=== PATIENT | female | born 1940 | race Caucasian/White ===

== ENCOUNTER 2016-10-09 05:57 | Inpatient (IN) | payer OTHER, MEDICAID ==
[~2016-10-09] VITALS: Ht 147.3 cm; Wt 57.6 kg
[2016-10-09] VITALS (28 sets, daily range): BP systolic 83–113; BP diastolic 48–85; PULSE 70–80; RESP 13–20; TEMP 97.8; Ht 147.3 cm; Wt 57.6 kg
--- NOTE | 2016-10-09 06:26 | RADRPT ---
PROCEDURE: CT brain without contrast. CLINICAL INDICATION: Altered mental status. TECHNIQUE: CT scan of the brain was performed on a multi-detector high-resolution CT scanner. Co ntiguous axial images were obtained from the skull base to the vertex without intravenous contrast. Coronal and sagittal reformatted images were also obtained. Images were reviewed on the PACS works tation. One or more of the following dose reduction techniques were used: - Automated exposure control. - Adjustment of the mA and/or kV according to patient size. - Use of iterative reconstruction technique. Exam CTD/vol = 43.16 mGy. Total exam DLP = 720.23 mGy-cm. COMPARISON: None. FINDINGS: There is an area of parenchymal hemorrhage within the right posterior frontal lobe measuring approxi mately 2.5 x 4.3 cm with surrounding edema. There is moderate intraventricular hemorrhage within bi lateral lateral ventricles. The ventricles and cortical sulci are prominent consistent with mild ag e related volume loss. There is no midline shift. The calvarium is intact. There is no evidence of fracture. Visualized paranasal sinuses and mastoi d air cells are clear. IMPRESSION: Right posterior frontal lobe parenchymal hematoma with mild adjacent edema. There is no midline ag ft. Moderate intraventricular hemorrhage. Mild age related volume loss. A call report was made to Dr. Summers at 06:22 a.m. .Bert Gonsales MD, MD Date Time Electronically viewed and signed by .Bert Gonsales MD, MD on 10/09/2016 06:25 .T/
--- NOTE | 2016-10-09 06:29 | ERA ---
ER Documentation Chief Complaint Date/Time DATE: 10/09/16 TIME: 06:29 Chief Complaint BIBA RA89 from home ALOC,s/p fall HPI History is limited due to the patient's clinical condition, supplemented by EMS and family. 76-year-old female history of diabetes mellitus type 2, hypertension, hyperlipidemia, SLE, liver cirrhosis and thyroid disease brought to the ED via rescue ambulance for evaluation of left-sided weakness. Patient was last seen normal last night and this morning at 4 AM called her friend to say she was not feeling well. At 530 her friend arrived at her house and found her on the ground not moving her left side and call 911. Slurred speech. Patient complaining of mild to moderate, crampy, generalized abdominal pain but denies nausea, vomiting, diarrhea or constipation. Mild, generalized headache but denies neck or back pain. No visual changes but numbness and weakness to the left upper and left lower extremity. Denies chest pain, palpitations, shortness of breath or cough. No recent URI symptoms. No fevers or chills ROS All systems reviewed and are negative except as per history of present illness. Medications Home Meds Reported Medications Hydroxychloroquine Sulfate* (Hydroxychloroquine Sulfate*) 200 Mg Tablet, 200 MG PO BID, TAB 10/09/16 Pantoprazole* (Protonix*) 40 Mg Tablet.dr, 40 MG PO DAILY, TAB 10/09/16 Losartan Potassium* (Losartan Potassium*) 100 Mg Tablet, 100 MG PO DAILY, TAB 10/09/16 Levothyroxine Sodium* (Levoxyl*) 125 Mcg Tablet, 125 MCG PO BEFORE BREAKFAST, # 30 TAB 10/09/16 Allergies Allergies: Coded Allergies: Penicillins (Verified Allergy, Unknown, 10/09/16) PMhx/Soc Reviewed in chart. As per HPI. Anesthesia Reaction: Yes Hx Neurological Disorder: No Hx Respiratory Disorders: No Hx Cardiac Disorders: Yes (Hypertension) Hx Psychiatric Problems: No Hx Miscellaneous Medical Probl: Yes (Lupus, hyperlipidemia, thyroid disease) Hx Alcohol Use: No Hx Substance Use: No Hx Tobacco Use: No FmHx No stroke or cancer. Physical Exam Vitals Vital Signs Date Time Temp Pulse Resp B/P Pulse Ox O2 Delivery O2 Flow Rate FiO2 10/09/16 12:26 97.8 90 18 94/64 100 Nasal Cannula 2.0 10/09/16 10:00 96 18 107/60 99 Nasal Cannula 3.0 10/09/16 07:48 98.4 10/09/16 06:59 98.4 94 18 100/71 99 Nasal Cannula 10/09/16 06:54 97 18 113/57 99 Nasal Cannula 10/09/16 06:33 Nasal Cannula 10/09/16 06:05 98.2 107 18 128/72 100 Physical Exam Const: Alert, severe distress. Head: Atraumatic Eyes: Normal Conjunctiva. Pupils equal reactive to light. Left-sided neglect. ENT: Dried blood around the mouth. Lower incisor is missing. Neck: Full range of motion. Mild, diffuse lower cervical tenderness but no paraspinal muscle spasm. Carotids are 2+ bilaterally without bruits. Resp: Breath sounds are equal and clear to auscultation bilaterally Cardio: Regular rate and rhythm, no murmurs Abd: Soft, mild, diffuse lower abdominal tenderness. No rebound or guarding. non distended. Normal bowel sounds Skin: No petechiae or rashes Back: No midline or flank tenderness Ext: No cyanosis, or edema Neur: Awake and alert. Left-sided facial droop. Dysarthric. Motor strength left upper extremity 2/5, left lower extremity 3/5. Right upper extremity/right lower extremity 5/5. Psych: Normal Mood and Affect Result Diagram: 10/09/16 0600 10/09/16 0600 Results 24 hrs Laboratory Tests Test 10/09/16 06:00 10/09/16 06:05 10/09/16 06:10 10/09/16 07:20 White Blood Count 26.210^3/ul Red Blood Count 3.0210^6/ul Hemoglobin 9.9g/dl Hematocrit 29.5% Mean Corpuscular Volume 97.7fl Mean Corpuscular Hemoglobin 32.8pg Mean Corpuscular Hemoglobin Concent 33.6g/dl Red Cell Distribution Width 15.5% Platelet Count 7610^3/UL Mean Platelet Volume 10.5fl Neutrophils % 82.0% Band Neutrophils % 16.0% Lymphocytes % 2.0% Eosinophils % % Neutrophils # 21.510^3/ul Lymphocytes # 0.510^3/ul Eosinophils # 10^3/ul Platelet Estimate PLT APPEAR DECREASED Prothrombin Time 18.8Sec Prothrombin Time Ratio 1.5 INR International Normalized Ratio 1.56 Activated Partial Thromboplast Time 37.2Sec Sodium Level 145mmol/L Potassium Level 4.1mmol/L Chloride Level 109mmol/L Carbon Dioxide Level 14mmol/L Anion Gap 26 Blood Urea Nitrogen 20mg/dl Creatinine 1.15mg/dl Glucose Level 84mg/dl Hemoglobin A1c 4.3% Calcium Level 8.5mg/dl Total Bilirubin 1.4mg/dl Direct Bilirubin 0.00mg/dl Indirect Bilirubin 1.4mg/dl Aspartate Amino Transf (AST/SGOT) 66IU/L Alanine Aminotransferase (ALT/SGPT) 37IU/L Alkaline Phosphatase 180IU/L Troponin I 0.122ng/ml Total Protein 8.3g/dl Albumin 3.5g/dl Globulin 4.80g/dl Albumin/Globulin Ratio 0.72 Lipase 40U/L Bedside Glucose 84mg/dL Lactic Acid Level 7.7mmol/L Platelet Func Collagen/Epinephrine > 300Secs. Platelet Function Collagen/ADP > 300Secs. Thyroid Stimulating Hormone (TSH) 2.440MIU/L Free Thyroxine 1.97ng/dl Test 10/09/16 07:44 10/09/16 09:00 10/09/16 09:10 10/09/16 11:12 Ethyl Alcohol Level < 10.0mg/dl Stool Occult Blood NEGATIVE Lactic Acid Level 4.3mmol/L 2.9mmol/L Iron Level 19ug/dl Total Iron Binding Capacity 263ug/dl Percent Iron Saturation 7% SAT B-Type Natriuretic Peptide 3380PG/ML Triglycerides Level 89mg/dl Cholesterol Level 109mg/dl LDL Cholesterol, Calculated 49mg/dl HDL Cholesterol 42mg/dl Cholesterol/HDL Ratio 2.5RATIO Vitamin D 1,25-Dihydroxy 52.3ng/ml Test 10/09/16 11:27 10/09/16 12:15 Urine Color WARREN Urine Clarity CLOUDY Urine pH 5.0 Urine Specific Broadbent 1.016 Urine Ketones NEGATIVEmg/dL Urine Nitrite NEGATIVEmg/dL Urine Bilirubin NEGATIVEmg/dL Urine Urobilinogen 1+mg/dL Urine Leukocyte Esterase 2+Cleopatra/ul Urine Microscopic RBC 17/HPF Urine Microscopic WBC 169/HPF Urine Squamous Epithelial Cells FEW/HPF Urine Amorphous Crystals FEW/HPF Urine Bacteria MANY/HPF Urine Hyaline Casts FEW/HPF Urine Mucus FEW/HPF Urine Hemoglobin 3+mg/dL Urine Glucose NEGATIVEmg/dL Urine Total Protein 2+mg/dl Urine Opiates Screen Negative Urine Barbiturates Negative Urine Amphetamines Screen Negative Urine Benzodiazepines Screen Negative Urine Cocaine Screen Negative Urine Cannabinoids Negative Lactic Acid Level 2.8mmol/L Ammonia 44umol/l Creatine Kinase 219IU/L Creatine Kinase Index Pending Creatinine Kinase MB (Mass) Pending Troponin I Pending Current Medications Medications (Trade) Dose Ordered Sig/Ramses Route PRN Reason Start Time Stop Time Status Last Admin Dose Admin Levetiracetam 100 ml @ 400 mls/hr ONCE ONCE IVPB 10/09/16 07:00 10/09/16 07:14 DC 10/09/16 07:08 Vancomycin HCl 250 ml @ 125 mls/hr ONCE ONCE IVPB 10/09/16 08:30 10/09/16 10:29 DC 10/09/16 08:30 Levofloxacin/ Dextrose (Levaquin 750 Mg/ D5W 150 ml (Pmx)) 150 ml @ 100 mls/hr ONCE ONCE IVPB 10/09/16 08:30 10/09/16 09:59 DC 10/09/16 08:10 Pantoprazole (Protonix Iv) 40 mg ONCE ONCE IV 10/09/16 08:30 10/09/16 08:31 DC 10/09/16 08:46 Lidocaine 5 ml 5 ml ONCE ONCE SC 10/09/16 08:30 10/09/16 08:31 DC Phytonadione/ Dextrose (Vitamin K/D5W) 51 ml @ 102 mls/hr ONCE ONCE IVPB 10/09/16 08:30 10/09/16 08:59 DC 10/09/16 09:19 Labetalol HCl (Labetalol) 10 mg Q10M PRN IV ELEVATED BLOOD PRESSURE 10/09/16 09:00 Lorazepam (Ativan) 0.5 mg Q2H PRN IV SEIZURES 10/09/16 09:00 Acetaminophen (Tylenol Tab) 650 mg Q4H PRN PO TEMP GREATER THAN 99.6F 10/09/16 09:00 Docusate Sodium 100 mg 100 mg BID PO 10/09/16 09:00 Sodium Chloride 1,000 ml @ 100 mls/hr Q10H IV 10/09/16 10:00 Metronidazole 100 ml @ 100 mls/hr Q8 IVPB 10/09/16 14:00 Cefepime HCl (Maxipime 1gm/50 ml (Pmx)) 50 ml @ 100 mls/hr Q12 IVPB 10/09/16 10:30 10/09/16 11:05 IV Flush (NS 3 ml) 3 ml PER PROTOCOL IV 10/09/16 10:30 Ondansetron HCl (Zofran Inj) 4 mg Q6H PRN IV NAUSEA AND/OR VOMITING 10/09/16 10:30 Morphine Sulfate (morphine) 2 mg Q4H PRN IV PAIN LEVEL 7-10 10/09/16 10:30 10/09/16 11:33 Pantoprazole 40 mg 40 mg DAILY@06 IV 10/10/16 06:00 Levetiracetam (Keppra 500 Mg/ 100ml (Pmx)) 100 ml @ 400 mls/hr Q12 IVPB 10/09/16 21:00 EKG: TIME: 100. Sinus rhythm. Ventricular rate 100. Normal ND and QRS. Septal Q waves in leads V1 through V3. Prolonged corrected QT interval of [address] segment elevation or depression. No ectopy. EP Interpretation : Abnormal EKG. IMAGING: PROCEDURE: CT brain without contrast. CLINICAL INDICATION: Altered mental status. TECHNIQUE: CT scan of the brain was performed on a multi-detector high- resolution CT scanner. Contiguous axial images were obtained from the skull base to the vertex without intravenous contrast. Coronal and sagittal reformatted images were also obtained. Images were reviewed on the PACS workstation. One or more of the following dose reduction techniques were used: - Automated exposure control. - Adjustment of the mA and/or kV according to patient size. - Use of iterative reconstruction technique. Exam CTD/vol = 43.16 mGy. Total exam DLP = 720.23 mGy-cm. COMPARISON: None. FINDINGS: There is an area of parenchymal hemorrhage within the right posterior frontal lobe measuring approximately 2.5 x 4.3 cm with surrounding edema. There is moderate intraventricular hemorrhage within bilateral lateral ventricles. The ventricles and cortical sulci are prominent consistent with mild age related volume loss. There is no midline shift. The calvarium is intact. There is no evidence of fracture. Visualized paranasal sinuses and mastoid air cells are clear. IMPRESSION: Right posterior frontal lobe parenchymal hematoma with mild adjacent edema. There is no midline shift. Moderate intraventricular hemorrhage. Mild age related volume loss. A call report was made to Dr. Nolan at 06:22 a.m. .Bert Gonsales MD, MD Date Time Electronically viewed and signed by .Bert Gonsales MD, MD on 10/09/2016 06:25 .T/ PROCEDURE: CT Abdomen and pelvis without contrast. CLINICAL INDICATION: Abdominal pain. TECHNIQUE: CT scan of the abdomen and pelvis was performed on a multi- detector high-resolution CT scanner. Contiguous axial images were obtained from the lung bases to the ischial tuberosities without intravenous contrast. Coronal and sagittal reformatted images were also obtained. Images were reviewed on the PACS workstation. One or more of the following dose reduction techniques were used: - Automated exposure control. - Adjustment of the mA and/or kV according to patient size. - Use of iterative reconstruction technique. Exam CTD/vol = 12.24 mGy. Total exam DLP = 690.58 mGy-cm. COMPARISON: None. FINDINGS: Evaluation of the lung bases demonstrates mild bibasilar atelectasis. Abdomen: The liver is normal in size with a diffuse nodular contour consistent with cirrhosis. There is no focal mass or dilatation of the biliary tree. The patient status post cholecystectomy. The spleen, pancreas and bilateral adrenal glands are within normal limits. Bilateral kidneys are normal in size with no contour deforming mass identified. There is no radiopaque renal or ureteral calculus identified. There is no hydronephrosis or hydroureter. There is no retroperitoneal adenopathy. The abdominal aorta is of normal caliber with scattered atherosclerotic calcifications. There is a small right periumbilical hernia containing fat. There is mild thickening of the colon. There is no bowel obstruction or free air. A normal appendix is identified. There is sigmoid diverticulosis without evidence of diverticulitis. There is no ascites. Pelvis: The bladder is unremarkable. The uterus is absent. The prostate and seminal vesicles are within normal limits. There is no significant pelvic adenopathy or free fluid. Evaluation of the osseous structures demonstrates no suspicious lytic or blastic lesion. There is a mild compression deformity of the L2 vertebral body with up to 25% loss in vertebral body height. IMPRESSION: Mild thickening of the colon represents nonspecific infectious/inflammatory colitis. Sigmoid diverticulosis without evidence of diverticulitis. Cirrhotic liver. Status post cholecystectomy. Small right umbilical hernia containing fat. Vascular calcifications reflective of atherosclerosis. Mild bibasilar atelectasis. Mild compression deformity of L2, age indeterminate. .Bert Gonsales MD, Date Time Electronically viewed and signed by .Bert Gonsales MD, MD on 10/09/2016 06:28 .T/ PROCEDURE: CT Cervical Spine without contrast. CLINICAL INDICATION: Trauma, neck pain. TECHNIQUE: A CT of the cervical spine was performed on a multidetector CT scanner utilizing high-resolution axial imaging from the skull base through the cervical thoracic junction. Sagittal and coronal reconstructions were performed. CTDI: 22 mGy. DLP: 473 mGycm. One or more of the following dose reduction techniques were used: Automated exposure control, Adjustment of the mA and/or kV according to patient size, and/or use of iterative reconstruction technique. COMPARISON: None available. FINDINGS: There is straightening of the normal lordosis of the cervical spine. Degenerative changes of the spine with moderate disk space narrowings C4-5 through C6-7. No acute cervical vertebral fracture or subluxation. The prevertebral soft tissues are unremarkable. Aortic and carotid vascular calcifications are seen. IMPRESSION: Straightening of the cervical lordosis. No acute cervical vertebral fracture or subluxation. Degenerative changes of the spine. RPTAT: AA .Saad Solitario MD, MD Date Time Electronically viewed and signed by .Saad Solitario MD, on 10/09/2016 08:57 .T/ Procedures/MDM DOCUMENTS REVIEWED: ED nurse, EMS, no prior records ED COURSE: Keppra 1 g IV piggyback. 1 platelet pheresis pack and fresh frozen plasma ordered. Vitamin K 10 mg IV given. Maintain blood pressure less than 160 mm systolic. Time: 10:00 Volume Re-assessment for Septic Shock: Temp 97.8, BP 107/60, HR 96, RR 18, Pox 99 Heart Regular rate & rhythm Lungs No crackles Skin Warm & dry Cap Refill Less than 2 seconds Peripheral pulses Radially present MEDICAL DECISION MAKIN-year-old female history of diabetes mellitus type 2 , hypertension, hyperlipidemia, SLE, liver cirrhosis and thyroid disease brought to the ED via rescue ambulance for evaluation of left-sided weakness. CT reveals a right posterior frontal lobe parenchymal hemorrhage measuring 2.5 x 4.3 cm surrounding edema and moderate intraventricular hemorrhage in the bilateral lateral ventricles. Neurosurgery immediately consulted and recommends blood pressure control with ICU admission. Keppra given. Within 15 minutes of arrival the patient's NIH score was 12. Elevated troponin consistent with NSTEMI but no acute ischemic EKG changes or chest pain. Coagulopathy, anemia and thrombocytopenia. Fresh frozen plasma, platelets and vitamin K given. SIRS criteria include tachycardia and leukocytosis. Initial lactate is 7.7 consistent with septic shock decreased to 4.3. End organ damage indicated by troponin of 0.122. The only infectious etiology identified was a urinary tract infection. Within 3 hours of arrival antibiotics are given after cultures. Fluids were withheld due to the need to maintain blood pressure control and avoid further intracranial bleeding as well as risk of congestive heart failure/volume overload as chest x-ray already reveals pulmonary vascular congestion and cardiomegaly. No hypotension. PICC line ordered for additional access although no vasopressors are indicated at this time. Admit to the ICU for further evaluation and management. CRITICAL CARE TIME: Due to the high probability of sudden clinically significant respiratory, hemodynamic and cardiovascular deterioration, this patient with intraparenchymal brain hemorrhage close monitoring and treatment of unstable vital signs, cardiorespiratory, and neurologic status, while maintaining tight balance of fluid, respiratory, and cardiac interventions. This includes the administration of emergency fluid management while maintaining close respiratory support as well as the provision of immediate and broad-spectrum antibiotic therapy, while performing a simultaneous assessment for possible sources in order to direct targeted therapy. This time includes discussing the case with the patient and the patient's family. This time also includes the consideration for invasive and chemical support to prevent cardiopulmonary collapse. This time does not include all procedures stated elsewhere in this record. This time also includes reviewing old records, labs and radiological studies. This time includes examining and re-examining the patient. Additional critical care time was spent in obtaining supplemental history from EMS and family, interpretation of relevant clinical data including labs, chest x-ray and CT scan of the brain as well as consultation with the neurosurgeon Dr. Leong and the admitting physician. Family history as documented. TOTAL CRITICAL CARE TIME: 45 minutes not including other separately reportable procedures. Counseled patient and family regarding diagnosis, diagnostic results and plan for admission. CALLS/CONSULTS: Time 06:26, Dr. Leong, Recommends maintaining systolic blood pressure less than 160 mmHg and admission to ICU admit. CALLS/CONSULTS: Time 06:45, , Recommends ICU admit. PATIENT CARE TRANSITIONED: Time: 06:50, Dr. Prater. Departure Diagnosis: Primary Impression: Intraparenchymal hemorrhage of brain Additional Impressions: Acute left-sided weakness Intraventricular hemorrhage Diabetes mellitus type 2 in obese SLE (systemic lupus erythematosus) Qualified Code: M32.9 - Systemic lupus erythematosus, unspecified SLE type, unspecified organ involvement status Hypertension Qualified Code: I10 - Essential hypertension NSTEMI (non-ST elevated myocardial infarction) Thrombocytopenia Condition: Critical LIBIA NOLAN MD Oct 09, 2016 06:29
[2016-10-09 06:36] LABS: ABNORMAL IP MESSAGE 1; HEMATOCRIT 29.5 % (37.0-47.0); HEMOGLOBIN 9.9 g/dl (12.0-16.0); MEAN CORPUSCULAR HEMOGLOBIN 32.8 pg (29.0-33.0); MEAN CORPUSCULAR HGB CONC 33.6 g/dl (32.0-37.0); MEAN CORPUSCULAR VOLUME 97.7 fl (82.0-101.0); MEAN PLATELET VOLUME 10.5 fl (7.4-10.4); PLATELET COUNT 76 10^3/UL (140-415); RED BLOOD COUNT 3.02 10^6/ul (4.20-5.40); RED CELL DISTRIBUTION WIDTH 15.5 % (11.5-14.5); WHITE BLOOD COUNT 26.2 10^3/ul (4.8-10.8)
[2016-10-09 06:55] LABS: INR 1.56; PROTIME 18.8 Sec (12.2-14.2); PT RATIO 1.5
[2016-10-09 06:56] LABS: PARTIAL THROMBOPLASTIN TIME 37.2 Sec (25.0-35.0)
[2016-10-09 06:57] LABS: ALBUMIN 3.5 g/dl (3.3-4.9); ALBUMIN/GLOBULIN RATIO 0.72; BILIRUBIN,INDIRECT 1.4 mg/dl (0-1.1); BILIRUBIN,TOTAL 1.4 mg/dl (0.2-1.3); CALCIUM 8.5 mg/dl (8.4-10.2); CREATININE 1.15 mg/dl (0.44-1.00); POTASSIUM 4.1 mmol/L (3.5-5.1); TOTAL PROTEIN 8.3 g/dl (6.1-8.1)
[2016-10-09] MEDS ORDERED: LEVETIRACETAM 1000 MG (PMX) 100 ML IVPB ONE (07:00)
[2016-10-09 07:12] LABS: TROPONIN-I 0.122 ng/ml (0.00-0.12)
--- NOTE | 2016-10-09 07:26 | RADRPT ---
PROCEDURE: Chest. CLINICAL INDICATION: Chest pain. TECHNIQUE: Single frontal view of the chest was obtained. COMPARISON: None. FINDINGS: The cardiac silhouette is enlarged. The aortic arch is calcified. There is mild pulmonary venous c ongestion. There is no focal consolidation or pleural effusion. There is no pneumothorax. IMPRESSION: Mild cardiomegaly and pulmonary venous congestion. Aortic atherosclerosis. .Bert Gonsales MD, MD Date Time Electronically viewed and signed by .Bert Gonsales MD, on 10/09/2016 07:25 .T/
[2016-10-09] MEDS ORDERED: PHYTONADIONE 10 MG in DEXTROSE 5% 50 ML IVPB ONE (08:30)
[2016-10-09] MEDS ORDERED: PANTOPRAZOLE 40 MG INJ IV ONE (08:30)
[2016-10-09] MEDS ORDERED: LEVOFLOXACIN 750MG/D5W (PMX) 150 ML IVPB ONE (08:30)
[2016-10-09] MEDS ORDERED: VANCOMYCIN 1 GM (PMX) 250 ML IVPB ONE (08:30)
[2016-10-09] MEDS ORDERED: LIDOCAINE 1% (MPF) 5 ML VIAL SC ONE (08:30)
--- NOTE | 2016-10-09 08:41 | RADRPT ---
PROCEDURE: XR Pelvis. CLINICAL INDICATION: Fall with pain. TECHNIQUE: Single AP view of the pelvis. COMPARISON: None available. FINDINGS: There is no acute fracture, dislocation, or other osteoarticular abnormality. The alignment is paula l. The soft tissues are unremarkable. There is no radiopaque foreign body. There is degenerative s pondylosis within the visualized lumbosacral spine. IMPRESSION: 1. Negative for acute fracture or dislocation. RPTAT: EE .Toby Bautista MD, Date Time Electronically viewed and signed by .Toby Bautista MD, on 10/09/2016 08:41 .P/
--- NOTE | 2016-10-09 08:58 | RADRPT ---
PROCEDURE: CT Cervical Spine without contrast. CLINICAL INDICATION: Trauma, neck pain. TECHNIQUE: A CT of the cervical spine was performed on a multidetector CT scanner utilizing high-r esolution axial imaging from the skull base through the cervical thoracic junction. Sagittal and co jackie reconstructions were performed. CTDI: 22 mGy. DLP: 473 mGycm. One or more of the following dose reduction techniques were used: Automated exposure control, Adjustment of the mA and/or kV acc ording to patient size, and/or use of iterative reconstruction technique. COMPARISON: None available. FINDINGS: There is straightening of the normal lordosis of the cervical spine. Degenerative changes of the spi ne with moderate disk space narrowings C4-5 through C6-7. No acute cervical vertebral fracture or lares bluxation. The prevertebral soft tissues are unremarkable. Aortic and carotid vascular calcification s are seen. IMPRESSION: Straightening of the cervical lordosis. No acute cervical vertebral fracture or subluxation. Degenerative changes of the spine. RPTAT: AA .Saad Solitario MD, MD Date Time Electronically viewed and signed by .Saad Solitario MD, MD on 10/09/2016 08:57 .T/
[2016-10-09] MEDS ORDERED: LORAZEPAM 2 MG INJ IV PRN (09:00)
[2016-10-09] MEDS: DOCUSATE SODIUM 100 MG CAP PO SCH ×2 (09:00→20:30)
--- NOTE | 2016-10-09 10:28 | HP ---
Date/Time of Note Date/Time of Note DATE: 10/09/16 TIME: 10:18 Assessment/Plan VTE Prophylaxis VTE Prophylaxis Intervention: SCD's Assessment/Plan Chief Complaint/Hosp Course 1. Right posterior frontal lobe parenchymal hematoma and moderate intraventricular hemorrhage. Etiology could be secondary to underlying fall with predisposing thrombocytopenia secondary to underlying liver cirrhosis. There is no evidence of any midline shift. The patient was started on seizure prophylaxis. Neurosurgery consult has been obtained. The patient will be kept n.p.o. Patient will be monitored in intensive care unit. Blood pressure will be controlled to prevent further expansion of the intracranial bleed. Patient already received some platelet transfusion in the emergency room. Platelet function assay will be obtained. 2. Non-ST elevation myocardial infarction. Most probably a type II event from underlying demand ischemia versus from underlying sepsis and worsening renal function. Serial troponins will be obtained. Cardiology consult will be obtained. Unable to anticoagulate the patient because of underlying intracranial hemorrhage. 3. Sepsis. The source of infection could be most probably from underlying urinary tract infection. No evidence of septic shock. Patient will be pancultured. She will be maintained on empiric antibiotics including coverage for anaerobes. The patient will be adequately hydrated using IV fluids. 4. Essential hypertension. The patient's blood pressure will be tightly controlled. 5. Normocytic, normochromic anemia. Most probably anemia of chronic disease and also from underlying liver cirrhosis. Will monitor the H&H closely. Will transfuse blood products as needed. 6. Thrombocytopenia. Most probably secondary to underlying liver cirrhosis. Monitor for any further bleeding. Transfuse platelets as necessary. 7. Transaminitis with hyperbilirubinemia. Most probably secondary to underlying liver cirrhosis. Monitor. Trend LFTs. Avoid hepatotoxic medications. 8. Systemic lupus erythematosus. Will monitor. 9. Hypothyroidism. Will resume Synthroid once the patient is able take oral intake. 10. Coagulopathy. Most probably secondary to underlying liver cirrhosis. Patient already received 1 unit of platelets today. Monitor coagulation panel closely. Monitor closely for advancement of intracranial bleeding or any other sources of bleeding. Plan: The patient will be admitted to inpatient intensive care unit. The patient will be kept n.p.o. The patient will be started on DVT prophylaxis and gastrointestinal prophylaxis. The patient will remain a full code. Activities will be bedrest. The rest of the patient's management will be based on the clinical course, inputs from consultants, and the results of diagnostic studies. Based on the patient's clinical presentation, she most probably requires more than 2 midnights' stay for further management and evaluation of her clinical presentation. The case and management of this patient was fully discussed with . Problems: HPI/ROS Admit Date/Time Admit Date/Time Hx of Present Illness Reason for admission: Brought in by paramedics because the patient was found on the floor at home. Consultants 1. Bryon Leong MD, Neurosurgery 2. Kleber Cleveland MD, Cardiology. This is a 75-year-old female with past medical history of essential hypertension, systemic lupus erythematosus, hypothyroidism, and liver cirrhosis not because of alcohol abuse who was brought to the emergency room by paramedics after the patient was found on the floor at home. As per the patient 's daughter who was at the bedside, the patient has been feeling sick with diarrhea for the past 1 week. The patient also started having abdominal pain since last night. The patient's family was unable to reach the patient since the patient was sick. The patient managed to call one of her religion friends at 4 AM in the morning. The patient's friend arrived at the patient's house at 5: 30 AM and she could not have the patient open the door. Hence the patient's friend called the paramedics. Paramedics broke into the patient's house and the patient was found on the ground with left-sided weakness. The patient also had slurred speech. The patient was complaining of moderate crampy generalized abdominal pain. The patient reported one episode of nonbilious nonbloody vomiting. The patient verbalized that she has been having watery diarrhea for the past 1 week. The patient denied any chest pain, palpitations, or dyspnea. In the emergency room, the patient was noticed to have significant leukocytosis with a WBC of 26.2. Patient had a platelet count of 76. Patient was also noticed to have anemia with a hemoglobin and hematocrit of 9.9 and 29.5 respectively. The patient had underlying lactic acidosis with a lactic acid level of 7.7. The patient also had some underlying acute kidney injury with a BUN of 20 and creatinine of 1.15. The patient had an initial troponin of 0.122. The patient had minimal hyperbilirubinemia with some transaminitis. The patient underwent a brain CT scan that showed right posterior frontal lobe parenchymal hematoma with mild adjacent edema with no midline shift. The CT also revealed moderate intra-ventricular hemorrhage. The patient underwent a CT scan of the abdomen and pelvis that showed mild thickening of the colon which may represent nonspecific infectious/inflammatory colitis with sigmoid diverticulosis without evidence of diverticulitis along with a cirrhotic liver. The patient was treated with a single dose of IV vancomycin and levofloxacin along with single dose of IV Keppra. The patient is allergic to penicillin. Neurosurgery consult was called by the ER physician. ROS Constitutional: chills Eyes: no complaints ENT: no complaints Respiratory: no complaints Cardiovascular: no complaints Gastrointestinal: diarrhea, nausea, pain, vomiting Genitourinary: no complaints Musculoskeletal: no complaints Skin: no complaints Neurologic: focal-weakness Endocrine: no complaints Lymphatic: no complaints Psychological: no complaints Immunologic: no complaints PMH/Family/Social Past Medical History Medical History: hypertension, hypothyroid, other (Cirrhosis, SLE) Past Surgical History Past Surgical Hx: cholecystectomy Social History Alcohol Use: none Smoking Status: Former smoker Drug Use: none Exam/Review of Systems Vital Signs Vitals Vital Signs Date Time Temp Pulse Resp B/P Pulse Ox O2 Delivery O2 Flow Rate FiO2 10/09/16 07:48 98.4 10/09/16 06:59 94 18 100/71 99 Nasal Cannula Exam Exam General: Adequately build 76 year-old female lying in bed in no apparent distress. HEENT: Normocephalic, atraumatic. Eyes: Anicteric sclerae, conjunctivae clear. ENT: Nasal septum midline, oral mucosa moist. Neck supple, no JVD noticed. Respiratory: Bilaterally clear breath sounds. No use of accessory muscles of respiration. No adventitious breath sounds. Cardiovascular: S1, S2 heard. No murmurs or gallops. Abdomen: Soft and nondistended. Bowel sounds positive in all 4 quadrants. Diffuse tenderness in the abdomen Genitourinary: Deferred. Extremities: No cyanosis, no clubbing, no edema. Peripheral pulses palpable. Neurologic: The patient is awake, alert, and oriented. Slurred speech. Left- sided facial droop. Left upper extremity no movement against gravity. No sensation of the left upper extremity. Right lower extremity no movement against gravity. Skin: Normal skin turgor. No skin rashes. Labs Result Diagram: 10/09/16 0600 10/09/16 0600 Medications Medications Current Medications Vancomycin HCl (Vancocin) 250 ml @ 125 mls/hr ONCE ONCE IVPB ; Start 10/09/16 at 08:30; Stop 10/09/16 at 10:29 Labetalol HCl (Labetalol) 10 mg Q10M PRN IV ELEVATED BLOOD PRESSURE; Start 10/09 at 09:00 Lorazepam (Ativan) 0.5 mg Q2H PRN IV SEIZURES; Start 10/09/16 at 09:00 Acetaminophen (Tylenol Tab) 650 mg Q4H PRN PO TEMP GREATER THAN 99.6F; Start at 09:00 Docusate Sodium 100 mg 100 mg BID PO ; Start 10/09/16 at 09:00 Sodium Chloride 1,000 ml @ 100 mls/hr Q10H IV ; Start 10/09/16 at 10:00 Metronidazole 100 ml @ 100 mls/hr Q8 IVPB ; Start 10/09/16 at 14:00 Cefepime HCl (Maxipime 1gm/50 ml (Pmx)) 50 ml @ 100 mls/hr Q12 IVPB ; Start 10/09/16 at 10:30 Ondansetron HCl (Zofran Inj) 4 mg Q6H PRN IV NAUSEA AND/OR VOMITING; Start 10/09 at 10:30 Morphine Sulfate (morphine) 2 mg Q4H PRN IV PAIN LEVEL 7-10; Start 10/09/16 at 10:30 Pantoprazole 40 mg 40 mg DAILY@06 IV ; Start 10/10/16 at 06:00 Levetiracetam (Keppra 500 Mg/ 100ml (Pmx)) 100 ml @ 400 mls/hr Q12 IVPB ; Start 10/09/16 at 21:00; Status UNV Procedures Procedures Brain CT Scan IMPRESSION: Right posterior frontal lobe parenchymal hematoma with mild adjacent edema. There is no midline shift. Moderate intraventricular hemorrhage. Mild age related volume loss. CXR IMPRESSION: Mild cardiomegaly and pulmonary venous congestion. Aortic atherosclerosis. Pelvic X-Ray IMPRESSION: 1. Negative for acute fracture or dislocation. Cervical Spine CT IMPRESSION: Straightening of the cervical lordosis. No acute cervical vertebral fracture or subluxation. Degenerative changes of the spine. CT Abdomen and Pelvis IMPRESSION: Mild thickening of the colon represents nonspecific infectious/inflammatory colitis. Sigmoid diverticulosis without evidence of diverticulitis. Cirrhotic liver. Status post cholecystectomy. Small right umbilical hernia containing fat. Vascular calcifications reflective of atherosclerosis. Mild bibasilar atelectasis. JUANPABLO APARICIO NP Oct 09, 2016 10:28 JUANPABLO APARICIO NP Oct 09, 2016 10:28
[2016-10-09] MEDS ORDERED: NACL 0.9% 3 ML SYG IV SCH (10:30)
[2016-10-09 10:50] LABS: LYMPHOCYTES # 0.5 10^3/ul (0.8-2.9); NEUTROPHIL # 21.5 10^3/ul (1.6-7.5)
[2016-10-09 10:52] LABS: PLATELET ESTIMATE PLT APPEAR DECREASED
[2016-10-09 11:03] LABS: IRON 19 ug/dl (35-150)
--- NOTE | 2016-10-09 11:03 | RADRPT ---
PROCEDURE: MR Brain without and with contrast. CLINICAL INDICATION: Hemorrhage, stroke TECHNIQUE: A high resolution MRI of the brain was performed utilizing the following sequences: Sag ittal and axial T1 weighted, axial T2 weighted, axial FLAIR, coronal GRE, and axial diffusion weight ed with ADC mapping. Images were reviewed high-resolution PACS workstation. Additional axial and co jackie post contrast images were obtained. 10 cc of Magnevist was administered intravenously without reported complication. COMPARISON: Head CT earlier today FINDINGS: Right parietal parenchymal hemorrhage with intraventricular hemorrhage again visualized. No definit e new bleeding when correlated to the CT earlier today. A hematocrit level is seen at the parenchym al hematoma. There is surrounding vasogenic edema without midline shift. No underlying enhancing par enchymal mass identified. There is a narrowed appearance of the bilateral supraclinoid ICA. Curvili near GRE susceptibility is seen at the right posterior frontal - parietal cortex extending towards t he superior sagittal sinus where there is a focal filling defect within the superior sagittal sinus (series 1001 - 117; series 8 image 12-13). The ventricles are stable size. Mild paranasal sinus muco ravin thickening. IMPRESSION: Right parietal parenchymal hemorrhage with intraventricular hemorrhage again visualized. No definit e new bleeding when correlated to the CT earlier today. A hematocrit level is seen at the parenchym al hematoma suggesting underlying coagulopathy. No evidence of midline shift or basal cistern narrow ing. Curvilinear GRE susceptibility is seen at the right posterior frontal - parietal cortex extending to wards the superior sagittal sinus. There is an associated focal filling defect within the superior s agittal sinus. The findings are suspicious for a right frontal-parietal cortical vein thrombus exte nding into the superior sagittal sinus. Recommend CT/MR angiogram head and neck and CT/MR venogram f or further evaluation. Mild chronic microvascular disease and mild volume loss. No enhancing brain parenchymal mass. Narrowed appearance of the bilateral supraclinoid internal carotid arteries. This can also be reeva luated on subsequent angiography exams. RPTAT: AA .Saad Solitario MD, Date Time Electronically viewed and signed by .Saad Solitario MD, on 10/09/2016 11:02 .T/
[2016-10-09 11:05] LABS: CHOL/HDL RATIO 2.5 RATIO
[2016-10-09] MEDS: CEFEPIME 1GM/50 ML (PMX) 50 ML IVPB SCH ×2 (11:05→20:30)
[2016-10-09 11:13] LABS: TOTAL IRON BINDING CAPACITY 263 ug/dl (241-421)
[2016-10-09] MEDS ORDERED: LEVO125T71 PO (11:18)
[2016-10-09] MEDS ORDERED: PANT40TA3 PO (11:18)
[2016-10-09] MEDS ORDERED: LOSA100T7 PO (11:18)
[2016-10-09] MEDS ORDERED: HYDR200T39 PO (11:19)
[2016-10-09] MEDS: morphine 2 MG INJ IV PRN ×2 (11:33→17:26)
[2016-10-09 12:02] LABS: COLLAGEN/ADP > 300 Secs. (40-147)
[2016-10-09 12:25] LABS: ADD UMIC YES; UR ASCORBIC ACID NEGATIVE (NEGATIVE); UR BACTERIA MANY /HPF (NONE SEEN); UR BILIRUBIN (Dip) NEGATIVE (NEGATIVE); UR BLOOD (Dip) 3+ mg/dL (NEGATIVE); UR CLARITY CLOUDY (CLEAR); UR COLOR AMBER (YELLOW); UR GLUCOSE (Dip) NEGATIVE (NEGATIVE); UR KETONES (Dip) NEGATIVE (NEGATIVE); UR LEUKOCYTE ESTERASE (Dip) 2+ Leu/ul (NEGATIVE); UR MUCUS FEW /HPF (NONE SEEN); UR NITRITE (Dip) NEGATIVE (NEGATIVE); UR RBC 17 /HPF (0-5); UR SPECIFIC GRAVITY (Dip) 1.016 (1.003-1.030); UR SQUAMOUS EPITHELIAL CELL FEW /HPF (FEW); UR TOTAL PROTEIN (Dip) 2+ mg/dl (NEGATIVE); UR UROBILINOGEN (Dip) 1+ mg/dL (NEGATIVE); UR WBC CLUMPS FEW /HPF (NONE SEEN)
[2016-10-09 12:34] LABS: UR AMORPHOUS CRYSTAL FEW /HPF (NONE SEEN)
[2016-10-09 12:40] LABS: BARBITURATES Negative (NEGATIVE); BENZODIAZEPINES Negative (NEGATIVE); CANNABINOIDS Negative (NEGATIVE); COCAINE Negative (NEGATIVE); OPIATES Negative (NEGATIVE)
[2016-10-09 13:23] LABS: CK-MB 2.24 ng/ml (0.0-2.4); TROPONIN-I 0.104 ng/ml (0.00-0.12)
--- NOTE | 2016-10-09 14:49 | RADRPT ---
PROCEDURE: XR Chest. CLINICAL INDICATION: PICC line placement TECHNIQUE: An AP view of the chest was obtained. COMPARISON: Chest x-ray dated 10/09/2016 at 06:56 a.m. FINDINGS: There has been interval placement of a left upper extremity PICC line. The tip is within the upper right atrium. The guide wire is still in place. There is prominence of the interstitial and central pulmonary vascular markings with small bilatera l pleural effusions. No focal airspace opacification or pneumothorax is seen. The cardiomediastin al silhouette is mildly enlarged . The osseous structures demonstrate senescent changes. IMPRESSION: 1. Interval insertion of left upper extremity PICC line. The tip is within the upper right atrium. Retraction by 2-3 cm is recommended. The guide wire is still in place. 2. Findings suggestive of pulmonary vascular congestion. No significant interval change. 2. Mild cardiomegaly. RPTAT: HH .Silva Lewis MD, MD Date Time Electronically viewed and signed by .Silva Lewis MD, on 10/09/2016 14:49 .G/
--- NOTE | 2016-10-09 14:54 | RADRPT ---
PROCEDURE: US guidance for PICC line CLINICAL INDICATION: PICC line placement TECHNIQUE: Multiple real-time images were acquired of the patient's arm utilizing a high resolutio n transducer. This was performed by the PICC line nurse for venous access. COMPARISON: None FINDINGS: Ultrasound guidance for PICC line placement. There is a patent and compressible left upper extremity vein. IMPRESSION: Ultrasound guidance for PICC line placement. Patent and compressible left upper extremity vein. RPTAT: AA Physician Chele Date Time Electronically viewed and signed by Gabriel Lyle Physician on 10/09/2016 14:54 /
--- NOTE | 2016-10-09 15:06 | RADRPT ---
PROCEDURE: XR Chest. CLINICAL INDICATION: Respiratory distress. PICC line readjustment. TECHNIQUE: AP view of the chest was performed. COMPARISON: October 09, 2016 FINDINGS: A left PICC line with the tip at the RA/SVC junction. This line is in good positioning and ready fo r use. There is stable mild cardiomegaly and vascular congestion. IMPRESSION: Left PICC line in good positioning and ready for use. Stable mild cardiomegaly and vascular congest ion. RPTAT: QQ. .Ana Chapman MD, MD Date Time Electronically viewed and signed by .Ana Chapman MD, MD on 10/09/2016 15:06 .F/
[2016-10-09] MEDS: metroNIDAZOLE 500 MG/NS (PMX) 100 ML IVPB SCH ×2 (16:07→22:07)
[2016-10-09] MEDS: SOD CHLORIDE 0.9% 1,000 ML IV SCH ×2 (16:07→20:00)
[2016-10-09 19:11] LABS: CK-MB 2.52 ng/ml (0.0-2.4); TROPONIN-I 0.114 ng/ml (0.00-0.12)
[2016-10-09] MEDS: LEVETIRACETAM 500 MG (PMX) 100 ML IVPB SCH (21:29)
[2016-10-09] MEDS ORDERED: IODIXANOL LOCM 100 ML BTL ONE (23:17)
[2016-10-09] MEDS ORDERED: SOD CHLORIDE 0.9% 100 ML ONE (23:17)
[2016-10-10] VITALS (86 sets, daily range): BP systolic 83–153; BP diastolic 52–97; PULSE 65–92; RESP 10–31
--- NOTE | 2016-10-10 | RADRPT ---
PROCEDURE: CTA head. CLINICAL INDICATION: Right frontal parietal cortical venous thrombosis suspected on prior MRI. TECHNIQUE: Direct spiral 0.63 mm axial sections were obtained through the intracranial vasculature with the use of 100 cc of Visipaque 320 nonionic intravenous contrast material. Axial MIP, coronal , and sagittal as well as 3-D maximal intensity projection reformations were obtained. The images we re reviewed on a PACS workstation. CTDIvol: 100.46, 29.90 mGy. DLP: 611.02 mGy-cm. One or more of the following dose reduction techniques were used: - Automated exposure control. - Adjustment of the mA and/or kV according to patient size. - Use of iterative reconstruction technique. COMPARISON: Brain MRI and CT dated 10/09/2016. FINDINGS: A right frontoparietal parenchymal hemorrhage is not significantly changed. No abnormal enhancement is identified in the region of the hemorrhage per There is no cortical or dural venous thrombosis. Multiple arachnoid granulations are noted within the superior sagittal and bilateral transverse sinu ses. The bilateral ICAs, ACAs, MCAs, and terminal computer operator are widely patent. The vertebrobasilar system is patent. The visualized cerebellar arteries are unremarkable. No intracranial aneurysm or vascular malformat ion is seen. IMPRESSION: 1. No significant change in a right frontoparietal parenchymal hemorrhage. 2. No cortical or dural venous thrombosis. 3. No stenosis or occlusion along the major intracranial arteries. 4. No aneurysm or vascular malformation. RPTAT: HTAR .Fortino Rodriguez MD, MD Date Time Electronically viewed and signed by .Fortino Rodriguez MD, on 10/10/2016 00:00 .R/
[2016-10-10] MEDS: D5-NS + KCL 20 MEQ 1,000 ML IV SCH ×3 (02:26→13:06)
[2016-10-10] MEDS: ONDANSETRON 4 MG INJ IV PRN (04:31)
[2016-10-10 04:41] LABS: ABNORMAL IP MESSAGE 1; BASOPHILS % 0.1 % (0.0-2.0); EOSINOPHILS % 0.1 % (0.0-7.0); HEMATOCRIT 22.4 % (37.0-47.0); HEMOGLOBIN 7.5 g/dl (12.0-16.0); LYMPHOCYTES # 0.9 10^3/ul (0.8-2.9); LYMPHOCYTES % 8.2 % (15.0-51.0); MEAN CORPUSCULAR HEMOGLOBIN 33.5 pg (29.0-33.0); MEAN CORPUSCULAR HGB CONC 33.5 g/dl (32.0-37.0); MEAN PLATELET VOLUME 10.1 fl (7.4-10.4); MONOCYTE # 0.5 10^3/ul (0.3-0.9); NEUTROPHIL # 9.1 10^3/ul (1.6-7.5); PLATELET COUNT 50 10^3/UL (140-415); RED BLOOD COUNT 2.24 10^6/ul (4.20-5.40); RED CELL DISTRIBUTION WIDTH 15.6 % (11.5-14.5); WHITE BLOOD COUNT 10.6 10^3/ul (4.8-10.8)
[2016-10-10 04:47] LABS: ADD SCAN DIFF NO
[2016-10-10 05:02] LABS: INR 2.05; PROTIME 23.3 Sec (12.2-14.2); PT RATIO 1.8
[2016-10-10 05:03] LABS: PARTIAL THROMBOPLASTIN TIME 41.7 Sec (25.0-35.0)
[2016-10-10 05:12] LABS: ALBUMIN 2.6 g/dl (3.3-4.9); ALBUMIN/GLOBULIN RATIO 0.68; BILIRUBIN,INDIRECT 0.6 mg/dl (0-1.1); BILIRUBIN,TOTAL 0.6 mg/dl (0.2-1.3); CALCIUM 7.3 mg/dl (8.4-10.2); CREATININE 1.12 mg/dl (0.44-1.00); TOTAL PROTEIN 6.4 g/dl (6.1-8.1)
[2016-10-10 05:13] LABS: MAGNESIUM 1.8 mg/dl (1.7-2.5)
[2016-10-10] MEDS: metroNIDAZOLE 500 MG/NS (PMX) 100 ML IVPB SCH ×3 (05:46→22:06)
[2016-10-10] MEDS ORDERED: PANTOPRAZOLE 40 MG INJ IV SCH (06:00)
--- NOTE | 2016-10-10 08:48 | RADRPT ---
PROCEDURE: CT Brain without. CLINICAL INDICATION: Intracranial hemorrhage. TECHNIQUE: A CT of the brain was performed on multidetector high-resolution CT scanner utilizing a xial sections from the skull base through the vertex without contrast. The scan was reviewed in sof t tissue brain and high frequency resolution bone algorithm windows. Images were reviewed on a high -resolution PACS workstation. One or more the following does reduction techniques were utilized: Aut omated exposure control, adjustment of the mA/ or kV according to patient's size, or use of iterativ e reconstruction technique. The exam CTDI = 43.38 mGy and the DLP = 720.23 mGy-cm. COMPARISON: Brain CT and MRI 10/09/2016. FINDINGS: A parenchymal hemorrhage within the right posterior frontal lobe measuring up to 4.3 cm in diameter with associated fluid-fluid level and layering blood products with surrounding edema. There is a sli ght interval decrease in intraventricular hemorrhage. Interval appearance of right axial hemorrhage mainly overlying right frontal lobe measuring up to 7 mm likely represent subdural hematoma. Scatter ed bilateral foci of subarachnoid hemorrhages are noted with interval increase. There is 2 mm [address] midline shift. The ventricles and sulci are mildly prominent consistent with volume loss. There are mild scattered foci of hypoattenuation in the white matter, which are nonspecific in etiol ogy but likely reflect chronic small vessel ischemic changes. There are mild intracranial vascular calcifications consistent with atherosclerosis. The visualized paranasal sinuses are essentially delbert ar. IMPRESSION: 1. Interval appearance of right subdural hemorrhage mainly overlying right frontal lobe measuring u p to 7 mm. Scattered bilateral foci of subarachnoid hemorrhages with interval increase. There is 2 m m leftward midline shift. 2. Persistent similar parenchymal hemorrhage within the right posterior frontal lobe with associate d fluid-fluid level and layering blood products with surrounding edema. 3. Slight interval decrease in intraventricular hemorrhage. A call report was made and above findings were discussed and acknowledged by the patient's nurse SIRISHA Josue on 10/10/2016 8:[address] GARZA. RPTAT: PP .Evelio Pozo MD, MD Date Time Electronically viewed and signed by .Evelio Pozo MD, on 10/10/2016 08:48 .N/
[2016-10-10] MEDS ORDERED: SOD CHLORIDE 0.9% 250 ML IV* ONE (08:53)
[2016-10-10] MEDS ORDERED: VANCOMYCIN IV PER PHARMACY XX SCH (09:00)
[2016-10-10] MEDS: DOCUSATE SODIUM 100 MG CAP PO SCH ×2 (09:00→21:00)
--- NOTE | 2016-10-10 09:11 | PN ---
Date/Time of Note Date/Time of Note DATE: 10/10/16 TIME: 09:02 Assessment/Plan VTE Prophylaxis VTE Prophylaxis Intervention: SCD's Lines/Catheters IV Catheter Type (from Nrs): PICC Line Central line still needed: Yes Urinary Cath still in place: Yes Reason Cath still needed: other (indicate) Assessment/Plan Chief Complaint/Hosp Course 1. Right posterior frontal lobe parenchymal hematoma and moderate intraventricular hemorrhage. Repeat brain CT scan on 10-10-2016 showed interval appearance of right subdural hemorrhage mainly overlying right frontal lobe measuring up to 7 mm along with scattered bilateral foci of subarachnoid hemorrhages with interval increase and a 2 mm leftward midline shift. Avoid activities that increase intracranial pressure. Neurosurgery on the case. Continue tight blood pressure control. 2. Non-ST elevation myocardial infarction. Most probably a type II event from underlying ischemia versus from underlying sepsis and worsening renal function. Troponins normalized. Cardiology following. 3. Sepsis secondary to underlying urinary tract infection. Continue antibiotics. Infectious diseases to evaluate the patient. The patient will be adequately hydrated using IV fluids. 4. Essential hypertension. The patient's blood pressure will be tightly controlled. 5. Normocytic, normochromic anemia. Most probably anemia of chronic disease and also from underlying liver cirrhosis. Will monitor the H&H closely. Will transfuse blood products as needed. 6. Thrombocytopenia. Most probably secondary to underlying liver cirrhosis. Monitor for any further bleeding. Transfuse platelets as necessary. 7. Transaminitis with hyperbilirubinemia. Resolved. Most probably secondary to underlying liver cirrhosis. Monitor. Trend LFTs. Avoid hepatotoxic medications. 8. Systemic lupus erythematosus. Will monitor. 9. Hypothyroidism. Will resume Synthroid once the patient is able take oral intake. 10. Acute kidney injury. Etiology could be secondary to hemodynamics versus contrast induced. Obtain nephrology consult. 11. Coagulopathy. Transfuse FFPs. Obtain hematology consult. 12. Fluids, electrolytes, and nutrition. N.p.o. until swallow evaluation. Continue IV fluids. 13. DVT prophylaxis. Bilateral sequential compression devices. 14. Gastrointestinal prophylaxis. Proton pump inhibitors. 15. Plan. Continue intensive care monitoring. Transfuse1 unit of platelet. FFP transfusion as per neurosurgery. Continue anticonvulsants. Start vancomycin because of positive blood cultures. Inform neurosurgery regarding new areas of intracranial hemorrhage. Poor prognosis. Case discussed with Dr. Lara. Case discussed with neurosurgery. Neurosurgery is suggesting that the increase in brain bleed is not causing the drop in H&H. Hence hematology and gastroenterology will be consulted. Critical care time: 45 minutes. Problems: Subjective 24 Hr Interval Summary Free Text/Dictation The patient denies any headache. Denies any abdominal pain. Exam/Review of Systems Vital Signs Vitals Vital Signs Date Time Temp Pulse Resp B/P Pulse Ox O2 Delivery O2 Flow Rate FiO2 10/10/16 06:15 67 14 99/60 100 10/10/16 06:00 Room Air 10/10/16 02:45 98.9 10/10/16 01:52 21 10/09/16 22:00 2.0 Intake and Output 10/09/16 10/09/16 10/10/16 15:00 23:00 07:00 Intake Total 800 ml 750 ml Output Total 330 ml 270 ml Balance 470 ml 480 ml Exam General: Adequately build 76 year-old female lying in bed in no apparent distress. HEENT: Normocephalic, atraumatic. Eyes: Anicteric sclerae, conjunctivae clear. ENT: Nasal septum midline, oral mucosa moist. Neck supple, no JVD noticed. Respiratory: Bilaterally clear breath sounds. No use of accessory muscles of respiration. No adventitious breath sounds. Cardiovascular: S1, S2 heard. No murmurs or gallops. Abdomen: Soft and nondistended. Bowel sounds positive in all 4 quadrants. Diffuse tenderness in the abdomen Genitourinary: Deferred. Extremities: No cyanosis, no clubbing, no edema. Peripheral pulses palpable. Neurologic: The patient is awake, alert, and oriented. Slurred speech. Left- sided facial droop. Left upper extremity no movement against gravity. Right lower extremity no movement against gravity. No sensation in the left lower extremity. Skin: Normal skin turgor. No skin rashes. Results Result Diagram: 10/10/16 0430 10/10/16 0430 Results 24 hrs Laboratory Tests Test 10/09/16 09:10 10/09/16 11:12 10/09/16 11:27 10/09/16 12:15 Lactic Acid Level 4.3 *H 2.9 H 2.8 H Iron Level 19 L Total Iron Binding Capacity 263 Percent Iron Saturation 7 L B-Type Natriuretic Peptide 3380 H Triglycerides Level 89 Cholesterol Level 109 LDL Cholesterol, Calculated 49 HDL Cholesterol 42 Cholesterol/HDL Ratio 2.5 Vitamin D 1,25-Dihydroxy 52.3 Urine Color WARREN Urine Clarity CLOUDY A Urine pH 5.0 Urine Specific [place] 1.016 Urine Ketones NEGATIVE Urine Nitrite NEGATIVE Urine Bilirubin NEGATIVE Urine Urobilinogen 1+ H Urine Leukocyte Esterase 2+ H Urine Microscopic RBC 17 H Urine Microscopic WBC 169 H Urine Squamous Epithelial Cells FEW Urine Amorphous Crystals FEW A Urine Bacteria MANY A Urine Hyaline Casts FEW A Urine Mucus FEW A Urine Hemoglobin 3+ H Urine Glucose NEGATIVE Urine Total Protein 2+ H Urine Opiates Screen Negative Urine Barbiturates Negative Urine Amphetamines Screen Negative Urine Benzodiazepines Screen Negative Urine Cocaine Screen Negative Urine Cannabinoids Negative Ferritin 108.0 Ammonia 44 H Creatine Kinase 219 H Creatine Kinase Index 1.0 Creatinine Kinase MB (Mass) 2.24 Troponin I 0.104 Test 10/09/16 18:34 10/10/16 04:30 Creatine Kinase 213 H Creatine Kinase Index 1.2 Creatinine Kinase MB (Mass) 2.52 H Troponin I 0.114 0.119 White Blood Count 10.6 # Red Blood Count 2.24 #L Hemoglobin 7.5 #L Hematocrit 22.4 #L Mean Corpuscular Volume 100.0 Mean Corpuscular Hemoglobin 33.5 H Mean Corpuscular Hemoglobin Concent 33.5 Red Cell Distribution Width 15.6 H Platelet Count 50 #L Mean Platelet Volume 10.1 Neutrophils % 86.0 H Lymphocytes % 8.2 L Monocytes % 5.0 Eosinophils % 0.1 Basophils % 0.1 Nucleated Red Blood Cells % 0.0 Neutrophils # 9.1 H Lymphocytes # 0.9 Monocytes # 0.5 Eosinophils # 0.0 Basophils # 0.0 Nucleated Red Blood Cells # 0.0 Prothrombin Time 23.3 #H Prothrombin Time Ratio 1.8 INR International Normalized Ratio 2.05 Activated Partial Thromboplast Time 41.7 H Sodium Level 141 Potassium Level 4.0 Chloride Level 115 H Carbon Dioxide Level 19 L Anion Gap 11 # Blood Urea Nitrogen 37 #H Creatinine 1.12 H Glucose Level 83 Lactic Acid Level 1.1 Calcium Level 7.3 L Phosphorus Level 4.0 Magnesium Level 1.8 Total Bilirubin 0.6 Direct Bilirubin 0.00 Indirect Bilirubin 0.6 Aspartate Amino Transf (AST/SGOT) 40 Alanine Aminotransferase (ALT/SGPT) 44 Alkaline Phosphatase 97 Total Protein 6.4 # Albumin 2.6 L Globulin 3.80 H Albumin/Globulin Ratio 0.68 Medications Medications Current Medications Labetalol HCl (Labetalol) 10 mg Q10M PRN IV ELEVATED BLOOD PRESSURE; Start 10/09 at 09:00 Lorazepam (Ativan) 0.5 mg Q2H PRN IV SEIZURES; Start 10/09/16 at 09:00 Acetaminophen (Tylenol Tab) 650 mg Q4H PRN PO TEMP GREATER THAN 99.6F; Start at 09:00 Docusate Sodium 100 mg 100 mg BID PO ; Start 10/09/16 at 09:00 Sodium Chloride 1,000 ml @ 100 mls/hr Q10H IV Last administered on 10/09/16 16 :07; Admin Dose 100 MLS/HR; Start 10/09/16 at 10:00; Status Future Hold Metronidazole 100 ml @ 100 mls/hr Q8 IVPB Last administered on 10/10/16 05:46 ; Admin Dose 100 MLS/HR; Start 10/09/16 at 14:00 Cefepime HCl (Maxipime 1gm/50 ml (Pmx)) 50 ml @ 100 mls/hr Q12 IVPB Last administered on 10/09/16 20:30; Admin Dose 100 MLS/HR; Start 10/09/16 at 10:30 Ondansetron HCl (Zofran Inj) 4 mg Q6H PRN IV NAUSEA AND/OR VOMITING Last administered on 10/10/16 04:31; Admin Dose 4 MG; Start 10/09/16 at 10:30 Morphine Sulfate 2 mg 2 mg Q4H PRN IV PAIN LEVEL 7-10 Last administered on 17:26; Admin Dose 2 MG; Start 10/09/16 at 10:30 Levetiracetam (Keppra 500 Mg/ 100ml (Pmx)) 100 ml @ 400 mls/hr Q12 IVPB Last administered on 10/09/16 21:29; Admin Dose 400 MLS/HR; Start 10/09/16 at 21:00 IV Flush 10 ml 10 ml PRN PRN IV FLUSH LINE; Start 10/09/16 at 15:30 Potassium Chloride/Dextrose/ Sod Cl (D5-NS + KCl 20 Meq) 1,000 ml @ 150 mls/hr Q6H40M IV Last administered on 10/10/16 02:26; Admin Dose 150 MLS/HR; Start 10/10/16 at 00:30 Furosemide (Lasix) 10 mg ONCE IV ; Start 10/10/16 at 09:00; Stop 10/11/16 at 08:59 Pantoprazole (Protonix Iv) 40 mg BID@06,18 IV ; Start 10/10/16 at 18:00 JUANPABLO APARICIO NP Oct 10, 2016 09:11
[2016-10-10] MEDS: LEVETIRACETAM 500 MG (PMX) 100 ML IVPB SCH ×2 (09:53→20:52)
--- NOTE | 2016-10-10 11:14 | CONS ---
Date/Time of Note Date/Time of Note DATE: 10/10/16 TIME: 11:04 Assessment/Plan Assessment/Plan Chief Complaint/Hosp Course NEUROLOGIC EXAMINATION: She is awake, alert, and oriented x 2 with fluent slightly slurred speech. Cranial nerve examination shows intact left hemianopia to threat. Pupils round, reactive to light sluggishly from 3 to 2 mm bilaterally. Extraocular movements intact without nystagmus. Symmetrical face. Preserved facial strength, corneals and gag OK. Tongue is in midline. Palate elevates symmetrically. Motor strength examination trace of movements in 0-1/5 on the left, decreased tone, normal bulk. Sensory examination shows normal perception of touch. Deep tendon reflexes 2+ UE, knees, no ankle jerks , equivocal rsponse to plantar stimultion on the right, upgoing on the left. Coordination preserved on the right [id number] testing. No dysmetria or tremor. Gait was not assessed. IMPRESSION: Acute intracerebral, subdural and intraventricular hemorrhage. Serial CT for evaluation of stability, per NS. Continue keppra. Keep normotensive. Hem/onc on case. Problems: Consultation Date/Type/Reason Admit Date/Time Hx of Present Illness Per H&P, "This is a 75-year-old female with past medical history of essential hypertension, systemic lupus erythematosus, and a liver cirrhosis not because of alcohol abuse was brought to the emergency room by paramedics after the patient was found on the floor at home. As per the patient's daughter who was at the bedside, the patient has been feeling sick with diarrhea for the past 1 week. The patient also started having abdominal pain since last night. The patient's family was unable to raise patient since the patient was sick. The patient managed to call 1 of her choice of friends at 4 AM in the morning. The patient's friend arrived at the patient's house at 5:30 AM and she could not have the patient opened the door. Hence the patient's friend called the paramedics. Paramedics broken to the patient's house and the patient was found on the ground with the left-sided weakness. The patient also had slurred speech. The patient was complaining of moderate crampy generalized abdominal pain. The patient will place one episode of nonbilious nonbloody vomiting. The patient verbalized that she has been having watery diarrhea for the past 1 week. The patient denied any chest pain, palpitations, or dyspnea. In the emergency room, the patient was noticed to have significant leukocytosis with WBC of 526.2. Patient had a platelet count of 76. Patient was also noticed to have anemia with a hemoglobin and hematocrit of 9.9 and 29.5 respectively. The patient and her underlying lactic acidosis with a lactic acid level of 7.7. The patient also had some underlying acute kidney injury with a BUN of 20 and creatinine of 1.15. The patient had a initial troponin of 0.122. The patient had minimal hyperbilirubinemia was with some a transaminitis. The patient underwent a brain CT scan that showed right posterior frontal lobe parenchymal hematoma with mild adjacent edema with no midline shift. The CT also revealed moderate intra-ventricular hemorrhage. The patient underwent a CT scan of the abdomen and pelvis that showed mild thickening of the colon which represents nonspecific infectious/inflammatory colitis with sigmoid diverticulosis without evidence of diverticulitis along with a cirrhotic liver. The patient was treated with a single dose of IV vancomycin and levofloxacin along with single dose of IV Keppra. The patient is allergic to penicillin. Neurosurgery consult was called by the ER physician. " Pt denies head trauma. Started on keppra. No seizures. CTA no underlying lesions , no venous abnormality. CT today new right SDH, less IVH, stable ICH. Eyes: no complaints ENT: no complaints Respiratory: no complaints Cardiovascular: no complaints Gastrointestinal: diarrhea, nausea, pain, vomiting Genitourinary: no complaints Musculoskeletal: no complaints Skin: no complaints Neurologic: focal-weakness Lymphatic: no complaints Psychological: no complaints Immunologic: no complaints Past Medical History Medical History: hypertension, hypothyroid, other (Cirrhosis, SLE) Past Surgical History Past Surgical Hx: cholecystectomy Family History Significant Family History: no pertinent family hx Social History Alcohol Use: none Smoking Status: Never smoker Drug Use: none Exam/Review of Systems Vital Signs Vitals Vital Signs Date Time Temp Pulse Resp B/P Pulse Ox O2 Delivery O2 Flow Rate FiO2 10/10/16 10:30 68 15 119/77 100 Nasal Cannula 2.0 10/10/16 08:00 98.0 10/10/16 01:52 21 Intake and Output 10/09/16 10/09/16 10/10/16 15:00 23:00 07:00 Intake Total 800 ml 750 ml Output Total 330 ml 270 ml Balance 470 ml 480 ml Exam Constitutional: alert, well developed Head: atraumatic, normocephalic Neck: non-tender, supple Respiratory: clear to auscultation Cardiovascular: regular rate and rhythm Gastrointestinal: soft Results Result Diagram: 10/10/16 0430 10/10/16 0430 Results 24 hrs Laboratory Tests Test 10/09/16 11:12 10/09/16 11:27 10/09/16 12:15 10/09/16 18:34 Lactic Acid Level 2.9 H 2.8 H Urine Color WARREN Urine Clarity CLOUDY A Urine pH 5.0 Urine Specific [place] 1.016 Urine Ketones NEGATIVE Urine Nitrite NEGATIVE Urine Bilirubin NEGATIVE Urine Urobilinogen 1+ H Urine Leukocyte Esterase 2+ H Urine Microscopic RBC 17 H Urine Microscopic WBC 169 H Urine Squamous Epithelial Cells FEW Urine Amorphous Crystals FEW A Urine Bacteria MANY A Urine Hyaline Casts FEW A Urine Mucus FEW A Urine Hemoglobin 3+ H Urine Glucose NEGATIVE Urine Total Protein 2+ H Urine Opiates Screen Negative Urine Barbiturates Negative Urine Amphetamines Screen Negative Urine Benzodiazepines Screen Negative Urine Cocaine Screen Negative Urine Cannabinoids Negative Ferritin 108.0 Ammonia 44 H Creatine Kinase 219 H 213 H Creatine Kinase Index 1.0 1.2 Creatinine Kinase MB (Mass) 2.24 2.52 H Troponin I 0.104 0.114 Test 10/10/16 04:30 White Blood Count 10.6 # Red Blood Count 2.24 #L Hemoglobin 7.5 #L Hematocrit 22.4 #L Mean Corpuscular Volume 100.0 Mean Corpuscular Hemoglobin 33.5 H Mean Corpuscular Hemoglobin Concent 33.5 Red Cell Distribution Width 15.6 H Platelet Count 50 #L Mean Platelet Volume 10.1 Neutrophils % 86.0 H Lymphocytes % 8.2 L Monocytes % 5.0 Eosinophils % 0.1 Basophils % 0.1 Nucleated Red Blood Cells % 0.0 Neutrophils # 9.1 H Lymphocytes # 0.9 Monocytes # 0.5 Eosinophils # 0.0 Basophils # 0.0 Nucleated Red Blood Cells # 0.0 Prothrombin Time 23.3 #H Prothrombin Time Ratio 1.8 INR International Normalized Ratio 2.05 Activated Partial Thromboplast Time 41.7 H Sodium Level 141 Potassium Level 4.0 Chloride Level 115 H Carbon Dioxide Level 19 L Anion Gap 11 # Blood Urea Nitrogen 37 #H Creatinine 1.12 H Glucose Level 83 Lactic Acid Level 1.1 Calcium Level 7.3 L Phosphorus Level 4.0 Magnesium Level 1.8 Total Bilirubin 0.6 Direct Bilirubin 0.00 Indirect Bilirubin 0.6 Aspartate Amino Transf (AST/SGOT) 40 Alanine Aminotransferase (ALT/SGPT) 44 Alkaline Phosphatase 97 Troponin I 0.119 Total Protein 6.4 # Albumin 2.6 L Globulin 3.80 H Albumin/Globulin Ratio 0.68 Medications Medications Current Medications Labetalol HCl (Labetalol) 10 mg Q10M PRN IV ELEVATED BLOOD PRESSURE; Start 10/09 at 09:00 Lorazepam (Ativan) 0.5 mg Q2H PRN IV SEIZURES; Start 10/09/16 at 09:00 Acetaminophen (Tylenol Tab) 650 mg Q4H PRN PO TEMP GREATER THAN 99.6F; Start at 09:00 Docusate Sodium 100 mg 100 mg BID PO ; Start 10/09/16 at 09:00 Sodium Chloride 1,000 ml @ 100 mls/hr Q10H IV Last administered on 10/09/16 16 :07; Admin Dose 100 MLS/HR; Start 10/09/16 at 10:00; Status Future Hold Metronidazole 100 ml @ 100 mls/hr Q8 IVPB Last administered on 10/10/16 05:46 ; Admin Dose 100 MLS/HR; Start 10/09/16 at 14:00 Cefepime HCl (Maxipime 1gm/50 ml (Pmx)) 50 ml @ 100 mls/hr Q12 IVPB Last administered on 10/09/16 20:30; Admin Dose 100 MLS/HR; Start 10/09/16 at 10:30 Ondansetron HCl (Zofran Inj) 4 mg Q6H PRN IV NAUSEA AND/OR VOMITING Last administered on 10/10/16 04:31; Admin Dose 4 MG; Start 10/09/16 at 10:30 Morphine Sulfate 2 mg 2 mg Q4H PRN IV PAIN LEVEL 7-10 Last administered on 17:26; Admin Dose 2 MG; Start 10/09/16 at 10:30 Levetiracetam (Keppra 500 Mg/ 100ml (Pmx)) 100 ml @ 400 mls/hr Q12 IVPB Last administered on 10/10/16 09:53; Admin Dose 400 MLS/HR; Start 10/09/16 at 21:00 IV Flush 10 ml 10 ml PRN PRN IV FLUSH LINE; Start 10/09/16 at 15:30 Potassium Chloride/Dextrose/ Sod Cl (D5-NS + KCl 20 Meq) 1,000 ml @ 100 mls/hr Q10H IV Last administered on 10/10/16t 02:26; Admin Dose 150 MLS/HR; Start at 00:30 Furosemide (Lasix) 10 mg ONCE IV ; Start 10/10/16 at 09:00; Stop 10/11/16 at 08:59 Pantoprazole (Protonix Iv) 40 mg BID@06,18 IV ; Start 10/10/16 at 18:00 FIGUEROA MENDEZ MD Oct 10, 2016 11:14
--- NOTE | 2016-10-10 11:18 | CONS ---
Date/Time of Note Date/Time of Note DATE: 10/10/16 TIME: 11:17 Assessment/Plan Assessment/Plan Chief Complaint/Hosp Course Impression: 1. Right posterior frontal lobe parenchymal hematoma and moderate intraventricular hemorrhage. Repeat brain CT scan on 10-10-2016 showed interval appearance of right subdural hemorrhage mainly overlying right frontal lobe measuring up to 7 mm along with scattered bilateral foci of subarachnoid hemorrhages with interval increase and a 2 mm leftward midline shift. 2. Non-ST elevation myocardial infarction. 3. Sepsis secondary to underlying urinary tract infection. 5. Normocytic, normochromic anemia. Most probably anemia of chronic disease and also from underlying liver cirrhosis. Contributed by intraventricular hemorrhage 6. Thrombocytopenia. Most probably secondary to underlying liver cirrhosis. 7. Transaminitis with hyperbilirubinemia. Resolved. Most probably secondary to underlying liver cirrhosis. 8. Systemic lupus erythematosus. 9. Acute kidney injury. Etiology could be secondary to hemodynamics Versus contrast induced. Obtain nephrology consult. 10. Coagulopathy. Transfuse FFPs. Obtain hematology consult. Recommendations: 1. check stool for occult blood 2. protonix 40 mg iv bid, change to 8 mg/hr gtt if occult blood positive. 3. for any endoscopic procedures, will need neurosurgery clearance as the procedures can increase intra-cranial pressure 4. for any endoscopic procedures, will need cardiac clearance as pt has NSTEMI and endoscopic procedures places additional stress on the heart. Problems: Consultation Date/Type/Reason Admit Date/Time Date of Consultation: Oct 10, 2016 Type of Consultation: GI Reason for Consultation r/o GIB in setting of anemia and intra-ventricular hemorrhage Hx of Present Illness 75-year-old female who is admitted for LOC. She has history of essential hypertension, systemic lupus erythematosus, and a cryptogenic liver cirrhosis. She was brought to the emergency room by paramedics after the patient was found on the floor at home. Patient has been feeling sick with diarrhea and abdominal pain for the past 1 week. She had slurred speech. The patient was complaining of moderate crampy generalized abdominal pain. + nausea and one episode of nonbilious nonbloody vomiting. No chest pain, palpitations, or dyspnea. Work up with a brain CT scan that showed right posterior frontal lobe parenchymal hematoma with mild adjacent edema with no midline shift. The CT also revealed moderate intra-ventricular hemorrhage. The patient underwent a CT scan of the abdomen and pelvis that showed mild thickening of the colon which represents nonspecific infectious/inflammatory colitis with sigmoid diverticulosis without evidence of diverticulitis along with a cirrhotic liver. GI is called to see if there are other sources of patient's anemia and to w/u patient's colitis and diarrhea. Subjective hx not possible: pt non-verbal Eyes: no complaints ENT: no complaints Respiratory: no complaints Cardiovascular: no complaints Gastrointestinal: diarrhea, nausea, pain, vomiting Genitourinary: no complaints Musculoskeletal: no complaints Skin: no complaints Neurologic: focal-weakness Lymphatic: no complaints Psychological: no complaints Immunologic: no complaints Past Medical History Medical History: hypertension, hypothyroid, other (Cirrhosis, SLE) Past Surgical History Past Surgical Hx: cholecystectomy Family History Significant Family History: no pertinent family hx Social History Alcohol Use: none Smoking Status: Never smoker Drug Use: none Exam/Review of Systems Vital Signs Vitals Vital Signs Date Time Temp Pulse Resp B/P Pulse Ox O2 Delivery O2 Flow Rate FiO2 10/10/16 10:30 68 15 119/77 100 Nasal Cannula 2.0 10/10/16 08:00 98.0 10/10/16 01:52 21 Intake and Output 10/09/16 10/09/16 10/10/16 15:00 23:00 07:00 Intake Total 800 ml 750 ml Output Total 330 ml 270 ml Balance 470 ml 480 ml Exam Constitutional: non-verbal Head: atraumatic, normocephalic Eyes: nl lids ENMT: mucosa pink and moist, nl external ears & nose, nl lips & teeth, nl nasal mucosa & septum Neck: non-tender, supple Respiratory: clear to auscultation, normal air movement Cardiovascular: nl pulses, regular rate and rhythm Gastrointestinal: bowel sounds, non-tender, soft Musculoskeletal: nl extremities to inspection Neurological: lethargic, unresponsive Results Result Diagram: 10/10/16 0430 10/10/16 0430 Results 24 hrs Laboratory Tests Test 10/09/16 11:27 10/09/16 12:15 10/09/16 18:34 10/10/16 04:30 Urine Color WARREN Urine Clarity CLOUDY A Urine pH 5.0 Urine Specific [place] 1.016 Urine Ketones NEGATIVE Urine Nitrite NEGATIVE Urine Bilirubin NEGATIVE Urine Urobilinogen 1+ H Urine Leukocyte Esterase 2+ H Urine Microscopic RBC 17 H Urine Microscopic WBC 169 H Urine Squamous Epithelial Cells FEW Urine Amorphous Crystals FEW A Urine Bacteria MANY A Urine Hyaline Casts FEW A Urine Mucus FEW A Urine Hemoglobin 3+ H Urine Glucose NEGATIVE Urine Total Protein 2+ H Urine Opiates Screen Negative Urine Barbiturates Negative Urine Amphetamines Screen Negative Urine Benzodiazepines Screen Negative Urine Cocaine Screen Negative Urine Cannabinoids Negative Lactic Acid Level 2.8 H 1.1 Ferritin 108.0 Ammonia 44 H Creatine Kinase 219 H 213 H Creatine Kinase Index 1.0 1.2 Creatinine Kinase MB (Mass) 2.24 2.52 H Troponin I 0.104 0.114 0.119 White Blood Count 10.6 # Red Blood Count 2.24 #L Hemoglobin 7.5 #L Hematocrit 22.4 #L Mean Corpuscular Volume 100.0 Mean Corpuscular Hemoglobin 33.5 H Mean Corpuscular Hemoglobin Concent 33.5 Red Cell Distribution Width 15.6 H Platelet Count 50 #L Mean Platelet Volume 10.1 Neutrophils % 86.0 H Lymphocytes % 8.2 L Monocytes % 5.0 Eosinophils % 0.1 Basophils % 0.1 Nucleated Red Blood Cells % 0.0 Neutrophils # 9.1 H Lymphocytes # 0.9 Monocytes # 0.5 Eosinophils # 0.0 Basophils # 0.0 Nucleated Red Blood Cells # 0.0 Prothrombin Time 23.3 #H Prothrombin Time Ratio 1.8 INR International Normalized Ratio 2.05 Activated Partial Thromboplast Time 41.7 H Sodium Level 141 Potassium Level 4.0 Chloride Level 115 H Carbon Dioxide Level 19 L Anion Gap 11 # Blood Urea Nitrogen 37 #H Creatinine 1.12 H Glucose Level 83 Calcium Level 7.3 L Phosphorus Level 4.0 Magnesium Level 1.8 Total Bilirubin 0.6 Direct Bilirubin 0.00 Indirect Bilirubin 0.6 Aspartate Amino Transf (AST/SGOT) 40 Alanine Aminotransferase (ALT/SGPT) 44 Alkaline Phosphatase 97 Total Protein 6.4 # Albumin 2.6 L Globulin 3.80 H Albumin/Globulin Ratio 0.68 Medications Medications Current Medications Labetalol HCl (Labetalol) 10 mg Q10M PRN IV ELEVATED BLOOD PRESSURE; Start 10/09 at 09:00 Lorazepam (Ativan) 0.5 mg Q2H PRN IV SEIZURES; Start 10/09/16 at 09:00 Acetaminophen (Tylenol Tab) 650 mg Q4H PRN PO TEMP GREATER THAN 99.6F; Start at 09:00 Docusate Sodium 100 mg 100 mg BID PO ; Start 10/09/16 at 09:00 Sodium Chloride 1,000 ml @ 100 mls/hr Q10H IV Last administered on 10/09/16 16 :07; Admin Dose 100 MLS/HR; Start 10/09/16 at 10:00; Status Future Hold Metronidazole 100 ml @ 100 mls/hr Q8 IVPB Last administered on 10/10/16 05:46 ; Admin Dose 100 MLS/HR; Start 10/09/16 at 14:00 Cefepime HCl (Maxipime 1gm/50 ml (Pmx)) 50 ml @ 100 mls/hr Q12 IVPB Last administered on 10/09/16 20:30; Admin Dose 100 MLS/HR; Start 10/09/16 at 10:30 Ondansetron HCl (Zofran Inj) 4 mg Q6H PRN IV NAUSEA AND/OR VOMITING Last administered on 10/10/16 04:31; Admin Dose 4 MG; Start 10/09/16 at 10:30 Morphine Sulfate 2 mg 2 mg Q4H PRN IV PAIN LEVEL 7-10 Last administered on 17:26; Admin Dose 2 MG; Start 10/09/16 at 10:30 Levetiracetam (Keppra 500 Mg/ 100ml (Pmx)) 100 ml @ 400 mls/hr Q12 IVPB Last administered on 10/10/16 09:53; Admin Dose 400 MLS/HR; Start 10/09/16 at 21:00 IV Flush 10 ml 10 ml PRN PRN IV FLUSH LINE; Start 10/09/16 at 15:30 Potassium Chloride/Dextrose/ Sod Cl (D5-NS + KCl 20 Meq) 1,000 ml @ 100 mls/hr Q10H IV Last administered on 10/10/16 02:26; Admin Dose 150 MLS/HR; Start at 00:30 Furosemide (Lasix) 10 mg ONCE IV ; Start 10/10/16 at 09:00; Stop 10/11/16 at 08:59 Pantoprazole (Protonix Iv) 40 mg BID@06,18 IV ; Start 10/10/16 at 18:00 BIGG LEDESMA MD Oct 10, 2016 11:18
[2016-10-10] MEDS: CEFEPIME 1GM/50 ML (PMX) 50 ML IVPB SCH ×2 (11:21→20:52)
[2016-10-10] MEDS: FUROSEMIDE 40 MG INJ IV SCH (11:24)
--- NOTE | 2016-10-10 11:29 | CONS ---
Date/Time of Note Date/Time of Note DATE: 10/10/16 TIME: 11:19 Assessment/Plan Assessment/Plan Chief Complaint/Hosp Course ID PROGRESS NOTE CURRENT ABX: Vanco IV + Cefepime + Flagyl HOSPITAL COURSE / HPI Patient BIB EMS 10/09/16 with Stroke protocol due to acute ALOC, left sided hemiplegia, ground level fall at home, in setting of acute abdominal crampy pain. She was noted to have mild tachycardia @ 107 BPM, hypotension 83/54, symptomatic anemia due to probable GI bleeding. Radiology imaging revealed acute intracerebral, subdural and intraventricular hemorrhage. * PRELIMINARY MICRO: Urine culture (+)GNR; Blood Cx (+)GPC, clusters in 1/2 bottles drawn in the ED. * SIGNIFICANT LABS: lactic acid level of 7.7, S.Cr 1.15, WBC 26.2, HGB 7.5 early am, Trop 0.122 10/09/16; BNP 3390, Ammonia level 44. * 10/09/16 CXR: Mild cardiomegaly and pulmonary venous congestion. Aortic atherosclerosis. BRIEF PAST MEDICAL HISTORY: 76-year-old female history of diabetes mellitus type 2, hypertension, hyperlipidemia, hypothyroid, SLE, liver cirrhosis due to chronic ETOH abuse. ROS No F/C/N/V/Chest pain/palpitations/SOB/wheeze/diarrhea/constipation/dysuria/ hematuria All pertinent ROS finding per HPI Medications Home Meds Reported Medications Hydroxychloroquine Sulfate* (Hydroxychloroquine Sulfate*) 200 Mg Tablet, 200 MG PO BID, TAB 10/09/16 Pantoprazole* (Protonix*) 40 Mg Tablet.dr, 40 MG PO DAILY, TAB 10/09/16 Losartan Potassium* (Losartan Potassium*) 100 Mg Tablet, 100 MG PO DAILY, TAB 10/09/16 Levothyroxine Sodium* (Levoxyl*) 125 Mcg Tablet, 125 MCG PO BEFORE BREAKFAST, # 30 TAB 10/09/16 ID ASSESSMENT 76 yo F w/PMHx of Systemic lupus erythematosus (SLE), and chronic ETOH abuse w/ liver cirrhosis, HTN admit with: 1. Acute right posterior frontal lobe parenchymal hematoma and moderate intraventricular hemorrhage. * Etiology could be secondary to underlying fall with predisposing thrombocytopenia secondary to underlying liver cirrhosis. * Started on a seizure prophylaxis. * Neurosurgery consult has been obtained. 2. Non-ST elevation myocardial infarction.=> type II event from a underlying ischemia versus from underlying sepsis and worsening renal function. * Not anticoagulation due to acute intracranial hemorrhage. * Elevated BNP in setting demand ischemia 3. GNR Sepsis due to acute GNR UTI w/significant pyuria 4. GPC Bacteremia 1/2 bottles drawn in ED == Possibly reflecting a single skin contaminated sample 5. Essential hypertension. The patient's blood pressure will be tightly controlled. 6. ETOH Liver Cirrhosis associated w/thrombocytopenia, transaminitis, hyperbilirubinemia 7. Normocytic, normochromic anemia-> probably anemia of chronic disease and also from underlying liver cirrhosis. 8. Hypothyroidism=> on Synthroid home medication MRSA Nares Screen => PENDING ABX ALLERGIES: PCN CURRENT ABX: Vanco IV + Cefepime + Flagyl ID RECOMMENDATIONS Problems: Consultation Date/Type/Reason Admit Date/Time Oct 09, 2016 at 08:26 Initial Consult Date 10/10/16 Type of Consultation: ID Exam/Review of Systems Vital Signs Vitals Vital Signs Date Time Temp Pulse Resp B/P Pulse Ox O2 Delivery O2 Flow Rate FiO2 10/10/16 10:30 68 15 119/77 100 Nasal Cannula 2.0 10/10/16 08:00 98.0 10/10/16 01:52 21 Intake and Output 10/09/16 10/09/16 10/10/16 15:00 23:00 07:00 Intake Total 800 ml 750 ml Output Total 330 ml 270 ml Balance 470 ml 480 ml Results Result Diagram: 10/10/16 0430 10/10/16 0430 Results 24 hrs Laboratory Tests Test 10/09/16 11:27 10/09/16 12:15 10/09/16 18:34 10/10/16 04:30 Urine Color WARREN Urine Clarity CLOUDY A Urine pH 5.0 Urine Specific [place] 1.016 Urine Ketones NEGATIVE Urine Nitrite NEGATIVE Urine Bilirubin NEGATIVE Urine Urobilinogen 1+ H Urine Leukocyte Esterase 2+ H Urine Microscopic RBC 17 H Urine Microscopic WBC 169 H Urine Squamous Epithelial Cells FEW Urine Amorphous Crystals FEW A Urine Bacteria MANY A Urine Hyaline Casts FEW A Urine Mucus FEW A Urine Hemoglobin 3+ H Urine Glucose NEGATIVE Urine Total Protein 2+ H Urine Opiates Screen Negative Urine Barbiturates Negative Urine Amphetamines Screen Negative Urine Benzodiazepines Screen Negative Urine Cocaine Screen Negative Urine Cannabinoids Negative Lactic Acid Level 2.8 H 1.1 Ferritin 108.0 Ammonia 44 H Creatine Kinase 219 H 213 H Creatine Kinase Index 1.0 1.2 Creatinine Kinase MB (Mass) 2.24 2.52 H Troponin I 0.104 0.114 0.119 White Blood Count 10.6 # Red Blood Count 2.24 #L Hemoglobin 7.5 #L Hematocrit 22.4 #L Mean Corpuscular Volume 100.0 Mean Corpuscular Hemoglobin 33.5 H Mean Corpuscular Hemoglobin Concent 33.5 Red Cell Distribution Width 15.6 H Platelet Count 50 #L Mean Platelet Volume 10.1 Neutrophils % 86.0 H Lymphocytes % 8.2 L Monocytes % 5.0 Eosinophils % 0.1 Basophils % 0.1 Nucleated Red Blood Cells % 0.0 Neutrophils # 9.1 H Lymphocytes # 0.9 Monocytes # 0.5 Eosinophils # 0.0 Basophils # 0.0 Nucleated Red Blood Cells # 0.0 Prothrombin Time 23.3 #H Prothrombin Time Ratio 1.8 INR International Normalized Ratio 2.05 Activated Partial Thromboplast Time 41.7 H Sodium Level 141 Potassium Level 4.0 Chloride Level 115 H Carbon Dioxide Level 19 L Anion Gap 11 # Blood Urea Nitrogen 37 #H Creatinine 1.12 H Glucose Level 83 Calcium Level 7.3 L Phosphorus Level 4.0 Magnesium Level 1.8 Total Bilirubin 0.6 Direct Bilirubin 0.00 Indirect Bilirubin 0.6 Aspartate Amino Transf (AST/SGOT) 40 Alanine Aminotransferase (ALT/SGPT) 44 Alkaline Phosphatase 97 Total Protein 6.4 # Albumin 2.6 L Globulin 3.80 H Albumin/Globulin Ratio 0.68 Medications Medications Current Medications Labetalol HCl (Labetalol) 10 mg Q10M PRN IV ELEVATED BLOOD PRESSURE; Start 10/09 at 09:00 Lorazepam (Ativan) 0.5 mg Q2H PRN IV SEIZURES; Start 10/09/16 at 09:00 Acetaminophen (Tylenol Tab) 650 mg Q4H PRN PO TEMP GREATER THAN 99.6F; Start at 09:00 Docusate Sodium 100 mg 100 mg BID PO ; Start 10/09/16 at 09:00 Sodium Chloride 1,000 ml @ 100 mls/hr Q10H IV Last administered on 10/09/16t 16 :07; Admin Dose 100 MLS/HR; Start 10/09/16 at 10:00; Status Future Hold Metronidazole 100 ml @ 100 mls/hr Q8 IVPB Last administered on 10/10/16 05:46 ; Admin Dose 100 MLS/HR; Start 10/09/16 at 14:00 Cefepime HCl (Maxipime 1gm/50 ml (Pmx)) 50 ml @ 100 mls/hr Q12 IVPB Last administered on 10/09/16 20:30; Admin Dose 100 MLS/HR; Start 10/09/16 at 10:30 Ondansetron HCl (Zofran Inj) 4 mg Q6H PRN IV NAUSEA AND/OR VOMITING Last administered on 10/10/16 04:31; Admin Dose 4 MG; Start 10/09/16 at 10:30 Morphine Sulfate 2 mg 2 mg Q4H PRN IV PAIN LEVEL 7-10 Last administered on 17:26; Admin Dose 2 MG; Start 10/09/16 at 10:30 Levetiracetam (Keppra 500 Mg/ 100ml (Pmx)) 100 ml @ 400 mls/hr Q12 IVPB Last administered on 10/10/16 09:53; Admin Dose 400 MLS/HR; Start 10/09/16 at 21:00 IV Flush 10 ml 10 ml PRN PRN IV FLUSH LINE; Start 10/09/16 at 15:30 Potassium Chloride/Dextrose/ Sod Cl (D5-NS + KCl 20 Meq) 1,000 ml @ 100 mls/hr Q10H IV Last administered on 10/10/16 02:26; Admin Dose 150 MLS/HR; Start at 00:30 Furosemide (Lasix) 10 mg ONCE IV ; Start 10/10/16 at 09:00; Stop 10/11/16 at 08:59 Pantoprazole (Protonix Iv) 40 mg BID@06,18 IV ; Start 10/10/16 at 18:00 MEGA MUELLER NP Oct 10, 2016 11:29
[2016-10-10] MEDS: morphine 2 MG INJ IV PRN ×3 (11:32→20:52)
--- NOTE | 2016-10-10 11:57 | CONS ---
Date/Time of Note Date/Time of Note DATE: 10/10/16 TIME: 11:13 Assessment/Plan Assessment/Plan Chief Complaint/Hosp Course [employer] bleed. 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 Problems: (1) Cirrhosis of liver Status: Chronic Qualifiers: (2) Thrombocytopenia Status: Acute Comment: [place] related to cirrhosis. (3) Intraparenchymal hemorrhage of brain Status: Acute (4) Acute left-sided weakness Status: Acute (5) Diabetes mellitus type 2 in obese Status: Acute (6) Hypertension Status: Acute Qualifiers: Qualified Code: I10 - Essential hypertension (7) SLE (systemic lupus erythematosus) Status: Acute Qualifiers: Qualified Code: M32.9 - Systemic lupus erythematosus, unspecified SLE type, unspecified organ involvement status (8) Gram-positive bacteremia (9) UTI (urinary tract infection) Additional Assessment/Plan Pt has had acute intraparenchymal bleed. Has hx of non alcoholic cirrhosis. Thrombocytopenia may be due to splenic sequestration but CT scan does not demonstrate splenomegaly of evidence of portal hypertension. Will request abd ultrasound in order to more accurately measure spleen size. Urine C&S growing >100,000 col of GNR and blood culture is pos for GPC in chains and pairs. Doubt DIC but sepsis may be adding to thrombocytopenia. Prolongation of PT/PTT and decrease in WBC, Hgb and platelet count may be artifactual. This AM's blood draw was obtained via the PICC line and may be diluted. Will repeat these via a peripheral blood draw. Will also request a 50/50 PT and 50/50 PTT to determine if prolongation is due to factor deficiency due to liver disease or an inhibitor such as the "lupus anticoagulant" Will also check fibrinogen and D-dimer to r/o DIC. Platelet function abnormalities suggest the possibility of an "acquired" von Willebrand's disease but this test is not dependable in the presence of thrombocytopenia. Will request a Factor VIII assay and vW Factor levels to further evaluate this. Pt will be transfused with the appropriate blood products needed to correct any coagulation defects which are demonstrated. Consultation Date/Type/Reason Admit Date/Time Date of Consultation: Oct 10, 2016 Type of Consultation: Hematology Reason for Consultation [employer] bleed. Thrombocytopenia and possible coagulopathy Referring Provider: MILTON FARIAS Hx of Present Illness 76 y/o female admitted after being "found down" by a friend. Pt states that she had the sudden onset of headache and Rt hip pain. Pt since has had exspressive aphasia and Lt sided weakness. Evaluation has demonstrated an Rt sided parenchymal cerebral hematoma. Cranial CT angio did not demonstrate any vascular abn. Pt has no prior hx of CVA or any prior hx of abnormal bleeding. Does have dx of hepatic cirrhosis. Dx made ~ 5 years ago when pt underwent a cholecystectomy. Ptg has no hx of ETOH use and no prior hx of hepatitis, etc. Does have hx of SLE On admit WBC 26,000, Hgb 9.9, Hct 29.5, Plt 76,000. This AM WBC 10,600, Hgb 7.5 , Hct 22.4, Plt 50,000. On admit PT 18.8 sec/INR 1.56, PTT 37.2 sec. This AM PT 23.3 sec/INR 2.05, Ptt 41.7 sec. Platelet Function--Jalen/EPI: >300, Jalen/ADP:>300. CT of Abd/Pelvis consistent with cirrhosis but does not mention evidence of portal hypertension or splenomegaly. Urine C&S is growing GNR, >100,000 colonies. Blood culture is positive for GPC in chains and pairs. Pt not able to give information regarding ROS. Eyes: no complaints ENT: no complaints Respiratory: no complaints Cardiovascular: no complaints Gastrointestinal: diarrhea, nausea, pain, vomiting Genitourinary: no complaints Musculoskeletal: no complaints Skin: no complaints Neurologic: focal-weakness Lymphatic: no complaints Psychological: no complaints Immunologic: no complaints Past Medical History Medical History: hypertension, hypothyroid, other (Cirrhosis, SLE) Past Surgical History Past Surgical Hx: cholecystectomy Social History Alcohol Use: none Smoking Status: Never smoker Drug Use: none Exam/Review of Systems Vital Signs Vitals Vital Signs Date Time Temp Pulse Resp B/P Pulse Ox O2 Delivery O2 Flow Rate FiO2 10/10/16 10:30 68 15 119/77 100 Nasal Cannula 2.0 10/10/16 08:00 98.0 10/10/16 01:52 21 Intake and Output 10/09/16 10/09/16 10/10/16 15:00 23:00 07:00 Intake Total 800 ml 750 ml Output Total 330 ml 270 ml Balance 470 ml 480 ml Exam Constitutional: non-verbal, obese Head: atraumatic, normocephalic Eyes: EOMI, PERRL, nl conjunctiva, nl sclera ENMT: mucosa pink and moist, nl external ears & nose, nl lips & teeth Neck: non-tender, supple Respiratory: clear to auscultation, normal air movement Cardiovascular: nl pulses, regular rate and rhythm Gastrointestinal: nl liver, spleen, non-tender, soft Musculoskeletal: nl extremities to inspection Extremities: normal pulses Neurological: other (Lt sided facial droop, Lt hemiparesis) Results Result Diagram: 10/10/16 0430 10/10/16 0430 Results 24 hrs Laboratory Tests Test 10/09/16 11:27 10/09/16 12:15 10/09/16 18:34 10/10/16 04:30 Urine Color WARREN Urine Clarity CLOUDY A Urine pH 5.0 Urine Specific [place] 1.016 Urine Ketones NEGATIVE Urine Nitrite NEGATIVE Urine Bilirubin NEGATIVE Urine Urobilinogen 1+ H Urine Leukocyte Esterase 2+ H Urine Microscopic RBC 17 H Urine Microscopic WBC 169 H Urine Squamous Epithelial Cells FEW Urine Amorphous Crystals FEW A Urine Bacteria MANY A Urine Hyaline Casts FEW A Urine Mucus FEW A Urine Hemoglobin 3+ H Urine Glucose NEGATIVE Urine Total Protein 2+ H Urine Opiates Screen Negative Urine Barbiturates Negative Urine Amphetamines Screen Negative Urine Benzodiazepines Screen Negative Urine Cocaine Screen Negative Urine Cannabinoids Negative Lactic Acid Level 2.8 H 1.1 Ferritin 108.0 Ammonia 44 H Creatine Kinase 219 H 213 H Creatine Kinase Index 1.0 1.2 Creatinine Kinase MB (Mass) 2.24 2.52 H Troponin I 0.104 0.114 0.119 White Blood Count 10.6 # Red Blood Count 2.24 #L Hemoglobin 7.5 #L Hematocrit 22.4 #L Mean Corpuscular Volume 100.0 Mean Corpuscular Hemoglobin 33.5 H Mean Corpuscular Hemoglobin Concent 33.5 Red Cell Distribution Width 15.6 H Platelet Count 50 #L Mean Platelet Volume 10.1 Neutrophils % 86.0 H Lymphocytes % 8.2 L Monocytes % 5.0 Eosinophils % 0.1 Basophils % 0.1 Nucleated Red Blood Cells % 0.0 Neutrophils # 9.1 H Lymphocytes # 0.9 Monocytes # 0.5 Eosinophils # 0.0 Basophils # 0.0 Nucleated Red Blood Cells # 0.0 Prothrombin Time 23.3 #H Prothrombin Time Ratio 1.8 INR International Normalized Ratio 2.05 Activated Partial Thromboplast Time 41.7 H Sodium Level 141 Potassium Level 4.0 Chloride Level 115 H Carbon Dioxide Level 19 L Anion Gap 11 # Blood Urea Nitrogen 37 #H Creatinine 1.12 H Glucose Level 83 Calcium Level 7.3 L Phosphorus Level 4.0 Magnesium Level 1.8 Total Bilirubin 0.6 Direct Bilirubin 0.00 Indirect Bilirubin 0.6 Aspartate Amino Transf (AST/SGOT) 40 Alanine Aminotransferase (ALT/SGPT) 44 Alkaline Phosphatase 97 Total Protein 6.4 # Albumin 2.6 L Globulin 3.80 H Albumin/Globulin Ratio 0.68 Medications Medications Current Medications Labetalol HCl (Labetalol) 10 mg Q10M PRN IV ELEVATED BLOOD PRESSURE; Start 10/09 at 09:00 Lorazepam (Ativan) 0.5 mg Q2H PRN IV SEIZURES; Start 10/09/16 at 09:00 Acetaminophen (Tylenol Tab) 650 mg Q4H PRN PO TEMP GREATER THAN 99.6F; Start at 09:00 Docusate Sodium 100 mg 100 mg BID PO ; Start 10/09/16 at 09:00 Sodium Chloride 1,000 ml @ 100 mls/hr Q10H IV Last administered on 10/09/16 16 :07; Admin Dose 100 MLS/HR; Start 10/09/16 at 10:00; Status Future Hold Metronidazole 100 ml @ 100 mls/hr Q8 IVPB Last administered on 10/10/16 05:46 ; Admin Dose 100 MLS/HR; Start 10/09/16 at 14:00 Cefepime HCl (Maxipime 1gm/50 ml (Pmx)) 50 ml @ 100 mls/hr Q12 IVPB Last administered on 10/09/16 20:30; Admin Dose 100 MLS/HR; Start 10/09/16 at 10:30 Ondansetron HCl (Zofran Inj) 4 mg Q6H PRN IV NAUSEA AND/OR VOMITING Last administered on 10/10/16 04:31; Admin Dose 4 MG; Start 10/09/16 at 10:30 Morphine Sulfate 2 mg 2 mg Q4H PRN IV PAIN LEVEL 7-10 Last administered on 17:26; Admin Dose 2 MG; Start 10/09/16 at 10:30 Levetiracetam (Keppra 500 Mg/ 100ml (Pmx)) 100 ml @ 400 mls/hr Q12 IVPB Last administered on 10/10/16 09:53; Admin Dose 400 MLS/HR; Start 10/09/16 at 21:00 IV Flush 10 ml 10 ml PRN PRN IV FLUSH LINE; Start 10/09/16 at 15:30 Potassium Chloride/Dextrose/ Sod Cl (D5-NS + KCl 20 Meq) 1,000 ml @ 100 mls/hr Q10H IV Last administered on 10/10/16 02:26; Admin Dose 150 MLS/HR; Start at 00:30 Furosemide (Lasix) 10 mg ONCE IV ; Start 10/10/16 at 09:00; Stop 10/11/16 at 08:59 Pantoprazole (Protonix Iv) 40 mg BID@06,18 IV ; Start 10/10/16 at 18:00 Procedures Procedures Peripheral slide reviewed. RBC morphology is nl. No fragmentation of spherocytes seen. WBC's are increased with Lt shift. There is toxic granulation and cytoplasmic vacuoles seen. No immature granulocytes , hypersegmented polys or nucleated RBC's present. Platelets are mildly decreased but normal morphology. OVIDIO RODRIGUEZ MD Oct 10, 2016 11:27
[2016-10-10 12:37] LABS: ABNORMAL IP MESSAGE 1; EOSINOPHILS % 0.2 % (0.0-7.0); HEMATOCRIT 21.4 % (37.0-47.0); LYMPHOCYTES # 0.8 10^3/ul (0.8-2.9); MEAN CORPUSCULAR HEMOGLOBIN 32.6 pg (29.0-33.0); MEAN CORPUSCULAR HGB CONC 32.7 g/dl (32.0-37.0); MEAN CORPUSCULAR VOLUME 99.5 fl (82.0-101.0); MEAN PLATELET VOLUME 9.9 fl (7.4-10.4); MONOCYTE # 0.5 10^3/ul (0.3-0.9); MONOCYTES % 5.7 % (0.0-11.0); NEUTROPHIL # 7.3 10^3/ul (1.6-7.5); NEUTROPHILS % 84.6 % (39.0-77.0); PLATELET COUNT 55 10^3/UL (140-415); RED BLOOD COUNT 2.15 10^6/ul (4.20-5.40); RED CELL DISTRIBUTION WIDTH 15.7 % (11.5-14.5); WHITE BLOOD COUNT 8.6 10^3/ul (4.8-10.8)
[2016-10-10 12:38] LABS: ADD SCAN DIFF NO
--- NOTE | 2016-10-10 12:40 | RADRPT ---
PROCEDURE: US Abdomen limited, left upper quadrant. CLINICAL INDICATION: Thrombocytopenia. TECHNIQUE: Multiple real-time longitudinal and transverse images of the left upper quadrant of the abdomen were acquired utilizing a curved array transducer. Images were reviewed on a [employer] PACS workstation. COMPARISON: Correlation with CT from 10/09/2016. FINDINGS: The spleen measures 12.1 x 8.0 x 7.4 cm and appears homogeneous. There is no evidence of focal sple patrizia lesion or perisplenic fluid collection. Normal vascularity is seen within the spleen. No splen ic calcifications are identified. IMPRESSION: Borderline prominent splenic size measuring up to 12.1 cm. Otherwise, unremarkable exam. RPTAT: QQ .Fernando Rand MD, MD Date Time Electronically viewed and signed by .Fernando Rand MD, on 10/10/2016 12:40 .A/
--- NOTE | 2016-10-10 12:43 | CONS ---
Date/Time of Note Date/Time of Note DATE: 10/10/16 TIME: 12:40 Assessment/Plan Assessment/Plan Additional Assessment/Plan 1. Acute right posterior frontal lobe parenchymal hematoma and moderate intraventricular hemorrhage. 2. acute kidney injury due to ATN From sepsis with metabolic acidosis 2. Non-ST elevation myocardial infarction 4. Sepsis due to Acute GNR UTI and bacteremia, 5. Bacteremia with Blood cx growing GNR 6. Essential hypertension 6. ETOH Liver Cirrhosis associated w/thrombocytopenia, transaminitis, hyperbilirubinemia 7. Normocytic, normochromic anemia 8. Hypothyroidism Plan: continue current care , Cr stable, with IVF hydration pt has Hyperchoremic metabolic acidosis- d/c D5Ns, start D5W with 10mEQ KCL at 75 cc/hr Continue IV abx As per PMD and ID service awaiting Neurosurgery evaluation will follow up Consultation Date/Type/Reason Admit Date/Time 10/09/2016 Date of Consultation: Oct 10, 2016 Type of Consultation: NEPHROLOGY Reason for Consultation acute renal failure Referring Provider: MILTON FARIAS of Present Illness 75-year-old female with past medical history of essential hypertension , systemic lupus erythematosus, and a liver cirrhosis not because of alcohol abuse was brought to the emergency room by paramedics after the patient was found on the floor at home. As per the patient's daughter who was at the bedside, the patient has been feeling sick with diarrhea for the past 1 week. The patient also started having abdominal pain since last night. In the emergency room, the patient was noticed to have significant leukocytosis with WBC of 526.2. Patient had a platelet count of 76. Patient was also noticed to have anemia with a hemoglobin and hematocrit of 9.9 and 29.5 respectively. The patient and her underlying lactic acidosis with a lactic acid level of 7.7. The patient also had some underlying acute kidney injury with a BUN of 20 and creatinine of 1.15. The patient had a initial troponin of 0.122. The patient had minimal hyperbilirubinemia was with some a transaminitis. The patient underwent a brain CT scan that showed right posterior frontal lobe parenchymal hematoma with mild adjacent edema with no midline shift. The CT also revealed moderate intra-ventricular hemorrhage. The patient underwent a CT scan of the abdomen and pelvis that showed mild thickening of the colon which represents nonspecific infectious/inflammatory colitis with sigmoid diverticulosis without evidence of diverticulitis along with a cirrhotic liver. He received IV abx in ED, Neurosurgery consulted on the case Subjective hx not possible: pt non-verbal, other (intubated, sedated on Ventilator ) Eyes: no complaints ENT: no complaints Respiratory: no complaints Cardiovascular: no complaints Gastrointestinal: diarrhea, nausea, pain, vomiting Genitourinary: no complaints Musculoskeletal: no complaints Skin: no complaints Neurologic: focal-weakness Lymphatic: no complaints Psychological: no complaints Immunologic: no complaints Past Medical History Medical History: hypertension, hypothyroid, other (Cirrhosis, SLE) Past Surgical History Past Surgical Hx: cholecystectomy Social History Alcohol Use: none Smoking Status: Never smoker Drug Use: none Exam/Review of Systems Vital Signs Vitals Vital Signs Date Time Temp Pulse Resp B/P Pulse Ox O2 Delivery O2 Flow Rate FiO2 10/10/16 12:00 98.0 71 16 112/68 100 Nasal Cannula 2.0 10/10/16 01:52 21 Intake and Output 10/09/16 10/09/16 10/10/16 15:00 23:00 07:00 Intake Total 800 ml 900 ml Output Total 330 ml 290 ml Balance 470 ml 610 ml Exam Constitutional: non-verbal, obese Head: atraumatic, normocephalic Respiratory: clear to auscultation, normal air movement Cardiovascular: nl pulses, regular rate and rhythm Gastrointestinal: nl liver, spleen, non-tender, soft Musculoskeletal: nl extremities to inspection Extremities: normal pulses Neurological: other (Lt sided facial droop, Lt hemiparesis) Results Result Diagram: 10/10/16 1220 10/10/16 0430 Results 24 hrs Laboratory Tests Test 10/09/16 18:34 10/10/16 04:30 10/10/16 12:20 Creatine Kinase 213 H Creatine Kinase Index 1.2 Creatinine Kinase MB (Mass) 2.52 H Troponin I 0.114 0.119 White Blood Count 10.6 # 8.6 Red Blood Count 2.24 #L 2.15 L Hemoglobin 7.5 #L 7.0 L Hematocrit 22.4 #L 21.4 L Mean Corpuscular Volume 100.0 99.5 Mean Corpuscular Hemoglobin 33.5 H 32.6 Mean Corpuscular Hemoglobin Concent 33.5 32.7 Red Cell Distribution Width 15.6 H 15.7 H Platelet Count 50 #L 55 L Mean Platelet Volume 10.1 9.9 Neutrophils % 86.0 H 84.6 H Lymphocytes % 8.2 L 9.0 L Monocytes % 5.0 5.7 Eosinophils % 0.1 0.2 Basophils % 0.1 0.0 Nucleated Red Blood Cells % 0.0 0.0 Neutrophils # 9.1 H 7.3 Lymphocytes # 0.9 0.8 Monocytes # 0.5 0.5 Eosinophils # 0.0 0.0 Basophils # 0.0 0.0 Nucleated Red Blood Cells # 0.0 0.0 Prothrombin Time 23.3 #H Prothrombin Time Ratio 1.8 INR International Normalized Ratio 2.05 Activated Partial Thromboplast Time 41.7 H Sodium Level 141 Potassium Level 4.0 Chloride Level 115 H Carbon Dioxide Level 19 L Anion Gap 11 # Blood Urea Nitrogen 37 #H Creatinine 1.12 H Glucose Level 83 Lactic Acid Level 1.1 Calcium Level 7.3 L Phosphorus Level 4.0 Magnesium Level 1.8 Total Bilirubin 0.6 Direct Bilirubin 0.00 Indirect Bilirubin 0.6 Aspartate Amino Transf (AST/SGOT) 40 Alanine Aminotransferase (ALT/SGPT) 44 Alkaline Phosphatase 97 Total Protein 6.4 # Albumin 2.6 L Globulin 3.80 H Albumin/Globulin Ratio 0.68 Medications Medications Current Medications Labetalol HCl (Labetalol) 10 mg Q10M PRN IV ELEVATED BLOOD PRESSURE; Start 10/09 at 09:00 Lorazepam (Ativan) 0.5 mg Q2H PRN IV SEIZURES; Start 10/09/16 at 09:00 Acetaminophen (Tylenol Tab) 650 mg Q4H PRN PO TEMP GREATER THAN 99.6F; Start at 09:00 Docusate Sodium 100 mg 100 mg BID PO ; Start 10/09/16 at 09:00 Sodium Chloride 1,000 ml @ 100 mls/hr Q10H IV Last administered on 10/09/16 16 :07; Admin Dose 100 MLS/HR; Start 10/09/16 at 10:00; Status Future Hold Metronidazole 100 ml @ 100 mls/hr Q8 IVPB Last administered on 10/10/16 05:46 ; Admin Dose 100 MLS/HR; Start 10/09/16 at 14:00 Cefepime HCl (Maxipime 1gm/50 ml (Pmx)) 50 ml @ 100 mls/hr Q12 IVPB Last administered on 10/10/16 11:21; Admin Dose 100 MLS/HR; Start 10/09/16 at 10:30 Ondansetron HCl (Zofran Inj) 4 mg Q6H PRN IV NAUSEA AND/OR VOMITING Last administered on 10/10/16 04:31; Admin Dose 4 MG; Start 10/09/16 at 10:30 Morphine Sulfate 2 mg 2 mg Q4H PRN IV PAIN LEVEL 7-10 Last administered on 11:32; Admin Dose 2 MG; Start 10/09/16 at 10:30 Levetiracetam (Keppra 500 Mg/ 100ml (Pmx)) 100 ml @ 400 mls/hr Q12 IVPB Last administered on 10/10/16 09:53; Admin Dose 400 MLS/HR; Start 10/09/16 at 21:00 IV Flush 10 ml 10 ml PRN PRN IV FLUSH LINE; Start 10/09/16 at 15:30 Potassium Chloride/Dextrose/ Sod Cl (D5-NS + KCl 20 Meq) 1,000 ml @ 100 mls/hr Q10H IV Last administered on 10/10/16 02:26; Admin Dose 150 MLS/HR; Start at 00:30 Furosemide (Lasix) 10 mg ONCE IV Last administered on 10/10/16 11:24; Admin Dose 10 MG; Start 10/10/16 at 09:00; Stop 10/11/16 at 08:59 Pantoprazole 40 mg 40 mg BID@06,18 IV ; Start 10/10/16 at 18:00 Vancomycin HCl/ Sodium Chloride (Vancocin/NS) 150 ml @ 75 mls/hr Q24H IVPB ; Start 10/10/16 at 14:00 TRUDY SEQUEIRA MD Oct 10, 2016 12:43
[2016-10-10 13:07] LABS: PARTIAL THROMBOPLASTIN TIME 38.2 Sec (25.0-35.0)
[2016-10-10 13:20] LABS: PROTIME 18.5 Sec (12.2-14.2)
--- NOTE | 2016-10-10 13:28 | CONS ---
Date/Time of Note Date/Time of Note DATE: 10/10/16 TIME: 13:24 Assessment/Plan Assessment/Plan Additional Assessment/Plan 1. NSTEMI - not a candidate for intervention or anti-coagulation, conservative care now 2. Acute right posterior frontal lobe parenchymal hematoma and moderate intraventricular hemorrhage - now expanding, FFP Rx 3. acute kidney injury due to ATN From sepsis with metabolic acidosis - avoid nephrotoxic meds 4. Sepsis due to Acute GNR UTI and bacteremia - on anti-Bx 5. Bacteremia with Blood cx growing GNR 6. Essential hypertension 6. ETOH Liver Cirrhosis associated w/thrombocytopenia, transaminitis, hyperbilirubinemia 7. Normocytic, normochromic anemia 8. Hypothyroidism Consultation Date/Type/Reason Admit Date/Time Oct 09, 2016 at 08:26 Initial Consult Date 10/10/16 Type of Consultation: NEPHROLOGY Referring Provider: MILTON FARIAS 24 HR Interval Summary Free Text/Dictation Cardiology Consult CC: NSTEMI 76 yo wih HTN,CAD - now with ICH and NSTEMI - ECG does not show any acute sT-t changes - low voltage. Pt not a candidate for any invasive therapy or anti- coagulation now - will follow expectantly, keep euvolemic. PMH: HTN,CAD, RF All: Penicilin Soc: no tobacco FH: HTN, DM ROS: No fever, no chills, no nausea, no vomiting, no diarrhea/constipation No recent weight changes No chest pain, no PND, no orthopnea No dizziness, blurred vision No thirst, no heat or cold intolerance Exam/Review of Systems Vital Signs Vitals Vital Signs Date Time Temp Pulse Resp B/P Pulse Ox O2 Delivery O2 Flow Rate FiO2 10/10/16 12:00 73 10/10/16 12:00 98.0 16 112/68 100 Nasal Cannula 2.0 10/10/16 01:52 21 Intake and Output 10/09/16 10/09/16 10/10/16 15:00 23:00 07:00 Intake Total 800 ml 900 ml Output Total 330 ml 290 ml Balance 470 ml 610 ml Exam General: WN/WD/NAD, AOx 0 HEENT: Unicetric/atraumatic/EOMI (does not follow commands) NECK: JVD elevated, no thyromegaly Lymph: no lymphadenopathy HEART: regular with no S3, II/ systolic murmur at apex LUNGS: Coarse sounds ABD: soft, NT, ND, +BS : Intact Neuro: non focal SKIN: chronic changes EXT: trace edema Results Result Diagram: 10/10/16 1220 10/10/16 0430 Results 24 hrs Laboratory Tests Test 10/09/16 18:34 10/10/16 04:30 10/10/16 12:20 Creatine Kinase 213 H Creatine Kinase Index 1.2 Creatinine Kinase MB (Mass) 2.52 H Troponin I 0.114 0.119 White Blood Count 10.6 # 8.6 Red Blood Count 2.24 #L 2.15 L Hemoglobin 7.5 #L 7.0 L Hematocrit 22.4 #L 21.4 L Mean Corpuscular Volume 100.0 99.5 Mean Corpuscular Hemoglobin 33.5 H 32.6 Mean Corpuscular Hemoglobin Concent 33.5 32.7 Red Cell Distribution Width 15.6 H 15.7 H Platelet Count 50 #L 55 L Mean Platelet Volume 10.1 9.9 Neutrophils % 86.0 H 84.6 H Lymphocytes % 8.2 L 9.0 L Monocytes % 5.0 5.7 Eosinophils % 0.1 0.2 Basophils % 0.1 0.0 Nucleated Red Blood Cells % 0.0 0.0 Neutrophils # 9.1 H 7.3 Lymphocytes # 0.9 0.8 Monocytes # 0.5 0.5 Eosinophils # 0.0 0.0 Basophils # 0.0 0.0 Nucleated Red Blood Cells # 0.0 0.0 Prothrombin Time 23.3 #H 18.5 #H Prothrombin Time Ratio 1.8 INR International Normalized Ratio 2.05 Activated Partial Thromboplast Time 41.7 H 38.2 H Sodium Level 141 Potassium Level 4.0 Chloride Level 115 H Carbon Dioxide Level 19 L Anion Gap 11 # Blood Urea Nitrogen 37 #H Creatinine 1.12 H Glucose Level 83 Lactic Acid Level 1.1 Calcium Level 7.3 L Phosphorus Level 4.0 Magnesium Level 1.8 Total Bilirubin 0.6 Direct Bilirubin 0.00 Indirect Bilirubin 0.6 Aspartate Amino Transf (AST/SGOT) 40 Alanine Aminotransferase (ALT/SGPT) 44 Alkaline Phosphatase 97 Total Protein 6.4 # Albumin 2.6 L Globulin 3.80 H Albumin/Globulin Ratio 0.68 Mix PT Patient Plasma Immediate PT Mixing Studies Interpretation Mix PTT Normal Plasma Immediate Pending Fibrinogen 301.0 D-Dimer Pending Medications Medications Current Medications Labetalol HCl (Labetalol) 10 mg Q10M PRN IV ELEVATED BLOOD PRESSURE; Start 10/09 at 09:00 Lorazepam (Ativan) 0.5 mg Q2H PRN IV SEIZURES; Start 10/09/16 at 09:00 Acetaminophen (Tylenol Tab) 650 mg Q4H PRN PO TEMP GREATER THAN 99.6F; Start at 09:00 Docusate Sodium 100 mg 100 mg BID PO ; Start 10/09/16 at 09:00 Sodium Chloride 1,000 ml @ 100 mls/hr Q10H IV Last administered on 10/09/16 16 :07; Admin Dose 100 MLS/HR; Start 10/09/16 at 10:00; Status Future Hold Metronidazole 100 ml @ 100 mls/hr Q8 IVPB Last administered on 10/10/16 05:46 ; Admin Dose 100 MLS/HR; Start 10/09/16 at 14:00 Cefepime HCl (Maxipime 1gm/50 ml (Pmx)) 50 ml @ 100 mls/hr Q12 IVPB Last administered on 10/10/16 11:21; Admin Dose 100 MLS/HR; Start 10/09/16 at 10:30 Ondansetron HCl (Zofran Inj) 4 mg Q6H PRN IV NAUSEA AND/OR VOMITING Last administered on 10/10/16 04:31; Admin Dose 4 MG; Start 10/09/16 at 10:30 Morphine Sulfate 2 mg 2 mg Q4H PRN IV PAIN LEVEL 7-10 Last administered on 11:32; Admin Dose 2 MG; Start 10/09/16 at 10:30 Levetiracetam (Keppra 500 Mg/ 100ml (Pmx)) 100 ml @ 400 mls/hr Q12 IVPB Last administered on 10/10/16 09:53; Admin Dose 400 MLS/HR; Start 10/09/16 at 21:00 IV Flush 10 ml 10 ml PRN PRN IV FLUSH LINE; Start 10/09/16 at 15:30 Potassium Chloride/Dextrose/ Sod Cl (D5-NS + KCl 20 Meq) 1,000 ml @ 100 mls/hr Q10H IV Last administered on 10/10/16 13:06; Admin Dose 100 MLS/HR; Start at 00:30 Furosemide (Lasix) 10 mg ONCE IV Last administered on 10/10/16 11:24; Admin Dose 10 MG; Start 10/10/16 at 09:00; Stop 10/11/16 at 08:59 Pantoprazole 40 mg 40 mg BID@06,18 IV ; Start 10/10/16 at 18:00 Vancomycin HCl/ Sodium Chloride (Vancocin/NS) 150 ml @ 75 mls/hr Q24H IVPB ; Start 10/10/16 at 14:00 GEOFFREY MENDOZA MD Oct 10, 2016 13:27
[2016-10-10 13:41] LABS: D-DIMER > 10000.00 ng/ml (<460)
[2016-10-10] MEDS ORDERED: CITRIC ACID/SODIUM CITRATE 15 ML CUP PO ONE (15:00)
[2016-10-10] MEDS ORDERED: FUROSEMIDE 20 MG INJ IV ONE (15:30)
[2016-10-10] MEDS: VANCOMYCIN 750 MG in SOD CHLORIDE 0.9% 150 ML IVPB SCH (16:09)
--- NOTE | 2016-10-10 16:12 | RADRPT ---
Echocardiogram Report Patient Name: GEORGES CAVAZOS Gender: Female Date: 1940 Study Date: 10-Oct-2016 Roadmaster: Lilian [facility] Location: [facility] Ref. Physician: GEOFFREY MENDOZA Quality: Adequate Procedures: Transthoracic echocardiogram with complete 2D, M-Mode, and doppler examination. Indications: NSTEMI. 2D/M Mode Doppler Measurement Value Normal Ranges Measurement Value Normal Ranges LVIDd 2D 4.5 3.5 - 5.6 cm AV Peak Yandel 1.5 m/sec LVIDs 2D 3.1 2.1 - 4.1 cm AV Peak PG 9.0 mmHg FS 2D 31.6 % LVOT Peak Yandel 1.0 m/sec LVPWd 2D 1.1 0.6 - 1.1 cm LVOT Peak PG 4.0 mmHg IVSd 2D 1.0 0.6 - 1.1 cm MV E Peak Yandel 1.1 m/sec IVS/LVPW 2D 0.9 MV A Peak Yandel 0.8 m/sec AoR Diam 2D 2.9 2.0 - 3.7 cm MV E/A 1.3 LA/Ao 2D 1 0 - 1 MV Decel Time 190 msec EDV 2D 90.5 cm3 MV E/A 1.3 ESV 2D 28.9 cm3 MR Peak PG 73.0 mmHg LA Dimen 2D 3.6 2.3 - 4.0 cm MR Peak Yandel 4.3 m/sec TR Peak Yandel 2.4 m/sec TR Peak PG 23.0 mmHg RVSP 31.0 mmHg Findings Left Ventricle: Normal left ventricular systolic function. Normal left ventricular cavity size. Normal left ventricular wall thickness. Ejection fraction is visually estimated at 50 %. Abnormal Diastolic Function. Right Ventricle: Normal right ventricular size. Normal right ventricular systolic function. Left Atrium: The left atrium is normal in size. Right Atrium: The right atrium is normal in size. Mitral Valve: Mitral valve leaflets appear mildly thickened. Mild mitral annular calcification. Mild mitral valve regurgitation. Aortic Valve: Normal appearance of the aortic valve. Aortic valve opens normally. Trace aortic valve regurgitation. Tricuspid Valve: Normal appearance of the tricuspid valve. Estimated peak PA systolic pressure 31 mmHg. There is mild tricuspid regurgitation. Pulmonic Valve: Pulmonic valve not well visualized. There is mild pulmonic regurgitation. Pericardium: Normal pericardium with no significant pericardial effusion. Aorta: Normal aortic root. IVC: Dilated inferior vena cava with poor inspiratory collapse consistent with elevated right atrial pressures. Conclusions 1.Normal left ventricular systolic function. Normal left ventricular cavity size. Normal left ventricular wall thickness. Ejection fraction is visually estimated at 50 %. Abnormal Diastolic Function. 2.Mitral valve leaflets appear mildly thickened. Mild mitral annular calcification. Mild mitral valve regurgitation. 3.Normal appearance of the aortic valve. Aortic valve opens normally. Trace aortic valve regurgitation. 4.Normal appearance of the tricuspid valve. Estimated peak PA systolic pressure 31 mmHg. There is mild tricuspid regurgitation. Electronically Signed By: Geoffrey Mendoza 10-Oct-2016 16:11:14 -0700 Patient Name: GEORGES CAVAZOS Study Date: 10-Oct-2016 [id number]
[2016-10-10] MEDS: POTASSIUM CHLORIDE 10 MEQ in DEXTROSE 5% 1,000 ML IV SCH (16:31)
[2016-10-10] MEDS: PANTOPRAZOLE 40 MG INJ IV SCH (18:34)
[2016-10-10] MEDS: CITRIC ACID/SODIUM CITRATE 15 ML CUP PO SCH (21:00)
--- NOTE | 2016-10-10 23:20 | CONS ---
Date/Time of Note Date/Time of Note DATE: 10/10/16 TIME: 22:59 Consultation Date/Type/Reason Admit Date/Time Oct 09, 2016 at 08:26 Date of Consultation: Oct 10, 2016 Type of Consultation: Infectious disease Reason for Consultation Urinary tract infection and possible Clostridium difficile. Hx of Present Illness The patient is a 76-year-old female who was admitted to the emergency room on October 09, 2016 with a chief complaint of left-sided weakness. Also at the time of admission she had been complaining of diarrhea. Patient has a history of systemic lupus erythematosus complicated with diabetes mellitus and cirrhosis on the basis of alcoholism. Upon arrival she was noted to have a a left hemiparesis and on imaging studies was found to have a right frontoparietal cortical thrombosis and parenchymal hemorrhage. Her white count was 26,200 she was afebrile blood pressure was 140/70 pulse 100. Chest x-ray had a mild cardiomegaly and pulmonary vascular congestion. Urinalysis: Specific gravity 1.016, satinder cloudy, +2 protein, +2 leukocyte esterase, many bacteria, 17 RBCs, 169 WBCs, and a few hyaline casts. Cultures grew 10 to the fifth gram-negative rods. One blood culture of 2 drawn grew gram-positive cocci in chains and clusters. She was begun treatment with cefepime Flagyl and vancomycin. A CT scan of the abdomen revealed thickening of the colon. No diverticulosis but no diverticulitis. Patient was transferred to the intensive care unit since admission her white count has fallen from 26,200 to 8600. Since admission to the ICU the patient has not had any loose bowel movements but has had pain on the right side of her head which is required morphine sulfate for relief several doses. This accounts for no further loose bowel movements or the ability to collect a Clostridium difficile sample. Past medical history: Diabetes mellitus scratch that systemic lupus erythematosus Diabetes mellitus Hypertension Alcoholic cirrhosis Hyperlipidemia Hypothyroidism Allergy penicillin. Medications include hydroxychloroquine, Keppra, labetalol. Physical examination: No obese, drowsy, female lying in bed. The head of the bed is elevated 30. She is difficult to arouse but is arousable and her vital signs are stable. Pupils constricted and not reactive. Mucous membranes of the mouth have thickened secretions. There is no jugular venous distention. There is no rales or rhonchi or wheezes. Chest and is basically clear the heart is regular without gallop murmur or rub. Abdomen: Obese soft no palpable organs or masses. Examination extremities reveal no edema cyanosis or clubbing. There is no palmar erythema. The patient has weakness in her left side according to her daughter who is at the bedside. Neurologic: Sedated but arousable. Unable to cooperate. Left-sided weakness. Unable to determine cranial nerves motor sensory or cerebellar or gait. Diagnoses: Right frontoparietal hemorrhagic cerebrovascular accident Sepsis Urinary tract infection Probable Clostridium difficile Lactic acidosis Systemic lupus erythematosus Cirrhosis due to alcohol Diabetes mellitus Hypertension Hyperlipidemia Hypothyroidism Recommendations: Substitute ceftriaxone for cefepime as this spectrum is over broad and may aggravate underlying Clostridium difficile. Continue vancomycin although the blood cultures are possible to have been a contaminant because of seriousness of the situation would wait until the organism is identified. Continue Flagyl because there is probability of Clostridium difficile with the diarrhea and the colonic thickening. Obtain MRSA screen, Clostridium difficile, ESR, A1c hemoglobin. I am seeing this patient for Dr.Jerrold Luis Burns MD Eyes: no complaints ENT: no complaints Respiratory: no complaints Cardiovascular: no complaints Gastrointestinal: diarrhea, nausea, pain, vomiting Genitourinary: no complaints Musculoskeletal: no complaints Skin: no complaints Neurologic: focal-weakness Lymphatic: no complaints Psychological: no complaints Immunologic: no complaints Past Medical History Medical History: hypertension, hypothyroid, other (Cirrhosis, SLE) Past Surgical History Past Surgical Hx: cholecystectomy Social History Alcohol Use: none Smoking Status: Never smoker Drug Use: none Exam/Review of Systems Vital Signs Vitals Vital Signs Date Time Temp Pulse Resp B/P Pulse Ox O2 Delivery O2 Flow Rate FiO2 10/10/16 22:15 78 17 138/75 99 Nasal Cannula 2.0 10/10/16 19:30 97.4 10/10/16 01:52 21 Intake and Output 10/09/16 10/09/16 10/10/16 15:00 23:00 07:00 Intake Total 800 ml 900 ml Output Total 330 ml 290 ml Balance 470 ml 610 ml Results Result Diagram: 10/10/16 1220 10/10/16 0430 Results 24 hrs Laboratory Tests Test 10/10/16 04:30 10/10/16 12:20 White Blood Count 10.6 # 8.6 Red Blood Count 2.24 #L 2.15 L Hemoglobin 7.5 #L 7.0 L Hematocrit 22.4 #L 21.4 L Mean Corpuscular Volume 100.0 99.5 Mean Corpuscular Hemoglobin 33.5 H 32.6 Mean Corpuscular Hemoglobin Concent 33.5 32.7 Red Cell Distribution Width 15.6 H 15.7 H Platelet Count 50 #L 55 L Mean Platelet Volume 10.1 9.9 Neutrophils % 86.0 H 84.6 H Lymphocytes % 8.2 L 9.0 L Monocytes % 5.0 5.7 Eosinophils % 0.1 0.2 Basophils % 0.1 0.0 Nucleated Red Blood Cells % 0.0 0.0 Neutrophils # 9.1 H 7.3 Lymphocytes # 0.9 0.8 Monocytes # 0.5 0.5 Eosinophils # 0.0 0.0 Basophils # 0.0 0.0 Nucleated Red Blood Cells # 0.0 0.0 Prothrombin Time 23.3 #H 18.5 #H Prothrombin Time Ratio 1.8 INR International Normalized Ratio 2.05 Activated Partial Thromboplast Time 41.7 H 38.2 H Sodium Level 141 Potassium Level 4.0 Chloride Level 115 H Carbon Dioxide Level 19 L Anion Gap 11 # Blood Urea Nitrogen 37 #H Creatinine 1.12 H Glucose Level 83 Lactic Acid Level 1.1 Calcium Level 7.3 L Phosphorus Level 4.0 Magnesium Level 1.8 Total Bilirubin 0.6 Direct Bilirubin 0.00 Indirect Bilirubin 0.6 Aspartate Amino Transf (AST/SGOT) 40 Alanine Aminotransferase (ALT/SGPT) 44 Alkaline Phosphatase 97 Troponin I 0.119 Total Protein 6.4 # Albumin 2.6 L Globulin 3.80 H Albumin/Globulin Ratio 0.68 Mix PT Patient Plasma Immediate PT Mixing Studies Interpretation Mix PTT Normal Plasma Immediate Fibrinogen 301.0 D-Dimer > 82468.00 H Medications Medications Current Medications Labetalol HCl (Labetalol) 10 mg Q10M PRN IV ELEVATED BLOOD PRESSURE; Start 10/09 at 09:00 Lorazepam (Ativan) 0.5 mg Q2H PRN IV SEIZURES; Start 10/09/16 at 09:00 Acetaminophen (Tylenol Tab) 650 mg Q4H PRN PO TEMP GREATER THAN 99.6F; Start at 09:00 Docusate Sodium 100 mg 100 mg BID PO ; Start 10/09/16 at 09:00 Sodium Chloride 1,000 ml @ 100 mls/hr Q10H IV Last administered on 10/09/16 16 :07; Admin Dose 100 MLS/HR; Start 10/09/16 at 10:00; Status Future Hold Metronidazole 100 ml @ 100 mls/hr Q8 IVPB Last administered on 10/10/16 22:06 ; Admin Dose 100 MLS/HR; Start 10/09/16 at 14:00 Cefepime HCl (Maxipime 1gm/50 ml (Pmx)) 50 ml @ 100 mls/hr Q12 IVPB Last administered on 10/10/16 20:52; Admin Dose 100 MLS/HR; Start 10/09/16 at 10:30 Ondansetron HCl (Zofran Inj) 4 mg Q6H PRN IV NAUSEA AND/OR VOMITING Last administered on 10/10/16 04:31; Admin Dose 4 MG; Start 10/09/16 at 10:30 Morphine Sulfate 2 mg 2 mg Q4H PRN IV PAIN LEVEL 7-10 Last administered on 20:52; Admin Dose 2 MG; Start 10/09/16 at 10:30 Levetiracetam (Keppra 500 Mg/ 100ml (Pmx)) 100 ml @ 400 mls/hr Q12 IVPB Last administered on 10/10/16 20:52; Admin Dose 400 MLS/HR; Start 10/09/16 at 21:00 IV Flush (NS 10 ml) 10 ml PRN PRN IV FLUSH LINE; Start 10/09/16 at 15:30 Furosemide (Lasix) 10 mg ONCE IV Last administered on 10/10/16 11:24; Admin Dose 10 MG; Start 10/10/16 at 09:00; Stop 10/11/16 at 08:59 Pantoprazole 40 mg 40 mg BID@06,18 IV Last administered on 10/10/16 18:34; Admin Dose 40 MG; Start 10/10/16 at 18:00 Vancomycin HCl 750 mg/Sodium Chloride 150 ml @ 75 mls/hr Q24H IVPB Last administered on 10/10/16 16:09; Admin Dose 75 MLS/HR; Start 10/10/16 at 14:00 Potassium Chloride/Dextrose (KCl/D5W) 1,005 ml @ 75 mls/hr [id number] IV Last administered on 10/10/16t 16:31; Admin Dose 75 MLS/HR; Start 10/10/16 at 15:00 Citric Acid/ Sodium Citrate (Bicitra) 30 ml BID PO ; Start 10/10/16 at 21:00 Mariah BURNS MD Oct 10, 2016 23:19
[2016-10-11] VITALS (81 sets, daily range): BP systolic 115–166; BP diastolic 62–109; PULSE 71–93; RESP 12–29
[2016-10-11] MEDS: morphine 2 MG INJ IV PRN ×4 (03:16→19:35)
[2016-10-11] MEDS: POTASSIUM CHLORIDE 10 MEQ in DEXTROSE 5% 1,000 ML IV SCH ×2 (04:24→17:00)
[2016-10-11 05:17] LABS: INR 1.32; PROTIME 16.5 Sec (12.2-14.2); PT RATIO 1.3
[2016-10-11 05:18] LABS: MAGNESIUM 1.8 mg/dl (1.7-2.5); PARTIAL THROMBOPLASTIN TIME 34.3 Sec (25.0-35.0); PHOSPHORUS 3.1 mg/dl (2.5-4.9)
[2016-10-11 05:19] LABS: ABNORMAL IP MESSAGE 1; EOSINOPHILS % 0.5 % (0.0-7.0); HEMATOCRIT 20.2 % (37.0-47.0); LYMPHOCYTES # 0.4 10^3/ul (0.8-2.9); LYMPHOCYTES % 10.3 % (15.0-51.0); MEAN CORPUSCULAR HGB CONC 32.7 g/dl (32.0-37.0); MEAN PLATELET VOLUME 9.5 fl (7.4-10.4); MONOCYTE # 0.3 10^3/ul (0.3-0.9); MONOCYTES % 6.5 % (0.0-11.0); NEUTROPHIL # 3.4 10^3/ul (1.6-7.5); PLATELET COUNT 71 10^3/UL (140-415); RED CELL DISTRIBUTION WIDTH 15.6 % (11.5-14.5); WHITE BLOOD COUNT 4.2 10^3/ul (4.8-10.8)
[2016-10-11 05:21] LABS: HEMOGLOBIN 6.6 g/dl (12.0-16.0)
[2016-10-11 05:22] LABS: ADD SCAN DIFF NO; ALBUMIN 3.5 g/dl (3.3-4.9); BILIRUBIN,INDIRECT 0.8 mg/dl (0-1.1); BILIRUBIN,TOTAL 0.8 mg/dl (0.2-1.3); CALCIUM 7.9 mg/dl (8.4-10.2); CREATININE 0.94 mg/dl (0.44-1.00); POTASSIUM 3.5 mmol/L (3.5-5.1)
[2016-10-11] MEDS: PANTOPRAZOLE 40 MG INJ IV SCH ×2 (05:46→17:00)
[2016-10-11] MEDS: metroNIDAZOLE 500 MG/NS (PMX) 100 ML IVPB SCH ×2 (05:47→21:26)
[2016-10-11] MEDS: CEFEPIME 1GM/50 ML (PMX) 50 ML IVPB SCH ×2 (08:28→20:38)
[2016-10-11] MEDS: LEVETIRACETAM 500 MG (PMX) 100 ML IVPB SCH ×2 (08:28→20:15)
[2016-10-11] MEDS: FUROSEMIDE 40 MG INJ IV SCH (08:55)
[2016-10-11] MEDS: CITRIC ACID/SODIUM CITRATE 15 ML CUP PO SCH (09:00)
[2016-10-11] MEDS: DOCUSATE SODIUM 100 MG CAP PO SCH ×2 (09:00→21:00)
[2016-10-11] MEDS: LACTULOSE 30ML CUP PO SCH ×3 (10:00→21:27)
--- NOTE | 2016-10-11 10:07 | PN ---
Date/Time of Note Date/Time of Note DATE: 10/11/16 TIME: 09:58 Assessment/Plan VTE Prophylaxis VTE Prophylaxis Intervention: SCD's Lines/Catheters IV Catheter Type (from Nrs): PICC Line Central line still needed: Yes Urinary Cath still in place: Yes Reason Cath still needed: urinary retention Assessment/Plan Chief Complaint/Hosp Course A/P: 75-year-old female with past medical history of essential hypertension, systemic lupus erythematosus, hypothyroidism, and liver cirrhosis not because of alcohol abuse who was brought to the emergency room after the patient was found on the floor at home - found with Right posterior frontal lobe parenchymal hematoma and moderate intraventricular hemorrhage. 1. Right posterior frontal lobe parenchymal hematoma and moderate intraventricular hemorrhage. Repeat brain CT scan on 10-10-2016 showed interval appearance of right subdural hemorrhage mainly overlying right frontal lobe measuring up to 7 mm along with scattered bilateral foci of subarachnoid hemorrhages with interval increase and a 2 mm leftward midline shift. S/P multiple plt and FFP transfusions - Avoid activities that increase intracranial pressure. - f/u Neurosurgery rec's. - Continue tight blood pressure control. - continue Keppra 2. Non-ST elevation myocardial infarction. Most probably a type II event from underlying ischemia versus from underlying sepsis and worsening renal function. Troponins normalized. - - f/u Cardiology rec's 3. Sepsis - secondary to underlying urinary tract infection. Ucx = + E coli. Blood cx 1/2 bottles also + gram + cocci. - Continue antibiotics, f/u final cx results - f/u Infectious diseases rec's, continue IV fluids. 4. Essential hypertension. The patient's blood pressure will be tightly controlled. - monitor 5. Normocytic, normochromic anemia. Most probably anemia of chronic disease and also from underlying liver cirrhosis. S/p pRBC. Low H/H this AM. - Will monitor the H&H closely. Will transfuse blood products as needed. 6. Thrombocytopenia - likely sec to cirrhosis. S/p plt transfusion - Monitor for any further bleeding. - Transfuse platelets as necessary. 7. Transaminitis with hyperbilirubinemia. Resolved. Most probably secondary to underlying liver cirrhosis. - Monitor. Trend LFTs. Avoid hepatotoxic medications. 8. Systemic lupus erythematosus. Will monitor. 9. Hypothyroidism. Will resume Synthroid once the patient is able take oral intake. 10. Acute kidney injury. Etiology could be secondary to hemodynamics versus contrast induced. Obtain nephrology consult. 11. Coagulopathy. S/p FFPs. - monitor INR, f/u hematology rec's 12. Fluids, electrolytes, and nutrition. N.p.o. until swallow evaluation. Continue IV fluids. 13. DVT prophylaxis. Bilateral sequential compression devices. 14. Gastrointestinal prophylaxis. Proton pump inhibitors. Case discussed with neurosurgery earlier. Neurosurgery is suggesting that the increase in brain bleed is not causing the drop in H&H. Critical care time: 45 minutes. Problems: Subjective 24 Hr Interval Summary Free Text/Dictation Pt had 6 FFP and one unit plt given yesterday, and one unit pRBC last night as well. Exam/Review of Systems Vital Signs Vitals Vital Signs Date Time Temp Pulse Resp B/P Pulse Ox O2 Delivery O2 Flow Rate FiO2 10/11/16 09:45 78 14 140/84 97 Nasal Cannula 10/11/16 09:15 2.0 10/11/16 08:00 98.8 10/10/16 01:52 21 Intake and Output 10/10/16 10/10/16 10/11/16 15:00 23:00 07:00 Intake Total 1846 ml 1806 ml 931 ml Output Total 525 ml 760 ml 450 ml Balance 1321 ml 1046 ml 481 ml Exam General: lying in bed in no apparent distress. HEENT: Normocephalic, atraumatic. Eyes: Anicteric sclerae, conjunctivae clear. ENT: Nasal septum midline, oral mucosa moist. Neck supple, no JVD noticed. Respiratory: Bilaterally clear breath sounds. No use of accessory muscles of respiration. No adventitious breath sounds. Cardiovascular: S1, S2 heard. No murmurs or gallops. Abdomen: Soft and nondistended. Bowel sounds positive in all 4 quadrants. Diffuse tenderness in the abdomen Extremities: No cyanosis, no clubbing, no edema. Peripheral pulses palpable. Neurologic: The patient is awake, alert, and oriented. Slurred speech. Left- sided facial droop. Left upper extremity no movement against gravity. Right lower extremity no movement against gravity. No sensation in the left lower extremity. Skin: Normal skin turgor. No skin rashes. Results Result Diagram: 10/11/16 0400 10/11/16 0400 Results 24 hrs Laboratory Tests Test 10/10/16 12:20 10/11/16 00:38 10/11/16 04:00 10/11/16 05:09 White Blood Count 8.6 4.2 #L Red Blood Count 2.15 L 2.00 L Hemoglobin 7.0 L 6.6 *L Hematocrit 21.4 L 20.2 L Mean Corpuscular Volume 99.5 101.0 Mean Corpuscular Hemoglobin 32.6 33.0 Mean Corpuscular Hemoglobin Concent 32.7 32.7 Red Cell Distribution Width 15.7 H 15.6 H Platelet Count 55 L 71 #L Mean Platelet Volume 9.9 9.5 Neutrophils % 84.6 H 82.0 H Lymphocytes % 9.0 L 10.3 L Monocytes % 5.7 6.5 Eosinophils % 0.2 0.5 Basophils % 0.0 0.0 Nucleated Red Blood Cells % 0.0 0.0 Neutrophils # 7.3 3.4 Lymphocytes # 0.8 0.4 L Monocytes # 0.5 0.3 Eosinophils # 0.0 0.0 Basophils # 0.0 0.0 Nucleated Red Blood Cells # 0.0 0.0 Prothrombin Time 18.5 #H 16.5 H Activated Partial Thromboplast Time 38.2 H 34.3 Mix PT Patient Plasma Immediate PT Mixing Studies Interpretation Mix PTT Normal Plasma Immediate Fibrinogen 301.0 D-Dimer > 52618.00 H Erythrocyte Sedimentation Rate 95 H Prothrombin Time Ratio 1.3 INR International Normalized Ratio 1.32 Sodium Level 145 H Potassium Level 3.5 Chloride Level 114 H Carbon Dioxide Level 23 Anion Gap 12 Blood Urea Nitrogen 30 H Creatinine 0.94 Glucose Level 100 Calcium Level 7.9 L Phosphorus Level 3.1 Magnesium Level 1.8 Total Bilirubin 0.8 Direct Bilirubin 0.00 Indirect Bilirubin 0.8 Aspartate Amino Transf (AST/SGOT) 38 Alanine Aminotransferase (ALT/SGPT) 47 Alkaline Phosphatase 107 Ammonia 46 H Total Protein 7.0 Albumin 3.5 Globulin 3.50 H Albumin/Globulin Ratio 1.00 Lab Scanned Report BLOOD TRANSFUSION Medications Medications Current Medications Labetalol HCl (Labetalol) 10 mg Q10M PRN IV ELEVATED BLOOD PRESSURE; Start 10/09 at 09:00 Lorazepam (Ativan) 0.5 mg Q2H PRN IV SEIZURES; Start 10/09/16 at 09:00 Acetaminophen (Tylenol Tab) 650 mg Q4H PRN PO TEMP GREATER THAN 99.6F; Start at 09:00 Docusate Sodium 100 mg 100 mg BID PO ; Start 10/09/16 at 09:00 Sodium Chloride 1,000 ml @ 100 mls/hr Q10H IV Last administered on 10/09/16 16 :07; Admin Dose 100 MLS/HR; Start 10/09/16 at 10:00; Status Future Hold Metronidazole 100 ml @ 100 mls/hr Q8 IVPB Last administered on 10/11/16 05:47 ; Admin Dose 100 MLS/HR; Start 10/09/16 at 14:00 Cefepime HCl (Maxipime 1gm/50 ml (Pmx)) 50 ml @ 100 mls/hr Q12 IVPB Last administered on 10/11/16 08:28; Admin Dose 100 MLS/HR; Start 10/09/16 at 10:30 Ondansetron HCl (Zofran Inj) 4 mg Q6H PRN IV NAUSEA AND/OR VOMITING Last administered on 10/10/16 04:31; Admin Dose 4 MG; Start 10/09/16 at 10:30 Morphine Sulfate 2 mg 2 mg Q4H PRN IV PAIN LEVEL 7-10 Last administered on 08:40; Admin Dose 2 MG; Start 10/09/16 at 10:30 Levetiracetam (Keppra 500 Mg/ 100ml (Pmx)) 100 ml @ 400 mls/hr Q12 IVPB Last administered on 10/11/16 08:28; Admin Dose 400 MLS/HR; Start 10/09/16 at 21:00 IV Flush (NS 10 ml) 10 ml PRN PRN IV FLUSH LINE; Start 10/09/16 at 15:30 Pantoprazole 40 mg 40 mg BID@06,18 IV Last administered on 10/11/16 05:46; Admin Dose 40 MG; Start 10/10/16 at 18:00 Vancomycin HCl 750 mg/Sodium Chloride 150 ml @ 75 mls/hr Q24H IVPB Last administered on 10/10/16 16:09; Admin Dose 75 MLS/HR; Start 10/10/16 at 14:00 Potassium Chloride/Dextrose (KCl/D5W) 1,005 ml @ 75 mls/hr [id number] IV Last administered on 7/2/17at 16:31; Admin Dose 75 MLS/HR; Start 10/10/16 at 15:00 Citric Acid/ Sodium Citrate (Bicitra) 30 ml BID PO ; Start 10/10/16 at 21:00 Lactulose (Enulose) 10 gm Q8 PO ; Start 10/11/16 at 10:00 YANELI CHAVEZ Oct 11, 2016 10:07
[2016-10-11] MEDS ORDERED: FUROSEMIDE 20 MG INJ IV ONE (10:30)
[2016-10-11] MEDS ORDERED: FUROSEMIDE 20 MG INJ IV SCH (10:30)
--- NOTE | 2016-10-11 10:51 | CONS ---
Date/Time of Note Date/Time of Note DATE: 10/11/16 TIME: 10:49 Assessment/Plan Assessment/Plan Additional Assessment/Plan 1. NSTEMI - not a candidate for intervention or anti-coagulation, conservative care now - NO INTERVENTION PLANNED. 2. Acute right posterior frontal lobe parenchymal hematoma and moderate intraventricular hemorrhage - now expanding, FFP Rx 3. Acute kidney injury due to ATN From sepsis with metabolic acidosis - avoid nephrotoxic meds - BETTER now 4. Sepsis due to Acute GNR UTI and bacteremia - on anti-Bx 5. Bacteremia with Blood cx growing GNR 6. Essential hypertension 6. ETOH Liver Cirrhosis associated w/thrombocytopenia, transaminitis, hyperbilirubinemia 7. Normocytic, normochromic anemia 8. Hypothyroidism Consultation Date/Type/Reason Admit Date/Time Oct 09, 2016 at 08:26 Initial Consult Date 10/10/16 Type of Consultation: Infectious disease Referring Provider: MILTON FARIAS 24 HR Interval Summary Free Text/Dictation NO acute change - stable overall - will adjust Rx per neuro rects ROS: No fever, no chills, no nausea, no vomiting, no diarrhea/constipation No recent weight changes No chest pain, no PND, no orthopnea No dizziness, blurred vision No thirst, no heat or cold intolerance Exam/Review of Systems Vital Signs Vitals Vital Signs Date Time Temp Pulse Resp B/P Pulse Ox O2 Delivery O2 Flow Rate FiO2 10/11/16 09:45 78 14 140/84 97 Nasal Cannula 10/11/16 09:15 2.0 10/11/16 08:00 98.8 10/10/16 01:52 21 Intake and Output 10/10/16 10/10/16 10/11/16 15:00 23:00 07:00 Intake Total 1846 ml 1806 ml 931 ml Output Total 525 ml 760 ml 450 ml Balance 1321 ml 1046 ml 481 ml Exam General: WN/WD/NAD, AOx confused HEENT: Unicetric/atraumatic/EOMI (follow commands) NECK: JVD elevated, no thyromegaly Lymph: no lymphadenopathy HEART: regular with no S3, II/ systolic murmur at apex LUNGS: Coarse sounds ABD: soft, NT, ND, +BS : Intact Neuro: post CVA SKIN: chronic changes EXT: trace edema Results Result Diagram: 10/11/16 0400 10/11/16 0400 Results 24 hrs Laboratory Tests Test 10/10/16 12:20 10/11/16 00:38 10/11/16 04:00 10/11/16 05:09 White Blood Count 8.6 4.2 #L Red Blood Count 2.15 L 2.00 L Hemoglobin 7.0 L 6.6 *L Hematocrit 21.4 L 20.2 L Mean Corpuscular Volume 99.5 101.0 Mean Corpuscular Hemoglobin 32.6 33.0 Mean Corpuscular Hemoglobin Concent 32.7 32.7 Red Cell Distribution Width 15.7 H 15.6 H Platelet Count 55 L 71 #L Mean Platelet Volume 9.9 9.5 Neutrophils % 84.6 H 82.0 H Lymphocytes % 9.0 L 10.3 L Monocytes % 5.7 6.5 Eosinophils % 0.2 0.5 Basophils % 0.0 0.0 Nucleated Red Blood Cells % 0.0 0.0 Neutrophils # 7.3 3.4 Lymphocytes # 0.8 0.4 L Monocytes # 0.5 0.3 Eosinophils # 0.0 0.0 Basophils # 0.0 0.0 Nucleated Red Blood Cells # 0.0 0.0 Prothrombin Time 18.5 #H 16.5 H Activated Partial Thromboplast Time 38.2 H 34.3 Mix PT Patient Plasma Immediate PT Mixing Studies Interpretation Mix PTT Normal Plasma Immediate Fibrinogen 301.0 D-Dimer > 44810.00 H Erythrocyte Sedimentation Rate 95 H Prothrombin Time Ratio 1.3 INR International Normalized Ratio 1.32 Sodium Level 145 H Potassium Level 3.5 Chloride Level 114 H Carbon Dioxide Level 23 Anion Gap 12 Blood Urea Nitrogen 30 H Creatinine 0.94 Glucose Level 100 Calcium Level 7.9 L Phosphorus Level 3.1 Magnesium Level 1.8 Total Bilirubin 0.8 Direct Bilirubin 0.00 Indirect Bilirubin 0.8 Aspartate Amino Transf (AST/SGOT) 38 Alanine Aminotransferase (ALT/SGPT) 47 Alkaline Phosphatase 107 Ammonia 46 H Total Protein 7.0 Albumin 3.5 Globulin 3.50 H Albumin/Globulin Ratio 1.00 Lab Scanned Report BLOOD TRANSFUSION Medications Medications Current Medications Labetalol HCl (Labetalol) 10 mg Q10M PRN IV ELEVATED BLOOD PRESSURE; Start 10/09 at 09:00 Lorazepam (Ativan) 0.5 mg Q2H PRN IV SEIZURES; Start 10/09/16 at 09:00 Acetaminophen (Tylenol Tab) 650 mg Q4H PRN PO TEMP GREATER THAN 99.6F; Start at 09:00 Docusate Sodium 100 mg 100 mg BID PO ; Start 10/09/16 at 09:00 Sodium Chloride 1,000 ml @ 100 mls/hr Q10H IV Last administered on 10/09/16 16 :07; Admin Dose 100 MLS/HR; Start 10/09/16 at 10:00; Status Future Hold Cefepime HCl (Maxipime 1gm/50 ml (Pmx)) 50 ml @ 100 mls/hr Q12 IVPB Last administered on 10/11/16 08:28; Admin Dose 100 MLS/HR; Start 10/09/16 at 10:30 Ondansetron HCl (Zofran Inj) 4 mg Q6H PRN IV NAUSEA AND/OR VOMITING Last administered on 10/10/16 04:31; Admin Dose 4 MG; Start 10/09/16 at 10:30 Morphine Sulfate 2 mg 2 mg Q4H PRN IV PAIN LEVEL 7-10 Last administered on 08:40; Admin Dose 2 MG; Start 10/09/16 at 10:30 Levetiracetam (Keppra 500 Mg/ 100ml (Pmx)) 100 ml @ 400 mls/hr Q12 IVPB Last administered on 10/11/16 08:28; Admin Dose 400 MLS/HR; Start 10/09/16 at 21:00 IV Flush (NS 10 ml) 10 ml PRN PRN IV FLUSH LINE; Start 10/09/16 at 15:30 Pantoprazole 40 mg 40 mg BID@06,18 IV Last administered on 10/11/16 05:46; Admin Dose 40 MG; Start 10/10/16 at 18:00 Vancomycin HCl 750 mg/Sodium Chloride 150 ml @ 75 mls/hr Q24H IVPB Last administered on 10/10/16 16:09; Admin Dose 75 MLS/HR; Start 10/10/16 at 14:00 Potassium Chloride/Dextrose (KCl/D5W) 1,005 ml @ 75 mls/hr [id number] IV Last administered on 10/10/16 16:31; Admin Dose 75 MLS/HR; Start 10/10/16 at 15:00 Citric Acid/ Sodium Citrate (Bicitra) 30 ml BID PO ; Start 10/10/16 at 21:00 Lactulose (Enulose) 10 gm Q8 PO ; Start 10/11/16 at 10:00 Furosemide (Lasix) 20 mg ONCE IV ; Start 10/11/16 at 10:30; Stop 10/11/16 at 19:00 GEOFFREY MENDOZA MD Oct 11, 2016 10:51
[2016-10-11] MEDS: DIPHENHYDRAMINE 50 MG INJ IV PRN ×2 (13:15→20:15)
[2016-10-11] MEDS: VANCOMYCIN 750 MG in SOD CHLORIDE 0.9% 150 ML IVPB SCH (14:14)
--- NOTE | 2016-10-11 15:56 | CONS ---
Date/Time of Note Date/Time of Note DATE: 10/11/16 TIME: 15:54 Consult Date/Type/Reason Admit Date/Time Oct 09, 2016 at 08:26 Initial Consult Date 10/10/16 Type of Consultation: neuro Ordering Provider: MILTON FARIAS Subjective No acute events. HARE and body pain, on Morphine, was c/o itching, received Benadryl as well. Sleepy now Objective Vital Signs Date Time Temp Pulse Resp B/P Pulse Ox O2 Delivery O2 Flow Rate FiO2 10/11/16 14:15 74 18 152/69 100 Nasal Cannula 10/11/16 12:00 97.5 10/11/16 12:00 2.0 10/10/16 01:52 21 Intake and Output 10/10/16 10/10/16 10/11/16 15:00 23:00 07:00 Intake Total 1846 ml 1806 ml 931 ml Output Total 525 ml 760 ml 450 ml Balance 1321 ml 1046 ml 481 ml Results/Medications Result Diagram: 10/11/16 0400 10/11/16 0400 Results 24 hrs Laboratory Tests Test 10/11/16 00:38 10/11/16 04:00 10/11/16 05:09 Erythrocyte Sedimentation Rate 95 H White Blood Count 4.2 #L Red Blood Count 2.00 L Hemoglobin 6.6 *L Hematocrit 20.2 L Mean Corpuscular Volume 101.0 Mean Corpuscular Hemoglobin 33.0 Mean Corpuscular Hemoglobin Concent 32.7 Red Cell Distribution Width 15.6 H Platelet Count 71 #L Mean Platelet Volume 9.5 Neutrophils % 82.0 H Lymphocytes % 10.3 L Monocytes % 6.5 Eosinophils % 0.5 Basophils % 0.0 Nucleated Red Blood Cells % 0.0 Neutrophils # 3.4 Lymphocytes # 0.4 L Monocytes # 0.3 Eosinophils # 0.0 Basophils # 0.0 Nucleated Red Blood Cells # 0.0 Prothrombin Time 16.5 H Prothrombin Time Ratio 1.3 INR International Normalized Ratio 1.32 Activated Partial Thromboplast Time 34.3 Sodium Level 145 H Potassium Level 3.5 Chloride Level 114 H Carbon Dioxide Level 23 Anion Gap 12 Blood Urea Nitrogen 30 H Creatinine 0.94 Glucose Level 100 Calcium Level 7.9 L Phosphorus Level 3.1 Magnesium Level 1.8 Total Bilirubin 0.8 Direct Bilirubin 0.00 Indirect Bilirubin 0.8 Aspartate Amino Transf (AST/SGOT) 38 Alanine Aminotransferase (ALT/SGPT) 47 Alkaline Phosphatase 107 Ammonia 46 H Total Protein 7.0 Albumin 3.5 Globulin 3.50 H Albumin/Globulin Ratio 1.00 Lab Scanned Report BLOOD TRANSFUSION Medications Current Medications Labetalol HCl (Labetalol) 10 mg Q10M PRN IV ELEVATED BLOOD PRESSURE; Start 10/09 at 09:00 Lorazepam (Ativan) 0.5 mg Q2H PRN IV SEIZURES; Start 10/09/16 at 09:00 Acetaminophen (Tylenol Tab) 650 mg Q4H PRN PO TEMP GREATER THAN 99.6F; Start at 09:00 Docusate Sodium 100 mg 100 mg BID PO ; Start 10/09/16 at 09:00 Sodium Chloride 1,000 ml @ 100 mls/hr Q10H IV Last administered on 10/09/16 16 :07; Admin Dose 100 MLS/HR; Start 10/09/16 at 10:00; Status Future Hold Cefepime HCl (Maxipime 1gm/50 ml (Pmx)) 50 ml @ 100 mls/hr Q12 IVPB Last administered on 10/11/16 08:28; Admin Dose 100 MLS/HR; Start 10/09/16 at 10:30 Ondansetron HCl (Zofran Inj) 4 mg Q6H PRN IV NAUSEA AND/OR VOMITING Last administered on 10/10/16 04:31; Admin Dose 4 MG; Start 10/09/16 at 10:30 Morphine Sulfate 2 mg 2 mg Q4H PRN IV PAIN LEVEL 7-10 Last administered on 12:48; Admin Dose 2 MG; Start 10/09/16 at 10:30 Levetiracetam (Keppra 500 Mg/ 100ml (Pmx)) 100 ml @ 400 mls/hr Q12 IVPB Last administered on 10/11/16 08:28; Admin Dose 400 MLS/HR; Start 10/09/16 at 21:00 IV Flush (NS 10 ml) 10 ml PRN PRN IV FLUSH LINE; Start 10/09/16 at 15:30 Pantoprazole 40 mg 40 mg BID@06,18 IV Last administered on 10/11/16 05:46; Admin Dose 40 MG; Start 10/10/16 at 18:00 Vancomycin HCl 750 mg/Sodium Chloride 150 ml @ 75 mls/hr Q24H IVPB Last administered on 10/11/16 14:14; Admin Dose 75 MLS/HR; Start 10/10/16 at 14:00 Potassium Chloride/Dextrose (KCl/D5W) 1,005 ml @ 75 mls/hr [id number] IV Last administered on 10/10/16 16:31; Admin Dose 75 MLS/HR; Start 10/10/16 at 15:00 Citric Acid/ Sodium Citrate (Bicitra) 30 ml BID PO ; Start 10/10/16 at 21:00 Lactulose (Enulose) 10 gm Q8 PO ; Start 10/11/16 at 10:00 Furosemide (Lasix) 20 mg ONCE IV Last administered on 10/11/16 12:31; Admin Dose 20 MG; Start 10/11/16 at 10:30; Stop 10/11/16 at 19:00 Diphenhydramine HCl (Benadryl) 25 mg Q6H PRN IV ITCHING Last administered on 13:15; Admin Dose 25 MG; Start 10/11/16 at 13:00 Assessment/Plan Chief Complaint/Hosp Course NEUROLOGIC EXAMINATION: She is lethargic, arousable, follows commands, fluent slightly slurred speech, ox2. Cranial nerve examination shows intact left hemianopia to threat. Pupils round, reactive to light sluggishly from 3 to 2 mm bilaterally. Extraocular movements intact without nystagmus. Symmetrical face. Preserved facial strength, corneals and gag OK. Tongue is in midline. Palate elevates symmetrically. Motor strength examination trace of movements in 0-1/5 on the left, decreased tone, normal bulk. Sensory examination shows normal perception of touch. Deep tendon reflexes 2+ UE, knees, no ankle jerks , equivocal rsponse to plantar stimultion on the right, upgoing on the left. Coordination preserved on the right [id number] testing. No dysmetria or tremor. Gait was not assessed. IMPRESSION: Acute intracerebral, subdural and intraventricular hemorrhage. Serial CT for evaluation of stability, will repeat tomorrow. Continue keppra. Keep normotensive. Hem/onc on case. Problems: FIGEUROA MENDEZ MD Oct 11, 2016 15:56
[2016-10-11 16:36] LABS: ADD SCAN DIFF NO
[2016-10-11 16:37] LABS: ABNORMAL IP MESSAGE 1; EOSINOPHILS % 0.8 % (0.0-7.0); HEMATOCRIT 24.1 % (37.0-47.0); HEMOGLOBIN 7.7 g/dl (12.0-16.0); LYMPHOCYTES # 0.4 10^3/ul (0.8-2.9); LYMPHOCYTES % 11.2 % (15.0-51.0); MEAN CORPUSCULAR HEMOGLOBIN 31.4 pg (29.0-33.0); MEAN CORPUSCULAR VOLUME 98.4 fl (82.0-101.0); MEAN PLATELET VOLUME 9.3 fl (7.4-10.4); MONOCYTE # 0.4 10^3/ul (0.3-0.9); MONOCYTES % 8.9 % (0.0-11.0); NEUTROPHIL # 3.1 10^3/ul (1.6-7.5); NEUTROPHILS % 78.6 % (39.0-77.0); PLATELET COUNT 73 10^3/UL (140-415); RED BLOOD COUNT 2.45 10^6/ul (4.20-5.40); WHITE BLOOD COUNT 3.9 10^3/ul (4.8-10.8)
[2016-10-11 16:54] LABS: INR 1.23; PROTIME 15.6 Sec (12.2-14.2); PT RATIO 1.2
[2016-10-11 16:55] LABS: PARTIAL THROMBOPLASTIN TIME 32.8 Sec (25.0-35.0)
--- NOTE | 2016-10-11 17:12 | CONS ---
Date/Time of Note Date/Time of Note DATE: 10/11/16 TIME: 16:59 Assessment/Plan Assessment/Plan Chief Complaint/Hosp Course Subjective: No acute changes overnight, patient is laying comfortably in bed, withdraws to pain, does not follow commands, no fevers Indwelling: Lucio catheter, NG tube, PICC line Antimicrobials: Vancomycin, cefepime, Flagyl Physical examination: Obese, drowsy, female lying in bed. Head atraumatic normocephalic, sclera nonicteric. Neck is supple, trachea midline. Chest rise symmetrical, breath sounds clear, diminished to bases. Abdomen obese, soft, bowel tones present. Extremities without cyanosis, peripheral pulses palpable. Skin without rashes, no lesions Assessment: 1. Acute CVA 2. Staph bacteremia, possibly contaminant 3. Colitis per CT of the abdomen and pelvis rule out C. difficile 4. NSTEMI 5. Alcoholic liver cirrhosis 6. Allergy to penicillin 7. Anemia, thrombocytopenia. Plan: Hemodynamically stable, continue antibiotics, follow recommendations of consultants, blood products as needed, aspiration precautions Discussed with staff Problems: Consultation Date/Type/Reason Admit Date/Time Oct 09, 2016 at 08:26 Initial Consult Date 10/10/16 Type of Consultation: Infectious disease Referring Provider: MILTON FARIAS Exam/Review of Systems Vital Signs Vitals Vital Signs Date Time Temp Pulse Resp B/P Pulse Ox O2 Delivery O2 Flow Rate FiO2 10/11/16 16:15 90 18 158/73 100 Nasal Cannula 10/11/16 16:00 98.0 10/11/16 12:00 2.0 10/10/16 01:52 21 Intake and Output 10/10/16 10/10/16 10/11/16 15:00 23:00 07:00 Intake Total 1846 ml 1806 ml 931 ml Output Total 525 ml 760 ml 450 ml Balance 1321 ml 1046 ml 481 ml Results Result Diagram: 10/11/16 1628 10/11/16 0400 Results 24 hrs Laboratory Tests Test 10/11/16 00:38 10/11/16 04:00 10/11/16 05:09 10/11/16 16:28 Erythrocyte Sedimentation Rate 95 H White Blood Count 4.2 #L 3.9 L Red Blood Count 2.00 L 2.45 #L Hemoglobin 6.6 *L 7.7 L Hematocrit 20.2 L 24.1 L Mean Corpuscular Volume 101.0 98.4 Mean Corpuscular Hemoglobin 33.0 31.4 Mean Corpuscular Hemoglobin Concent 32.7 32.0 Red Cell Distribution Width 15.6 H 17.0 H Platelet Count 71 #L 73 L Mean Platelet Volume 9.5 9.3 Neutrophils % 82.0 H 78.6 H Lymphocytes % 10.3 L 11.2 L Monocytes % 6.5 8.9 Eosinophils % 0.5 0.8 Basophils % 0.0 0.0 Nucleated Red Blood Cells % 0.0 0.0 Neutrophils # 3.4 3.1 Lymphocytes # 0.4 L 0.4 L Monocytes # 0.3 0.4 Eosinophils # 0.0 0.0 Basophils # 0.0 0.0 Nucleated Red Blood Cells # 0.0 0.0 Prothrombin Time 16.5 H 15.6 H Prothrombin Time Ratio 1.3 1.2 INR International Normalized Ratio 1.32 1.23 Activated Partial Thromboplast Time 34.3 32.8 Sodium Level 145 H Potassium Level 3.5 Chloride Level 114 H Carbon Dioxide Level 23 Anion Gap 12 Blood Urea Nitrogen 30 H Creatinine 0.94 Glucose Level 100 Calcium Level 7.9 L Phosphorus Level 3.1 Magnesium Level 1.8 Total Bilirubin 0.8 Direct Bilirubin 0.00 Indirect Bilirubin 0.8 Aspartate Amino Transf (AST/SGOT) 38 Alanine Aminotransferase (ALT/SGPT) 47 Alkaline Phosphatase 107 Ammonia 46 H Total Protein 7.0 Albumin 3.5 Globulin 3.50 H Albumin/Globulin Ratio 1.00 Lab Scanned Report BLOOD TRANSFUSION Medications Medications Current Medications Labetalol HCl (Labetalol) 10 mg Q10M PRN IV ELEVATED BLOOD PRESSURE; Start 10/09 at 09:00 Lorazepam (Ativan) 0.5 mg Q2H PRN IV SEIZURES; Start 10/09/16 at 09:00 Acetaminophen (Tylenol Tab) 650 mg Q4H PRN PO TEMP GREATER THAN 99.6F; Start at 09:00 Docusate Sodium 100 mg 100 mg BID PO ; Start 10/09/16 at 09:00 Sodium Chloride 1,000 ml @ 100 mls/hr Q10H IV Last administered on 10/09/16t 16 :07; Admin Dose 100 MLS/HR; Start 10/09/16 at 10:00; Status Future Hold Cefepime HCl (Maxipime 1gm/50 ml (Pmx)) 50 ml @ 100 mls/hr Q12 IVPB Last administered on 10/11/16 08:28; Admin Dose 100 MLS/HR; Start 10/09/16 at 10:30 Ondansetron HCl (Zofran Inj) 4 mg Q6H PRN IV NAUSEA AND/OR VOMITING Last administered on 10/10/16 04:31; Admin Dose 4 MG; Start 10/09/16 at 10:30 Morphine Sulfate 2 mg 2 mg Q4H PRN IV PAIN LEVEL 7-10 Last administered on 12:48; Admin Dose 2 MG; Start 10/09/16 at 10:30 Levetiracetam (Keppra 500 Mg/ 100ml (Pmx)) 100 ml @ 400 mls/hr Q12 IVPB Last administered on 10/11/16 08:28; Admin Dose 400 MLS/HR; Start 10/09/16 at 21:00 IV Flush (NS 10 ml) 10 ml PRN PRN IV FLUSH LINE; Start 10/09/16 at 15:30 Pantoprazole 40 mg 40 mg BID@06,18 IV Last administered on 10/11/16 05:46; Admin Dose 40 MG; Start 10/10/16 at 18:00 Vancomycin HCl 750 mg/Sodium Chloride 150 ml @ 75 mls/hr Q24H IVPB Last administered on 10/11/16 14:14; Admin Dose 75 MLS/HR; Start 10/10/16 at 14:00 Potassium Chloride/Dextrose (KCl/D5W) 1,005 ml @ 75 mls/hr [id number] IV Last administered on 10/10/16 16:31; Admin Dose 75 MLS/HR; Start 10/10/16 at 15:00 Citric Acid/ Sodium Citrate (Bicitra) 30 ml BID PO ; Start 10/10/16 at 21:00 Lactulose (Enulose) 10 gm Q8 PO ; Start 10/11/16 at 10:00 Furosemide (Lasix) 20 mg ONCE IV Last administered on 10/11/16 12:31; Admin Dose 20 MG; Start 10/11/16 at 10:30; Stop 10/11/16 at 19:00 Diphenhydramine HCl (Benadryl) 25 mg Q6H PRN IV ITCHING Last administered on t 13:15; Admin Dose 25 MG; Start 10/11/16 at 13:00 MORRIS BRALDEY NP Oct 11, 2016 17:09
[2016-10-11] MEDS: LABETALOL HCL 20MG INJ IV PRN (17:29)
--- NOTE | 2016-10-11 18:34 | CONS ---
Date/Time of Note Date/Time of Note DATE: 10/11/16 TIME: 18:31 Assessment/Plan Assessment/Plan Additional Assessment/Plan 1. Acute right posterior frontal lobe parenchymal hematoma and moderate intraventricular hemorrhage. 2. acute kidney injury due to ATN From sepsis with metabolic acidosis 2. Non-ST elevation myocardial infarction 4. Sepsis due to Acute GNR UTI and bacteremia, 5. Bacteremia with Blood cx growing GNR 6. Essential hypertension 6. ETOH Liver Cirrhosis associated w/thrombocytopenia, transaminitis, hyperbilirubinemia 7. Normocytic, normochromic anemia 8. Hypothyroidism Plan: continue current care , Plan for FFP, PRBC and Platelets tranfusion , lasix has been ordered in between pt has Hyperchoremic metabolic acidosis- continue D5W with 10mEQ KCL at 75 cc/ hr Continue IV abx As per PMD and ID service will follow up Consultation Date/Type/Reason Admit Date/Time Oct 09, 2016 at 08:26 Initial Consult Date 10/10/16 Type of Consultation: NEPHROLOGY Referring Provider: MILTON FARIAS 24 HR Interval Summary Free Text/Dictation remains stable, Na still high, pt did not do well with swallow study, Hb 7.7 Exam/Review of Systems Vital Signs Vitals Vital Signs Date Time Temp Pulse Resp B/P Pulse Ox O2 Delivery O2 Flow Rate FiO2 10/11/16 18:00 78 18 129/73 97 Nasal Cannula 10/11/16 16:00 98.0 10/11/16 12:00 2.0 10/10/16 01:52 21 Intake and Output 10/10/16 10/10/16 10/11/16 15:00 23:00 07:00 Intake Total 1846 ml 1806 ml 931 ml Output Total 525 ml 760 ml 450 ml Balance 1321 ml 1046 ml 481 ml Exam Constitutional: non-verbal, obese Head: atraumatic, normocephalic Respiratory: clear to auscultation, normal air movement Cardiovascular: nl pulses, regular rate and rhythm Gastrointestinal: nl liver, spleen, non-tender, soft Musculoskeletal: nl extremities to inspection Extremities: normal pulses Neurological: other (Lt sided facial droop, Lt hemiparesis) Results Result Diagram: 10/11/16 1628 10/11/16 0400 Results 24 hrs Laboratory Tests Test 10/11/16 00:38 10/11/16 04:00 10/11/16 05:09 10/11/16 16:28 Erythrocyte Sedimentation Rate 95 H White Blood Count 4.2 #L 3.9 L Red Blood Count 2.00 L 2.45 #L Hemoglobin 6.6 *L 7.7 L Hematocrit 20.2 L 24.1 L Mean Corpuscular Volume 101.0 98.4 Mean Corpuscular Hemoglobin 33.0 31.4 Mean Corpuscular Hemoglobin Concent 32.7 32.0 Red Cell Distribution Width 15.6 H 17.0 H Platelet Count 71 #L 73 L Mean Platelet Volume 9.5 9.3 Neutrophils % 82.0 H 78.6 H Lymphocytes % 10.3 L 11.2 L Monocytes % 6.5 8.9 Eosinophils % 0.5 0.8 Basophils % 0.0 0.0 Nucleated Red Blood Cells % 0.0 0.0 Neutrophils # 3.4 3.1 Lymphocytes # 0.4 L 0.4 L Monocytes # 0.3 0.4 Eosinophils # 0.0 0.0 Basophils # 0.0 0.0 Nucleated Red Blood Cells # 0.0 0.0 Prothrombin Time 16.5 H 15.6 H Prothrombin Time Ratio 1.3 1.2 INR International Normalized Ratio 1.32 1.23 Activated Partial Thromboplast Time 34.3 32.8 Sodium Level 145 H Potassium Level 3.5 Chloride Level 114 H Carbon Dioxide Level 23 Anion Gap 12 Blood Urea Nitrogen 30 H Creatinine 0.94 Glucose Level 100 Calcium Level 7.9 L Phosphorus Level 3.1 Magnesium Level 1.8 Total Bilirubin 0.8 Direct Bilirubin 0.00 Indirect Bilirubin 0.8 Aspartate Amino Transf (AST/SGOT) 38 Alanine Aminotransferase (ALT/SGPT) 47 Alkaline Phosphatase 107 Ammonia 46 H Total Protein 7.0 Albumin 3.5 Globulin 3.50 H Albumin/Globulin Ratio 1.00 Lab Scanned Report BLOOD TRANSFUSION Medications Medications Current Medications Labetalol HCl (Labetalol) 10 mg Q10M PRN IV ELEVATED BLOOD PRESSURE Last administered on 10/11/16 17:29; Admin Dose 10 MG; Start 10/09/16 at 09:00 Lorazepam (Ativan) 0.5 mg Q2H PRN IV SEIZURES; Start 10/09/16 at 09:00 Acetaminophen (Tylenol Tab) 650 mg Q4H PRN PO TEMP GREATER THAN 99.6F; Start at 09:00 Docusate Sodium 100 mg 100 mg BID PO ; Start 10/09/16 at 09:00 Sodium Chloride 1,000 ml @ 100 mls/hr Q10H IV Last administered on 10/09/16 16 :07; Admin Dose 100 MLS/HR; Start 10/09/16 at 10:00; Status Future Hold Cefepime HCl (Maxipime 1gm/50 ml (Pmx)) 50 ml @ 100 mls/hr Q12 IVPB Last administered on 10/11/16 08:28; Admin Dose 100 MLS/HR; Start 10/09/16 at 10:30 Ondansetron HCl (Zofran Inj) 4 mg Q6H PRN IV NAUSEA AND/OR VOMITING Last administered on 10/10/16 04:31; Admin Dose 4 MG; Start 10/09/16 at 10:30 Morphine Sulfate 2 mg 2 mg Q4H PRN IV PAIN LEVEL 7-10 Last administered on 12:48; Admin Dose 2 MG; Start 10/09/16 at 10:30 Levetiracetam (Keppra 500 Mg/ 100ml (Pmx)) 100 ml @ 400 mls/hr Q12 IVPB Last administered on 10/11/16 08:28; Admin Dose 400 MLS/HR; Start 10/09/16 at 21:00 IV Flush (NS 10 ml) 10 ml PRN PRN IV FLUSH LINE; Start 10/09/16 at 15:30 Pantoprazole 40 mg 40 mg BID@06,18 IV Last administered on 10/11/16 17:00; Admin Dose 40 MG; Start 10/10/16 at 18:00 Vancomycin HCl 750 mg/Sodium Chloride 150 ml @ 75 mls/hr Q24H IVPB Last administered on 10/11/16 14:14; Admin Dose 75 MLS/HR; Start 10/10/16 at 14:00 Potassium Chloride/Dextrose (KCl/D5W) 1,005 ml @ 75 mls/hr [id number] IV Last administered on 10/11/16 17:00; Admin Dose 75 MLS/HR; Start 10/10/16 at 15:00 Citric Acid/ Sodium Citrate (Bicitra) 30 ml BID PO ; Start 10/10/16 at 21:00 Lactulose (Enulose) 10 gm Q8 PO Last administered on 10/11/16 17:00; Admin Dose 10 GM; Start 10/11/16 at 10:00 Furosemide (Lasix) 20 mg ONCE IV Last administered on 10/11/16 12:31; Admin Dose 20 MG; Start 10/11/16 at 10:30; Stop 10/11/16 at 19:00 Diphenhydramine HCl 25 mg 25 mg Q6H PRN IV ITCHING Last administered on 13:15; Admin Dose 25 MG; Start 10/11/16 at 13:00 Metronidazole (Flagyl 500 Mg (Pmx)) 100 ml @ 100 mls/hr Q8 IVPB ; Start at 22:00 TRUDY SEQUEIRA MD Oct 11, 2016 18:33
--- NOTE | 2016-10-11 20:53 | PN ---
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 Problems: (1) Thrombocytopenia Status: Acute (2) Gram-positive bacteremia Status: Acute (3) UTI (urinary tract infection) Status: Acute (4) Cirrhosis of liver Status: Chronic Qualifiers: Hepatic cirrhosis type: unspecified hepatic cirrhosis (5) Intraventricular hemorrhage Status: Acute (6) SLE (systemic lupus erythematosus) Status: Acute Qualifiers: Systemic lupus erythematosus type: unspecified Systemic lupus erythematosus organ involvement: unspecified Qualified Code: M32.9 - Systemic lupus erythematosus, unspecified SLE type, unspecified organ involvement status (7) Intraparenchymal hemorrhage of brain Status: Acute Assessment/Plan Pt has received 2 units of plt pheresis and also RBC's today. CT does demonstrate new subdural and sub arachnoid hemorrhages.. Pt and PTT are now nl. Therefore the 50/50 studies were not needed. D-Dimer is elevated as expected with hematoma. Cerebral injury may release tissue thromboplastin and result in onset of DIC. Will continue to monitor PT/ PTT and fibrinogen. Will transfuse with platelets and FFP/cryo as needed. Subjective 24 Hr Interval Summary Free Text/Dictation No new complaints or symptoms. Pt still c/o headache, Lt side weakness, etc. Exam/Review of Systems Vital Signs Vitals Vital Signs Date Time Temp Pulse Resp B/P Pulse Ox O2 Delivery O2 Flow Rate FiO2 10/11/16 20:00 82 10/11/16 19:00 18 149/78 Nasal Cannula Venturi Mask 10/11/16 18:30 96 10/11/16 16:00 98.0 10/11/16 12:00 2.0 10/10/16 01:52 21 Intake and Output 10/10/16 10/10/16 10/11/16 15:00 23:00 07:00 Intake Total 1846 ml 1806 ml 931 ml Output Total 525 ml 760 ml 450 ml Balance 1321 ml 1046 ml 481 ml Exam Constitutional: non-verbal Head: atraumatic, normocephalic Eyes: PERRL, nl conjunctiva, nl sclera ENMT: mucosa pink and moist, other (nasal oxygen in place.) Neck: non-tender, supple Respiratory: clear to auscultation, normal air movement Cardiovascular: nl pulses, regular rate and rhythm Gastrointestinal: nl liver, spleen, non-tender, soft Musculoskeletal: nl extremities to inspection, nl gait and stance Extremities: other (Lt PICC line) Neurological: other (Expressive aphasia, Lt facial "droop", Lt hemiparesis.) Skin: nl turgor, rash or lesions Lymph: nl lymph nodes Results Result Diagram: 10/11/16 1628 10/11/16 0400 Results 24 hrs Laboratory Tests Test 10/11/16 00:38 10/11/16 04:00 10/11/16 05:09 10/11/16 16:28 Erythrocyte Sedimentation Rate 95 H White Blood Count 4.2 #L 3.9 L Red Blood Count 2.00 L 2.45 #L Hemoglobin 6.6 *L 7.7 L Hematocrit 20.2 L 24.1 L Mean Corpuscular Volume 101.0 98.4 Mean Corpuscular Hemoglobin 33.0 31.4 Mean Corpuscular Hemoglobin Concent 32.7 32.0 Red Cell Distribution Width 15.6 H 17.0 H Platelet Count 71 #L 73 L Mean Platelet Volume 9.5 9.3 Neutrophils % 82.0 H 78.6 H Lymphocytes % 10.3 L 11.2 L Monocytes % 6.5 8.9 Eosinophils % 0.5 0.8 Basophils % 0.0 0.0 Nucleated Red Blood Cells % 0.0 0.0 Neutrophils # 3.4 3.1 Lymphocytes # 0.4 L 0.4 L Monocytes # 0.3 0.4 Eosinophils # 0.0 0.0 Basophils # 0.0 0.0 Nucleated Red Blood Cells # 0.0 0.0 Prothrombin Time 16.5 H 15.6 H Prothrombin Time Ratio 1.3 1.2 INR International Normalized Ratio 1.32 1.23 Activated Partial Thromboplast Time 34.3 32.8 Sodium Level 145 H Potassium Level 3.5 Chloride Level 114 H Carbon Dioxide Level 23 Anion Gap 12 Blood Urea Nitrogen 30 H Creatinine 0.94 Glucose Level 100 Calcium Level 7.9 L Phosphorus Level 3.1 Magnesium Level 1.8 Total Bilirubin 0.8 Direct Bilirubin 0.00 Indirect Bilirubin 0.8 Aspartate Amino Transf (AST/SGOT) 38 Alanine Aminotransferase (ALT/SGPT) 47 Alkaline Phosphatase 107 Ammonia 46 H Total Protein 7.0 Albumin 3.5 Globulin 3.50 H Albumin/Globulin Ratio 1.00 Lab Scanned Report BLOOD TRANSFUSION Medications Medications Current Medications Labetalol HCl (Labetalol) 10 mg Q10M PRN IV ELEVATED BLOOD PRESSURE Last administered on 10/11/16 17:29; Admin Dose 10 MG; Start 10/09/16 at 09:00 Lorazepam (Ativan) 0.5 mg Q2H PRN IV SEIZURES; Start 10/09/16 at 09:00 Acetaminophen (Tylenol Tab) 650 mg Q4H PRN PO TEMP GREATER THAN 99.6F; Start at 09:00 Docusate Sodium 100 mg 100 mg BID PO ; Start 10/09/16 at 09:00 Sodium Chloride 1,000 ml @ 100 mls/hr Q10H IV Last administered on 10/09/16 16 :07; Admin Dose 100 MLS/HR; Start 10/09/16 at 10:00; Status Future Hold Cefepime HCl (Maxipime 1gm/50 ml (Pmx)) 50 ml @ 100 mls/hr Q12 IVPB Last administered on 10/11/16 20:38; Admin Dose 100 MLS/HR; Start 10/09/16 at 10:30 Ondansetron HCl (Zofran Inj) 4 mg Q6H PRN IV NAUSEA AND/OR VOMITING Last administered on 10/10/16 04:31; Admin Dose 4 MG; Start 10/09/16 at 10:30 Morphine Sulfate 2 mg 2 mg Q4H PRN IV PAIN LEVEL 7-10 Last administered on 19:35; Admin Dose 2 MG; Start 10/09/16 at 10:30 Levetiracetam (Keppra 500 Mg/ 100ml (Pmx)) 100 ml @ 400 mls/hr Q12 IVPB Last administered on 10/11/16 20:15; Admin Dose 400 MLS/HR; Start 10/09/16 at 21:00 IV Flush (NS 10 ml) 10 ml PRN PRN IV FLUSH LINE; Start 10/09/16 at 15:30 Pantoprazole 40 mg 40 mg BID@06,18 IV Last administered on 10/11/16 17:00; Admin Dose 40 MG; Start 10/10/16 at 18:00 Vancomycin HCl 750 mg/Sodium Chloride 150 ml @ 75 mls/hr Q24H IVPB Last administered on 10/11/16 14:14; Admin Dose 75 MLS/HR; Start 10/10/16 at 14:00 Potassium Chloride/Dextrose (KCl/D5W) 1,005 ml @ 75 mls/hr [id number] IV Last administered on 10/11/16 17:00; Admin Dose 75 MLS/HR; Start 10/10/16 at 15:00 Lactulose (Enulose) 10 gm Q8 PO Last administered on 10/11/16 17:00; Admin Dose 10 GM; Start 10/11/16 at 10:00 Diphenhydramine HCl 25 mg 25 mg Q6H PRN IV ITCHING Last administered on 20:15; Admin Dose 25 MG; Start 10/11/16 at 13:00 Metronidazole (Flagyl 500 Mg (Pmx)) 100 ml @ 100 mls/hr Q8 IVPB ; Start at 22:00 Citric Acid/ Sodium Citrate (Bicitra) 30 ml BID PO ; Start 10/11/16 at 21:00 OVIDIO RODRIGUEZ MD Oct 11, 2016 20:51
--- NOTE | 2016-10-11 20:59 | RADRPT ---
Vent Rate: 79 bpm RR Interval: 0 msec OH Interval: 166 msec QRS Duration: 82 msec QT Interval: 416 msec QTC Interval: 477 msec P-R-T [place]mond: 61 - 77 - 51 degrees Normal sinus rhythm Low voltage QRS Cannot rule out Anterior infarct , age undetermined Abnormal ECG Electronically Signed By: Florentino Arana [id number]
[2016-10-11] MEDS: DOCUSATE SODIUM 10 MG/ML (10ML CUP) NGT SCH (22:20)
[2016-10-11] MEDS: CITRIC ACID/NA CITRATE 30 ML CUP PO SCH (22:21)
--- NOTE | 2016-10-11 23:56 | CONS ---
Date/Time of Note Date/Time of Note DATE: 10/11/16 TIME: 23:55 Assessment/Plan Assessment/Plan Chief Complaint/Hosp Course Impression: 1. Right posterior frontal lobe parenchymal hematoma and moderate intraventricular hemorrhage. Repeat brain CT scan on 10-10-2016 showed interval appearance of right subdural hemorrhage mainly overlying right frontal lobe measuring up to 7 mm along with scattered bilateral foci of subarachnoid hemorrhages with interval increase and a 2 mm leftward midline shift. 2. Non-ST elevation myocardial infarction. 3. Sepsis secondary to underlying urinary tract infection. 5. Normocytic, normochromic anemia. Most probably anemia of chronic disease and also from underlying liver cirrhosis. Contributed by intraventricular hemorrhage 6. Thrombocytopenia. Most probably secondary to underlying liver cirrhosis. 7. Transaminitis with hyperbilirubinemia. Resolved. Most probably secondary to underlying liver cirrhosis. 8. Systemic lupus erythematosus. 9. Acute kidney injury. Etiology could be secondary to hemodynamics Versus contrast induced. Obtain nephrology consult. 10. Coagulopathy. Transfuse FFPs. Obtain hematology consult. Recommendations: 1. check stool for occult blood 2. protonix 40 mg iv bid, change to 8 mg/hr gtt if occult blood positive. 3. for any endoscopic procedures, will need neurosurgery clearance as the procedures can increase intra-cranial pressure 4. for any endoscopic procedures, will need cardiac clearance as pt has NSTEMI and endoscopic procedures places additional stress on the heart. Problems: Consultation Date/Type/Reason Admit Date/Time Oct 09, 2016 at 08:26 Initial Consult Date 10/10/16 Type of Consultation: GI Referring Provider: MILTON FARIAS Exam/Review of Systems Vital Signs Vitals Vital Signs Date Time Temp Pulse Resp B/P Pulse Ox O2 Delivery O2 Flow Rate FiO2 10/11/16 23:00 83 20 138/62 97 Nasal Cannula 3.0 10/11/16 20:00 97.3 10/10/16 01:52 21 Intake and Output 10/10/16 10/10/16 10/11/16 15:00 23:00 07:00 Intake Total 1846 ml 1806 ml 931 ml Output Total 525 ml 760 ml 450 ml Balance 1321 ml 1046 ml 481 ml Results Result Diagram: 10/11/16 1628 10/11/16 0400 Results 24 hrs Laboratory Tests Test 10/11/16 00:38 10/11/16 04:00 10/11/16 05:09 10/11/16 16:28 Erythrocyte Sedimentation Rate 95 H White Blood Count 4.2 #L 3.9 L Red Blood Count 2.00 L 2.45 #L Hemoglobin 6.6 *L 7.7 L Hematocrit 20.2 L 24.1 L Mean Corpuscular Volume 101.0 98.4 Mean Corpuscular Hemoglobin 33.0 31.4 Mean Corpuscular Hemoglobin Concent 32.7 32.0 Red Cell Distribution Width 15.6 H 17.0 H Platelet Count 71 #L 73 L Mean Platelet Volume 9.5 9.3 Neutrophils % 82.0 H 78.6 H Lymphocytes % 10.3 L 11.2 L Monocytes % 6.5 8.9 Eosinophils % 0.5 0.8 Basophils % 0.0 0.0 Nucleated Red Blood Cells % 0.0 0.0 Neutrophils # 3.4 3.1 Lymphocytes # 0.4 L 0.4 L Monocytes # 0.3 0.4 Eosinophils # 0.0 0.0 Basophils # 0.0 0.0 Nucleated Red Blood Cells # 0.0 0.0 Prothrombin Time 16.5 H 15.6 H Prothrombin Time Ratio 1.3 1.2 INR International Normalized Ratio 1.32 1.23 Activated Partial Thromboplast Time 34.3 32.8 Sodium Level 145 H Potassium Level 3.5 Chloride Level 114 H Carbon Dioxide Level 23 Anion Gap 12 Blood Urea Nitrogen 30 H Creatinine 0.94 Glucose Level 100 Calcium Level 7.9 L Phosphorus Level 3.1 Magnesium Level 1.8 Total Bilirubin 0.8 Direct Bilirubin 0.00 Indirect Bilirubin 0.8 Aspartate Amino Transf (AST/SGOT) 38 Alanine Aminotransferase (ALT/SGPT) 47 Alkaline Phosphatase 107 Ammonia 46 H Total Protein 7.0 Albumin 3.5 Globulin 3.50 H Albumin/Globulin Ratio 1.00 Lab Scanned Report BLOOD TRANSFUSION Medications Medications Current Medications Labetalol HCl (Labetalol) 10 mg Q10M PRN IV ELEVATED BLOOD PRESSURE Last administered on 10/11/16t 17:29; Admin Dose 10 MG; Start 10/09/16 at 09:00 Lorazepam (Ativan) 0.5 mg Q2H PRN IV SEIZURES; Start 10/09/16 at 09:00 Acetaminophen 650 mg 650 mg Q4H PRN PO TEMP GREATER THAN 99.6F; Start 10/09/16 at 09:00 Sodium Chloride 1,000 ml @ 100 mls/hr Q10H IV Last administered on 10/09/16 16 :07; Admin Dose 100 MLS/HR; Start 10/09/16 at 10:00; Status Future Hold Cefepime HCl (Maxipime 1gm/50 ml (Pmx)) 50 ml @ 100 mls/hr Q12 IVPB Last administered on 10/11/16 20:38; Admin Dose 100 MLS/HR; Start 10/09/16 at 10:30 Ondansetron HCl (Zofran Inj) 4 mg Q6H PRN IV NAUSEA AND/OR VOMITING Last administered on 10/10/16 04:31; Admin Dose 4 MG; Start 10/09/16 at 10:30 Morphine Sulfate 2 mg 2 mg Q4H PRN IV PAIN LEVEL 7-10 Last administered on 19:35; Admin Dose 2 MG; Start 10/09/16 at 10:30 Levetiracetam (Keppra 500 Mg/ 100ml (Pmx)) 100 ml @ 400 mls/hr Q12 IVPB Last administered on 10/11/16 20:15; Admin Dose 400 MLS/HR; Start 10/09/16 at 21:00 IV Flush (NS 10 ml) 10 ml PRN PRN IV FLUSH LINE; Start 10/09/16 at 15:30 Pantoprazole 40 mg 40 mg BID@06,18 IV Last administered on 10/11/16 17:00; Admin Dose 40 MG; Start 10/10/16 at 18:00 Vancomycin HCl 750 mg/Sodium Chloride 150 ml @ 75 mls/hr Q24H IVPB Last administered on 10/11/16 14:14; Admin Dose 75 MLS/HR; Start 10/10/16 at 14:00 Potassium Chloride/Dextrose (KCl/D5W) 1,005 ml @ 75 mls/hr [id number] IV Last administered on 10/11/16 17:00; Admin Dose 75 MLS/HR; Start 10/10/16 at 15:00 Lactulose (Enulose) 10 gm Q8 PO Last administered on 10/11/16 21:27; Admin Dose 10 GM; Start 10/11/16 at 10:00 Diphenhydramine HCl 25 mg 25 mg Q6H PRN IV ITCHING Last administered on 20:15; Admin Dose 25 MG; Start 10/11/16 at 13:00 Metronidazole (Flagyl 500 Mg (Pmx)) 100 ml @ 100 mls/hr Q8 IVPB Last administered on 10/11/16 21:26; Admin Dose 100 MLS/HR; Start 10/11/16 at 22:00 Citric Acid/ Sodium Citrate (Bicitra) 30 ml BID PO Last administered on 22:21; Admin Dose 30 ML; Start 10/11/16 at 21:00 Docusate Sodium (Colace Liquid Cup) 100 mg BID NGT Last administered on 22:20; Admin Dose 100 MG; Start 10/11/16 at 21:28 BIGG LEDESMA MD Oct 11, 2016 23:56
[2016-10-12] VITALS (41 sets, daily range): BP systolic 115–169; BP diastolic 66–118; PULSE 72–99; RESP 13–29
[2016-10-12] MEDS: morphine 2 MG INJ IV PRN ×2 (00:06→05:33)
[2016-10-12] MEDS: ALBUTEROL/IPRATROPIUM (NEB) 3 ML AMP HHN PRN ×4 (00:14→21:42)
[2016-10-12] MEDS ORDERED: METHYLPREDNISOLONE 40 MG INJ IV ONE (01:00)
[2016-10-12] MEDS: DIPHENHYDRAMINE 50 MG INJ IV PRN (03:12)
[2016-10-12] MEDS ORDERED: SOD CHLORIDE 0.9% 500 ML IV ONE (03:30)
[2016-10-12 05:08] LABS: ADD SCAN DIFF NO
[2016-10-12 05:20] LABS: ABNORMAL IP MESSAGE 1; HEMATOCRIT 23.7 % (37.0-47.0); HEMOGLOBIN 7.9 g/dl (12.0-16.0); LYMPHOCYTES # 0.4 10^3/ul (0.8-2.9); LYMPHOCYTES % 9.4 % (15.0-51.0); MEAN CORPUSCULAR HEMOGLOBIN 32.6 pg (29.0-33.0); MEAN CORPUSCULAR HGB CONC 33.3 g/dl (32.0-37.0); MEAN CORPUSCULAR VOLUME 97.9 fl (82.0-101.0); MEAN PLATELET VOLUME 10.6 fl (7.4-10.4); MONOCYTE # 0.2 10^3/ul (0.3-0.9); MONOCYTES % 5.1 % (0.0-11.0); NEUTROPHIL # 3.3 10^3/ul (1.6-7.5); NEUTROPHILS % 84.2 % (39.0-77.0); PLATELET COUNT 71 10^3/UL (140-415); RED BLOOD COUNT 2.42 10^6/ul (4.20-5.40); RED CELL DISTRIBUTION WIDTH 16.7 % (11.5-14.5); WHITE BLOOD COUNT 3.9 10^3/ul (4.8-10.8)
[2016-10-12 05:36] LABS: INR 1.38; PARTIAL THROMBOPLASTIN TIME 34.3 Sec (25.0-35.0); PT RATIO 1.3
[2016-10-12 06:08] LABS: CALCIUM 8.4 mg/dl (8.4-10.2); CREATININE 1.07 mg/dl (0.44-1.00); POTASSIUM 3.7 mmol/L (3.5-5.1)
[2016-10-12] MEDS: metroNIDAZOLE 500 MG/NS (PMX) 100 ML IVPB SCH ×3 (06:11→21:57)
[2016-10-12] MEDS: LACTULOSE 30ML CUP PO SCH ×3 (06:12→20:57)
[2016-10-12] MEDS: PANTOPRAZOLE 40 MG INJ IV SCH ×2 (06:12→17:35)
[2016-10-12 06:32] LABS: D-DIMER > 10000.00 ng/ml (<460)
[2016-10-12] MEDS: POTASSIUM CHLORIDE 10 MEQ in DEXTROSE 5% 1,000 ML IV SCH ×2 (07:12→20:22)
[2016-10-12] MEDS: CITRIC ACID/NA CITRATE 30 ML CUP PO SCH ×2 (08:42→20:56)
[2016-10-12] MEDS: LEVETIRACETAM 500 MG (PMX) 100 ML IVPB SCH ×2 (08:42→20:26)
[2016-10-12] MEDS: DOCUSATE SODIUM 10 MG/ML (10ML CUP) NGT SCH ×2 (08:42→20:57)
[2016-10-12] MEDS: LABETALOL HCL 20MG INJ IV PRN ×2 (08:46→17:46)
[2016-10-12] MEDS: CEFEPIME 1GM/50 ML (PMX) 50 ML IVPB SCH ×2 (09:10→20:56)
--- NOTE | 2016-10-12 09:18 | PN ---
Date/Time of Note Date/Time of Note DATE: 10/12/16 TIME: 09:14 Assessment/Plan VTE Prophylaxis VTE Prophylaxis Intervention: SCD's Lines/Catheters IV Catheter Type (from [facility]): PICC Line Central line still needed: Yes Urinary Cath still in place: Yes Reason Cath still needed: urinary retention Assessment/Plan Chief Complaint/Hosp Course A/P: 75-year-old female with past medical history of essential hypertension, systemic lupus erythematosus, hypothyroidism, and liver cirrhosis not because of alcohol abuse who was brought to the emergency room after the patient was found on the floor at home - found with Right posterior frontal lobe parenchymal hematoma and moderate intraventricular hemorrhage. 1. Right posterior frontal lobe parenchymal hematoma and moderate intraventricular hemorrhage. Repeat brain CT scan on 10-10-2016 showed interval appearance of right subdural hemorrhage mainly overlying right frontal lobe measuring up to 7 mm along with scattered bilateral foci of subarachnoid hemorrhages with interval increase and a 2 mm leftward midline shift. S/P multiple plt and FFP transfusions in the last 2 days. - Avoid activities that increase intracranial pressure. - f/u Neurosurgery rec's - for another Head CT today - f/u results - Continue tight blood pressure control. - continue Keppra 2. Non-ST elevation myocardial infarction. Most probably a type II event from underlying ischemia versus from underlying sepsis and worsening renal function. Troponins normalized. - f/u Cardiology rec's 3. Sepsis - secondary to underlying urinary tract infection. Ucx = + E coli. Blood cx 1/2 bottles also + coag (-) staph. - Continue antibiotics, f/u final cx results - f/u Infectious diseases rec's, continue IV fluids. 4. Essential hypertension. The patient's blood pressure will be tightly controlled. - monitor 5. Normocytic, normochromic anemia. Most probably anemia of chronic disease and also from underlying liver cirrhosis. S/p pRBC. Low H/H this AM. - Will monitor the H&H closely. Will transfuse blood products as needed. 6. Thrombocytopenia - likely sec to cirrhosis. S/p plt transfusion - Monitor for any further bleeding. - Transfuse platelets as necessary. 7. Transaminitis with hyperbilirubinemia. Resolved. Most probably secondary to underlying liver cirrhosis. - Monitor. Trend LFTs. Avoid hepatotoxic medications. 8. Systemic lupus erythematosus. Will monitor. 9. Hypothyroidism. Will resume Synthroid once the patient is able take oral intake. 10. Acute kidney injury. Etiology could be secondary to hemodynamics versus contrast induced. Obtain nephrology consult. 11. Coagulopathy. S/p FFPs. - monitor INR, f/u hematology rec's 12. Fluids, electrolytes, and nutrition. N.p.o. until swallow evaluation. Continue IV fluids. 13. DVT prophylaxis. Bilateral sequential compression devices. 14. Gastrointestinal prophylaxis. Proton pump inhibitors. Critical care time: 40 minutes. Problems: Subjective 24 Hr Interval Summary Free Text/Dictation Pt still with some AMS. Awaiting repeat head CT. No acute events overnight otherwise. Undergoing ST eval presently. Exam/Review of Systems Vital Signs Vitals Vital Signs Date Time Temp Pulse Resp B/P Pulse Ox O2 Delivery O2 Flow Rate FiO2 10/12/16 08:00 98.2 74 16 151/88 97 Nasal Cannula 2.0 10/10/16 01:52 21 Intake and Output 10/11/16 10/11/16 10/12/16 15:00 23:00 07:00 Intake Total 2051 ml 940 ml 950 ml Output Total 540 ml 245 ml 200 ml Balance 1511 ml 695 ml 750 ml Exam General: lying in bed in no apparent distress, family at bedside HEENT: Normocephalic, atraumatic. Eyes: Anicteric sclerae, conjunctivae clear. ENT: Nasal septum midline, oral mucosa moist. Neck supple, no JVD noticed. Respiratory: Bilaterally clear breath sounds. No use of accessory muscles of respiration. No adventitious breath sounds. Cardiovascular: S1, S2 heard. No murmurs or gallops. Abdomen: Soft and nondistended. Bowel sounds positive in all 4 quadrants. Diffuse tenderness in the abdomen Extremities: No cyanosis, no clubbing, no edema. Peripheral pulses palpable. Neurologic: The patient is awake, alert, and oriented. Slurred speech. Left- sided facial droop. Left upper extremity no movement against gravity. Right lower extremity no movement against gravity. No sensation in the left lower extremity. Skin: Normal skin turgor. No skin rashes. Results Result Diagram: 10/12/16 0430 10/12/16 0430 Results 24 hrs Laboratory Tests Test 10/11/16 16:28 10/12/16 04:30 10/12/16 05:48 White Blood Count 3.9 L 3.9 L Red Blood Count 2.45 #L 2.42 L Hemoglobin 7.7 L 7.9 L Hematocrit 24.1 L 23.7 L Mean Corpuscular Volume 98.4 97.9 Mean Corpuscular Hemoglobin 31.4 32.6 Mean Corpuscular Hemoglobin Concent 32.0 33.3 Red Cell Distribution Width 17.0 H 16.7 H Platelet Count 73 L 71 L Mean Platelet Volume 9.3 10.6 H Neutrophils % 78.6 H 84.2 H Lymphocytes % 11.2 L 9.4 L Monocytes % 8.9 5.1 Eosinophils % 0.8 0.0 Basophils % 0.0 0.0 Nucleated Red Blood Cells % 0.0 0.0 Neutrophils # 3.1 3.3 Lymphocytes # 0.4 L 0.4 L Monocytes # 0.4 0.2 L Eosinophils # 0.0 0.0 Basophils # 0.0 0.0 Nucleated Red Blood Cells # 0.0 0.0 Prothrombin Time 15.6 H 17.0 H Prothrombin Time Ratio 1.2 1.3 INR International Normalized Ratio 1.23 1.38 Activated Partial Thromboplast Time 32.8 34.3 Fibrinogen 303.0 D-Dimer > 36903.00 H Sodium Level 150 H Potassium Level 3.7 Chloride Level 110 Carbon Dioxide Level 23 Anion Gap 21 #H Blood Urea Nitrogen 30 H Creatinine 1.07 H Glucose Level 129 Calcium Level 8.4 Ammonia 56 H Lab Scanned Report BLOOD TRANSFUSION Medications Medications Current Medications Labetalol HCl (Labetalol) 10 mg Q10M PRN IV ELEVATED BLOOD PRESSURE Last administered on 10/12/16 08:46; Admin Dose 10 MG; Start 10/09/16 at 09:00 Lorazepam (Ativan) 0.5 mg Q2H PRN IV SEIZURES; Start 10/09/16 at 09:00 Acetaminophen 650 mg 650 mg Q4H PRN PO TEMP GREATER THAN 99.6F; Start 10/09/16 at 09:00 Sodium Chloride 1,000 ml @ 100 mls/hr Q10H IV Last administered on 10/09/16 16 :07; Admin Dose 100 MLS/HR; Start 10/09/16 at 10:00; Status Future Hold Cefepime HCl (Maxipime 1gm/50 ml (Pmx)) 50 ml @ 100 mls/hr Q12 IVPB Last administered on 10/12/16 09:10; Admin Dose 100 MLS/HR; Start 10/09/16 at 10:30 Ondansetron HCl (Zofran Inj) 4 mg Q6H PRN IV NAUSEA AND/OR VOMITING Last administered on 10/10/16 04:31; Admin Dose 4 MG; Start 10/09/16 at 10:30 Morphine Sulfate 2 mg 2 mg Q4H PRN IV PAIN LEVEL 7-10 Last administered on 05:33; Admin Dose 2 MG; Start 10/09/16 at 10:30 Levetiracetam (Keppra 500 Mg/ 100ml (Pmx)) 100 ml @ 400 mls/hr Q12 IVPB Last administered on 10/12/16 08:42; Admin Dose 400 MLS/HR; Start 10/09/16 at 21:00 IV Flush (NS 10 ml) 10 ml PRN PRN IV FLUSH LINE; Start 10/09/16 at 15:30 Pantoprazole 40 mg 40 mg BID@06,18 IV Last administered on 10/12/16 06:12; Admin Dose 40 MG; Start 10/10/16 at 18:00 Vancomycin HCl 750 mg/Sodium Chloride 150 ml @ 75 mls/hr Q24H IVPB Last administered on 10/11/16 14:14; Admin Dose 75 MLS/HR; Start 10/10/16 at 14:00 Potassium Chloride/Dextrose (KCl/D5W) 1,005 ml @ 75 mls/hr [id number] IV Last administered on 10/11/16 17:00; Admin Dose 75 MLS/HR; Start 10/10/16 at 15:00 Diphenhydramine HCl 25 mg 25 mg Q6H PRN IV ITCHING Last administered on 03:12; Admin Dose 25 MG; Start 10/11/16 at 13:00 Metronidazole (Flagyl 500 Mg (Pmx)) 100 ml @ 100 mls/hr Q8 IVPB Last administered on 10/12/16 06:11; Admin Dose 100 MLS/HR; Start 10/11/16 at 22:00 Citric Acid/ Sodium Citrate (Bicitra) 30 ml BID PO Last administered on 08:42; Admin Dose 30 ML; Start 10/11/16 at 21:00 Docusate Sodium (Colace Liquid Cup) 100 mg BID NGT Last administered on t 08:42; Admin Dose 100 MG; Start 10/11/16 at 21:28 Lactulose (Enulose) 20 gm Q8 PO ; Start 10/12/16 at 14:00 YANELI CHAVEZ Oct 12, 2016 09:17
--- NOTE | 2016-10-12 10:30 | CONS ---
Date/Time of Note Date/Time of Note DATE: 10/12/16 TIME: 10:29 Consult Date/Type/Reason Admit Date/Time Oct 09, 2016 at 08:26 Initial Consult Date 10/10/16 Type of Consultation: neurology Ordering Provider: MILTON FARIAS Subjective no acute neuro events Objective Vital Signs Date Time Temp Pulse Resp B/P Pulse Ox O2 Delivery O2 Flow Rate FiO2 10/12/16 10:05 71 22 99 Nasal Cannula 3.0 10/12/16 08:00 98.2 151/88 10/10/16 01:52 21 Intake and Output 10/11/16 10/11/16 10/12/16 15:00 23:00 07:00 Intake Total 2051 ml 940 ml 950 ml Output Total 540 ml 245 ml 200 ml Balance 1511 ml 695 ml 750 ml Results/Medications Result Diagram: 10/12/16 0430 10/12/16 0430 Results 24 hrs Laboratory Tests Test 10/11/16 16:28 10/12/16 04:30 10/12/16 05:48 White Blood Count 3.9 L 3.9 L Red Blood Count 2.45 #L 2.42 L Hemoglobin 7.7 L 7.9 L Hematocrit 24.1 L 23.7 L Mean Corpuscular Volume 98.4 97.9 Mean Corpuscular Hemoglobin 31.4 32.6 Mean Corpuscular Hemoglobin Concent 32.0 33.3 Red Cell Distribution Width 17.0 H 16.7 H Platelet Count 73 L 71 L Mean Platelet Volume 9.3 10.6 H Neutrophils % 78.6 H 84.2 H Lymphocytes % 11.2 L 9.4 L Monocytes % 8.9 5.1 Eosinophils % 0.8 0.0 Basophils % 0.0 0.0 Nucleated Red Blood Cells % 0.0 0.0 Neutrophils # 3.1 3.3 Lymphocytes # 0.4 L 0.4 L Monocytes # 0.4 0.2 L Eosinophils # 0.0 0.0 Basophils # 0.0 0.0 Nucleated Red Blood Cells # 0.0 0.0 Prothrombin Time 15.6 H 17.0 H Prothrombin Time Ratio 1.2 1.3 INR International Normalized Ratio 1.23 1.38 Activated Partial Thromboplast Time 32.8 34.3 Fibrinogen 303.0 D-Dimer > 58831.00 H Sodium Level 150 H Potassium Level 3.7 Chloride Level 110 Carbon Dioxide Level 23 Anion Gap 21 #H Blood Urea Nitrogen 30 H Creatinine 1.07 H Glucose Level 129 Calcium Level 8.4 Ammonia 56 H Lab Scanned Report BLOOD TRANSFUSION Medications Current Medications Labetalol HCl (Labetalol) 10 mg Q10M PRN IV ELEVATED BLOOD PRESSURE Last administered on 10/12/16 08:46; Admin Dose 10 MG; Start 10/09/16 at 09:00 Lorazepam (Ativan) 0.5 mg Q2H PRN IV SEIZURES; Start 10/09/16 at 09:00 Acetaminophen 650 mg 650 mg Q4H PRN PO TEMP GREATER THAN 99.6F; Start 10/09/16 at 09:00 Sodium Chloride 1,000 ml @ 100 mls/hr Q10H IV Last administered on 10/09/16 16 :07; Admin Dose 100 MLS/HR; Start 10/09/16 at 10:00; Status Future Hold Cefepime HCl (Maxipime 1gm/50 ml (Pmx)) 50 ml @ 100 mls/hr Q12 IVPB Last administered on 10/12/16 09:10; Admin Dose 100 MLS/HR; Start 10/09/16 at 10:30 Ondansetron HCl (Zofran Inj) 4 mg Q6H PRN IV NAUSEA AND/OR VOMITING Last administered on 10/10/16 04:31; Admin Dose 4 MG; Start 10/09/16 at 10:30 Morphine Sulfate 2 mg 2 mg Q4H PRN IV PAIN LEVEL 7-10 Last administered on 05:33; Admin Dose 2 MG; Start 10/09/16 at 10:30 Levetiracetam (Keppra 500 Mg/ 100ml (Pmx)) 100 ml @ 400 mls/hr Q12 IVPB Last administered on 10/12/16 08:42; Admin Dose 400 MLS/HR; Start 10/09/16 at 21:00 IV Flush (NS 10 ml) 10 ml PRN PRN IV FLUSH LINE; Start 10/09/16 at 15:30 Pantoprazole 40 mg 40 mg BID@06,18 IV Last administered on 10/12/16 06:12; Admin Dose 40 MG; Start 10/10/16 at 18:00 Vancomycin HCl 750 mg/Sodium Chloride 150 ml @ 75 mls/hr Q24H IVPB Last administered on 10/11/16 14:14; Admin Dose 75 MLS/HR; Start 10/10/16 at 14:00 Potassium Chloride/Dextrose (KCl/D5W) 1,005 ml @ 75 mls/hr [id number] IV Last administered on 10/11/16 17:00; Admin Dose 75 MLS/HR; Start 10/10/16 at 15:00 Diphenhydramine HCl 25 mg 25 mg Q6H PRN IV ITCHING Last administered on 03:12; Admin Dose 25 MG; Start 10/11/16 at 13:00 Metronidazole (Flagyl 500 Mg (Pmx)) 100 ml @ 100 mls/hr Q8 IVPB Last administered on 10/12/16 06:11; Admin Dose 100 MLS/HR; Start 10/11/16 at 22:00 Citric Acid/ Sodium Citrate (Bicitra) 30 ml BID PO Last administered on 08:42; Admin Dose 30 ML; Start 10/11/16 at 21:00 Docusate Sodium (Colace Liquid Cup) 100 mg BID NGT Last administered on 08:42; Admin Dose 100 MG; Start 10/11/16 at 21:28 Lactulose (Enulose) 20 gm Q8 PO ; Start 10/12/16 at 14:00 Hydralazine HCl (Apresoline) 10 mg Q4H PRN IV ELEVATED BLOOD PRESSURE; Start at 10:00 Assessment/Plan Chief Complaint/Hosp Course NEUROLOGIC EXAMINATION: She is lethargic, arousable, follows commands, fluent slightly slurred speech, ox2. Cranial nerve examination shows intact left hemianopia to threat. Pupils round, reactive to light sluggishly from 3 to 2 mm bilaterally. Extraocular movements intact without nystagmus. Symmetrical face. Preserved facial strength, corneals and gag OK. Tongue is in midline. Palate elevates symmetrically. Motor strength examination trace of movements in 0-1/5 on the left, decreased tone, normal bulk. Sensory examination shows normal perception of touch. Deep tendon reflexes 2+ UE, knees, no ankle jerks , equivocal rsponse to plantar stimultion on the right, upgoing on the left. Coordination preserved on the right [id number] testing. No dysmetria or tremor. Gait was not assessed. IMPRESSION: Acute intracerebral, subdural and intraventricular hemorrhage. Serial CT for evaluation of stability, will repeat today. Continue keppra. Keep normotensive. Hem/onc on case. Problems: FIGUEROA MENDEZ MD Oct 12, 2016 10:30
[2016-10-12] MEDS: hydrALAzine 20 MG INJ IV PRN ×3 (10:34→21:02)
--- NOTE | 2016-10-12 10:57 | CONS ---
Date/Time of Note Date/Time of Note DATE: 10/12/16 TIME: 10:51 Assessment/Plan Assessment/Plan Chief Complaint/Hosp Course No acute changes overnight. Patient is awake, looks comfortable, family at bedside Vital signs: Temperature 98.2 pulse 74 respirations 16 blood pressure 151/88 saturation 97 on 2 L nasal cannula Laboratory data WBC 3.9 H&H 7.9 and 23.7 platelet 71 neutrophils 84.2 BUN 30 creatinine 1.07 Microbiology blood culture on admission grew coag negative staph species urine culture grew E. coli Indwelling's PICC line NG tube Lucio Antimicrobials: Flagyl vancomycin cefepime Physical examination: Obese, well-developed elderly woman who is lethargic, arousable, in no distress. Head atraumatic, normocephalic, sclera nonicteric. Neck is obese. Trachea midline. Chest rise symmetrical, breath sounds clear, diminished bases. Abdomen soft. Bowel tones present. Extremities without cyanosis. Assessment: #1. Acute intracerebral, subdural and intraventricular hemorrhage, neurology follows #2. Urinary tract infection #3. Coag negative staph bacteremia, likely contaminant #4. Encephalopathy #5. Liver cirrhosis #6. Systemic lupus erythematosus #7. Non-ST elevation MA #8. Colitis per CT of the abdomen #9. Allergy to penicillin Plan: Remains hemodynamically stable, continue antibiotics, aspiration precautions, follow repeat blood cultures, follow recommendations of consultants. Discussed with staff Problems: Consultation Date/Type/Reason Admit Date/Time Oct 09, 2016 at 08:26 Initial Consult Date 10/10/16 Type of Consultation: id Referring Provider: MILTON FARIAS Exam/Review of Systems Vital Signs Vitals Vital Signs Date Time Temp Pulse Resp B/P Pulse Ox O2 Delivery O2 Flow Rate FiO2 10/12/16 10:05 71 22 99 Nasal Cannula 3.0 10/12/16 08:00 98.2 151/88 10/10/16 01:52 21 Intake and Output 10/11/16 10/11/16 10/12/16 15:00 23:00 07:00 Intake Total 2051 ml 940 ml 950 ml Output Total 540 ml 245 ml 200 ml Balance 1511 ml 695 ml 750 ml Results Result Diagram: 10/12/16 0430 10/12/16 0430 Results 24 hrs Laboratory Tests Test 10/11/16 16:28 10/12/16 04:30 10/12/16 05:48 White Blood Count 3.9 L 3.9 L Red Blood Count 2.45 #L 2.42 L Hemoglobin 7.7 L 7.9 L Hematocrit 24.1 L 23.7 L Mean Corpuscular Volume 98.4 97.9 Mean Corpuscular Hemoglobin 31.4 32.6 Mean Corpuscular Hemoglobin Concent 32.0 33.3 Red Cell Distribution Width 17.0 H 16.7 H Platelet Count 73 L 71 L Mean Platelet Volume 9.3 10.6 H Neutrophils % 78.6 H 84.2 H Lymphocytes % 11.2 L 9.4 L Monocytes % 8.9 5.1 Eosinophils % 0.8 0.0 Basophils % 0.0 0.0 Nucleated Red Blood Cells % 0.0 0.0 Neutrophils # 3.1 3.3 Lymphocytes # 0.4 L 0.4 L Monocytes # 0.4 0.2 L Eosinophils # 0.0 0.0 Basophils # 0.0 0.0 Nucleated Red Blood Cells # 0.0 0.0 Prothrombin Time 15.6 H 17.0 H Prothrombin Time Ratio 1.2 1.3 INR International Normalized Ratio 1.23 1.38 Activated Partial Thromboplast Time 32.8 34.3 Fibrinogen 303.0 D-Dimer > 34929.00 H Sodium Level 150 H Potassium Level 3.7 Chloride Level 110 Carbon Dioxide Level 23 Anion Gap 21 #H Blood Urea Nitrogen 30 H Creatinine 1.07 H Glucose Level 129 Calcium Level 8.4 Ammonia 56 H Lab Scanned Report BLOOD TRANSFUSION Medications Medications Current Medications Labetalol HCl (Labetalol) 10 mg Q10M PRN IV ELEVATED BLOOD PRESSURE Last administered on 10/12/16 08:46; Admin Dose 10 MG; Start 10/09/16 at 09:00 Lorazepam (Ativan) 0.5 mg Q2H PRN IV SEIZURES; Start 10/09/16 at 09:00 Acetaminophen 650 mg 650 mg Q4H PRN PO TEMP GREATER THAN 99.6F; Start 10/09/16 at 09:00 Sodium Chloride 1,000 ml @ 100 mls/hr Q10H IV Last administered on 10/09/16 16 :07; Admin Dose 100 MLS/HR; Start 10/09/16 at 10:00; Status Future Hold Cefepime HCl (Maxipime 1gm/50 ml (Pmx)) 50 ml @ 100 mls/hr Q12 IVPB Last administered on 10/12/16 09:10; Admin Dose 100 MLS/HR; Start 10/09/16 at 10:30 Ondansetron HCl (Zofran Inj) 4 mg Q6H PRN IV NAUSEA AND/OR VOMITING Last administered on 10/10/16 04:31; Admin Dose 4 MG; Start 10/09/16 at 10:30 Morphine Sulfate 2 mg 2 mg Q4H PRN IV PAIN LEVEL 7-10 Last administered on 05:33; Admin Dose 2 MG; Start 10/09/16 at 10:30 Levetiracetam (Keppra 500 Mg/ 100ml (Pmx)) 100 ml @ 400 mls/hr Q12 IVPB Last administered on 10/12/16 08:42; Admin Dose 400 MLS/HR; Start 10/09/16 at 21:00 IV Flush (NS 10 ml) 10 ml PRN PRN IV FLUSH LINE; Start 10/09/16 at 15:30 Pantoprazole 40 mg 40 mg BID@06,18 IV Last administered on 10/12/16 06:12; Admin Dose 40 MG; Start 10/10/16 at 18:00 Vancomycin HCl 750 mg/Sodium Chloride 150 ml @ 75 mls/hr Q24H IVPB Last administered on 10/11/16 14:14; Admin Dose 75 MLS/HR; Start 10/10/16 at 14:00 Potassium Chloride/Dextrose (KCl/D5W) 1,005 ml @ 75 mls/hr [id number] IV Last administered on 10/11/16 17:00; Admin Dose 75 MLS/HR; Start 10/10/16 at 15:00 Diphenhydramine HCl 25 mg 25 mg Q6H PRN IV ITCHING Last administered on 03:12; Admin Dose 25 MG; Start 10/11/16 at 13:00 Metronidazole (Flagyl 500 Mg (Pmx)) 100 ml @ 100 mls/hr Q8 IVPB Last administered on 10/12/16 06:11; Admin Dose 100 MLS/HR; Start 10/11/16 at 22:00 Citric Acid/ Sodium Citrate (Bicitra) 30 ml BID PO Last administered on 08:42; Admin Dose 30 ML; Start 10/11/16 at 21:00 Docusate Sodium (Colace Liquid Cup) 100 mg BID NGT Last administered on 08:42; Admin Dose 100 MG; Start 10/11/16 at 21:28 Lactulose (Enulose) 20 gm Q8 PO ; Start 10/12/16 at 14:00 Hydralazine HCl (Apresoline) 10 mg Q4H PRN IV ELEVATED BLOOD PRESSURE Last administered on 10/12/16 10:35; Admin Dose 10 MG; Start 10/12/16 at 10:00 MORRIS BRADLEY NP Oct 12, 2016 10:57
--- NOTE | 2016-10-12 11:56 | CONS ---
Date/Time of Note Date/Time of Note DATE: 10/12/16 TIME: 11:52 Assessment/Plan Assessment/Plan Chief Complaint/Hosp Course Impression: 1. Right posterior frontal lobe parenchymal hematoma and moderate intraventricular hemorrhage. Repeat brain CT scan on 10-10-2016 showed interval appearance of right subdural hemorrhage mainly overlying right frontal lobe measuring up to 7 mm along with scattered bilateral foci of subarachnoid hemorrhages with interval increase and a 2 mm leftward midline shift. 2. Non-ST elevation myocardial infarction. 3. Sepsis secondary to underlying urinary tract infection. 5. Normocytic, normochromic anemia. Most probably anemia of chronic disease and also from underlying liver cirrhosis. Contributed by intraventricular hemorrhage 6. Thrombocytopenia. Most probably secondary to underlying liver cirrhosis. 7. Transaminitis with hyperbilirubinemia. Resolved. Most probably secondary to underlying liver cirrhosis. 8. Systemic lupus erythematosus. 9. Acute kidney injury. Etiology could be secondary to hemodynamics Versus contrast induced. Obtain nephrology consult. 10. Coagulopathy. Transfuse FFPs. Obtain hematology consult. Recommendations: 1. as occult blood negative, the anemia is not from GI bleeding. More likely from intra-cranial bleed. 2. continue protonix 40 mg iv bid 3. for any endoscopic procedures, will need neurosurgery clearance as the procedures can increase intra-cranial pressure 4. for any endoscopic procedures, will need cardiac clearance as pt has NSTEMI and endoscopic procedures places additional stress on the heart. 5. can also ask hematology for recommendations on anemia since occult blood negative. 6. will sign off now. call for any gi issues. Problems: Consultation Date/Type/Reason Admit Date/Time Oct 09, 2016 at 08:26 Initial Consult Date 10/10/16 Type of Consultation: GI Referring Provider: MILTON FARIAS 24 HR Interval Summary Subjective hx not possible: pt non-verbal Exam/Review of Systems Vital Signs Vitals Vital Signs Date Time Temp Pulse Resp B/P Pulse Ox O2 Delivery O2 Flow Rate FiO2 10/12/16 10:45 99 16 127/77 97 10/12/16 10:05 Nasal Cannula 3.0 10/12/16 08:00 98.2 10/10/16 01:52 21 Intake and Output 10/11/16 10/11/16 10/12/16 15:00 23:00 07:00 Intake Total 2051 ml 940 ml 1025 ml Output Total 540 ml 245 ml 200 ml Balance 1511 ml 695 ml 825 ml Exam Constitutional: frail Psych: confusion Head: atraumatic, normocephalic ENMT: mucosa pink and moist, nl external ears & nose, nl lips & teeth, nl nasal mucosa & septum Neck: non-tender, supple Respiratory: clear to auscultation, normal air movement Cardiovascular: nl pulses, regular rate and rhythm Gastrointestinal: bowel sounds, non-tender, soft Results Result Diagram: 10/12/16 0430 10/12/16 0430 Results 24 hrs Laboratory Tests Test 10/11/16 16:28 10/12/16 04:30 10/12/16 05:48 White Blood Count 3.9 L 3.9 L Red Blood Count 2.45 #L 2.42 L Hemoglobin 7.7 L 7.9 L Hematocrit 24.1 L 23.7 L Mean Corpuscular Volume 98.4 97.9 Mean Corpuscular Hemoglobin 31.4 32.6 Mean Corpuscular Hemoglobin Concent 32.0 33.3 Red Cell Distribution Width 17.0 H 16.7 H Platelet Count 73 L 71 L Mean Platelet Volume 9.3 10.6 H Neutrophils % 78.6 H 84.2 H Lymphocytes % 11.2 L 9.4 L Monocytes % 8.9 5.1 Eosinophils % 0.8 0.0 Basophils % 0.0 0.0 Nucleated Red Blood Cells % 0.0 0.0 Neutrophils # 3.1 3.3 Lymphocytes # 0.4 L 0.4 L Monocytes # 0.4 0.2 L Eosinophils # 0.0 0.0 Basophils # 0.0 0.0 Nucleated Red Blood Cells # 0.0 0.0 Prothrombin Time 15.6 H 17.0 H Prothrombin Time Ratio 1.2 1.3 INR International Normalized Ratio 1.23 1.38 Activated Partial Thromboplast Time 32.8 34.3 Fibrinogen 303.0 D-Dimer > 38625.00 H Sodium Level 150 H Potassium Level 3.7 Chloride Level 110 Carbon Dioxide Level 23 Anion Gap 21 #H Blood Urea Nitrogen 30 H Creatinine 1.07 H Glucose Level 129 Calcium Level 8.4 Ammonia 56 H Lab Scanned Report BLOOD TRANSFUSION Medications Medications Current Medications Labetalol HCl (Labetalol) 10 mg Q10M PRN IV ELEVATED BLOOD PRESSURE Last administered on 10/12/16t 08:46; Admin Dose 10 MG; Start 10/09/16 at 09:00 Lorazepam (Ativan) 0.5 mg Q2H PRN IV SEIZURES; Start 10/09/16 at 09:00 Acetaminophen 650 mg 650 mg Q4H PRN PO TEMP GREATER THAN 99.6F; Start 10/09/16 at 09:00 Sodium Chloride 1,000 ml @ 100 mls/hr Q10H IV Last administered on 10/09/16 16 :07; Admin Dose 100 MLS/HR; Start 10/09/16 at 10:00; Status Future Hold Cefepime HCl (Maxipime 1gm/50 ml (Pmx)) 50 ml @ 100 mls/hr Q12 IVPB Last administered on 10/12/16 09:10; Admin Dose 100 MLS/HR; Start 10/09/16 at 10:30 Ondansetron HCl (Zofran Inj) 4 mg Q6H PRN IV NAUSEA AND/OR VOMITING Last administered on 10/10/16 04:31; Admin Dose 4 MG; Start 10/09/16 at 10:30 Morphine Sulfate 2 mg 2 mg Q4H PRN IV PAIN LEVEL 7-10 Last administered on 05:33; Admin Dose 2 MG; Start 10/09/16 at 10:30 Levetiracetam (Keppra 500 Mg/ 100ml (Pmx)) 100 ml @ 400 mls/hr Q12 IVPB Last administered on 10/12/16 08:42; Admin Dose 400 MLS/HR; Start 10/09/16 at 21:00 IV Flush (NS 10 ml) 10 ml PRN PRN IV FLUSH LINE; Start 10/09/16 at 15:30 Pantoprazole 40 mg 40 mg BID@06,18 IV Last administered on 10/12/16 06:12; Admin Dose 40 MG; Start 10/10/16 at 18:00 Vancomycin HCl 750 mg/Sodium Chloride 150 ml @ 75 mls/hr Q24H IVPB Last administered on 10/11/16 14:14; Admin Dose 75 MLS/HR; Start 10/10/16 at 14:00 Potassium Chloride/Dextrose (KCl/D5W) 1,005 ml @ 75 mls/hr [id number] IV Last administered on 10/11/16 17:00; Admin Dose 75 MLS/HR; Start 10/10/16 at 15:00 Diphenhydramine HCl 25 mg 25 mg Q6H PRN IV ITCHING Last administered on 03:12; Admin Dose 25 MG; Start 10/11/16 at 13:00 Metronidazole (Flagyl 500 Mg (Pmx)) 100 ml @ 100 mls/hr Q8 IVPB Last administered on 10/12/16 06:11; Admin Dose 100 MLS/HR; Start 10/11/16 at 22:00 Citric Acid/ Sodium Citrate (Bicitra) 30 ml BID PO Last administered on 08:42; Admin Dose 30 ML; Start 10/11/16 at 21:00 Docusate Sodium (Colace Liquid Cup) 100 mg BID NGT Last administered on 08:42; Admin Dose 100 MG; Start 10/11/16 at 21:28 Lactulose (Enulose) 20 gm Q8 PO ; Start 10/12/16 at 14:00 Hydralazine HCl 10 mg 10 mg Q4H PRN IV ELEVATED BLOOD PRESSURE Last administered on 10/12/16 10:35; Admin Dose 10 MG; Start 10/12/16 at 10:00 Albumin Human (Albumin Human 25%) 100 ml @ 100 mls/hr ONCE ONCE IV ; Start 10/12/16 at 12:00; Stop 10/12/16 at 12:59 Dextrose (D5W) 500 ml ONCE ONCE IV ; Start 10/12/16 at 12:00; Stop 10/12/16 at 12 :01 Furosemide (Lasix) 20 mg ONCE ONCE IV ; Start 10/12/16 at 12:00; Stop 10/12/16 at 12:01 BIGG LEDESMA MD Oct 12, 2016 11:56
[2016-10-12] MEDS ORDERED: DEXTROSE 5% WATER 500 ML BAG IV ONE (12:00)
[2016-10-12] MEDS ORDERED: FUROSEMIDE 20 MG INJ IV ONE (12:00)
[2016-10-12] MEDS ORDERED: ALBUMIN HUMAN 25% 100 ML IV ONE (12:00)
--- NOTE | 2016-10-12 12:42 | CONS ---
Date/Time of Note Date/Time of Note DATE: 10/12/16 TIME: 12:38 Assessment/Plan Assessment/Plan Additional Assessment/Plan 1. NSTEMI - not a candidate for intervention or anti-coagulation, conservative care now - NO INTERVENTION PLANNED. VS stable. 2. Acute right posterior frontal lobe parenchymal hematoma and moderate intraventricular hemorrhage - now expanding, FFP Rx 3. Acute kidney injury due to ATN From sepsis with metabolic acidosis - avoid nephrotoxic meds - BETTER now 4. Sepsis due to Acute GNR UTI and bacteremia - on anti-Bx 5. Bacteremia with Blood cx growing GNR - on anti-bx 6. Essential hypertension 6. ETOH Liver Cirrhosis associated w/thrombocytopenia, transaminitis, hyperbilirubinemia 7. Normocytic, normochromic anemia 8. Hypothyroidism Consultation Date/Type/Reason Admit Date/Time Oct 09, 2016 at 08:26 Initial Consult Date 10/10/16 Type of Consultation: GI Referring Provider: MILTON FARIAS 24 HR Interval Summary Free Text/Dictation No acute change - BP in good range - neuro team follows ROS: No fever, no chills, no nausea, no vomiting, no diarrhea/constipation No recent weight changes No chest pain, no PND, no orthopnea No dizziness, blurred vision No thirst, no heat or cold intolerance (stable post CVA) Exam/Review of Systems Vital Signs Vitals Vital Signs Date Time Temp Pulse Resp B/P Pulse Ox O2 Delivery O2 Flow Rate FiO2 10/12/16 10:45 99 16 127/77 97 10/12/16 10:05 Nasal Cannula 3.0 10/12/16 08:00 98.2 10/10/16 01:52 21 Intake and Output 10/11/16 10/11/16 10/12/16 15:00 23:00 07:00 Intake Total 2051 ml 940 ml 1025 ml Output Total 540 ml 245 ml 200 ml Balance 1511 ml 695 ml 825 ml Exam General: WN/WD/NAD, AOx 1-2 HEENT: Unicetric/atraumatic/EOMI (follow commands) NECK: JVD elevated, no thyromegaly Lymph: no lymphadenopathy HEART: regular with no S3, II/ systolic murmur at apex LUNGS: Coarse sounds ABD: soft, NT, ND, +BS : Intact Neuro: post CVA SKIN: chronic changes EXT: trace edema Results Result Diagram: 10/12/16 0430 10/12/16 0430 Results 24 hrs Laboratory Tests Test 10/11/16 16:28 10/12/16 04:30 10/12/16 05:48 White Blood Count 3.9 L 3.9 L Red Blood Count 2.45 #L 2.42 L Hemoglobin 7.7 L 7.9 L Hematocrit 24.1 L 23.7 L Mean Corpuscular Volume 98.4 97.9 Mean Corpuscular Hemoglobin 31.4 32.6 Mean Corpuscular Hemoglobin Concent 32.0 33.3 Red Cell Distribution Width 17.0 H 16.7 H Platelet Count 73 L 71 L Mean Platelet Volume 9.3 10.6 H Neutrophils % 78.6 H 84.2 H Lymphocytes % 11.2 L 9.4 L Monocytes % 8.9 5.1 Eosinophils % 0.8 0.0 Basophils % 0.0 0.0 Nucleated Red Blood Cells % 0.0 0.0 Neutrophils # 3.1 3.3 Lymphocytes # 0.4 L 0.4 L Monocytes # 0.4 0.2 L Eosinophils # 0.0 0.0 Basophils # 0.0 0.0 Nucleated Red Blood Cells # 0.0 0.0 Prothrombin Time 15.6 H 17.0 H Prothrombin Time Ratio 1.2 1.3 INR International Normalized Ratio 1.23 1.38 Activated Partial Thromboplast Time 32.8 34.3 Fibrinogen 303.0 D-Dimer > 69944.00 H Sodium Level 150 H Potassium Level 3.7 Chloride Level 110 Carbon Dioxide Level 23 Anion Gap 21 #H Blood Urea Nitrogen 30 H Creatinine 1.07 H Glucose Level 129 Calcium Level 8.4 Ammonia 56 H Lab Scanned Report BLOOD TRANSFUSION Medications Medications Current Medications Labetalol HCl (Labetalol) 10 mg Q10M PRN IV ELEVATED BLOOD PRESSURE Last administered on 10/12/16 08:46; Admin Dose 10 MG; Start 10/09/16 at 09:00 Lorazepam (Ativan) 0.5 mg Q2H PRN IV SEIZURES; Start 10/09/16 at 09:00 Acetaminophen 650 mg 650 mg Q4H PRN PO TEMP GREATER THAN 99.6F; Start 10/09/16 at 09:00 Sodium Chloride 1,000 ml @ 100 mls/hr Q10H IV Last administered on 10/09/16 16 :07; Admin Dose 100 MLS/HR; Start 10/09/16 at 10:00; Status Future Hold Cefepime HCl (Maxipime 1gm/50 ml (Pmx)) 50 ml @ 100 mls/hr Q12 IVPB Last administered on 10/12/16 09:10; Admin Dose 100 MLS/HR; Start 10/09/16 at 10:30 Ondansetron HCl (Zofran Inj) 4 mg Q6H PRN IV NAUSEA AND/OR VOMITING Last administered on 10/10/16 04:31; Admin Dose 4 MG; Start 10/09/16 at 10:30 Morphine Sulfate 2 mg 2 mg Q4H PRN IV PAIN LEVEL 7-10 Last administered on 05:33; Admin Dose 2 MG; Start 10/09/16 at 10:30 Levetiracetam (Keppra 500 Mg/ 100ml (Pmx)) 100 ml @ 400 mls/hr Q12 IVPB Last administered on 10/12/16 08:42; Admin Dose 400 MLS/HR; Start 10/09/16 at 21:00 IV Flush (NS 10 ml) 10 ml PRN PRN IV FLUSH LINE; Start 10/09/16 at 15:30 Pantoprazole 40 mg 40 mg BID@06,18 IV Last administered on 10/12/16 06:12; Admin Dose 40 MG; Start 10/10/16 at 18:00 Vancomycin HCl 750 mg/Sodium Chloride 150 ml @ 75 mls/hr Q24H IVPB Last administered on 10/11/16 14:14; Admin Dose 75 MLS/HR; Start 10/10/16 at 14:00 Potassium Chloride/Dextrose (KCl/D5W) 1,005 ml @ 75 mls/hr [id number] IV Last administered on 10/11/16 17:00; Admin Dose 75 MLS/HR; Start 10/10/16 at 15:00 Diphenhydramine HCl 25 mg 25 mg Q6H PRN IV ITCHING Last administered on 03:12; Admin Dose 25 MG; Start 10/11/16 at 13:00 Metronidazole (Flagyl 500 Mg (Pmx)) 100 ml @ 100 mls/hr Q8 IVPB Last administered on 10/12/16 06:11; Admin Dose 100 MLS/HR; Start 10/11/16 at 22:00 Citric Acid/ Sodium Citrate (Bicitra) 30 ml BID PO Last administered on 08:42; Admin Dose 30 ML; Start 10/11/16 at 21:00 Docusate Sodium (Colace Liquid Cup) 100 mg BID NGT Last administered on 08:42; Admin Dose 100 MG; Start 10/11/16 at 21:28 Lactulose (Enulose) 20 gm Q8 PO ; Start 10/12/16 at 14:00 Hydralazine HCl 10 mg 10 mg Q4H PRN IV ELEVATED BLOOD PRESSURE Last administered on 10/12/16 10:35; Admin Dose 10 MG; Start 10/12/16 at 10:00 Albumin Human (Albumin Human 25%) 100 ml @ 100 mls/hr ONCE ONCE IV Last administered on 10/12/16 12:29; Admin Dose 100 MLS/HR; Start 10/12/16 at 12:00; Stop 10/12/16 at 12:59 GEOFFREY MENDOZA MD Oct 12, 2016 12:42
--- NOTE | 2016-10-12 13:31 | RADRPT ---
PROCEDURE: Noncontrast CT Head. CLINICAL INDICATION: Intracranial hemorrhage. Follow-up examination. TECHNIQUE: Noncontrast CT of the head was obtained. The administered radiation dose was CTDI vol = 41.59 mGy, DLP = 630.2 mGy-cm. One or more of the following dose reduction techniques were used: Aut omated exposure control, Adjustment of the mA and/or kV according to patient size, or Use of iterati ve reconstruction technique. COMPARISON: Noncontrast CT of the head from October 10, 2016 and MRI of the brain with and without contr ast from October 09, 2016. FINDINGS: There is minimal generalized cerebral volume loss. There is mild periventricular hypoattenuation sug gesting chronic microvascular ischemic changes. There are mild vascular calcifications within the intracranial carotid arteries. There is a decreased right frontal subdural hemorrhage measuring up to 4 mm previously measuring 7 m m without definite acute component. There is an acute intraparenchymal hemorrhage within the right parietal centrum semiovale/rowe rad iata. There is mild to moderate surrounding vasogenic edema. There is stable 2 mm of leftward midli ne shift. There is also adjacent encephalomalacia within the right parietal lobe. There are stable mild areas of acute subarachnoid hemorrhage as well as intraparenchymal hemorrhage within the right greater than left parietal lobes. There is a stable minimal posterior falcine acute subdural hemorrhage. T There is no loss of pagan-white differentiation to suggest acute territorial infarction. The orbits are within normal limits. The paranasal sinuses are well aerated. No destructive osseous lesion is identified. IMPRESSION: 1. Decrease 4 mm right frontal subdural hemorrhage without definite hemorrhagic component. 2. Stable right parietal intraparenchymal hemorrhage with mild to moderate surrounding vasogenic estela ma with 2 mm of leftward midline shift. 3. Stable right greater than left parietal subarachnoid/intraparenchymal hemorrhages. 4. Stable acute minimal posterior falcine subdural hemorrhage. 5. Minimal generalized cerebral volume loss. 6. Mild chronic microvascular ischemic changes. 7. 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 Further findings as detailed above. RPTAT: HVF .Alexi Smith MD, MD Date Time Electronically viewed and signed by .Alexi Smith MD, on 10/12/2016 13:30 .F/
[2016-10-12] MEDS: ACETAMINOPHEN 325 MG TAB PO PRN (14:03)
--- NOTE | 2016-10-12 14:23 | CONS ---
Date/Time of Note Date/Time of Note DATE: 10/12/16 TIME: 14:21 Assessment/Plan Assessment/Plan Additional Assessment/Plan 1. Acute right posterior frontal lobe parenchymal hematoma and moderate intraventricular hemorrhage. 2. Non Oliguric acute kidney injury due to ATN From sepsis with metabolic acidosis 2. Non-ST elevation myocardial infarction 4. Sepsis due to Acute GNR UTI and bacteremia, 5. Bacteremia with Blood cx growing GNR 6. Essential hypertension 6. ETOH Liver Cirrhosis associated w/thrombocytopenia, transaminitis, hyperbilirubinemia 7. Normocytic, normochromic anemia 8. Hypothyroidism 9. Hypernatremia Plan: continue current care , continue D5W with 10mEQ KCL at 75 cc/hr pt urine output has been dropping down, will give IV albumin x 1 dose followed by D5W bolus then 20mg IV x 1 dose Continue IV abx As per PMD and ID service will follow up Consultation Date/Type/Reason Admit Date/Time Oct 09, 2016 at 08:26 Initial Consult Date 10/10/16 Type of Consultation: NEPHROLOGY Reason for Consultation hypernatremia, JABIER, Oliguria Referring Provider: MILTON FARIAS 24 HR Interval Summary Free Text/Dictation Na went upto 150, urine output dropping down Exam/Review of Systems Vital Signs Vitals Vital Signs Date Time Temp Pulse Resp B/P Pulse Ox O2 Delivery O2 Flow Rate FiO2 10/12/16 13:15 88 29 126/78 96 10/12/16 13:00 Nasal Cannula 10/12/16 12:00 98.0 10/12/16 10:05 3.0 10/10/16 01:52 21 Intake and Output 10/11/16 10/11/16 10/12/16 15:00 23:00 07:00 Intake Total 2051 ml 940 ml 1025 ml Output Total 540 ml 245 ml 200 ml Balance 1511 ml 695 ml 825 ml Exam Constitutional: non-verbal, obese Head: atraumatic, normocephalic Respiratory: clear to auscultation, normal air movement Cardiovascular: nl pulses, regular rate and rhythm Gastrointestinal: nl liver, spleen, non-tender, soft Musculoskeletal: nl extremities to inspection Extremities: normal pulses Neurological: other (Lt sided facial droop, Lt hemiparesis) Results Result Diagram: 10/12/1642910/12/16 043 Results 24 hrs Laboratory Tests Test 10/11/16 16:28 10/12/16 04:30 10/12/16 05:48 White Blood Count 3.9 L 3.9 L Red Blood Count 2.45 #L 2.42 L Hemoglobin 7.7 L 7.9 L Hematocrit 24.1 L 23.7 L Mean Corpuscular Volume 98.4 97.9 Mean Corpuscular Hemoglobin 31.4 32.6 Mean Corpuscular Hemoglobin Concent 32.0 33.3 Red Cell Distribution Width 17.0 H 16.7 H Platelet Count 73 L 71 L Mean Platelet Volume 9.3 10.6 H Neutrophils % 78.6 H 84.2 H Lymphocytes % 11.2 L 9.4 L Monocytes % 8.9 5.1 Eosinophils % 0.8 0.0 Basophils % 0.0 0.0 Nucleated Red Blood Cells % 0.0 0.0 Neutrophils # 3.1 3.3 Lymphocytes # 0.4 L 0.4 L Monocytes # 0.4 0.2 L Eosinophils # 0.0 0.0 Basophils # 0.0 0.0 Nucleated Red Blood Cells # 0.0 0.0 Prothrombin Time 15.6 H 17.0 H Prothrombin Time Ratio 1.2 1.3 INR International Normalized Ratio 1.23 1.38 Activated Partial Thromboplast Time 32.8 34.3 Fibrinogen 303.0 D-Dimer > 75716.00 H Sodium Level 150 H Potassium Level 3.7 Chloride Level 110 Carbon Dioxide Level 23 Anion Gap 21 #H Blood Urea Nitrogen 30 H Creatinine 1.07 H Glucose Level 129 Calcium Level 8.4 Ammonia 56 H Lab Scanned Report BLOOD TRANSFUSION Medications Medications Current Medications Labetalol HCl (Labetalol) 10 mg Q10M PRN IV ELEVATED BLOOD PRESSURE Last administered on 10/12/16 08:46; Admin Dose 10 MG; Start 10/09/16 at 09:00 Lorazepam (Ativan) 0.5 mg Q2H PRN IV SEIZURES; Start 10/09/16 at 09:00 Acetaminophen 650 mg 650 mg Q4H PRN PO TEMP GREATER THAN 99.6F Last administered on 10/12/16 14:03; Admin Dose 650 MG; Start 10/09/16 at 09:00 Sodium Chloride 1,000 ml @ 100 mls/hr Q10H IV Last administered on 10/09/16 16 :07; Admin Dose 100 MLS/HR; Start 10/09/16 at 10:00; Status Future Hold Cefepime HCl (Maxipime 1gm/50 ml (Pmx)) 50 ml @ 100 mls/hr Q12 IVPB Last administered on 10/12/16 09:10; Admin Dose 100 MLS/HR; Start 10/09/16 at 10:30 Ondansetron HCl (Zofran Inj) 4 mg Q6H PRN IV NAUSEA AND/OR VOMITING Last administered on 10/10/16 04:31; Admin Dose 4 MG; Start 10/09/16 at 10:30 Morphine Sulfate 2 mg 2 mg Q4H PRN IV PAIN LEVEL 7-10 Last administered on 05:33; Admin Dose 2 MG; Start 10/09/16 at 10:30 Levetiracetam (Keppra 500 Mg/ 100ml (Pmx)) 100 ml @ 400 mls/hr Q12 IVPB Last administered on 10/12/16 08:42; Admin Dose 400 MLS/HR; Start 10/09/16 at 21:00 IV Flush (NS 10 ml) 10 ml PRN PRN IV FLUSH LINE; Start 10/09/16 at 15:30 Pantoprazole 40 mg 40 mg BID@06,18 IV Last administered on 10/12/16 06:12; Admin Dose 40 MG; Start 10/10/16 at 18:00 Vancomycin HCl 750 mg/Sodium Chloride 150 ml @ 75 mls/hr Q24H IVPB Last administered on 10/11/16 14:14; Admin Dose 75 MLS/HR; Start 10/10/16 at 14:00 Potassium Chloride/Dextrose (KCl/D5W) 1,005 ml @ 75 mls/hr [id number] IV Last administered on 10/11/16 17:00; Admin Dose 75 MLS/HR; Start 10/10/16 at 15:00 Diphenhydramine HCl 25 mg 25 mg Q6H PRN IV ITCHING Last administered on 03:12; Admin Dose 25 MG; Start 10/11/16 at 13:00 Metronidazole (Flagyl 500 Mg (Pmx)) 100 ml @ 100 mls/hr Q8 IVPB Last administered on 10/12/16 13:53; Admin Dose 100 MLS/HR; Start 10/11/16 at 22:00 Citric Acid/ Sodium Citrate (Bicitra) 30 ml BID PO Last administered on 08:42; Admin Dose 30 ML; Start 10/11/16 at 21:00 Docusate Sodium (Colace Liquid Cup) 100 mg BID NGT Last administered on 08:42; Admin Dose 100 MG; Start 10/11/16 at 21:28 Lactulose (Enulose) 20 gm Q8 PO Last administered on 10/12/16 13:53; Admin Dose 20 GM; Start 10/12/16 at 14:00 Hydralazine HCl (Apresoline) 10 mg Q4H PRN IV ELEVATED BLOOD PRESSURE Last administered on 10/12/16 10:35; Admin Dose 10 MG; Start 10/12/16 at 10:00 Miscellaneous Information (*Rx Drug Level Order Reminder*) 1 ONCE ONCE XX ; Start 10/13/16 at 13:00; Stop 10/13/16 at 13:01 TRUDY SEQUEIRA MD Oct 12, 2016 14:23
[2016-10-12] MEDS: VANCOMYCIN 750 MG in SOD CHLORIDE 0.9% 150 ML IVPB SCH (14:54)
[2016-10-12] MEDS ORDERED: FUROSEMIDE 40 MG INJ IV ONE (16:00)
--- NOTE | 2016-10-12 17:13 | RADRPT ---
PROCEDURE: XR Chest. CLINICAL INDICATION: Chest pain. Fluid overload TECHNIQUE: Portable AP semi erect view of the chest was obtained. COMPARISON: 10/09/2016 FINDINGS: The cardiomediastinal silhouette is mildly enlarged. Diffuse pulmonary vascular congestion with petros eolar opacities of the right greater than left lung are similar to the prior exam. Small bilateral pleural effusions are difficult to exclude. Left-sided PICC is again noted the tip partially obscur ed by overlying monitoring wires but projecting in the region of the right atrium. A nasogastric tu be is placed in the interval the distal tip below the diaphragm and inferior margin of the exposure in the region of the stomach. Demineralization is again noted without evidence of acute osseous abn ormality. RPTAT:HJJR IMPRESSION: 1. Congestive heart failure pattern with pulmonary edema is similar to the exam of 10/09/2016 with s uspected small pleural effusions. 2. Successful interval placement of a nasogastric tube the distal tip in the region of the stomach. 3. Left sided approach PICC remains in good radiographic position. Physician Osei Date Time Electronically viewed and signed by Physician Osei on 10/12/2016 17:13 /
[2016-10-12] MEDS ORDERED: oxyCODONE 5 MG TAB PO ONE (18:00)
[2016-10-12] MEDS: ONDANSETRON 4 MG INJ IV PRN (21:50)
[2016-10-12] MEDS: oxyCODONE 5 MG TAB PO PRN (22:31)
[2016-10-13] VITALS (31 sets, daily range): BP systolic 113–166; BP diastolic 63–98; PULSE 80–111; RESP 14–28
[2016-10-13] MEDS: ACETAMINOPHEN 325 MG TAB PO PRN ×4 (01:19→21:45)
[2016-10-13] MEDS: oxyCODONE 5 MG TAB PO PRN ×2 (03:53→09:03)
[2016-10-13 05:05] LABS: ADD SCAN DIFF NO
[2016-10-13 05:11] LABS: ABNORMAL IP MESSAGE 1; BASOPHILS % 0.1 % (0.0-2.0); EOSINOPHILS % 0.4 % (0.0-7.0); HEMATOCRIT 23.9 % (37.0-47.0); HEMOGLOBIN 7.9 g/dl (12.0-16.0); LYMPHOCYTES # 0.9 10^3/ul (0.8-2.9); MEAN CORPUSCULAR HEMOGLOBIN 32.5 pg (29.0-33.0); MEAN CORPUSCULAR HGB CONC 33.1 g/dl (32.0-37.0); MEAN CORPUSCULAR VOLUME 98.4 fl (82.0-101.0); MEAN PLATELET VOLUME 10.1 fl (7.4-10.4); MONOCYTE # 0.5 10^3/ul (0.3-0.9); MONOCYTES % 6.6 % (0.0-11.0); NEUTROPHIL # 5.3 10^3/ul (1.6-7.5); NEUTROPHILS % 78.3 % (39.0-77.0); PLATELET COUNT 68 10^3/UL (140-415); RED BLOOD COUNT 2.43 10^6/ul (4.20-5.40); RED CELL DISTRIBUTION WIDTH 16.2 % (11.5-14.5); WHITE BLOOD COUNT 6.8 10^3/ul (4.8-10.8)
[2016-10-13] MEDS: metroNIDAZOLE 500 MG/NS (PMX) 100 ML IVPB SCH ×3 (06:10→21:51)
[2016-10-13] MEDS: PANTOPRAZOLE 40 MG INJ IV SCH ×2 (06:10→17:07)
[2016-10-13 06:15] LABS: CALCIUM 8.8 mg/dl (8.4-10.2); CREATININE 1.23 mg/dl (0.44-1.00); POTASSIUM 3.1 mmol/L (3.5-5.1)
[2016-10-13] MEDS: LACTULOSE 30ML CUP PO SCH ×3 (06:45→21:15)
[2016-10-13] MEDS ORDERED: DEXTROSE 5% WATER 500 ML BAG IV ONE (09:00)
[2016-10-13] MEDS ORDERED: DEXTROSE 5% 500 ML IV SCH (09:00)
[2016-10-13] MEDS: CEFEPIME 1GM/50 ML (PMX) 50 ML IVPB SCH ×2 (09:03→21:15)
[2016-10-13] MEDS: CITRIC ACID/NA CITRATE 30 ML CUP PO SCH ×3 (09:04→21:15)
[2016-10-13] MEDS: LEVETIRACETAM 500 MG (PMX) 100 ML IVPB SCH ×2 (09:22→20:30)
[2016-10-13] MEDS: DOCUSATE SODIUM 10 MG/ML (10ML CUP) NGT SCH ×2 (09:22→20:34)
[2016-10-13] MEDS: ALBUTEROL/IPRATROPIUM (NEB) 3 ML AMP HHN PRN (09:24)
[2016-10-13] MEDS ORDERED: PANTOPRAZOLE IV 80 MG in SOD CHLORIDE 0.9% 100 ML IV SCH (09:30)
--- NOTE | 2016-10-13 09:53 | PN ---
Date/Time of Note Date/Time of Note DATE: 10/13/16 TIME: 09:40 Assessment/Plan VTE Prophylaxis VTE Prophylaxis Intervention: SCD's Lines/Catheters IV Catheter Type (from Nrsg): PICC Line Central line still needed: Yes Urinary Cath still in place: Yes Reason Cath still needed: urinary retention Assessment/Plan Chief Complaint/Hosp Course A/P: 75-year-old female with past medical history of essential hypertension, systemic lupus erythematosus, hypothyroidism, and liver cirrhosis not because of alcohol abuse who was brought to the emergency room after the patient was found on the floor at home - found with Right posterior frontal lobe parenchymal hematoma and moderate intraventricular hemorrhage. 1. Right posterior frontal lobe parenchymal hematoma and moderate intraventricular hemorrhage. Repeat brain CT scan on 10-10-2016 showed interval appearance of right subdural hemorrhage mainly overlying right frontal lobe measuring up to 7 mm along with scattered bilateral foci of subarachnoid hemorrhages with interval increase and a 2 mm leftward midline shift. 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 S/P multiple plt and FFP transfusions in the last 3 days as well. - Avoid activities that increase intracranial pressure. - f/u Neurosurgery rec's - Continue tight blood pressure control. - continue Keppra - gven respiratory distress/issues, will again order BiPAP, check ABG, and get pulm consult 2. Non-ST elevation myocardial infarction. Most probably a type II event from underlying ischemia versus from underlying sepsis and worsening renal function. Troponins normalized. - f/u Cardiology rec's 3. Sepsis - secondary to underlying urinary tract infection. Ucx = + E coli. Blood cx 1/2 bottles also + coag (-) staph. - Continue antibiotics, f/u final cx results - f/u Infectious diseases rec's, continue IV fluids. 4. Essential hypertension. The patient's blood pressure will be tightly controlled. - monitor 5. Normocytic, normochromic anemia. Most probably anemia of chronic disease and also from underlying liver cirrhosis. S/p pRBC transfusion. - Will monitor the H&H closely. Will transfuse blood products as needed. 6. Thrombocytopenia - likely sec to cirrhosis. S/p plt transfusion - Monitor for any further bleeding. - Transfuse platelets as necessary. 7. Transaminitis with hyperbilirubinemia. Resolved. Most probably secondary to underlying liver cirrhosis. - Monitor. Trend LFTs. Avoid hepatotoxic medications. 8. Systemic lupus erythematosus. Will monitor. 9. Hypothyroidism. Will resume Synthroid once the patient is able take oral intake. 10. Acute kidney injury. Etiology could be secondary to hemodynamics versus contrast induced. Obtain nephrology consult. 11. Coagulopathy. S/p FFPs given eariler this admission. - monitor INR, f/u hematology rec's 12. Fluids, electrolytes, and nutrition. N.p.o. until swallow evaluation. Continue IV fluids. 13. DVT prophylaxis. Bilateral sequential compression devices. 14. Gastrointestinal prophylaxis. Proton pump inhibitors. Critical care time: 45 minutes. Problems: Subjective 24 Hr Interval Summary Free Text/Dictation Had repeat Head CT yesterday. Had more labored breathing yesterday and again today, BiPAP given. Exam/Review of Systems Vital Signs Vitals Vital Signs Date Time Temp Pulse Resp B/P Pulse Ox O2 Delivery O2 Flow Rate FiO2 10/13/16 06:00 26 129/81 99 Nasal Cannula 4.0 10/13/16 05:00 81 10/13/16 04:00 97.5 10/10/16 01:52 21 Intake and Output 10/12/16 10/12/16 10/13/16 15:00 23:00 07:00 Intake Total 850 ml 635 ml 725 ml Output Total 210 ml 325 ml 160 ml Balance 640 ml 310 ml 565 ml Exam General: lying in bed, in mild distress, family at bedside HEENT: Normocephalic, atraumatic. Eyes: Anicteric sclerae, conjunctivae clear. ENT: Nasal septum midline, oral mucosa moist. Neck supple, no JVD noticed. Respiratory: Bilaterally slightly decreased breath sounds. No use of accessory muscles of respiration. No adventitious breath sounds. Cardiovascular: S1, S2 heard. No murmurs or gallops. Abdomen: Soft and nondistended. Bowel sounds positive in all 4 quadrants. Diffuse tenderness in the abdomen Extremities: No cyanosis, no clubbing, no edema. Peripheral pulses palpable. Neurologic: The patient is awake, alert, and oriented. Slurred speech. Left- sided facial droop. Left upper extremity no movement against gravity. Right lower extremity no movement against gravity. No sensation in the left lower extremity. Skin: Normal skin turgor. No skin rashes. Results Result Diagram: 10/13/16 0500 10/13/16 0500 Results 24 hrs Laboratory Tests Test 10/13/16 00:05 10/13/16 05:00 Stool Occult Blood POSITIVE White Blood Count 6.8 # Red Blood Count 2.43 L Hemoglobin 7.9 L Hematocrit 23.9 L Mean Corpuscular Volume 98.4 Mean Corpuscular Hemoglobin 32.5 Mean Corpuscular Hemoglobin Concent 33.1 Red Cell Distribution Width 16.2 H Platelet Count 68 L Mean Platelet Volume 10.1 Neutrophils % 78.3 H Lymphocytes % 13.0 L Monocytes % 6.6 Eosinophils % 0.4 Basophils % 0.1 Nucleated Red Blood Cells % 0.0 Neutrophils # 5.3 Lymphocytes # 0.9 Monocytes # 0.5 Eosinophils # 0.0 Basophils # 0.0 Nucleated Red Blood Cells # 0.0 Sodium Level 146 H Potassium Level 3.1 L Chloride Level 108 Carbon Dioxide Level 21 Anion Gap 20 H Blood Urea Nitrogen 36 H Creatinine 1.23 H Glucose Level 151 Calcium Level 8.8 Ammonia 57 H Medications Medications Current Medications Labetalol HCl (Labetalol) 10 mg Q10M PRN IV ELEVATED BLOOD PRESSURE Last administered on 10/12/16 17:46; Admin Dose 10 MG; Start 10/09/16 at 09:00 Lorazepam (Ativan) 0.5 mg Q2H PRN IV SEIZURES Last administered on 10/12/16 21: 18; Admin Dose 0.5 MG; Start 10/09/16 at 09:00 Acetaminophen 650 mg 650 mg Q4H PRN PO TEMP GREATER THAN 99.6F Last administered on 10/13/16 01:19; Admin Dose 650 MG; Start 10/09/16 at 09:00 Sodium Chloride 1,000 ml @ 100 mls/hr Q10H IV Last administered on 10/09/16 16 :07; Admin Dose 100 MLS/HR; Start 10/09/16 at 10:00; Status Future Hold Cefepime HCl (Maxipime 1gm/50 ml (Pmx)) 50 ml @ 100 mls/hr Q12 IVPB Last administered on 10/13/16 09:03; Admin Dose 100 MLS/HR; Start 10/09/16 at 10:30 Ondansetron HCl (Zofran Inj) 4 mg Q6H PRN IV NAUSEA AND/OR VOMITING Last administered on 10/12/16 21:50; Admin Dose 4 MG; Start 10/09/16 at 10:30 Morphine Sulfate 2 mg 2 mg Q4H PRN IV PAIN LEVEL 7-10 Last administered on 05:33; Admin Dose 2 MG; Start 10/09/16 at 10:30 Levetiracetam (Keppra 500 Mg/ 100ml (Pmx)) 100 ml @ 400 mls/hr Q12 IVPB Last administered on 10/13/16 09:22; Admin Dose 400 MLS/HR; Start 10/09/16 at 21:00 IV Flush 10 ml 10 ml PRN PRN IV FLUSH LINE; Start 10/09/16 at 15:30 Vancomycin HCl 750 mg/Sodium Chloride 150 ml @ 75 mls/hr Q24H IVPB Last administered on 10/12/16 14:54; Admin Dose 75 MLS/HR; Start 10/10/16 at 14:00 Potassium Chloride/Dextrose (KCl/D5W) 1,005 ml @ 75 mls/hr [id number] IV Last administered on 10/12/16 20:22; Admin Dose 75 MLS/HR; Start 10/10/16 at 15:00 Diphenhydramine HCl 25 mg 25 mg Q6H PRN IV ITCHING Last administered on 03:12; Admin Dose 25 MG; Start 10/11/16 at 13:00 Metronidazole (Flagyl 500 Mg (Pmx)) 100 ml @ 100 mls/hr Q8 IVPB Last administered on 10/13/16 06:10; Admin Dose 100 MLS/HR; Start 10/11/16 at 22:00 Citric Acid/ Sodium Citrate (Bicitra) 30 ml BID PO Last administered on 09:22; Admin Dose 30 ML; Start 10/11/16 at 21:00 Docusate Sodium (Colace Liquid Cup) 100 mg BID NGT Last administered on 09:22; Admin Dose 100 MG; Start 10/11/16 at 21:28 Lactulose (Enulose) 20 gm Q8 PO Last administered on 10/13/16 06:45; Admin Dose 20 GM; Start 10/12/16 at 14:00 Hydralazine HCl (Apresoline) 10 mg Q4H PRN IV ELEVATED BLOOD PRESSURE Last administered on 10/12/16 21:02; Admin Dose 10 MG; Start 10/12/16 at 10:00 Miscellaneous Information (*Rx Drug Level Order Reminder*) 1 ONCE ONCE XX ; Start 10/13/16 at 13:00; Stop 10/13/16 at 13:01 Oxycodone HCl 5 mg 5 mg Q4H PRN PO PAIN Last administered on 10/13/16 09:03; Admin Dose 5 MG; Start 10/12/16 at 22:30 Dextrose (D5W) 500 ml @ 100 mls/hr Q5H IV Last administered on 10/13/16 09:21 ; Admin Dose 100 MLS/HR; Start 10/13/16 at 09:00; Stop 10/13/16 at 13:59 Pantoprazole (Protonix Iv) 40 mg BID@06,18 IV ; Start 10/13/16 at 18:00 YANELI CHAVEZ Oct 13, 2016 09:53
[2016-10-13] MEDS: POTASSIUM CHLORIDE 10 MEQ in DEXTROSE 5% 1,000 ML IV SCH ×2 (10:00→20:33)
--- NOTE | 2016-10-13 10:19 | PN ---
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 Problems: (1) SLE (systemic lupus erythematosus) Status: Acute Qualifiers: Systemic lupus erythematosus type: unspecified Systemic lupus erythematosus organ involvement: unspecified Qualified Code: M32.9 - Systemic lupus erythematosus, unspecified SLE type, unspecified organ involvement status (2) Cirrhosis of liver Status: Chronic Qualifiers: Hepatic cirrhosis type: unspecified hepatic cirrhosis (3) Thrombocytopenia Status: Acute (4) Intraparenchymal hemorrhage of brain Status: Acute (5) UTI (urinary tract infection) Status: Acute (6) Gram-positive bacteremia Status: Acute Assessment/Plan Will continue monitoring coagulation . Transfuse prn. Subjective 24 Hr Interval Summary Free Text/Dictation Pt is not responsive. Back on BIPAP. Exam/Review of Systems Vital Signs Vitals Vital Signs Date Time Temp Pulse Resp B/P Pulse Ox O2 Delivery O2 Flow Rate FiO2 10/13/16 06:00 26 129/81 99 Nasal Cannula 4.0 10/13/16 05:00 81 10/13/16 04:00 97.5 10/10/16 01:52 21 Intake and Output 10/12/16 10/12/16 10/13/16 15:00 23:00 07:00 Intake Total 850 ml 635 ml 725 ml Output Total 210 ml 325 ml 160 ml Balance 640 ml 310 ml 565 ml Exam Constitutional: non-verbal Head: atraumatic, normocephalic Eyes: PERRL, nl conjunctiva, nl sclera ENMT: mucosa pink and moist, other (BIPAP mask in place.) Neck: non-tender, supple Respiratory: clear to auscultation Cardiovascular: regular rate and rhythm Gastrointestinal: nl liver, spleen, non-tender, other (obese), soft Musculoskeletal: nl extremities to inspection, nl gait and stance Extremities: normal pulses Neurological: other (unable to test), unresponsive Skin: nl turgor, rash or lesions Lymph: nl lymph nodes Results Result Diagram: 10/13/16 0500 10/13/16 0500 Results 24 hrs Laboratory Tests Test 10/13/16 00:05 10/13/16 05:00 Stool Occult Blood POSITIVE White Blood Count 6.8 # Red Blood Count 2.43 L Hemoglobin 7.9 L Hematocrit 23.9 L Mean Corpuscular Volume 98.4 Mean Corpuscular Hemoglobin 32.5 Mean Corpuscular Hemoglobin Concent 33.1 Red Cell Distribution Width 16.2 H Platelet Count 68 L Mean Platelet Volume 10.1 Neutrophils % 78.3 H Lymphocytes % 13.0 L Monocytes % 6.6 Eosinophils % 0.4 Basophils % 0.1 Nucleated Red Blood Cells % 0.0 Neutrophils # 5.3 Lymphocytes # 0.9 Monocytes # 0.5 Eosinophils # 0.0 Basophils # 0.0 Nucleated Red Blood Cells # 0.0 Sodium Level 146 H Potassium Level 3.1 L Chloride Level 108 Carbon Dioxide Level 21 Anion Gap 20 H Blood Urea Nitrogen 36 H Creatinine 1.23 H Glucose Level 151 Calcium Level 8.8 Ammonia 57 H Medications Medications Current Medications Labetalol HCl (Labetalol) 10 mg Q10M PRN IV ELEVATED BLOOD PRESSURE Last administered on 10/12/16 17:46; Admin Dose 10 MG; Start 10/09/16 at 09:00 Lorazepam (Ativan) 0.5 mg Q2H PRN IV SEIZURES Last administered on 10/12/16 21: 18; Admin Dose 0.5 MG; Start 10/09/16 at 09:00 Acetaminophen 650 mg 650 mg Q4H PRN PO TEMP GREATER THAN 99.6F Last administered on 10/13/16 01:19; Admin Dose 650 MG; Start 10/09/16 at 09:00 Sodium Chloride 1,000 ml @ 100 mls/hr Q10H IV Last administered on 10/09/16 16 :07; Admin Dose 100 MLS/HR; Start 10/09/16 at 10:00; Status Future Hold Cefepime HCl (Maxipime 1gm/50 ml (Pmx)) 50 ml @ 100 mls/hr Q12 IVPB Last administered on 10/13/16 09:03; Admin Dose 100 MLS/HR; Start 10/09/16 at 10:30 Ondansetron HCl (Zofran Inj) 4 mg Q6H PRN IV NAUSEA AND/OR VOMITING Last administered on 10/12/16 21:50; Admin Dose 4 MG; Start 10/09/16 at 10:30 Morphine Sulfate 2 mg 2 mg Q4H PRN IV PAIN LEVEL 7-10 Last administered on 05:33; Admin Dose 2 MG; Start 10/09/16 at 10:30; Status Future Hold Levetiracetam (Keppra 500 Mg/ 100ml (Pmx)) 100 ml @ 400 mls/hr Q12 IVPB Last administered on 10/13/16 09:22; Admin Dose 400 MLS/HR; Start 10/09/16 at 21:00 IV Flush 10 ml 10 ml PRN PRN IV FLUSH LINE; Start 10/09/16 at 15:30 Vancomycin HCl 750 mg/Sodium Chloride 150 ml @ 75 mls/hr Q24H IVPB Last administered on 10/12/16 14:54; Admin Dose 75 MLS/HR; Start 10/10/16 at 14:00 Potassium Chloride/Dextrose (KCl/D5W) 1,005 ml @ 75 mls/hr [id number] IV Last administered on 10/12/16 20:22; Admin Dose 75 MLS/HR; Start 10/10/16 at 15:00 Diphenhydramine HCl 25 mg 25 mg Q6H PRN IV ITCHING Last administered on 03:12; Admin Dose 25 MG; Start 10/11/16 at 13:00 Metronidazole (Flagyl 500 Mg (Pmx)) 100 ml @ 100 mls/hr Q8 IVPB Last administered on 10/13/16 06:10; Admin Dose 100 MLS/HR; Start 10/11/16 at 22:00 Citric Acid/ Sodium Citrate (Bicitra) 30 ml BID PO Last administered on 09:22; Admin Dose 30 ML; Start 10/11/16 at 21:00 Docusate Sodium (Colace Liquid Cup) 100 mg BID NGT Last administered on 09:22; Admin Dose 100 MG; Start 10/11/16 at 21:28 Lactulose (Enulose) 20 gm Q8 PO Last administered on 10/13/16 06:45; Admin Dose 20 GM; Start 10/12/16 at 14:00 Hydralazine HCl (Apresoline) 10 mg Q4H PRN IV ELEVATED BLOOD PRESSURE Last administered on 10/12/16 21:02; Admin Dose 10 MG; Start 10/12/16 at 10:00 Miscellaneous Information 1 ONCE ONCE XX ; Start 10/13/16 at 13:00; Stop at 13:01 Dextrose (D5W) 500 ml @ 100 mls/hr Q5H IV Last administered on 10/13/16 09:21 ; Admin Dose 100 MLS/HR; Start 10/13/16 at 09:00; Stop 10/13/16 at 13:59 Pantoprazole (Protonix Iv) 40 mg BID@06,18 IV ; Start 10/13/16 at 18:00 Oxycodone HCl (Roxicodone) 5 mg Q6H PRN PO PAIN; Start 10/13/16 at 12:00 OVIDIO RODRIGUEZ MD Oct 13, 2016 10:19
[2016-10-13] MEDS ORDERED: oxyCODONE 5 MG TAB PO PRN ×2 (12:00→19:00)
--- NOTE | 2016-10-13 12:17 | CONS ---
Date/Time of Note Date/Time of Note DATE: 10/13/16 TIME: 12:14 Assessment/Plan Assessment/Plan Additional Assessment/Plan 1. Acute right posterior frontal lobe parenchymal hematoma and moderate intraventricular hemorrhage. 2. Non Oliguric acute kidney injury due to ATN From sepsis with metabolic acidosis 2. Non-ST elevation myocardial infarction 4. Sepsis due to Acute GNR UTI and bacteremia, , Urine cx grow E.Coli 5. Bacteremia with Blood cx growing coag neg staph 6. Essential hypertension 6. ETOH Liver Cirrhosis associated w/thrombocytopenia, transaminitis, hyperbilirubinemia 7. Normocytic, normochromic anemia 8. Hypothyroidism 9. Hypernatremia due to large free water deficit Plan: continue current care , increase D5W with 10mEQ KCL at 100 cc/hr pt urine output has been dropping down, s/p IV lasix 60mg yesterday, total urine output 725cc in last 24 hours will give albumin with lasix 40mg IV x 1 today Continue IV abx As per PMD and ID service will follow up Consultation Date/Type/Reason Admit Date/Time Oct 09, 2016 at 08:26 Initial Consult Date 10/10/16 Type of Consultation: NEPHROLOGY Referring Provider: MILTON FARIAS 24 HR Interval Summary Free Text/Dictation s/p lasix 60mg iV x 1 yesterday, Bp stable, afebrile, Urine output after 500 cc D5W bolus is 300 cc Exam/Review of Systems Vital Signs Vitals Vital Signs Date Time Temp Pulse Resp B/P Pulse Ox O2 Delivery O2 Flow Rate FiO2 10/13/16 11:00 89 28 129/79 98 BIPAP 10/13/16 09:30 35 10/13/16 09:00 6.0 10/13/16 08:00 97.6 Intake and Output 10/12/16 10/12/16 10/13/16 15:00 23:00 07:00 Intake Total 850 ml 635 ml 725 ml Output Total 210 ml 325 ml 160 ml Balance 640 ml 310 ml 565 ml Exam Constitutional: anxious, Head: atraumatic, normocephalic Respiratory: clear to auscultation, normal air movement Cardiovascular: nl pulses, regular rate and rhythm Gastrointestinal: nl liver, spleen, non-tender, soft Musculoskeletal: nl extremities to inspection Extremities: normal pulses, no edema Results Result Diagram: 10/13/16 0500 10/13/16 0500 Results 24 hrs Laboratory Tests Test 10/13/16 00:05 10/13/16 05:00 Stool Occult Blood POSITIVE White Blood Count 6.8 # Red Blood Count 2.43 L Hemoglobin 7.9 L Hematocrit 23.9 L Mean Corpuscular Volume 98.4 Mean Corpuscular Hemoglobin 32.5 Mean Corpuscular Hemoglobin Concent 33.1 Red Cell Distribution Width 16.2 H Platelet Count 68 L Mean Platelet Volume 10.1 Neutrophils % 78.3 H Lymphocytes % 13.0 L Monocytes % 6.6 Eosinophils % 0.4 Basophils % 0.1 Nucleated Red Blood Cells % 0.0 Neutrophils # 5.3 Lymphocytes # 0.9 Monocytes # 0.5 Eosinophils # 0.0 Basophils # 0.0 Nucleated Red Blood Cells # 0.0 Sodium Level 146 H Potassium Level 3.1 L Chloride Level 108 Carbon Dioxide Level 21 Anion Gap 20 H Blood Urea Nitrogen 36 H Creatinine 1.23 H Glucose Level 151 Calcium Level 8.8 Ammonia 57 H Medications Medications Current Medications Labetalol HCl (Labetalol) 10 mg Q10M PRN IV ELEVATED BLOOD PRESSURE Last administered on 10/12/16 17:46; Admin Dose 10 MG; Start 10/09/16 at 09:00 Lorazepam (Ativan) 0.5 mg Q2H PRN IV SEIZURES Last administered on 10/12/16 21: 18; Admin Dose 0.5 MG; Start 10/09/16 at 09:00 Acetaminophen 650 mg 650 mg Q4H PRN PO TEMP GREATER THAN 99.6F Last administered on 10/13/16 01:19; Admin Dose 650 MG; Start 10/09/16 at 09:00 Sodium Chloride 1,000 ml @ 100 mls/hr Q10H IV Last administered on 10/09/16 16 :07; Admin Dose 100 MLS/HR; Start 10/09/16 at 10:00; Status Future Hold Cefepime HCl (Maxipime 1gm/50 ml (Pmx)) 50 ml @ 100 mls/hr Q12 IVPB Last administered on 10/13/16 09:03; Admin Dose 100 MLS/HR; Start 10/09/16 at 10:30 Ondansetron HCl (Zofran Inj) 4 mg Q6H PRN IV NAUSEA AND/OR VOMITING Last administered on 10/12/16 21:50; Admin Dose 4 MG; Start 10/09/16 at 10:30 Morphine Sulfate 2 mg 2 mg Q4H PRN IV PAIN LEVEL 7-10 Last administered on 05:33; Admin Dose 2 MG; Start 10/09/16 at 10:30; Status Future Hold Levetiracetam (Keppra 500 Mg/ 100ml (Pmx)) 100 ml @ 400 mls/hr Q12 IVPB Last administered on 10/13/16 09:22; Admin Dose 400 MLS/HR; Start 10/09/16 at 21:00 IV Flush 10 ml 10 ml PRN PRN IV FLUSH LINE; Start 10/09/16 at 15:30 Vancomycin HCl 750 mg/Sodium Chloride 150 ml @ 75 mls/hr Q24H IVPB Last administered on 10/12/16 14:54; Admin Dose 75 MLS/HR; Start 10/10/16 at 14:00 Potassium Chloride/Dextrose (KCl/D5W) 1,005 ml @ 75 mls/hr [id number] IV Last administered on 10/13/16 10:00; Admin Dose 75 MLS/HR; Start 10/10/16 at 15:00 Diphenhydramine HCl 25 mg 25 mg Q6H PRN IV ITCHING Last administered on 03:12; Admin Dose 25 MG; Start 10/11/16 at 13:00 Metronidazole (Flagyl 500 Mg (Pmx)) 100 ml @ 100 mls/hr Q8 IVPB Last administered on 10/13/16 06:10; Admin Dose 100 MLS/HR; Start 10/11/16 at 22:00 Citric Acid/ Sodium Citrate (Bicitra) 30 ml BID PO Last administered on 09:22; Admin Dose 30 ML; Start 10/11/16 at 21:00 Docusate Sodium (Colace Liquid Cup) 100 mg BID NGT Last administered on 09:22; Admin Dose 100 MG; Start 10/11/16 at 21:28 Lactulose (Enulose) 20 gm Q8 PO Last administered on 10/13/16 06:45; Admin Dose 20 GM; Start 10/12/16 at 14:00 Hydralazine HCl (Apresoline) 10 mg Q4H PRN IV ELEVATED BLOOD PRESSURE Last administered on 10/12/16 21:02; Admin Dose 10 MG; Start 10/12/16 at 10:00 Miscellaneous Information 1 ONCE ONCE XX ; Start 10/13/16 at 13:00; Stop at 13:01 Dextrose (D5W) 500 ml @ 100 mls/hr Q5H IV Last administered on 10/13/16 09:21 ; Admin Dose 100 MLS/HR; Start 10/13/16 at 09:00; Stop 10/13/16 at 13:59 Pantoprazole (Protonix Iv) 40 mg BID@06,18 IV ; Start 10/13/16 at 18:00 Oxycodone HCl 5 mg 5 mg Q6H PRN PO PAIN; Start 10/13/16 at 12:00 Albumin Human (Albumin Human 25%) 100 ml @ 100 mls/hr ONCE ONCE IV ; Start 10/13/16 at 12:30; Stop 10/13/16 at 13:29; Status UNV Furosemide (Lasix) 40 mg ONCE ONCE IV ; Start 10/13/16 at 12:30; Stop 10/13/16 at 12:31; Status UNV TRUDY SEQUEIRA MD Oct 13, 2016 12:17
[2016-10-13] MEDS ORDERED: ALBUMIN HUMAN 25% 100 ML IV ONE (12:30)
--- NOTE | 2016-10-13 12:30 | CONS ---
Date/Time of Note Date/Time of Note DATE: 10/13/16 TIME: 12:28 Assessment/Plan Assessment/Plan Chief Complaint/Hosp Course No acute changes overnight. Patient is awake, looks comfortable, family at bedside No acute changes per report patient was started on BiPAP she is in no distress Vital signs: Temperature 97.6 pulse 83 respirations 16 blood pressure 153/74 saturation 98% on BiPAP WBC 6.8 H&H 7.9 and 23.9 platelets 68 neutrophils 78.3, BUN 36 creatinine 1.23 Indwelling: Left upper extremity PICC line, Lcuio catheter, NG tube Antimicrobials: Flagyl Vanco cefepime Diagnostics: CT of the abdomen and pelvis on admission revealed mild thickening of the colon representing nonspecific infectious/inflammatory colitis. Cirrhotic liver. Mild by basilar atelectasis.Physical examination: Obese, well- developed elderly woman who is lethargic, arousable, in no distress. Head atraumatic, normocephalic, sclera nonicteric. Neck is obese. Trachea midline. Chest rise symmetrical, breath sounds clear, diminished bases. Abdomen soft. Bowel tones present. Extremities without cyanosis. Assessment: #1. Acute intracerebral, subdural and intraventricular hemorrhage, neurology follows #2. Urinary tract infection #3. Coag negative staph bacteremia, likely contaminant #4. Encephalopathy #5. Liver cirrhosis #6. Systemic lupus erythematosus #7. Non-ST elevation PR #8. Colitis per CT of the abdomen #9. Allergy to penicillin Plan: Remains changed, followed by multiple consultants, repeat blood cultures and stool for C. difficile came back negative, continue present care, antibiotics Discussed with staff Problems: Consultation Date/Type/Reason Admit Date/Time Oct 09, 2016 at 08:26 Initial Consult Date 10/10/16 Type of Consultation: id Referring Provider: MILTON FARIAS Exam/Review of Systems Vital Signs Vitals Vital Signs Date Time Temp Pulse Resp B/P Pulse Ox O2 Delivery O2 Flow Rate FiO2 10/13/16 11:00 89 28 129/79 98 BIPAP 10/13/16 09:30 35 10/13/16 09:00 6.0 10/13/16 08:00 97.6 Intake and Output 10/12/16 10/12/16 10/13/16 15:00 23:00 07:00 Intake Total 850 ml 635 ml 725 ml Output Total 210 ml 325 ml 235 ml Balance 640 ml 310 ml 490 ml Results Result Diagram: 10/13/16 0500 10/13/16 0500 Results 24 hrs Laboratory Tests Test 10/13/16 00:05 10/13/16 05:00 Stool Occult Blood POSITIVE White Blood Count 6.8 # Red Blood Count 2.43 L Hemoglobin 7.9 L Hematocrit 23.9 L Mean Corpuscular Volume 98.4 Mean Corpuscular Hemoglobin 32.5 Mean Corpuscular Hemoglobin Concent 33.1 Red Cell Distribution Width 16.2 H Platelet Count 68 L Mean Platelet Volume 10.1 Neutrophils % 78.3 H Lymphocytes % 13.0 L Monocytes % 6.6 Eosinophils % 0.4 Basophils % 0.1 Nucleated Red Blood Cells % 0.0 Neutrophils # 5.3 Lymphocytes # 0.9 Monocytes # 0.5 Eosinophils # 0.0 Basophils # 0.0 Nucleated Red Blood Cells # 0.0 Sodium Level 146 H Potassium Level 3.1 L Chloride Level 108 Carbon Dioxide Level 21 Anion Gap 20 H Blood Urea Nitrogen 36 H Creatinine 1.23 H Glucose Level 151 Calcium Level 8.8 Ammonia 57 H Medications Medications Current Medications Labetalol HCl (Labetalol) 10 mg Q10M PRN IV ELEVATED BLOOD PRESSURE Last administered on 10/12/16 17:46; Admin Dose 10 MG; Start 10/09/16 at 09:00 Lorazepam (Ativan) 0.5 mg Q2H PRN IV SEIZURES Last administered on 10/12/16 21: 18; Admin Dose 0.5 MG; Start 10/09/16 at 09:00 Acetaminophen 650 mg 650 mg Q4H PRN PO TEMP GREATER THAN 99.6F Last administered on 10/13/16 01:19; Admin Dose 650 MG; Start 10/09/16 at 09:00 Sodium Chloride 1,000 ml @ 100 mls/hr Q10H IV Last administered on 10/09/16 16 :07; Admin Dose 100 MLS/HR; Start 10/09/16 at 10:00; Status Future Hold Cefepime HCl (Maxipime 1gm/50 ml (Pmx)) 50 ml @ 100 mls/hr Q12 IVPB Last administered on 10/13/16 09:03; Admin Dose 100 MLS/HR; Start 10/09/16 at 10:30 Ondansetron HCl (Zofran Inj) 4 mg Q6H PRN IV NAUSEA AND/OR VOMITING Last administered on 10/12/16 21:50; Admin Dose 4 MG; Start 10/09/16 at 10:30 Morphine Sulfate 2 mg 2 mg Q4H PRN IV PAIN LEVEL 7-10 Last administered on 05:33; Admin Dose 2 MG; Start 10/09/16 at 10:30; Status Future Hold Levetiracetam (Keppra 500 Mg/ 100ml (Pmx)) 100 ml @ 400 mls/hr Q12 IVPB Last administered on 10/13/16 09:22; Admin Dose 400 MLS/HR; Start 10/09/16 at 21:00 IV Flush 10 ml 10 ml PRN PRN IV FLUSH LINE; Start 10/09/16 at 15:30 Vancomycin HCl 750 mg/Sodium Chloride 150 ml @ 75 mls/hr Q24H IVPB Last administered on 10/12/16 14:54; Admin Dose 75 MLS/HR; Start 10/10/16 at 14:00 Potassium Chloride/Dextrose (KCl/D5W) 1,005 ml @ 100 mls/hr Q10H3M IV Last administered on 10/13/16 10:00; Admin Dose 75 MLS/HR; Start 10/10/16 at 15:00 Diphenhydramine HCl 25 mg 25 mg Q6H PRN IV ITCHING Last administered on 03:12; Admin Dose 25 MG; Start 10/11/16 at 13:00 Metronidazole (Flagyl 500 Mg (Pmx)) 100 ml @ 100 mls/hr Q8 IVPB Last administered on 10/13/16 06:10; Admin Dose 100 MLS/HR; Start 10/11/16 at 22:00 Citric Acid/ Sodium Citrate (Bicitra) 30 ml BID PO Last administered on 09:22; Admin Dose 30 ML; Start 10/11/16 at 21:00 Docusate Sodium (Colace Liquid Cup) 100 mg BID NGT Last administered on 09:22; Admin Dose 100 MG; Start 10/11/16 at 21:28 Lactulose (Enulose) 20 gm Q8 PO Last administered on 10/13/16 06:45; Admin Dose 20 GM; Start 10/12/16 at 14:00 Hydralazine HCl (Apresoline) 10 mg Q4H PRN IV ELEVATED BLOOD PRESSURE Last administered on 10/12/16 21:02; Admin Dose 10 MG; Start 10/12/16 at 10:00 Miscellaneous Information 1 ONCE ONCE XX ; Start 10/13/16 at 13:00; Stop at 13:01 Dextrose (D5W) 500 ml @ 100 mls/hr Q5H IV Last administered on 10/13/16 09:21 ; Admin Dose 100 MLS/HR; Start 10/13/16 at 09:00; Stop 10/13/16 at 13:59 Pantoprazole (Protonix Iv) 40 mg BID@06,18 IV ; Start 10/13/16 at 18:00 Oxycodone HCl 5 mg 5 mg Q6H PRN PO PAIN; Start 10/13/16 at 12:00 Albumin Human (Albumin Human 25%) 100 ml @ 100 mls/hr ONCE ONCE IV ; Start 10/13/16 at 12:30; Stop 10/13/16 at 13:29 Furosemide (Lasix) 40 mg ONCE ONCE IV ; Start 10/13/16 at 13:30; Stop 10/13/16 at 13:31 MORRIS BRADLEY NP Oct 13, 2016 12:30
[2016-10-13] MEDS: hydrALAzine 20 MG INJ IV PRN ×2 (12:50→21:45)
[2016-10-13] MEDS ORDERED: FUROSEMIDE 40 MG INJ IV ONE (13:30)
[2016-10-13 13:36] LABS: ADD SCAN DIFF NO
[2016-10-13 13:38] LABS: ABNORMAL IP MESSAGE 1; BASOPHILS % 0.2 % (0.0-2.0); EOSINOPHILS # 0.1 10^3/ul (0.0-0.5); EOSINOPHILS % 0.9 % (0.0-7.0); HEMATOCRIT 24.5 % (37.0-47.0); HEMOGLOBIN 8.4 g/dl (12.0-16.0); LYMPHOCYTES # 0.6 10^3/ul (0.8-2.9); MEAN CORPUSCULAR HEMOGLOBIN 33.2 pg (29.0-33.0); MEAN CORPUSCULAR HGB CONC 34.3 g/dl (32.0-37.0); MEAN CORPUSCULAR VOLUME 96.8 fl (82.0-101.0); MEAN PLATELET VOLUME 9.8 fl (7.4-10.4); MONOCYTE # 0.4 10^3/ul (0.3-0.9); MONOCYTES % 5.9 % (0.0-11.0); NEUTROPHIL # 5.4 10^3/ul (1.6-7.5); NEUTROPHILS % 81.1 % (39.0-77.0); PLATELET COUNT 64 10^3/UL (140-415); RED BLOOD COUNT 2.53 10^6/ul (4.20-5.40); WHITE BLOOD COUNT 6.6 10^3/ul (4.8-10.8)
[2016-10-13] MEDS: VANCOMYCIN 750 MG in SOD CHLORIDE 0.9% 150 ML IVPB SCH (13:48)
[2016-10-13 13:55] LABS: INR 1.99; PROTIME 22.8 Sec (12.2-14.2); PT RATIO 1.8
[2016-10-13 13:56] LABS: PARTIAL THROMBOPLASTIN TIME 39.4 Sec (25.0-35.0)
--- NOTE | 2016-10-13 14:51 | CONS ---
Date/Time of Note Date/Time of Note DATE: 10/13/16 TIME: 14:44 Assessment/Plan Assessment/Plan Chief Complaint/Hosp Course 1. POsitive troponin - not a candidate for intervention or anti-coagulation, conservative care now - NO INTERVENTION PLANNED. VS stable. Now trended negative 2. Acute right posterior frontal lobe parenchymal hematoma and moderate intraventricular hemorrhage - now expanding, FFP Rx 3. Acute kidney injury due to ATN From sepsis with metabolic acidosis - avoid nephrotoxic meds - BETTER now 4. Bacteremia with Blood cx growing GNR - on anti-bx 5. Essential hypertension 6. ETOH Liver Cirrhosis associated w/thrombocytopenia, transaminitis, hyperbilirubinemia 7. Normocytic, normochromic anemia 8. Hypothyroidism REcc: -Tele -serial ecg's -Continue abx's -Follow BP closely -Gentle lasix diuresis and follow volume status closely -FRee water for increased na Problems: Consultation Date/Type/Reason Admit Date/Time Oct 09, 2016 at 08:26 Initial Consult Date 10/10/16 Type of Consultation: cardiology Reason for Consultation Nstemi Referring Provider: MILTON FARIAS Exam/Review of Systems Vital Signs Vitals Vital Signs Date Time Temp Pulse Resp B/P Pulse Ox O2 Delivery O2 Flow Rate FiO2 10/13/16 12:00 86 10/13/16 11:00 28 129/79 98 BIPAP 10/13/16 09:30 35 10/13/16 09:00 6.0 10/13/16 08:00 97.6 Intake and Output 10/12/16 10/12/16 10/13/16 15:00 23:00 07:00 Intake Total 850 ml 635 ml 800 ml Output Total 210 ml 325 ml 235 ml Balance 640 ml 310 ml 565 ml Exam Review of Systems: CONSTITUTIONAL: No fevers, chills. PULMONARY: on BIPAP CARDIOVASCULAR: No obvious chest pain/palpitations GASTROINTESTINAL: No nausea/vomiting. GENITOURINARY: No hematuria/dysuria. MUSCULOSKELETAL: No obvious myagias/arthalgias. PSYCHIATRIC: No documented depression. NEUROLOGIC: L sided paralysis Psych: no complaints Head: normocephalic ENMT: mucosa pink and moist Neck: jvd (8-9 cm water) Respiratory: other (upper airway rhoncherous sounds) Cardiovascular: regular rate and rhythm Gastrointestinal: non-tender, soft Musculoskeletal: muscle tone (normal) Extremities: edema (trace) Neurological: confused, focal weakness (L sided), other Results Result Diagram: 10/13/16 1320 10/13/16 0500 Results 24 hrs Laboratory Tests Test 10/13/16 00:05 10/13/16 05:00 10/13/16 13:20 Stool Occult Blood POSITIVE White Blood Count 6.8 # 6.6 Red Blood Count 2.43 L 2.53 L Hemoglobin 7.9 L 8.4 L Hematocrit 23.9 L 24.5 L Mean Corpuscular Volume 98.4 96.8 Mean Corpuscular Hemoglobin 32.5 33.2 H Mean Corpuscular Hemoglobin Concent 33.1 34.3 Red Cell Distribution Width 16.2 H 16.0 H Platelet Count 68 L 64 L Mean Platelet Volume 10.1 9.8 Neutrophils % 78.3 H 81.1 H Lymphocytes % 13.0 L 9.0 L Monocytes % 6.6 5.9 Eosinophils % 0.4 0.9 Basophils % 0.1 0.2 Nucleated Red Blood Cells % 0.0 0.0 Neutrophils # 5.3 5.4 Lymphocytes # 0.9 0.6 L Monocytes # 0.5 0.4 Eosinophils # 0.0 0.1 Basophils # 0.0 0.0 Nucleated Red Blood Cells # 0.0 0.0 Sodium Level 146 H Potassium Level 3.1 L Chloride Level 108 Carbon Dioxide Level 21 Anion Gap 20 H Blood Urea Nitrogen 36 H Creatinine 1.23 H Glucose Level 151 Calcium Level 8.8 Ammonia 57 H Prothrombin Time 22.8 #H Prothrombin Time Ratio 1.8 INR International Normalized Ratio 1.99 Activated Partial Thromboplast Time 39.4 H Medications Medications Current Medications Labetalol HCl (Labetalol) 10 mg Q10M PRN IV ELEVATED BLOOD PRESSURE Last administered on 10/12/16 17:46; Admin Dose 10 MG; Start 10/09/16 at 09:00 Lorazepam (Ativan) 0.5 mg Q2H PRN IV SEIZURES Last administered on 10/12/16 21: 18; Admin Dose 0.5 MG; Start 10/09/16 at 09:00 Acetaminophen 650 mg 650 mg Q4H PRN PO TEMP GREATER THAN 99.6F Last administered on 10/13/16 12:40; Admin Dose 650 MG; Start 10/09/16 at 09:00 Sodium Chloride 1,000 ml @ 100 mls/hr Q10H IV Last administered on 10/09/16 16 :07; Admin Dose 100 MLS/HR; Start 10/09/16 at 10:00; Status Future Hold Cefepime HCl (Maxipime 1gm/50 ml (Pmx)) 50 ml @ 100 mls/hr Q12 IVPB Last administered on 10/13/16 09:03; Admin Dose 100 MLS/HR; Start 10/09/16 at 10:30 Ondansetron HCl (Zofran Inj) 4 mg Q6H PRN IV NAUSEA AND/OR VOMITING Last administered on 10/12/16 21:50; Admin Dose 4 MG; Start 10/09/16 at 10:30 Morphine Sulfate 2 mg 2 mg Q4H PRN IV PAIN LEVEL 7-10 Last administered on 05:33; Admin Dose 2 MG; Start 10/09/16 at 10:30; Status Future Hold Levetiracetam (Keppra 500 Mg/ 100ml (Pmx)) 100 ml @ 400 mls/hr Q12 IVPB Last administered on 10/13/16 09:22; Admin Dose 400 MLS/HR; Start 10/09/16 at 21:00 IV Flush 10 ml 10 ml PRN PRN IV FLUSH LINE; Start 10/09/16 at 15:30 Vancomycin HCl 750 mg/Sodium Chloride 150 ml @ 75 mls/hr Q24H IVPB Last administered on 10/13/16 13:48; Admin Dose 75 MLS/HR; Start 10/10/16 at 14:00 Potassium Chloride/Dextrose (KCl/D5W) 1,005 ml @ 100 mls/hr Q10H3M IV Last administered on 10/13/16 10:00; Admin Dose 75 MLS/HR; Start 10/10/16 at 15:00 Diphenhydramine HCl 25 mg 25 mg Q6H PRN IV ITCHING Last administered on 03:12; Admin Dose 25 MG; Start 10/11/16 at 13:00; Status Future Hold Metronidazole (Flagyl 500 Mg (Pmx)) 100 ml @ 100 mls/hr Q8 IVPB Last administered on 10/13/16 13:48; Admin Dose 100 MLS/HR; Start 10/11/16 at 22:00 Citric Acid/ Sodium Citrate (Bicitra) 30 ml BID PO Last administered on 09:22; Admin Dose 30 ML; Start 10/11/16 at 21:00 Docusate Sodium (Colace Liquid Cup) 100 mg BID NGT Last administered on 09:22; Admin Dose 100 MG; Start 10/11/16 at 21:28 Lactulose (Enulose) 20 gm Q8 PO Last administered on 10/13/16 13:47; Admin Dose 20 GM; Start 10/12/16 at 14:00 Hydralazine HCl (Apresoline) 10 mg Q4H PRN IV ELEVATED BLOOD PRESSURE Last administered on 10/13/16 12:50; Admin Dose 10 MG; Start 10/12/16 at 10:00 Pantoprazole (Protonix Iv) 40 mg BID@06,18 IV ; Start 10/13/16 at 18:00 Oxycodone HCl (Roxicodone) 5 mg Q6H PRN PO PAIN; Start 10/13/16 at 12:00 EMBER BIRD Oct 13, 2016 14:50
[2016-10-13 15:00] LABS: ADD SCAN DIFF NO
[2016-10-13 15:01] LABS: ABNORMAL IP MESSAGE 1; EOSINOPHILS # 0.1 10^3/ul (0.0-0.5); HEMATOCRIT 24.5 % (37.0-47.0); LYMPHOCYTES # 0.7 10^3/ul (0.8-2.9); MEAN CORPUSCULAR HEMOGLOBIN 31.5 pg (29.0-33.0); MEAN CORPUSCULAR HGB CONC 32.7 g/dl (32.0-37.0); MEAN CORPUSCULAR VOLUME 96.5 fl (82.0-101.0); MEAN PLATELET VOLUME 9.5 fl (7.4-10.4); MONOCYTE # 0.5 10^3/ul (0.3-0.9); MONOCYTES % 7.3 % (0.0-11.0); NEUTROPHIL # 5.3 10^3/ul (1.6-7.5); NEUTROPHILS % 79.6 % (39.0-77.0); RED BLOOD COUNT 2.54 10^6/ul (4.20-5.40); RED CELL DISTRIBUTION WIDTH 16.2 % (11.5-14.5); WHITE BLOOD COUNT 6.7 10^3/ul (4.8-10.8)
[2016-10-13 15:06] LABS: PLATELET COUNT 64 10^3/UL (140-415)
--- NOTE | 2016-10-13 15:20 | PN ---
Date/Time of Note Date/Time of Note DATE: 10/13/16 TIME: 15:15 Assessment/Plan VTE Prophylaxis VTE Prophylaxis Intervention: contraindicated VTE Contraindication Reason: bleeding Lines/Catheters IV Catheter Type (from Nrsg): PICC Line Central line still needed: Yes Urinary Cath still in place: Yes Reason Cath still needed: urinary retention Assessment/Plan Assessment/Plan 1. Right posterior frontal lobe parenchymal hematoma and moderate intraventricular hemorrhage. Repeat brain CT scan on 10-10-2016 showed interval appearance of right subdural hemorrhage mainly overlying right frontal lobe measuring up to 7 mm along with scattered bilateral foci of subarachnoid hemorrhages with interval increase and a 2 mm leftward midline shift. 2. Non-ST elevation myocardial infarction. 3. Sepsis secondary to underlying urinary tract infection. 5. Normocytic, normochromic anemia. Most probably anemia of chronic disease and also from underlying liver cirrhosis. Contributed by intraventricular hemorrhage 6. Thrombocytopenia. Most probably secondary to underlying liver cirrhosis. 7. Transaminitis with hyperbilirubinemia. Resolved. Most probably secondary to underlying liver cirrhosis. 8. Systemic lupus erythematosus. 9. Acute kidney injury. Etiology could be secondary to hemodynamics Versus contrast induced. Obtain nephrology consult. 10. Coagulopathy. Transfuse FFPs. Obtain hematology consult. Plan * continue present management * Monitor hemoglobin and hematocrit q 6 * repeat stool for occult blood * case was discussed with Dr Gold and Dr Kohli * further orders will depen on clinical course Subjective 24 Hr Interval Summary Free Text/Dictation * Course reviewed with RN * Patient seen and examined * Positive occult blood X1 * latest hemoglobin 8 Exam/Review of Systems Vital Signs Vitals Vital Signs Date Time Temp Pulse Resp B/P Pulse Ox O2 Delivery O2 Flow Rate FiO2 10/13/16 12:00 86 10/13/16 11:00 28 129/79 98 BIPAP 10/13/16 09:30 35 10/13/16 09:00 6.0 10/13/16 08:00 97.6 Intake and Output 10/12/16 10/12/16 10/13/16 15:00 23:00 07:00 Intake Total 850 ml 635 ml 800 ml Output Total 210 ml 325 ml 235 ml Balance 640 ml 310 ml 565 ml Exam Constitutional: frail Head: normocephalic Eyes: nl sclera Neck: supple Respiratory: diminished breath sounds, other (on bipap) Cardiovascular: nl pulses, regular rate and rhythm Gastrointestinal: bowel sounds, distended, non-tender, soft Musculoskeletal: muscle weakness Extremities: pitting pedal edema Neurological: lethargic Skin: nl turgor, rash or lesions Lymph: nl lymph nodes Results Result Diagram: 10/13/16 1450 10/13/16 0500 Results 24 hrs Laboratory Tests Test 10/13/16 00:05 10/13/16 05:00 10/13/16 13:20 10/13/16 14:50 Stool Occult Blood POSITIVE White Blood Count 6.8 # 6.6 6.7 Red Blood Count 2.43 L 2.53 L 2.54 L Hemoglobin 7.9 L 8.4 L 8.0 L Hematocrit 23.9 L 24.5 L 24.5 L Mean Corpuscular Volume 98.4 96.8 96.5 Mean Corpuscular Hemoglobin 32.5 33.2 H 31.5 Mean Corpuscular Hemoglobin Concent 33.1 34.3 32.7 Red Cell Distribution Width 16.2 H 16.0 H 16.2 H Platelet Count 68 L 64 L 64 L Mean Platelet Volume 10.1 9.8 9.5 Neutrophils % 78.3 H 81.1 H 79.6 H Lymphocytes % 13.0 L 9.0 L 10.0 L Monocytes % 6.6 5.9 7.3 Eosinophils % 0.4 0.9 1.0 Basophils % 0.1 0.2 0.0 Nucleated Red Blood Cells % 0.0 0.0 0.0 Neutrophils # 5.3 5.4 5.3 Lymphocytes # 0.9 0.6 L 0.7 L Monocytes # 0.5 0.4 0.5 Eosinophils # 0.0 0.1 0.1 Basophils # 0.0 0.0 0.0 Nucleated Red Blood Cells # 0.0 0.0 0.0 Sodium Level 146 H Potassium Level 3.1 L Chloride Level 108 Carbon Dioxide Level 21 Anion Gap 20 H Blood Urea Nitrogen 36 H Creatinine 1.23 H Glucose Level 151 Calcium Level 8.8 Ammonia 57 H Prothrombin Time 22.8 #H Prothrombin Time Ratio 1.8 INR International Normalized Ratio 1.99 Activated Partial Thromboplast Time 39.4 H Vancomycin Level Trough 12.5 Medications Medications Current Medications Labetalol HCl (Labetalol) 10 mg Q10M PRN IV ELEVATED BLOOD PRESSURE Last administered on 10/12/16 17:46; Admin Dose 10 MG; Start 10/09/16 at 09:00 Lorazepam (Ativan) 0.5 mg Q2H PRN IV SEIZURES Last administered on 10/12/16 21: 18; Admin Dose 0.5 MG; Start 10/09/16 at 09:00 Acetaminophen 650 mg 650 mg Q4H PRN PO TEMP GREATER THAN 99.6F Last administered on 10/13/16 12:40; Admin Dose 650 MG; Start 10/09/16 at 09:00 Sodium Chloride 1,000 ml @ 100 mls/hr Q10H IV Last administered on 10/09/16 16 :07; Admin Dose 100 MLS/HR; Start 10/09/16 at 10:00; Status Future Hold Cefepime HCl (Maxipime 1gm/50 ml (Pmx)) 50 ml @ 100 mls/hr Q12 IVPB Last administered on 10/13/16 09:03; Admin Dose 100 MLS/HR; Start 10/09/16 at 10:30 Ondansetron HCl (Zofran Inj) 4 mg Q6H PRN IV NAUSEA AND/OR VOMITING Last administered on 10/12/16 21:50; Admin Dose 4 MG; Start 10/09/16 at 10:30 Morphine Sulfate 2 mg 2 mg Q4H PRN IV PAIN LEVEL 7-10 Last administered on 05:33; Admin Dose 2 MG; Start 10/09/16 at 10:30; Status Future Hold Levetiracetam (Keppra 500 Mg/ 100ml (Pmx)) 100 ml @ 400 mls/hr Q12 IVPB Last administered on 10/13/16 09:22; Admin Dose 400 MLS/HR; Start 10/09/16 at 21:00 IV Flush 10 ml 10 ml PRN PRN IV FLUSH LINE; Start 10/09/16 at 15:30 Vancomycin HCl 750 mg/Sodium Chloride 150 ml @ 75 mls/hr Q24H IVPB Last administered on 10/13/16 13:48; Admin Dose 75 MLS/HR; Start 10/10/16 at 14:00 Potassium Chloride/Dextrose (KCl/D5W) 1,005 ml @ 100 mls/hr Q10H3M IV Last administered on 10/13/16 10:00; Admin Dose 75 MLS/HR; Start 10/10/16 at 15:00 Diphenhydramine HCl 25 mg 25 mg Q6H PRN IV ITCHING Last administered on 03:12; Admin Dose 25 MG; Start 10/11/16 at 13:00; Status Future Hold Metronidazole (Flagyl 500 Mg (Pmx)) 100 ml @ 100 mls/hr Q8 IVPB Last administered on 10/13/16 13:48; Admin Dose 100 MLS/HR; Start 10/11/16 at 22:00 Citric Acid/ Sodium Citrate (Bicitra) 30 ml BID PO Last administered on 09:22; Admin Dose 30 ML; Start 10/11/16 at 21:00 Docusate Sodium (Colace Liquid Cup) 100 mg BID NGT Last administered on 09:22; Admin Dose 100 MG; Start 10/11/16 at 21:28 Lactulose (Enulose) 20 gm Q8 PO Last administered on 10/13/16 13:47; Admin Dose 20 GM; Start 10/12/16 at 14:00 Hydralazine HCl (Apresoline) 10 mg Q4H PRN IV ELEVATED BLOOD PRESSURE Last administered on 10/13/16 12:50; Admin Dose 10 MG; Start 10/12/16 at 10:00 Pantoprazole (Protonix Iv) 40 mg BID@06,18 IV ; Start 10/13/16 at 18:00 Oxycodone HCl (Roxicodone) 5 mg Q6H PRN PO PAIN Last administered on 10/13/16 15:07; Admin Dose 5 MG; Start 10/13/16 at 12:00 Furosemide (Lasix) 20 mg DAILY IV ; Start 10/13/16 at 19:00 MICHAEL BRANDON NP Oct 13, 2016 15:20
[2016-10-13 15:21] LABS: CALCIUM 9.1 mg/dl (8.4-10.2); CREATININE 1.06 mg/dl (0.44-1.00)
[2016-10-13 15:34] LABS: POTASSIUM 2.7 mmol/L (3.5-5.1)
--- NOTE | 2016-10-13 15:49 | CONS ---
Date/Time of Note Date/Time of Note DATE: 10/13/16 TIME: 15:42 Assessment/Plan Assessment/Plan Additional Assessment/Plan Assessment 1. Hypoxemic respiratory failure likely secondary to pneumonia and pulmonary edema. Differential does include acute vasculitis with acute lung injury. No evidence of diffuse alveolar hemorrhage. 2. Acute intraventricular and subarachnoid bleed. Not surgical candidate. 3. Coagulopathy with thrombocytopenia 4. Probable acute GI bleed 5. Non-ST elevation AR 6. Recent renal insufficiency 7. History of systemic lupus erythematous 8. Gram-negative UTI 9. History of cirrhosis etiology unknown Plan 1. Continue aspiration precautions currently on BiPAP 2. Continue broad-spectrum antibiotic coverage 3. Continue neurosurgical recommendations 4. Gentle hydration 5. Cardiac recommendations Case was discussed with patient's daughter at bedside. She wishes patient to be intubated if respiratory status deteriorates. I explained that the patient' s condition is guarded. Consultation Date/Type/Reason Admit Date/Time Oct 09, 2016 at 08:26 Date of Consultation: Oct 13, 2016 Type of Consultation: Pulmonary Reason for Consultation Hypoxemic respiratory failure Hx of Present Illness 76-year-old lady with multiple medical problems including SLE, hypertension hyperlipidemia presented with altered mental status found to have acute intraventricular bleed which was complicated by subarachnoid bleed. This is led to a change in her mentation and radiographically there is evidence of worsening pulmonary edema with possible underlying pneumonia. Neurologically she is decompensated and remains somewhat somnolent now requiring noninvasive positive pressure ventilation for hypoxemic respiratory failure. Her course has been complicated by non-ST elevation AR, coagulopathy, gram- negative sepsis, and renal failure. In addition she now has low hemoglobin with guaiac stool positive concerning for GI bleed. Thrombocytopenia possibly secondary to underlying SLE. Currently unable to perform Eyes: no complaints ENT: no complaints Respiratory: no complaints Cardiovascular: no complaints Gastrointestinal: diarrhea, nausea, pain, vomiting Genitourinary: no complaints Musculoskeletal: no complaints Skin: no complaints Neurologic: focal-weakness Lymphatic: no complaints Psychological: no complaints Immunologic: no complaints Past Medical History Systemic lupus erythematous Hypertension Hyperlipidemia Medical History: hypertension, hypothyroid, other (Cirrhosis, SLE) Past Surgical History Past Surgical Hx: cholecystectomy Social History Alcohol Use: none Smoking Status: Never smoker Drug Use: none Exam/Review of Systems Vital Signs Vitals Vital Signs Date Time Temp Pulse Resp B/P Pulse Ox O2 Delivery O2 Flow Rate FiO2 7/5/17 12:00 86 10/13/16 11:00 28 129/79 98 BIPAP 10/13/16 09:30 35 10/13/16 09:00 6.0 10/13/16 08:00 97.6 Intake and Output 10/12/16 10/12/16 10/13/16 15:00 23:00 07:00 Intake Total 850 ml 635 ml 800 ml Output Total 210 ml 325 ml 235 ml Balance 640 ml 310 ml 565 ml Exam PHYSICAL EXAMINATION GENERAL: Elderly lady not requiring noninvasive positive pressure ventilation VITAL SIGNS: see below. HEENT: Pupils equal, round, and reactive to light. CARDIAC: S1, S2, 1/6 systolic ejection murmur CHEST: Diminished air entry bilaterally. ABDOMEN: Mildly distended. Bowel sounds present no guarding or rebound EXTREMITIES: No cyanosis, clubbing edema +1 NEUROLOGIC: Generalized weakness Results Chest x-ray shows increasing bilateral infiltrates Result Diagram: 10/13/16 1450 10/13/16 1450 Results 24 hrs Laboratory Tests Test 10/13/16 00:05 10/13/16 05:00 10/13/16 13:20 10/13/16 14:50 Stool Occult Blood POSITIVE White Blood Count 6.8 # 6.6 6.7 Red Blood Count 2.43 L 2.53 L 2.54 L Hemoglobin 7.9 L 8.4 L 8.0 L Hematocrit 23.9 L 24.5 L 24.5 L Mean Corpuscular Volume 98.4 96.8 96.5 Mean Corpuscular Hemoglobin 32.5 33.2 H 31.5 Mean Corpuscular Hemoglobin Concent 33.1 34.3 32.7 Red Cell Distribution Width 16.2 H 16.0 H 16.2 H Platelet Count 68 L 64 L 64 L Mean Platelet Volume 10.1 9.8 9.5 Neutrophils % 78.3 H 81.1 H 79.6 H Lymphocytes % 13.0 L 9.0 L 10.0 L Monocytes % 6.6 5.9 7.3 Eosinophils % 0.4 0.9 1.0 Basophils % 0.1 0.2 0.0 Nucleated Red Blood Cells % 0.0 0.0 0.0 Neutrophils # 5.3 5.4 5.3 Lymphocytes # 0.9 0.6 L 0.7 L Monocytes # 0.5 0.4 0.5 Eosinophils # 0.0 0.1 0.1 Basophils # 0.0 0.0 0.0 Nucleated Red Blood Cells # 0.0 0.0 0.0 Sodium Level 146 H 146 H Potassium Level 3.1 L 2.7 *L Chloride Level 108 104 Carbon Dioxide Level 21 21 Anion Gap 20 H 24 H Blood Urea Nitrogen 36 H 32 H Creatinine 1.23 H 1.06 H Glucose Level 151 160 Calcium Level 8.8 9.1 Ammonia 57 H Prothrombin Time 22.8 #H Prothrombin Time Ratio 1.8 INR International Normalized Ratio 1.99 Activated Partial Thromboplast Time 39.4 H Vancomycin Level Trough 12.5 Medications Medications Current Medications Labetalol HCl (Labetalol) 10 mg Q10M PRN IV ELEVATED BLOOD PRESSURE Last administered on 10/12/16 17:46; Admin Dose 10 MG; Start 10/09/16 at 09:00 Lorazepam (Ativan) 0.5 mg Q2H PRN IV SEIZURES Last administered on 10/12/16 21: 18; Admin Dose 0.5 MG; Start 10/09/16 at 09:00 Acetaminophen 650 mg 650 mg Q4H PRN PO TEMP GREATER THAN 99.6F Last administered on 10/13/16 12:40; Admin Dose 650 MG; Start 10/09/16 at 09:00 Sodium Chloride 1,000 ml @ 100 mls/hr Q10H IV Last administered on 10/09/16 16 :07; Admin Dose 100 MLS/HR; Start 10/09/16 at 10:00; Status Future Hold Cefepime HCl (Maxipime 1gm/50 ml (Pmx)) 50 ml @ 100 mls/hr Q12 IVPB Last administered on 10/13/16 09:03; Admin Dose 100 MLS/HR; Start 10/09/16 at 10:30 Ondansetron HCl (Zofran Inj) 4 mg Q6H PRN IV NAUSEA AND/OR VOMITING Last administered on 10/12/16 21:50; Admin Dose 4 MG; Start 10/09/16 at 10:30 Morphine Sulfate 2 mg 2 mg Q4H PRN IV PAIN LEVEL 7-10 Last administered on 05:33; Admin Dose 2 MG; Start 10/09/16 at 10:30; Status Future Hold Levetiracetam (Keppra 500 Mg/ 100ml (Pmx)) 100 ml @ 400 mls/hr Q12 IVPB Last administered on 10/13/16 09:22; Admin Dose 400 MLS/HR; Start 10/09/16 at 21:00 IV Flush 10 ml 10 ml PRN PRN IV FLUSH LINE; Start 10/09/16 at 15:30 Vancomycin HCl 750 mg/Sodium Chloride 150 ml @ 75 mls/hr Q24H IVPB Last administered on 10/13/16 13:48; Admin Dose 75 MLS/HR; Start 10/10/16 at 14:00 Potassium Chloride/Dextrose (KCl/D5W) 1,005 ml @ 100 mls/hr Q10H3M IV Last administered on 10/13/16 10:00; Admin Dose 75 MLS/HR; Start 10/10/16 at 15:00 Diphenhydramine HCl 25 mg 25 mg Q6H PRN IV ITCHING Last administered on 03:12; Admin Dose 25 MG; Start 10/11/16 at 13:00; Status Future Hold Metronidazole (Flagyl 500 Mg (Pmx)) 100 ml @ 100 mls/hr Q8 IVPB Last administered on 10/13/16 13:48; Admin Dose 100 MLS/HR; Start 10/11/16 at 22:00 Citric Acid/ Sodium Citrate (Bicitra) 30 ml BID PO Last administered on 09:22; Admin Dose 30 ML; Start 10/11/16 at 21:00 Docusate Sodium (Colace Liquid Cup) 100 mg BID NGT Last administered on 09:22; Admin Dose 100 MG; Start 10/11/16 at 21:28 Lactulose (Enulose) 20 gm Q8 PO Last administered on 10/13/16 13:47; Admin Dose 20 GM; Start 10/12/16 at 14:00 Hydralazine HCl (Apresoline) 10 mg Q4H PRN IV ELEVATED BLOOD PRESSURE Last administered on 10/13/16 12:50; Admin Dose 10 MG; Start 10/12/16 at 10:00 Pantoprazole (Protonix Iv) 40 mg BID@06,18 IV ; Start 10/13/16 at 18:00 Oxycodone HCl (Roxicodone) 5 mg Q6H PRN PO PAIN Last administered on 10/13/16 15:07; Admin Dose 5 MG; Start 10/13/16 at 12:00 Furosemide (Lasix) 20 mg DAILY IV ; Start 10/13/16 at 19:00 SANTIAGO MORENO MD, [facility] Oct 13, 2016 15:49
[2016-10-13] MEDS ORDERED: POTASSIUM CHLORIDE 30 MEQ in DEXTROSE 5% 250 ML IVPB ONE (18:00)
[2016-10-13] MEDS: FUROSEMIDE 20 MG INJ IV SCH (18:46)
--- NOTE | 2016-10-13 19:00 | RADRPT ---
PROCEDURE: CT head, without contrast. CLINICAL INDICATION: Multiple intracranial hemorrhages. TECHNIQUE: Noncontrast CT examination of the head, with axial, sagittal and coronal reformatted im ages. Automated dose exposure control was employed. CTDI: 74.53 and DLP: 1203.80. COMPARISON: 10/12/2016. FINDINGS: Stable right parietal intraparenchymal hemorrhage with mild to moderate surrounding vasogenic edema, and with 2 mm of [id number] midline shift. No significant change in right greater than left maria d etal subarachnoid/intraparenchymal hemorrhage. No significant change in small hemorrhage in the post erior left lateral ventricle. No new hemorrhages are identified. Subarachnoid spaces and basilar cisterns are substantially preserved and symmetric. Ventricles are unremarkable. [place]-white matter distinction is preserved without evident decreased attenuation to suggest acute or recent infarct. Sinuses and osseous structures are unremarkable. IMPRESSION: No significant change in intracranial hemorrhages. RPTAT: [facility] Physician Maddie Date Time Electronically viewed and signed by Physician Maddie on 10/13/2016 19:00 TAISHA/
[2016-10-13] MEDS ORDERED: LORAZEPAM 2 MG INJ IV PRN ×2 (22:20→23:00)
[2016-10-13] MEDS: morphine 2 MG INJ IV PRN (22:23)
[2016-10-13] MEDS: LABETALOL HCL 20MG INJ IV PRN (22:49)
[2016-10-14] VITALS (27 sets, daily range): BP systolic 105–145; BP diastolic 61–88; PULSE 84–99; RESP 11–24
[2016-10-14] MEDS ORDERED: ACETAMINOPHEN 650MG/20.3ML CUP GTB PRN (03:00)
[2016-10-14] MEDS: morphine 2 MG INJ IV PRN (05:22)
[2016-10-14] MEDS: POTASSIUM CHLORIDE 10 MEQ in DEXTROSE 5% 1,000 ML IV SCH ×2 (05:27→13:35)
[2016-10-14 06:09] LABS: ADD SCAN DIFF NO
[2016-10-14] MEDS: PANTOPRAZOLE 40 MG INJ IV SCH ×2 (06:11→17:20)
[2016-10-14] MEDS: hydrALAzine 20 MG INJ IV PRN (06:11)
[2016-10-14] MEDS: LACTULOSE 30ML CUP PO SCH ×3 (06:11→22:20)
[2016-10-14] MEDS: metroNIDAZOLE 500 MG/NS (PMX) 100 ML IVPB SCH ×3 (06:12→22:20)
[2016-10-14 06:18] LABS: ABNORMAL IP MESSAGE 1; BASOPHILS % 0.2 % (0.0-2.0); EOSINOPHILS # 0.2 10^3/ul (0.0-0.5); EOSINOPHILS % 2.8 % (0.0-7.0); HEMATOCRIT 23.2 % (37.0-47.0); HEMOGLOBIN 7.5 g/dl (12.0-16.0); LYMPHOCYTES # 0.7 10^3/ul (0.8-2.9); MEAN CORPUSCULAR HEMOGLOBIN 31.8 pg (29.0-33.0); MEAN CORPUSCULAR HGB CONC 32.3 g/dl (32.0-37.0); MEAN CORPUSCULAR VOLUME 98.3 fl (82.0-101.0); MEAN PLATELET VOLUME 10.3 fl (7.4-10.4); MONOCYTE # 0.5 10^3/ul (0.3-0.9); MONOCYTES % 7.5 % (0.0-11.0); NEUTROPHIL # 4.6 10^3/ul (1.6-7.5); PLATELET COUNT 63 10^3/UL (140-415); RED BLOOD COUNT 2.36 10^6/ul (4.20-5.40); WHITE BLOOD COUNT 6.1 10^3/ul (4.8-10.8)
[2016-10-14 06:40] LABS: INR 1.45; PROTIME 17.7 Sec (12.2-14.2); PT RATIO 1.4
[2016-10-14 06:41] LABS: PARTIAL THROMBOPLASTIN TIME 36.5 Sec (25.0-35.0)
[2016-10-14 06:48] LABS: CALCIUM 9.4 mg/dl (8.4-10.2); CREATININE 0.96 mg/dl (0.44-1.00)
[2016-10-14 06:59] LABS: POTASSIUM 2.8 mmol/L (3.5-5.1)
[2016-10-14 07:21] LABS: AADO2 Arterial 85.3 mmHg (7.0-24.0); Allen Test ACCEPTAB; Arterial Base Excess -0.7 mmol/L (-3.0-3); Arterial COHb 0.3 % (0.0-3.0); Arterial Fraction of Oxyhgb 97.6 % (93.0-99.0); Arterial HCO3 22.4 mmol/L (22.0-26.0); Arterial MetHb 0.5 % (0.0-1.5); Arterial Total Hemglobin 8.3 g/dl (12.0-18.0); MODE NASAL CANNULA
[2016-10-14 07:28] LABS: AADO2 Arterial 98.7 mmHg (7.0-24.0); Allen Test ACCEPTAB; Arterial Base Excess -0.6 mmol/L (-3.0-3); Arterial COHb 0.2 % (0.0-3.0); Arterial Fraction of Oxyhgb 98.3 % (93.0-99.0); Arterial HCO3 22.7 mmol/L (22.0-26.0); Arterial MetHb 0.4 % (0.0-1.5); Arterial Total Hemglobin 9.4 g/dl (12.0-18.0); MODE MASK - SIMPLE
--- NOTE | 2016-10-14 07:35 | RADRPT ---
PROCEDURE: XR Chest. CLINICAL INDICATION: Pneumonia TECHNIQUE: An AP view of the chest was obtained. COMPARISON: Chest x-ray dated 10/12/2016 FINDINGS: The tip of the enteric tube extends below the left diaphragm. There is a left upper extremity PICC l ine with tip in the upper right atrium. There is prominence of the interstitial markings. There are right upper lobe and right lower lobe a lveolar opacities. No pleural effusion or pneumothorax is seen. The cardiomediastinal silhouette i s mildly enlarged. Calcifications are seen within the aortic arch. The osseous structures demonstra te senescent changes. IMPRESSION: 1. Findings suggestive of interstitial edema. There are right upper and right lower lobe alveolar o pacities which may reflect edema or superimposed pneumonia. This is increased when compared to the prior examination. 2. Mild cardiomegaly and aortic atherosclerosis. 3. Tubes and lines, as described above. RPTAT: HH .Silva Lewis MD, MD Date Time Electronically viewed and signed by .Silva Lewis MD, on 10/14/2016 07:35 .G/
[2016-10-14] MEDS: LORAZEPAM 2 MG INJ IV PRN ×2 (07:58→12:24)
[2016-10-14 08:10] LABS: D-DIMER > 10000.00 ng/ml (<460)
[2016-10-14 08:48] LABS: MAGNESIUM 1.7 mg/dl (1.7-2.5); PHOSPHORUS 3.3 mg/dl (2.5-4.9)
--- NOTE | 2016-10-14 08:49 | CONS ---
Date/Time of Note Date/Time of Note DATE: 10/14/16 TIME: 08:48 Assessment/Plan Assessment/Plan Additional Assessment/Plan 1. Acute right posterior frontal lobe parenchymal hematoma and moderate intraventricular hemorrhage. 2. Non Oliguric acute kidney injury due to ATN From sepsis with metabolic acidosis 2. Non-ST elevation myocardial infarction 4. Sepsis due to Acute GNR UTI and bacteremia, , Urine cx grow E.Coli 5. Bacteremia with Blood cx growing coag neg staph 6. Essential hypertension 6. ETOH Liver Cirrhosis associated w/thrombocytopenia, transaminitis, hyperbilirubinemia 7. Normocytic, normochromic anemia 8. Hypothyroidism 9. Hypernatremia due to large free water deficit Plan: continue current care , increase D5W with 10mEQ KCL at 100 cc/hr x 1 liter then stop pt made good urine output, currenty in Post ATN diuresis. BMP at 4 pm KCL has been replaced, Continue IV abx As per PMD and ID service Due to patient age, Comorbidities, Current Admissin for ICH and gradual decline in her mental status, pt is not a candidate for Renal replacement therapy if renal function worsens, so we will not recommend to have dialysis in future if pt condition continues to deteriorate and renal function worsens. Discussed with family at bedside. will continue to follow up Consultation Date/Type/Reason Admit Date/Time Oct 09, 2016 at 08:26 Initial Consult Date 10/10/16 Type of Consultation: NEPHROLOGY Referring Provider: MILTON FARIAS 24 HR Interval Summary Free Text/Dictation pt made good urien output,BP stable ,K low, replaced, Na better ,family leaning to Comfort care, Exam/Review of Systems Vital Signs Vitals Vital Signs Date Time Temp Pulse Resp B/P Pulse Ox O2 Delivery O2 Flow Rate FiO2 10/14/16 06:00 89 16 145/87 100 Nasal Cannula 5.0 10/14/16 04:00 98.1 10/13/16 20:57 30 Intake and Output 10/13/16 10/13/16 10/14/16 15:00 23:00 07:00 Intake Total 1470 ml 1456.66 ml 720 ml Output Total 805 ml 1105 ml 260 ml Balance 665 ml 351.66 ml 460 ml Exam Constitutional: lethargic, intermittently agitated Head: atraumatic, normocephalic Respiratory: decreased BS at based ,no wheezing Cardiovascular: nl pulses, regular rate and rhythm Gastrointestinal: nl liver, spleen, non-tender, soft Musculoskeletal: nl extremities to inspection Extremities: normal pulses, no edema +NG tube, + villar catheter Results Result Diagram: 10/14/16 0600 10/14/16 0600 Results 24 hrs Laboratory Tests Test 10/13/16 09:40 10/13/16 13:20 10/13/16 14:50 10/14/16 06:00 Blood Gas Specimen Source Blood arterial Arterial Blood Date Drawn 10/13/2016 9:36:00 AM Arterial Blood pH (Temp corrected) 7.468 H Arterial Blood pCO2 (Temp correct) 32.0 L Arterial Blood pO2 (Temp corrected) 243.4 H Arterial Blood HCO3 22.7 Arterial Blood Base Excess -0.6 Arterial Blood Oxygen Saturation 98.9 Azael Test ACCEPTAB Arterial Blood Gas Puncture Site Right Radial Arterial Blood Carboxyhemoglobin 0.2 Arterial Blood Methemoglobin 0.4 Blood Gas A-a O2 Differential 98.7 H Oxyhemoglobin Percent 98.3 Total Hemoglobin 9.4 L Blood Gas Temperature 37.0 Blood Gas Modality MASK - SIMPLE FiO2 53.0 Blood Gas Notified Whom TM Blood Gas Notified Time 10/13/2016 9:47:00 AM White Blood Count 6.6 6.7 6.1 Red Blood Count 2.53 L 2.54 L 2.36 L Hemoglobin 8.4 L 8.0 L 7.5 L Hematocrit 24.5 L 24.5 L 23.2 L Mean Corpuscular Volume 96.8 96.5 98.3 Mean Corpuscular Hemoglobin 33.2 H 31.5 31.8 Mean Corpuscular Hemoglobin Concent 34.3 32.7 32.3 Red Cell Distribution Width 16.0 H 16.2 H 16.0 H Platelet Count 64 L 64 L 63 L Mean Platelet Volume 9.8 9.5 10.3 Neutrophils % 81.1 H 79.6 H 76.0 Lymphocytes % 9.0 L 10.0 L 11.0 L Monocytes % 5.9 7.3 7.5 Eosinophils % 0.9 1.0 2.8 Basophils % 0.2 0.0 0.2 Nucleated Red Blood Cells % 0.0 0.0 0.0 Neutrophils # 5.4 5.3 4.6 Lymphocytes # 0.6 L 0.7 L 0.7 L Monocytes # 0.4 0.5 0.5 Eosinophils # 0.1 0.1 0.2 Basophils # 0.0 0.0 0.0 Nucleated Red Blood Cells # 0.0 0.0 0.0 Prothrombin Time 22.8 #H 17.7 #H Prothrombin Time Ratio 1.8 1.4 INR International Normalized Ratio 1.99 1.45 Activated Partial Thromboplast Time 39.4 H 36.5 H Vancomycin Level Trough 12.5 Sodium Level 146 H 147 H Potassium Level 2.7 *L 2.8 *L Chloride Level 104 103 Carbon Dioxide Level 21 27 Anion Gap 24 H 20 H Blood Urea Nitrogen 32 H 29 H Creatinine 1.06 H 0.96 Glucose Level 160 101 # Calcium Level 9.1 9.4 Fibrinogen 219.0 # D-Dimer > 87348.00 H Test 10/14/16 07:00 10/14/16 07:45 10/14/16 08:07 Blood Gas Specimen Source Blood arterial Arterial Blood Date Drawn 10/14/2016 6:58:18 AM Arterial Blood pH (Temp corrected) 7.483 H Arterial Blood pCO2 (Temp correct) 30.6 L Arterial Blood pO2 (Temp corrected) 157.5 H Arterial Blood HCO3 22.4 Arterial Blood Base Excess -0.7 Arterial Blood Oxygen Saturation 98.4 Azael Test ACCEPTAB Arterial Blood Gas Puncture Site Right Radial Arterial Blood Carboxyhemoglobin 0.3 Arterial Blood Methemoglobin 0.5 Blood Gas A-a O2 Differential 85.3 H Oxyhemoglobin Percent 97.6 Total Hemoglobin 8.3 L Blood Gas Temperature 37.0 Blood Gas Modality NASAL CANNULA FiO2 39.0 Blood Gas Notified Whom TM Blood Gas Notified Time 10/14/2016 7:21:10 AM Lab Scanned Report REFERENCE LAB REFERENCE LAB Medications Medications Current Medications Labetalol HCl 10 mg 10 mg Q10M PRN IV ELEVATED BLOOD PRESSURE Last administered on 10/13/16 22:49; Admin Dose 10 MG; Start 10/09/16 at 09:00 Cefepime HCl (Maxipime 1gm/50 ml (Pmx)) 50 ml @ 100 mls/hr Q12 IVPB Last administered on 10/13/16 21:15; Admin Dose 100 MLS/HR; Start 10/09/16 at 10:30 Ondansetron HCl 4 mg 4 mg Q6H PRN IV NAUSEA AND/OR VOMITING Last administered on 10/12/16 21:50; Admin Dose 4 MG; Start 10/09/16 at 10:30 Levetiracetam (Keppra 500 Mg/ 100ml (Pmx)) 100 ml @ 400 mls/hr Q12 IVPB Last administered on 10/13/16 20:30; Admin Dose 400 MLS/HR; Start 10/09/16 at 21:00 IV Flush 10 ml 10 ml PRN PRN IV FLUSH LINE; Start 10/09/16 at 15:30 Vancomycin HCl 750 mg/Sodium Chloride 150 ml @ 75 mls/hr Q24H IVPB Last administered on 10/13/16 13:48; Admin Dose 75 MLS/HR; Start 10/10/16 at 14:00 Potassium Chloride/Dextrose (KCl/D5W) 1,005 ml @ 100 mls/hr Q10H3M IV Last administered on 10/13/16 10:00; Admin Dose 75 MLS/HR; Start 10/10/16 at 15:00 Diphenhydramine HCl 25 mg 25 mg Q6H PRN IV ITCHING Last administered on 03:12; Admin Dose 25 MG; Start 10/11/16 at 13:00; Status Future Hold Metronidazole (Flagyl 500 Mg (Pmx)) 100 ml @ 100 mls/hr Q8 IVPB Last administered on 10/14/16 06:12; Admin Dose 100 MLS/HR; Start 10/11/16 at 22:00 Citric Acid/ Sodium Citrate (Bicitra) 30 ml BID PO Last administered on 21:15; Admin Dose 30 ML; Start 10/11/16 at 21:00 Docusate Sodium (Colace Liquid Cup) 100 mg BID NGT Last administered on 09:22; Admin Dose 100 MG; Start 10/11/16 at 21:28 Lactulose (Enulose) 20 gm Q8 PO Last administered on 10/14/16 06:11; Admin Dose 20 GM; Start 10/12/16 at 14:00 Hydralazine HCl (Apresoline) 10 mg Q4H PRN IV ELEVATED BLOOD PRESSURE Last administered on 10/14/16 06:11; Admin Dose 10 MG; Start 10/12/16 at 10:00 Pantoprazole (Protonix Iv) 40 mg BID@06,18 IV Last administered on 10/14/16 06: 11; Admin Dose 40 MG; Start 10/13/16 at 18:00 Furosemide (Lasix) 20 mg DAILY IV Last administered on 10/13/16 18:46; Admin Dose 20 MG; Start 10/13/16 at 19:00 Oxycodone HCl (Roxicodone) 5 mg Q4 PRN PO PAIN Last administered on 10/13/16 18 :46; Admin Dose 5 MG; Start 10/13/16 at 19:00 Lorazepam (Ativan) 0.5 mg Q4H PRN IV agitation Last administered on 10/14/16 07 :58; Admin Dose 0.5 MG; Start 10/14/16 at 02:20 Acetaminophen 650 mg 650 mg Q4H PRN GTB PAIN AND OR ELEVATED TEMP Last administered on 10/14/16 04:56; Admin Dose 650 MG; Start 10/14/16 at 03:00 Potassium Chloride (KCl 40 MEQ/250 ML NS) 250 ml @ 62.5 mls/hr Q4H IVPB ; Start 10/14/16 at 08:30; Stop 10/14/16 at 16:29 Hydromorphone HCl (Dilaudid) 1 mg Q4H PRN IV PAIN; Start 10/14/16 at 09:00; Status TRUDY DAVIDSON MD Oct 14, 2016 08:49
--- NOTE | 2016-10-14 08:57 | PN ---
Date/Time of Note Date/Time of Note DATE: 10/14/16 TIME: 08:54 Assessment/Plan VTE Prophylaxis VTE Prophylaxis Intervention: SCD's Lines/Catheters IV Catheter Type (from [facility] PICC Line Central line still needed: Yes Urinary Cath still in place: Yes Reason Cath still needed: urinary retention Assessment/Plan Chief Complaint/Hosp Course A/P: 75-year-old female with past medical history of essential hypertension, systemic lupus erythematosus, hypothyroidism, and liver cirrhosis not because of alcohol abuse who was brought to the emergency room after the patient was found on the floor at home - found with Right posterior frontal lobe parenchymal hematoma and moderate intraventricular hemorrhage. 1. Right posterior frontal lobe parenchymal hematoma and moderate intraventricular hemorrhage. Repeat brain CT scan on 10-10-2016 showed interval appearance of right subdural hemorrhage mainly overlying right frontal lobe measuring up to 7 mm along with scattered bilateral foci of subarachnoid hemorrhages with interval increase and a 2 mm leftward midline shift. 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 S/P multiple plt and FFP transfusions in the last few days as well. - Avoid activities that increase intracranial pressure. - f/u Neurosurgery rec's - no surgery at this time - Continue tight blood pressure control. - continue Keppra - now pt is DNR/DNI - blood products as needed 2. Non-ST elevation myocardial infarction. Most probably a type II event from underlying ischemia versus from underlying sepsis and worsening renal function. Troponins normalized. - f/u Cardiology rec's 3. Sepsis - secondary to underlying urinary tract infection. Ucx = + E coli. Blood cx 1/2 bottles also + coag (-) staph. - Continue antibiotics, f/u final cx results - f/u Infectious diseases rec's, continue IV fluids. 4. Essential hypertension. The patient's blood pressure will be tightly controlled. - monitor 5. Normocytic, normochromic anemia. Most probably anemia of chronic disease and also from underlying liver cirrhosis. S/p pRBC transfusion. - Will monitor the H&H closely. Will transfuse blood products as needed. 6. Thrombocytopenia - likely sec to cirrhosis. S/p plt transfusion earlier this admission - Monitor for any further bleeding. - Transfuse platelets as necessary. 7. Transaminitis with hyperbilirubinemia. Resolved. Most probably secondary to underlying liver cirrhosis. - Monitor. Trend LFTs. Avoid hepatotoxic medications. 8. Systemic lupus erythematosus. Will monitor. 9. Hypothyroidism. Will resume Synthroid once the patient is able take oral intake. 10. Acute kidney injury. Etiology could be secondary to hemodynamics versus contrast induced. Obtain nephrology consult. 11. Coagulopathy. S/p FFPs given earlier this admission. - monitor INR, f/u hematology rec's 12. Fluids, electrolytes, and nutrition. N.p.o. until swallow evaluation. Continue IV fluids. 13. DVT prophylaxis. Bilateral sequential compression devices. 14. Gastrointestinal prophylaxis. Proton pump inhibitors. Pt now DNR/DNI Critical care time: 45 minutes. Problems: Subjective 24 Hr Interval Summary Free Text/Dictation Pt with increased HARE since last night. Family decided this AM to change code status. Exam/Review of Systems Vital Signs Vitals Vital Signs Date Time Temp Pulse Resp B/P Pulse Ox O2 Delivery O2 Flow Rate FiO2 10/14/16 06:00 89 16 145/87 100 Nasal Cannula 5.0 10/14/16 04:00 98.1 10/13/16 20:57 30 Intake and Output 10/13/16 10/13/16 10/14/16 15:00 23:00 07:00 Intake Total 1470 ml 1456.66 ml 720 ml Output Total 805 ml 1105 ml 260 ml Balance 665 ml 351.66 ml 460 ml Exam General: lying in bed, in mild distress, family at bedside HEENT: Normocephalic, atraumatic. Eyes: Anicteric sclerae, conjunctivae clear. ENT: Nasal septum midline, oral mucosa moist. Neck supple, no JVD noticed. Respiratory: Bilaterally slightly decreased breath sounds. No use of accessory muscles of respiration. No adventitious breath sounds. Cardiovascular: S1, S2 heard. No murmurs or gallops. Abdomen: Soft and nondistended. Bowel sounds positive in all 4 quadrants. Diffuse tenderness in the abdomen Extremities: No cyanosis, no clubbing, no edema. Peripheral pulses palpable. Neurologic: The patient is awake, alert, and oriented. Slurred speech. some left-sided facial droop. Left upper extremity no movement against gravity. Right lower extremity no movement against gravity. No sensation in the left lower extremity. Skin: Normal skin turgor. No skin rashes. Results Result Diagram: 10/14/16 0600 10/14/16 0600 Results 24 hrs Laboratory Tests Test 10/13/16 09:40 10/13/16 13:20 10/13/16 14:50 10/14/16 06:00 Blood Gas Specimen Source Blood arterial Arterial Blood Date Drawn 10/13/2016 9:36:00 AM Arterial Blood pH (Temp corrected) 7.468 H Arterial Blood pCO2 (Temp correct) 32.0 L Arterial Blood pO2 (Temp corrected) 243.4 H Arterial Blood HCO3 22.7 Arterial Blood Base Excess -0.6 Arterial Blood Oxygen Saturation 98.9 Azael Test ACCEPTAB Arterial Blood Gas Puncture Site Right Radial Arterial Blood Carboxyhemoglobin 0.2 Arterial Blood Methemoglobin 0.4 Blood Gas A-a O2 Differential 98.7 H Oxyhemoglobin Percent 98.3 Total Hemoglobin 9.4 L Blood Gas Temperature 37.0 Blood Gas Modality MASK - SIMPLE FiO2 53.0 Blood Gas Notified Whom TM Blood Gas Notified Time 10/13/2016 9:47:00 AM White Blood Count 6.6 6.7 6.1 Red Blood Count 2.53 L 2.54 L 2.36 L Hemoglobin 8.4 L 8.0 L 7.5 L Hematocrit 24.5 L 24.5 L 23.2 L Mean Corpuscular Volume 96.8 96.5 98.3 Mean Corpuscular Hemoglobin 33.2 H 31.5 31.8 Mean Corpuscular Hemoglobin Concent 34.3 32.7 32.3 Red Cell Distribution Width 16.0 H 16.2 H 16.0 H Platelet Count 64 L 64 L 63 L Mean Platelet Volume 9.8 9.5 10.3 Neutrophils % 81.1 H 79.6 H 76.0 Lymphocytes % 9.0 L 10.0 L 11.0 L Monocytes % 5.9 7.3 7.5 Eosinophils % 0.9 1.0 2.8 Basophils % 0.2 0.0 0.2 Nucleated Red Blood Cells % 0.0 0.0 0.0 Neutrophils # 5.4 5.3 4.6 Lymphocytes # 0.6 L 0.7 L 0.7 L Monocytes # 0.4 0.5 0.5 Eosinophils # 0.1 0.1 0.2 Basophils # 0.0 0.0 0.0 Nucleated Red Blood Cells # 0.0 0.0 0.0 Prothrombin Time 22.8 #H 17.7 #H Prothrombin Time Ratio 1.8 1.4 INR International Normalized Ratio 1.99 1.45 Activated Partial Thromboplast Time 39.4 H 36.5 H Vancomycin Level Trough 12.5 Sodium Level 146 H 147 H Potassium Level 2.7 *L 2.8 *L Chloride Level 104 103 Carbon Dioxide Level 21 27 Anion Gap 24 H 20 H Blood Urea Nitrogen 32 H 29 H Creatinine 1.06 H 0.96 Glucose Level 160 101 # Calcium Level 9.1 9.4 Fibrinogen 219.0 # D-Dimer > 95529.00 H Phosphorus Level 3.3 Magnesium Level 1.7 Test 10/14/16 07:00 10/14/16 07:45 10/14/16 08:07 Blood Gas Specimen Source Blood arterial Arterial Blood Date Drawn 10/14/2016 6:58:18 AM Arterial Blood pH (Temp corrected) 7.483 H Arterial Blood pCO2 (Temp correct) 30.6 L Arterial Blood pO2 (Temp corrected) 157.5 H Arterial Blood HCO3 22.4 Arterial Blood Base Excess -0.7 Arterial Blood Oxygen Saturation 98.4 Azael Test ACCEPTAB Arterial Blood Gas Puncture Site Right Radial Arterial Blood Carboxyhemoglobin 0.3 Arterial Blood Methemoglobin 0.5 Blood Gas A-a O2 Differential 85.3 H Oxyhemoglobin Percent 97.6 Total Hemoglobin 8.3 L Blood Gas Temperature 37.0 Blood Gas Modality NASAL CANNULA FiO2 39.0 Blood Gas Notified Whom TM Blood Gas Notified Time 10/14/2016 7:21:10 AM Lab Scanned Report REFERENCE LAB REFERENCE LAB Medications Medications Current Medications Labetalol HCl 10 mg 10 mg Q10M PRN IV ELEVATED BLOOD PRESSURE Last administered on 10/13/16 22:49; Admin Dose 10 MG; Start 10/09/16 at 09:00 Cefepime HCl (Maxipime 1gm/50 ml (Pmx)) 50 ml @ 100 mls/hr Q12 IVPB Last administered on 10/13/16 21:15; Admin Dose 100 MLS/HR; Start 10/09/16 at 10:30 Ondansetron HCl 4 mg 4 mg Q6H PRN IV NAUSEA AND/OR VOMITING Last administered on 10/12/16 21:50; Admin Dose 4 MG; Start 10/09/16 at 10:30 Levetiracetam (Keppra 500 Mg/ 100ml (Pmx)) 100 ml @ 400 mls/hr Q12 IVPB Last administered on 10/13/16 20:30; Admin Dose 400 MLS/HR; Start 10/09/16 at 21:00 IV Flush 10 ml 10 ml PRN PRN IV FLUSH LINE; Start 10/09/16 at 15:30 Vancomycin HCl 750 mg/Sodium Chloride 150 ml @ 75 mls/hr Q24H IVPB Last administered on 10/13/16 13:48; Admin Dose 75 MLS/HR; Start 10/10/16 at 14:00 Potassium Chloride/Dextrose (KCl/D5W) 1,005 ml @ 100 mls/hr Q10H3M IV Last administered on 10/13/16 10:00; Admin Dose 75 MLS/HR; Start 10/10/16 at 15:00 Diphenhydramine HCl 25 mg 25 mg Q6H PRN IV ITCHING Last administered on 03:12; Admin Dose 25 MG; Start 10/11/16 at 13:00; Status Future Hold Metronidazole (Flagyl 500 Mg (Pmx)) 100 ml @ 100 mls/hr Q8 IVPB Last administered on 10/14/16 06:12; Admin Dose 100 MLS/HR; Start 10/11/16 at 22:00 Citric Acid/ Sodium Citrate (Bicitra) 30 ml BID PO Last administered on 21:15; Admin Dose 30 ML; Start 10/11/16 at 21:00 Docusate Sodium (Colace Liquid Cup) 100 mg BID NGT Last administered on 09:22; Admin Dose 100 MG; Start 10/11/16 at 21:28 Lactulose (Enulose) 20 gm Q8 PO Last administered on 10/14/16 06:11; Admin Dose 20 GM; Start 10/12/16 at 14:00 Hydralazine HCl (Apresoline) 10 mg Q4H PRN IV ELEVATED BLOOD PRESSURE Last administered on 10/14/16 06:11; Admin Dose 10 MG; Start 10/12/16 at 10:00 Pantoprazole (Protonix Iv) 40 mg BID@06,18 IV Last administered on 10/14/16 06: 11; Admin Dose 40 MG; Start 10/13/16 at 18:00 Furosemide (Lasix) 20 mg DAILY IV Last administered on 10/13/16 18:46; Admin Dose 20 MG; Start 10/13/16 at 19:00 Oxycodone HCl (Roxicodone) 5 mg Q4 PRN PO PAIN Last administered on 10/13/16 18 :46; Admin Dose 5 MG; Start 10/13/16 at 19:00 Lorazepam (Ativan) 0.5 mg Q4H PRN IV agitation Last administered on 10/14/16 07 :58; Admin Dose 0.5 MG; Start 10/14/16 at 02:20 Acetaminophen 650 mg 650 mg Q4H PRN GTB PAIN AND OR ELEVATED TEMP Last administered on 10/14/16 04:56; Admin Dose 650 MG; Start 10/14/16 at 03:00 Potassium Chloride (KCl 40 MEQ/250 ML NS) 250 ml @ 62.5 mls/hr Q4H IVPB ; Start 10/14/16 at 08:30; Stop 10/14/16 at 16:29 Hydromorphone HCl 1 mg 1 mg Q4H PRN IV PAIN; Start 10/14/16 at 09:00; Status UNV Dextrose (D5W) 1,000 ml @ 100 mls/hr Q10H IV ; Start 10/14/16 at 09:00; Status UNV YANELI CHAVEZ Oct 14, 2016 08:57
[2016-10-14] MEDS ORDERED: DEXTROSE 5% 1,000 ML IV SCH (09:00)
[2016-10-14] MEDS: FUROSEMIDE 20 MG INJ IV SCH (09:29)
[2016-10-14] MEDS: POTASSIUM CHLORIDE 250 ML IVPB SCH ×2 (09:29→13:34)
[2016-10-14] MEDS: DOCUSATE SODIUM 10 MG/ML (10ML CUP) NGT SCH ×2 (09:29→21:00)
[2016-10-14] MEDS: CEFEPIME 1GM/50 ML (PMX) 50 ML IVPB SCH ×2 (09:30→21:00)
[2016-10-14] MEDS: LEVETIRACETAM 500 MG (PMX) 100 ML IVPB SCH ×2 (09:30→21:00)
[2016-10-14] MEDS: HYDROmorphONE 1 MG/ML SYG IV PRN ×3 (09:49→23:01)
--- NOTE | 2016-10-14 10:14 | CONS ---
Date/Time of Note Date/Time of Note DATE: 10/14/16 TIME: 10:11 Consult Date/Type/Reason Admit Date/Time Oct 09, 2016 at 08:26 Initial Consult Date 10/13/16 Type of Consultation: Pulmonary ICU Ordering Provider: MILTON FARIAS Subjective Patient has significant headache overnight. Significant distress. She required Ativan and morphine. Family at bedside this morning. They state they wish to focus more on comfort care and quality of life. Objective Vital Signs Date Time Temp Pulse Resp B/P Pulse Ox O2 Delivery O2 Flow Rate FiO2 10/14/16 08:00 96 10/14/16 06:00 16 145/87 100 Nasal Cannula 5.0 10/14/16 04:00 98.1 10/13/16 20:57 30 Intake and Output 10/13/16 10/13/16 10/14/16 15:00 23:00 07:00 Intake Total 1470 ml 1456.66 ml 720 ml Output Total 805 ml 1105 ml 260 ml Balance 665 ml 351.66 ml 460 ml Exam PHYSICAL EXAMINATION GENERAL: Elderly lady somnolent on nasal cannula oxygen VITAL SIGNS: see below. HEENT: Pupils equal, round, and reactive to light. CARDIAC: S1, S2, 1/6 systolic ejection murmur CHEST: Diminished air entry bilaterally. ABDOMEN: Mildly distended. Bowel sounds present no guarding or rebound EXTREMITIES: No cyanosis, clubbing edema +1 NEUROLOGIC: Generalized weakness Results/Medications Result Diagram: 10/14/16 0600 10/14/16 0600 Results 24 hrs Laboratory Tests Test 10/13/16 13:20 10/13/16 14:50 10/14/16 06:00 10/14/16 07:00 White Blood Count 6.6 6.7 6.1 Red Blood Count 2.53 L 2.54 L 2.36 L Hemoglobin 8.4 L 8.0 L 7.5 L Hematocrit 24.5 L 24.5 L 23.2 L Mean Corpuscular Volume 96.8 96.5 98.3 Mean Corpuscular Hemoglobin 33.2 H 31.5 31.8 Mean Corpuscular Hemoglobin Concent 34.3 32.7 32.3 Red Cell Distribution Width 16.0 H 16.2 H 16.0 H Platelet Count 64 L 64 L 63 L Mean Platelet Volume 9.8 9.5 10.3 Neutrophils % 81.1 H 79.6 H 76.0 Lymphocytes % 9.0 L 10.0 L 11.0 L Monocytes % 5.9 7.3 7.5 Eosinophils % 0.9 1.0 2.8 Basophils % 0.2 0.0 0.2 Nucleated Red Blood Cells % 0.0 0.0 0.0 Neutrophils # 5.4 5.3 4.6 Lymphocytes # 0.6 L 0.7 L 0.7 L Monocytes # 0.4 0.5 0.5 Eosinophils # 0.1 0.1 0.2 Basophils # 0.0 0.0 0.0 Nucleated Red Blood Cells # 0.0 0.0 0.0 Prothrombin Time 22.8 #H 17.7 #H Prothrombin Time Ratio 1.8 1.4 INR International Normalized Ratio 1.99 1.45 Activated Partial Thromboplast Time 39.4 H 36.5 H Vancomycin Level Trough 12.5 Sodium Level 146 H 147 H Potassium Level 2.7 *L 2.8 *L Chloride Level 104 103 Carbon Dioxide Level 21 27 Anion Gap 24 H 20 H Blood Urea Nitrogen 32 H 29 H Creatinine 1.06 H 0.96 Glucose Level 160 101 # Calcium Level 9.1 9.4 Fibrinogen 219.0 # D-Dimer > 31440.00 H Phosphorus Level 3.3 Magnesium Level 1.7 Blood Gas Specimen Source Blood arterial Arterial Blood Date Drawn 10/14/2016 6:58:18 AM Arterial Blood pH (Temp corrected) 7.483 H Arterial Blood pCO2 (Temp correct) 30.6 L Arterial Blood pO2 (Temp corrected) 157.5 H Arterial Blood HCO3 22.4 Arterial Blood Base Excess -0.7 Arterial Blood Oxygen Saturation 98.4 Azael Test ACCEPTAB Arterial Blood Gas Puncture Site Right Radial Arterial Blood Carboxyhemoglobin 0.3 Arterial Blood Methemoglobin 0.5 Blood Gas A-a O2 Differential 85.3 H Oxyhemoglobin Percent 97.6 Total Hemoglobin 8.3 L Blood Gas Temperature 37.0 Blood Gas Modality NASAL CANNULA FiO2 39.0 Blood Gas Notified Whom TM Blood Gas Notified Time 10/14/2016 7:21:10 AM Test 10/14/16 07:45 10/14/16 08:07 Lab Scanned Report REFERENCE LAB REFERENCE LAB Medications Current Medications Labetalol HCl 10 mg 10 mg Q10M PRN IV ELEVATED BLOOD PRESSURE Last administered on 10/13/16 22:49; Admin Dose 10 MG; Start 10/09/16 at 09:00 Cefepime HCl (Maxipime 1gm/50 ml (Pmx)) 50 ml @ 100 mls/hr Q12 IVPB Last administered on 10/14/16 09:30; Admin Dose 100 MLS/HR; Start 10/09/16 at 10:30 Ondansetron HCl 4 mg 4 mg Q6H PRN IV NAUSEA AND/OR VOMITING Last administered on 10/12/16 21:50; Admin Dose 4 MG; Start 10/09/16 at 10:30 Levetiracetam (Keppra 500 Mg/ 100ml (Pmx)) 100 ml @ 400 mls/hr Q12 IVPB Last administered on 10/14/16 09:30; Admin Dose 400 MLS/HR; Start 10/09/16 at 21:00 IV Flush 10 ml 10 ml PRN PRN IV FLUSH LINE; Start 10/09/16 at 15:30 Potassium Chloride/Dextrose (KCl/D5W) 1,005 ml @ 100 mls/hr Q10H3M IV Last administered on 10/13/16 10:00; Admin Dose 75 MLS/HR; Start 10/10/16 at 15:00 Diphenhydramine HCl 25 mg 25 mg Q6H PRN IV ITCHING Last administered on 03:12; Admin Dose 25 MG; Start 10/11/16 at 13:00; Status Future Hold Metronidazole (Flagyl 500 Mg (Pmx)) 100 ml @ 100 mls/hr Q8 IVPB Last administered on 10/14/16 06:12; Admin Dose 100 MLS/HR; Start 10/11/16 at 22:00 Citric Acid/ Sodium Citrate (Bicitra) 30 ml BID PO Last administered on 21:15; Admin Dose 30 ML; Start 10/11/16 at 21:00 Docusate Sodium (Colace Liquid Cup) 100 mg BID NGT Last administered on 09:29; Admin Dose 100 MG; Start 10/11/16 at 21:28 Lactulose (Enulose) 20 gm Q8 PO Last administered on 10/14/16 06:11; Admin Dose 20 GM; Start 10/12/16 at 14:00 Hydralazine HCl (Apresoline) 10 mg Q4H PRN IV ELEVATED BLOOD PRESSURE Last administered on 10/14/16 06:11; Admin Dose 10 MG; Start 10/12/16 at 10:00 Pantoprazole (Protonix Iv) 40 mg BID@06,18 IV Last administered on 10/14/16 06: 11; Admin Dose 40 MG; Start 10/13/16 at 18:00 Furosemide (Lasix) 20 mg DAILY IV Last administered on 10/14/16 09:29; Admin Dose 20 MG; Start 10/13/16 at 19:00 Oxycodone HCl (Roxicodone) 5 mg Q4 PRN PO PAIN Last administered on 10/13/16 18 :46; Admin Dose 5 MG; Start 10/13/16 at 19:00 Lorazepam (Ativan) 0.5 mg Q4H PRN IV agitation Last administered on 10/14/16 07 :58; Admin Dose 0.5 MG; Start 10/14/16 at 02:20 Acetaminophen 650 mg 650 mg Q4H PRN GTB PAIN AND OR ELEVATED TEMP Last administered on 10/14/16 04:56; Admin Dose 650 MG; Start 10/14/16 at 03:00 Potassium Chloride (KCl 40 MEQ/250 ML NS) 250 ml @ 62.5 mls/hr Q4H IVPB Last administered on 10/14/16 09:29; Admin Dose 62.5 MLS/HR; Start 10/14/16 at 08:30; Stop 10/14/16 at 16:29 Hydromorphone HCl 1 mg 1 mg Q4H PRN IV PAIN Last administered on 10/14/16 09:49 ; Admin Dose 1 MG; Start 10/14/16 at 09:00 Dextrose 1,000 ml @ 100 mls/hr Q10H IV Last administered on 10/14/16 09:30; Admin Dose 100 MLS/HR; Start 10/14/16 at 09:00 Vancomycin HCl (Vancocin) 250 ml @ 125 mls/hr Q24H IVPB ; Start 10/14/16 at 14: 00 Assessment/Plan Additional Assessment/Plan Assessment 1. Hypoxemic respiratory failure likely secondary to pneumonia and pulmonary edema. Differential does include acute vasculitis with acute lung injury. No evidence of diffuse alveolar hemorrhage. 2. Acute intraventricular and subarachnoid bleed. Not surgical candidate. 3. Coagulopathy with thrombocytopenia 4. Probable acute GI bleed 5. Non-ST elevation MS 6. Recent renal insufficiency 7. History of systemic lupus erythematous 8. Gram-negative UTI 9. History of cirrhosis etiology unknown 10. Hypokalemia Plan 1. Continue aspiration precautions nasal cannula and BiPAP as needed 2. Continue broad-spectrum antibiotic coverage 3. Continue neurosurgical recommendations 4. Gentle hydration 5. Cardiac recommendations I had a long discussion with the patient's family at bedside. They expressed that they want to focus on comfort measures if her condition continues to deteriorate. They do not want chest compressions or intubation mechanical ventilation. In accordance with their wishes we will continue current level of care but patient is not for intubation or CPR should she deteriorate. If her condition continues to deteriorate we will focus more on palliative care measures including increasing Ativan and morphine. Critical care time 40 minutes. SANTIAGO MORENO MD, [facility] Oct 14, 2016 10:14
--- NOTE | 2016-10-14 10:29 | CONS ---
Date/Time of Note Date/Time of Note DATE: 10/14/16 TIME: 10:25 Assessment/Plan Assessment/Plan Chief Complaint/Hosp Course 1. Positive troponin - not a candidate for intervention or anti-coagulation, conservative care now - NO INTERVENTION PLANNED. VS stable. Now trended negative 2. Acute right posterior frontal lobe parenchymal hematoma and moderate intraventricular hemorrhage - now expanding, FFP Rx 3. Acute kidney injury due to ATN From sepsis with metabolic acidosis - avoid nephrotoxic meds - BETTER now 4. Bacteremia with Blood cx growing GNR - on anti-bx 5. Essential hypertension 6. ETOH Liver Cirrhosis associated w/thrombocytopenia, transaminitis, hyperbilirubinemia 7. Normocytic, normochromic anemia 8. Hypothyroidism REcc: -Tele -serial ecg's -Continue abx's -Follow BP closely -Gentle lasix diuresis and follow volume status closely -FRee water for increased na -Now DNR Problems: Consultation Date/Type/Reason Admit Date/Time Oct 09, 2016 at 08:26 Initial Consult Date 10/10/16 Type of Consultation: cardiology Reason for Consultation Positive troponin Referring Provider: MILTON FARIAS Exam/Review of Systems Vital Signs Vitals Vital Signs Date Time Temp Pulse Resp B/P Pulse Ox O2 Delivery O2 Flow Rate FiO2 10/14/16 08:00 96 10/14/16 06:00 16 145/87 100 Nasal Cannula 5.0 10/14/16 04:00 98.1 10/13/16 20:57 30 Intake and Output 10/13/16 10/13/16 10/14/16 15:00 23:00 07:00 Intake Total 1470 ml 1456.66 ml 720 ml Output Total 805 ml 1105 ml 260 ml Balance 665 ml 351.66 ml 460 ml Exam Review of Systems: CONSTITUTIONAL: No fevers, chills. PULMONARY: No sob CARDIOVASCULAR: No obvious chest pain/palpitations GASTROINTESTINAL: No nausea/vomiting. GENITOURINARY: No hematuria/dysuria. MUSCULOSKELETAL: No obvious myagias/arthalgias. PSYCHIATRIC: No documented depression. NEUROLOGIC: encephalopathy Constitutional: alert Psych: no complaints Head: normocephalic ENMT: mucosa pink and moist Neck: jvd (8-9 cm watter), supple Respiratory: diminished breath sounds (at bases/B) Cardiovascular: regular rate and rhythm Gastrointestinal: non-tender, soft Musculoskeletal: muscle tone (normal) Extremities: edema (Nonoe) Neurological: other (No focal deficits) Results Result Diagram: 10/14/16 0600 10/14/16 0600 Results 24 hrs Laboratory Tests Test 10/13/16 13:20 10/13/16 14:50 10/14/16 06:00 10/14/16 07:00 White Blood Count 6.6 6.7 6.1 Red Blood Count 2.53 L 2.54 L 2.36 L Hemoglobin 8.4 L 8.0 L 7.5 L Hematocrit 24.5 L 24.5 L 23.2 L Mean Corpuscular Volume 96.8 96.5 98.3 Mean Corpuscular Hemoglobin 33.2 H 31.5 31.8 Mean Corpuscular Hemoglobin Concent 34.3 32.7 32.3 Red Cell Distribution Width 16.0 H 16.2 H 16.0 H Platelet Count 64 L 64 L 63 L Mean Platelet Volume 9.8 9.5 10.3 Neutrophils % 81.1 H 79.6 H 76.0 Lymphocytes % 9.0 L 10.0 L 11.0 L Monocytes % 5.9 7.3 7.5 Eosinophils % 0.9 1.0 2.8 Basophils % 0.2 0.0 0.2 Nucleated Red Blood Cells % 0.0 0.0 0.0 Neutrophils # 5.4 5.3 4.6 Lymphocytes # 0.6 L 0.7 L 0.7 L Monocytes # 0.4 0.5 0.5 Eosinophils # 0.1 0.1 0.2 Basophils # 0.0 0.0 0.0 Nucleated Red Blood Cells # 0.0 0.0 0.0 Prothrombin Time 22.8 #H 17.7 #H Prothrombin Time Ratio 1.8 1.4 INR International Normalized Ratio 1.99 1.45 Activated Partial Thromboplast Time 39.4 H 36.5 H Vancomycin Level Trough 12.5 Sodium Level 146 H 147 H Potassium Level 2.7 *L 2.8 *L Chloride Level 104 103 Carbon Dioxide Level 21 27 Anion Gap 24 H 20 H Blood Urea Nitrogen 32 H 29 H Creatinine 1.06 H 0.96 Glucose Level 160 101 # Calcium Level 9.1 9.4 Fibrinogen 219.0 # D-Dimer > 57596.00 H Phosphorus Level 3.3 Magnesium Level 1.7 Blood Gas Specimen Source Blood arterial Arterial Blood Date Drawn 10/14/2016 6:58:18 AM Arterial Blood pH (Temp corrected) 7.483 H Arterial Blood pCO2 (Temp correct) 30.6 L Arterial Blood pO2 (Temp corrected) 157.5 H Arterial Blood HCO3 22.4 Arterial Blood Base Excess -0.7 Arterial Blood Oxygen Saturation 98.4 Azael Test ACCEPTAB Arterial Blood Gas Puncture Site Right Radial Arterial Blood Carboxyhemoglobin 0.3 Arterial Blood Methemoglobin 0.5 Blood Gas A-a O2 Differential 85.3 H Oxyhemoglobin Percent 97.6 Total Hemoglobin 8.3 L Blood Gas Temperature 37.0 Blood Gas Modality NASAL CANNULA FiO2 39.0 Blood Gas Notified Whom TM Blood Gas Notified Time 10/14/2016 7:21:10 AM Test 10/14/16 07:45 10/14/16 08:07 Lab Scanned Report REFERENCE LAB REFERENCE LAB Medications Medications Current Medications Labetalol HCl 10 mg 10 mg Q10M PRN IV ELEVATED BLOOD PRESSURE Last administered on 10/13/16 22:49; Admin Dose 10 MG; Start 10/09/16 at 09:00 Cefepime HCl (Maxipime 1gm/50 ml (Pmx)) 50 ml @ 100 mls/hr Q12 IVPB Last administered on 10/14/16 09:30; Admin Dose 100 MLS/HR; Start 10/09/16 at 10:30 Ondansetron HCl 4 mg 4 mg Q6H PRN IV NAUSEA AND/OR VOMITING Last administered on 10/12/16 21:50; Admin Dose 4 MG; Start 10/09/16 at 10:30 Levetiracetam (Keppra 500 Mg/ 100ml (Pmx)) 100 ml @ 400 mls/hr Q12 IVPB Last administered on 10/14/16 09:30; Admin Dose 400 MLS/HR; Start 10/09/16 at 21:00 IV Flush 10 ml 10 ml PRN PRN IV FLUSH LINE; Start 10/09/16 at 15:30 Potassium Chloride/Dextrose (KCl/D5W) 1,005 ml @ 100 mls/hr Q10H3M IV Last administered on 10/13/16 10:00; Admin Dose 75 MLS/HR; Start 10/10/16 at 15:00 Diphenhydramine HCl 25 mg 25 mg Q6H PRN IV ITCHING Last administered on 03:12; Admin Dose 25 MG; Start 10/11/16 at 13:00; Status Future Hold Metronidazole (Flagyl 500 Mg (Pmx)) 100 ml @ 100 mls/hr Q8 IVPB Last administered on 10/14/16 06:12; Admin Dose 100 MLS/HR; Start 10/11/16 at 22:00 Citric Acid/ Sodium Citrate (Bicitra) 30 ml BID PO Last administered on 21:15; Admin Dose 30 ML; Start 10/11/16 at 21:00 Docusate Sodium (Colace Liquid Cup) 100 mg BID NGT Last administered on 09:29; Admin Dose 100 MG; Start 10/11/16 at 21:28 Lactulose (Enulose) 20 gm Q8 PO Last administered on 10/14/16 06:11; Admin Dose 20 GM; Start 10/12/16 at 14:00 Hydralazine HCl (Apresoline) 10 mg Q4H PRN IV ELEVATED BLOOD PRESSURE Last administered on 10/14/16 06:11; Admin Dose 10 MG; Start 10/12/16 at 10:00 Pantoprazole (Protonix Iv) 40 mg BID@06,18 IV Last administered on 10/14/16 06: 11; Admin Dose 40 MG; Start 10/13/16 at 18:00 Furosemide (Lasix) 20 mg DAILY IV Last administered on 10/14/16 09:29; Admin Dose 20 MG; Start 10/13/16 at 19:00 Oxycodone HCl (Roxicodone) 5 mg Q4 PRN PO PAIN Last administered on 10/13/16 18 :46; Admin Dose 5 MG; Start 10/13/16 at 19:00 Lorazepam (Ativan) 0.5 mg Q4H PRN IV agitation Last administered on 10/14/16 07 :58; Admin Dose 0.5 MG; Start 10/14/16 at 02:20 Acetaminophen 650 mg 650 mg Q4H PRN GTB PAIN AND OR ELEVATED TEMP Last administered on 10/14/16 04:56; Admin Dose 650 MG; Start 10/14/16 at 03:00 Potassium Chloride (KCl 40 MEQ/250 ML NS) 250 ml @ 62.5 mls/hr Q4H IVPB Last administered on 10/14/16 09:29; Admin Dose 62.5 MLS/HR; Start 10/14/16 at 08:30; Stop 10/14/16 at 16:29 Hydromorphone HCl 1 mg 1 mg Q4H PRN IV PAIN Last administered on 10/14/16 09:49 ; Admin Dose 1 MG; Start 10/14/16 at 09:00 Dextrose 1,000 ml @ 100 mls/hr Q10H IV Last administered on 10/14/16 09:30; Admin Dose 100 MLS/HR; Start 10/14/16 at 09:00 Vancomycin HCl (Vancocin) 250 ml @ 125 mls/hr Q24H IVPB ; Start 10/14/16 at 14: 00 EMBER BIRD Oct 14, 2016 10:28
--- NOTE | 2016-10-14 12:01 | CONS ---
Date/Time of Note Date/Time of Note DATE: 10/14/16 TIME: 12:00 Assessment/Plan Assessment/Plan Chief Complaint/Hosp Course No acute events overnight, patient is lying comfortably in bed she is on nasal cannula, in no distress. Vital signs: temperature 98.6 pulse 86 respirations 16 blood pressure 126/70 saturation 100 on nasal cannula 5 L Laboratory data: WBC 6.1 H&H 7.5 and 23.2 platelet 63 neutrophils 76 BUN 29 creatinine 0.96 Indwelling: Left upper extremity PICC line, Lucio catheter, NG tube Antimicrobials: Flagyl Vanco cefepime Diagnostics: CT of the abdomen and pelvis on admission revealed mild thickening of the colon representing nonspecific infectious/inflammatory colitis. Cirrhotic liver. Mild by basilar atelectasis. Physical examination: Obese, well-developed elderly woman who is lethargic, arousable, in no distress. Head atraumatic, normocephalic, sclera nonicteric. Neck is obese. Trachea midline. Chest rise symmetrical, breath sounds clear, diminished bases. Abdomen soft. Bowel tones present. Extremities without cyanosis. Assessment: #1. Acute intracerebral, subdural and intraventricular hemorrhage, neurology follows #2. Urinary tract infection #3. Coag negative staph bacteremia, likely contaminant #4. Encephalopathy #5. Liver cirrhosis #6. Systemic lupus erythematosus #7. Non-ST elevation NM #8. Colitis per CT of the abdomen #9. Allergy to penicillin Plan: Remains unchanged, followed by multiple consultants, repeat blood cultures and stool for C. difficile came back negative, continue present care, antibiotics Discussed with staff Problems: Consultation Date/Type/Reason Admit Date/Time Oct 09, 2016 at 08:26 Initial Consult Date 10/10/16 Type of Consultation: ID Referring Provider: MILTON FARIAS Exam/Review of Systems Vital Signs Vitals Vital Signs Date Time Temp Pulse Resp B/P Pulse Ox O2 Delivery O2 Flow Rate FiO2 10/14/16 11:00 86 11 116/65 99 Nasal Cannula 5.0 10/14/16 08:00 98.6 10/13/16 20:57 30 Intake and Output 10/13/16 10/13/16 10/14/16 15:00 23:00 07:00 Intake Total 1470 ml 1456.66 ml 720 ml Output Total 805 ml 1105 ml 300 ml Balance 665 ml 351.66 ml 420 ml Results Result Diagram: 10/14/16 0600 10/14/16 0600 Results 24 hrs Laboratory Tests Test 10/13/16 13:20 10/13/16 14:50 10/14/16 06:00 10/14/16 07:00 White Blood Count 6.6 6.7 6.1 Red Blood Count 2.53 L 2.54 L 2.36 L Hemoglobin 8.4 L 8.0 L 7.5 L Hematocrit 24.5 L 24.5 L 23.2 L Mean Corpuscular Volume 96.8 96.5 98.3 Mean Corpuscular Hemoglobin 33.2 H 31.5 31.8 Mean Corpuscular Hemoglobin Concent 34.3 32.7 32.3 Red Cell Distribution Width 16.0 H 16.2 H 16.0 H Platelet Count 64 L 64 L 63 L Mean Platelet Volume 9.8 9.5 10.3 Neutrophils % 81.1 H 79.6 H 76.0 Lymphocytes % 9.0 L 10.0 L 11.0 L Monocytes % 5.9 7.3 7.5 Eosinophils % 0.9 1.0 2.8 Basophils % 0.2 0.0 0.2 Nucleated Red Blood Cells % 0.0 0.0 0.0 Neutrophils # 5.4 5.3 4.6 Lymphocytes # 0.6 L 0.7 L 0.7 L Monocytes # 0.4 0.5 0.5 Eosinophils # 0.1 0.1 0.2 Basophils # 0.0 0.0 0.0 Nucleated Red Blood Cells # 0.0 0.0 0.0 Prothrombin Time 22.8 #H 17.7 #H Prothrombin Time Ratio 1.8 1.4 INR International Normalized Ratio 1.99 1.45 Activated Partial Thromboplast Time 39.4 H 36.5 H Vancomycin Level Trough 12.5 Sodium Level 146 H 147 H Potassium Level 2.7 *L 2.8 *L Chloride Level 104 103 Carbon Dioxide Level 21 27 Anion Gap 24 H 20 H Blood Urea Nitrogen 32 H 29 H Creatinine 1.06 H 0.96 Glucose Level 160 101 # Calcium Level 9.1 9.4 Fibrinogen 219.0 # D-Dimer > 46718.00 H Phosphorus Level 3.3 Magnesium Level 1.7 Blood Gas Specimen Source Blood arterial Arterial Blood Date Drawn 10/14/2016 6:58:18 AM Arterial Blood pH (Temp corrected) 7.483 H Arterial Blood pCO2 (Temp correct) 30.6 L Arterial Blood pO2 (Temp corrected) 157.5 H Arterial Blood HCO3 22.4 Arterial Blood Base Excess -0.7 Arterial Blood Oxygen Saturation 98.4 Azael Test ACCEPTAB Arterial Blood Gas Puncture Site Right Radial Arterial Blood Carboxyhemoglobin 0.3 Arterial Blood Methemoglobin 0.5 Blood Gas A-a O2 Differential 85.3 H Oxyhemoglobin Percent 97.6 Total Hemoglobin 8.3 L Blood Gas Temperature 37.0 Blood Gas Modality NASAL CANNULA FiO2 39.0 Blood Gas Notified Whom TM Blood Gas Notified Time 10/14/2016 7:21:10 AM Test 10/14/16 07:45 10/14/16 08:07 10/14/16 11:35 Lab Scanned Report REFERENCE LAB REFERENCE LAB REFERENCE LAB Medications Medications Current Medications Labetalol HCl 10 mg 10 mg Q10M PRN IV ELEVATED BLOOD PRESSURE Last administered on 10/13/16 22:49; Admin Dose 10 MG; Start 10/09/16 at 09:00 Cefepime HCl (Maxipime 1gm/50 ml (Pmx)) 50 ml @ 100 mls/hr Q12 IVPB Last administered on 10/14/16 09:30; Admin Dose 100 MLS/HR; Start 10/09/16 at 10:30 Ondansetron HCl 4 mg 4 mg Q6H PRN IV NAUSEA AND/OR VOMITING Last administered on 10/12/16 21:50; Admin Dose 4 MG; Start 10/09/16 at 10:30 Levetiracetam (Keppra 500 Mg/ 100ml (Pmx)) 100 ml @ 400 mls/hr Q12 IVPB Last administered on 10/14/16 09:30; Admin Dose 400 MLS/HR; Start 10/09/16 at 21:00 IV Flush 10 ml 10 ml PRN PRN IV FLUSH LINE; Start 10/09/16 at 15:30 Potassium Chloride/Dextrose (KCl/D5W) 1,005 ml @ 100 mls/hr Q10H3M IV Last administered on 10/13/16 10:00; Admin Dose 75 MLS/HR; Start 10/10/16 at 15:00 Diphenhydramine HCl 25 mg 25 mg Q6H PRN IV ITCHING Last administered on 03:12; Admin Dose 25 MG; Start 10/11/16 at 13:00; Status Future Hold Metronidazole (Flagyl 500 Mg (Pmx)) 100 ml @ 100 mls/hr Q8 IVPB Last administered on 10/14/16 06:12; Admin Dose 100 MLS/HR; Start 10/11/16 at 22:00 Citric Acid/ Sodium Citrate (Bicitra) 30 ml BID PO Last administered on 21:15; Admin Dose 30 ML; Start 10/11/16 at 21:00 Docusate Sodium (Colace Liquid Cup) 100 mg BID NGT Last administered on 09:29; Admin Dose 100 MG; Start 10/11/16 at 21:28 Lactulose (Enulose) 20 gm Q8 PO Last administered on 10/14/16 06:11; Admin Dose 20 GM; Start 10/12/16 at 14:00 Hydralazine HCl (Apresoline) 10 mg Q4H PRN IV ELEVATED BLOOD PRESSURE Last administered on 10/14/16 06:11; Admin Dose 10 MG; Start 10/12/16 at 10:00 Pantoprazole (Protonix Iv) 40 mg BID@06,18 IV Last administered on 10/14/16 06: 11; Admin Dose 40 MG; Start 10/13/16 at 18:00 Furosemide (Lasix) 20 mg DAILY IV Last administered on 10/14/16 09:29; Admin Dose 20 MG; Start 10/13/16 at 19:00 Oxycodone HCl (Roxicodone) 5 mg Q4 PRN PO PAIN Last administered on 10/13/16 18 :46; Admin Dose 5 MG; Start 10/13/16 at 19:00 Lorazepam (Ativan) 0.5 mg Q4H PRN IV agitation Last administered on 10/14/16 07 :58; Admin Dose 0.5 MG; Start 10/14/16 at 02:20 Acetaminophen 650 mg 650 mg Q4H PRN GTB PAIN AND OR ELEVATED TEMP Last administered on 10/14/16 04:56; Admin Dose 650 MG; Start 10/14/16 at 03:00 Potassium Chloride (KCl 40 MEQ/250 ML NS) 250 ml @ 62.5 mls/hr Q4H IVPB Last administered on 10/14/16 09:29; Admin Dose 62.5 MLS/HR; Start 10/14/16 at 08:30; Stop 10/14/16 at 16:29 Hydromorphone HCl 1 mg 1 mg Q4H PRN IV PAIN Last administered on 10/14/16 09:49 ; Admin Dose 1 MG; Start 10/14/16 at 09:00 Dextrose 1,000 ml @ 100 mls/hr Q10H IV Last administered on 10/14/16 09:30; Admin Dose 100 MLS/HR; Start 10/14/16 at 09:00 Vancomycin HCl (Vancocin) 250 ml @ 125 mls/hr Q24H IVPB ; Start 10/14/16 at 14: 00 MORRIS BRADLEY NP Oct 14, 2016 12:01
--- NOTE | 2016-10-14 12:27 | PN ---
Date/Time of Note Date/Time of Note DATE: 10/14/16 TIME: 12:21 Assessment/Plan VTE Prophylaxis VTE Prophylaxis Intervention: other (thrombocytopenia) Lines/Catheters IV Catheter Type (from [facility]): PICC Line Central line still needed: Yes Urinary Cath still in place: Yes Reason Cath still needed: other (indicate) (obtundation) Assessment/Plan Assessment/Plan Discussed with nurse. Pt is poorly responsive. Family wants to focus on comfort measures, which is uite appropriate. K supplementation planned for the hypokalemia. No additional blood products suggested now. Subjective 24 Hr Interval Summary Free Text/Dictation Pt resting quietly. Chart reviewed. Exam/Review of Systems Vital Signs Vitals Vital Signs Date Time Temp Pulse Resp B/P Pulse Ox O2 Delivery O2 Flow Rate FiO2 10/14/16 11:00 86 11 116/65 99 Nasal Cannula 5.0 10/14/16 08:00 98.6 10/13/16 20:57 30 Intake and Output 10/13/16 10/13/16 10/14/16 15:00 23:00 07:00 Intake Total 1470 ml 1456.66 ml 720 ml Output Total 805 ml 1105 ml 300 ml Balance 665 ml 351.66 ml 420 ml Exam Constitutional: obese, other (no distress; comfortable appearing) ENMT: other (NG in place) Respiratory: other (no distress or tachypnea) Cardiovascular: regular rate and rhythm Neurological: other (poorly responsive) Results Result Diagram: 10/14/16 0600 10/14/16 0600 Results 24 hrs Laboratory Tests Test 10/13/16 13:20 10/13/16 14:50 10/14/16 06:00 10/14/16 07:00 White Blood Count 6.6 6.7 6.1 Red Blood Count 2.53 L 2.54 L 2.36 L Hemoglobin 8.4 L 8.0 L 7.5 L Hematocrit 24.5 L 24.5 L 23.2 L Mean Corpuscular Volume 96.8 96.5 98.3 Mean Corpuscular Hemoglobin 33.2 H 31.5 31.8 Mean Corpuscular Hemoglobin Concent 34.3 32.7 32.3 Red Cell Distribution Width 16.0 H 16.2 H 16.0 H Platelet Count 64 L 64 L 63 L Mean Platelet Volume 9.8 9.5 10.3 Neutrophils % 81.1 H 79.6 H 76.0 Lymphocytes % 9.0 L 10.0 L 11.0 L Monocytes % 5.9 7.3 7.5 Eosinophils % 0.9 1.0 2.8 Basophils % 0.2 0.0 0.2 Nucleated Red Blood Cells % 0.0 0.0 0.0 Neutrophils # 5.4 5.3 4.6 Lymphocytes # 0.6 L 0.7 L 0.7 L Monocytes # 0.4 0.5 0.5 Eosinophils # 0.1 0.1 0.2 Basophils # 0.0 0.0 0.0 Nucleated Red Blood Cells # 0.0 0.0 0.0 Prothrombin Time 22.8 #H 17.7 #H Prothrombin Time Ratio 1.8 1.4 INR International Normalized Ratio 1.99 1.45 Activated Partial Thromboplast Time 39.4 H 36.5 H Vancomycin Level Trough 12.5 Sodium Level 146 H 147 H Potassium Level 2.7 *L 2.8 *L Chloride Level 104 103 Carbon Dioxide Level 21 27 Anion Gap 24 H 20 H Blood Urea Nitrogen 32 H 29 H Creatinine 1.06 H 0.96 Glucose Level 160 101 # Calcium Level 9.1 9.4 Fibrinogen 219.0 # D-Dimer > 12242.00 H Phosphorus Level 3.3 Magnesium Level 1.7 Blood Gas Specimen Source Blood arterial Arterial Blood Date Drawn 10/14/2016 6:58:18 AM Arterial Blood pH (Temp corrected) 7.483 H Arterial Blood pCO2 (Temp correct) 30.6 L Arterial Blood pO2 (Temp corrected) 157.5 H Arterial Blood HCO3 22.4 Arterial Blood Base Excess -0.7 Arterial Blood Oxygen Saturation 98.4 Azael Test ACCEPTAB Arterial Blood Gas Puncture Site Right Radial Arterial Blood Carboxyhemoglobin 0.3 Arterial Blood Methemoglobin 0.5 Blood Gas A-a O2 Differential 85.3 H Oxyhemoglobin Percent 97.6 Total Hemoglobin 8.3 L Blood Gas Temperature 37.0 Blood Gas Modality NASAL CANNULA FiO2 39.0 Blood Gas Notified Whom TM Blood Gas Notified Time 10/14/2016 7:21:10 AM Test 10/14/16 07:45 10/14/16 08:07 10/14/16 11:35 Lab Scanned Report REFERENCE LAB REFERENCE LAB REFERENCE LAB Medications Medications Current Medications Labetalol HCl 10 mg 10 mg Q10M PRN IV ELEVATED BLOOD PRESSURE Last administered on 10/13/16 22:49; Admin Dose 10 MG; Start 10/09/16 at 09:00 Cefepime HCl (Maxipime 1gm/50 ml (Pmx)) 50 ml @ 100 mls/hr Q12 IVPB Last administered on 10/14/16 09:30; Admin Dose 100 MLS/HR; Start 10/09/16 at 10:30 Ondansetron HCl 4 mg 4 mg Q6H PRN IV NAUSEA AND/OR VOMITING Last administered on 10/12/16 21:50; Admin Dose 4 MG; Start 10/09/16 at 10:30 Levetiracetam (Keppra 500 Mg/ 100ml (Pmx)) 100 ml @ 400 mls/hr Q12 IVPB Last administered on 10/14/16 09:30; Admin Dose 400 MLS/HR; Start 10/09/16 at 21:00 IV Flush 10 ml 10 ml PRN PRN IV FLUSH LINE; Start 10/09/16 at 15:30 Potassium Chloride/Dextrose (KCl/D5W) 1,005 ml @ 100 mls/hr Q10H3M IV Last administered on 10/13/16 10:00; Admin Dose 75 MLS/HR; Start 10/10/16 at 15:00 Diphenhydramine HCl 25 mg 25 mg Q6H PRN IV ITCHING Last administered on 03:12; Admin Dose 25 MG; Start 10/11/16 at 13:00; Status Future Hold Metronidazole (Flagyl 500 Mg (Pmx)) 100 ml @ 100 mls/hr Q8 IVPB Last administered on 10/14/16 06:12; Admin Dose 100 MLS/HR; Start 10/11/16 at 22:00 Citric Acid/ Sodium Citrate (Bicitra) 30 ml BID PO Last administered on 21:15; Admin Dose 30 ML; Start 10/11/16 at 21:00 Docusate Sodium (Colace Liquid Cup) 100 mg BID NGT Last administered on 09:29; Admin Dose 100 MG; Start 10/11/16 at 21:28 Lactulose (Enulose) 20 gm Q8 PO Last administered on 10/14/16 06:11; Admin Dose 20 GM; Start 10/12/16 at 14:00 Hydralazine HCl (Apresoline) 10 mg Q4H PRN IV ELEVATED BLOOD PRESSURE Last administered on 10/14/16 06:11; Admin Dose 10 MG; Start 10/12/16 at 10:00 Pantoprazole (Protonix Iv) 40 mg BID@06,18 IV Last administered on 10/14/16 06: 11; Admin Dose 40 MG; Start 10/13/16 at 18:00 Furosemide (Lasix) 20 mg DAILY IV Last administered on 10/14/16 09:29; Admin Dose 20 MG; Start 10/13/16 at 19:00 Oxycodone HCl (Roxicodone) 5 mg Q4 PRN PO PAIN Last administered on 10/13/16 18 :46; Admin Dose 5 MG; Start 10/13/16 at 19:00 Lorazepam (Ativan) 0.5 mg Q4H PRN IV agitation Last administered on 10/14/16 07 :58; Admin Dose 0.5 MG; Start 10/14/16 at 02:20 Acetaminophen 650 mg 650 mg Q4H PRN GTB PAIN AND OR ELEVATED TEMP Last administered on 10/14/16 04:56; Admin Dose 650 MG; Start 10/14/16 at 03:00 Potassium Chloride (KCl 40 MEQ/250 ML NS) 250 ml @ 62.5 mls/hr Q4H IVPB Last administered on 10/14/16 09:29; Admin Dose 62.5 MLS/HR; Start 10/14/16 at 08:30; Stop 10/14/16 at 16:29 Hydromorphone HCl 1 mg 1 mg Q4H PRN IV PAIN Last administered on 10/14/16 09:49 ; Admin Dose 1 MG; Start 10/14/16 at 09:00 Dextrose 1,000 ml @ 100 mls/hr Q10H IV Last administered on 10/14/16 09:30; Admin Dose 100 MLS/HR; Start 10/14/16 at 09:00 Vancomycin HCl (Vancocin) 250 ml @ 125 mls/hr Q24H IVPB ; Start 10/14/16 at 14: 00 GEOFFREY SMITH MD Oct 14, 2016 12:27
[2016-10-14] MEDS ORDERED: VANCOMYCIN 1 GM (PMX) 250 ML IVPB SCH (14:00)
[2016-10-14 17:22] LABS: PLATELET ANTIBODY - IGA POSITIVE (NEGATIVE); PLATELET ANTIBODY - IGG NEGATIVE (NEGATIVE); PLATELET ANTIBODY - IGM NEGATIVE (NEGATIVE)
[2016-10-14 17:50] LABS: CALCIUM 8.8 mg/dl (8.4-10.2); CREATININE 1.05 mg/dl (0.44-1.00)
--- NOTE | 2016-10-14 17:54 | PN ---
Date/Time of Note Date/Time of Note DATE: 10/14/16 TIME: 17:52 Assessment/Plan VTE Prophylaxis VTE Prophylaxis Intervention: contraindicated VTE Contraindication Reason: bleeding Lines/Catheters IV Catheter Type (from Nrsg): PICC Line Central line still needed: Yes Urinary Cath still in place: Yes Reason Cath still needed: urinary retention Assessment/Plan Assessment/Plan Assessment/Plan 1. Right posterior frontal lobe parenchymal hematoma and moderate intraventricular hemorrhage. Repeat brain CT scan on 10-10-2016 showed interval appearance of right subdural hemorrhage mainly overlying right frontal lobe measuring up to 7 mm along with scattered bilateral foci of subarachnoid hemorrhages with interval increase and a 2 mm leftward midline shift. 2. Non-ST elevation myocardial infarction. 3. Sepsis secondary to underlying urinary tract infection. 5. Normocytic, normochromic anemia. Most probably anemia of chronic disease and also from underlying liver cirrhosis. Contributed by intraventricular hemorrhage 6. Thrombocytopenia. Most probably secondary to underlying liver cirrhosis. 7. Transaminitis with hyperbilirubinemia. Resolved. Most probably secondary to underlying liver cirrhosis. 8. Systemic lupus erythematosus. 9. Acute kidney injury. Etiology could be secondary to hemodynamics Versus contrast induced. Obtain nephrology consult. 10. Coagulopathy. Transfuse FFPs. Obtain hematology consult. Plan * continue present management * Monitor hemoglobin and hematocrit q 6 * repeat stool for occult blood * case was discussed with Dr Gold and Dr Kohli * further orders will depen on clinical course Subjective 24 Hr Interval Summary Free Text/Dictation * Course reviewed with RN * Patient seen and examined * no hematochezia nor hematemesis Exam/Review of Systems Vital Signs Vitals Vital Signs Date Time Temp Pulse Resp B/P Pulse Ox O2 Delivery O2 Flow Rate FiO2 10/14/16 17:00 85 15 129/80 99 Nasal Cannula 5.0 10/14/16 16:00 98.2 10/13/16 20:57 30 Intake and Output 10/13/16 10/13/16 10/14/16 15:00 23:00 07:00 Intake Total 1470 ml 1456.66 ml 895 ml Output Total 805 ml 1105 ml 300 ml Balance 665 ml 351.66 ml 595 ml Exam Constitutional: frail Head: normocephalic Neck: non-tender, supple Respiratory: diminished breath sounds, normal air movement Cardiovascular: nl pulses, regular rate and rhythm Gastrointestinal: nl liver, spleen, non-tender, soft Musculoskeletal: muscle weakness, swelling Extremities: edema Neurological: lethargic Skin: rash or lesions, No nl turgor Lymph: nl lymph nodes Results Result Diagram: 10/14/16 0600 10/14/16 0600 Results 24 hrs Laboratory Tests Test 10/14/16 06:00 10/14/16 07:00 10/14/16 07:45 10/14/16 08:07 White Blood Count 6.1 Red Blood Count 2.36 L Hemoglobin 7.5 L Hematocrit 23.2 L Mean Corpuscular Volume 98.3 Mean Corpuscular Hemoglobin 31.8 Mean Corpuscular Hemoglobin Concent 32.3 Red Cell Distribution Width 16.0 H Platelet Count 63 L Mean Platelet Volume 10.3 Neutrophils % 76.0 Lymphocytes % 11.0 L Monocytes % 7.5 Eosinophils % 2.8 Basophils % 0.2 Nucleated Red Blood Cells % 0.0 Neutrophils # 4.6 Lymphocytes # 0.7 L Monocytes # 0.5 Eosinophils # 0.2 Basophils # 0.0 Nucleated Red Blood Cells # 0.0 Prothrombin Time 17.7 #H Prothrombin Time Ratio 1.4 INR International Normalized Ratio 1.45 Activated Partial Thromboplast Time 36.5 H Fibrinogen 219.0 # D-Dimer > 49038.00 H Sodium Level 147 H Potassium Level 2.8 *L Chloride Level 103 Carbon Dioxide Level 27 Anion Gap 20 H Blood Urea Nitrogen 29 H Creatinine 0.96 Glucose Level 101 # Calcium Level 9.4 Phosphorus Level 3.3 Magnesium Level 1.7 Blood Gas Specimen Source Blood arterial Arterial Blood Date Drawn 10/14/2016 6:58:18 AM Arterial Blood pH (Temp corrected) 7.483 H Arterial Blood pCO2 (Temp correct) 30.6 L Arterial Blood pO2 (Temp corrected) 157.5 H Arterial Blood HCO3 22.4 Arterial Blood Base Excess -0.7 Arterial Blood Oxygen Saturation 98.4 Azael Test ACCEPTAB Arterial Blood Gas Puncture Site Right Radial Arterial Blood Carboxyhemoglobin 0.3 Arterial Blood Methemoglobin 0.5 Blood Gas A-a O2 Differential 85.3 H Oxyhemoglobin Percent 97.6 Total Hemoglobin 8.3 L Blood Gas Temperature 37.0 Blood Gas Modality NASAL CANNULA FiO2 39.0 Blood Gas Notified Whom TM Blood Gas Notified Time 10/14/2016 7:21:10 AM Lab Scanned Report REFERENCE LAB REFERENCE LAB Test 10/14/16 11:35 Lab Scanned Report REFERENCE LAB Medications Medications Current Medications Labetalol HCl 10 mg 10 mg Q10M PRN IV ELEVATED BLOOD PRESSURE Last administered on 10/13/16 22:49; Admin Dose 10 MG; Start 10/09/16 at 09:00 Cefepime HCl (Maxipime 1gm/50 ml (Pmx)) 50 ml @ 100 mls/hr Q12 IVPB Last administered on 10/14/16 09:30; Admin Dose 100 MLS/HR; Start 10/09/16 at 10:30 Ondansetron HCl 4 mg 4 mg Q6H PRN IV NAUSEA AND/OR VOMITING Last administered on 10/12/16 21:50; Admin Dose 4 MG; Start 10/09/16 at 10:30 Levetiracetam (Keppra 500 Mg/ 100ml (Pmx)) 100 ml @ 400 mls/hr Q12 IVPB Last administered on 10/14/16 09:30; Admin Dose 400 MLS/HR; Start 10/09/16 at 21:00 IV Flush 10 ml 10 ml PRN PRN IV FLUSH LINE; Start 10/09/16 at 15:30 Potassium Chloride/Dextrose (KCl/D5W) 1,005 ml @ 100 mls/hr Q10H3M IV Last administered on 10/14/16 13:35; Admin Dose 100 MLS/HR; Start 10/10/16 at 15:00 Diphenhydramine HCl 25 mg 25 mg Q6H PRN IV ITCHING Last administered on 03:12; Admin Dose 25 MG; Start 10/11/16 at 13:00; Status Future Hold Metronidazole (Flagyl 500 Mg (Pmx)) 100 ml @ 100 mls/hr Q8 IVPB Last administered on 10/14/16 14:59; Admin Dose 100 MLS/HR; Start 10/11/16 at 22:00 Citric Acid/ Sodium Citrate (Bicitra) 30 ml BID PO Last administered on 21:15; Admin Dose 30 ML; Start 10/11/16 at 21:00 Docusate Sodium (Colace Liquid Cup) 100 mg BID NGT Last administered on 09:29; Admin Dose 100 MG; Start 10/11/16 at 21:28 Lactulose (Enulose) 20 gm Q8 PO Last administered on 10/14/16 14:59; Admin Dose 20 GM; Start 10/12/16 at 14:00 Hydralazine HCl (Apresoline) 10 mg Q4H PRN IV ELEVATED BLOOD PRESSURE Last administered on 10/14/16 06:11; Admin Dose 10 MG; Start 10/12/16 at 10:00 Pantoprazole (Protonix Iv) 40 mg BID@06,18 IV Last administered on 10/14/16 17: 20; Admin Dose 40 MG; Start 10/13/16 at 18:00 Furosemide (Lasix) 20 mg DAILY IV Last administered on 10/14/16 09:29; Admin Dose 20 MG; Start 10/13/16 at 19:00 Oxycodone HCl (Roxicodone) 5 mg Q4 PRN PO PAIN Last administered on 10/13/16 18 :46; Admin Dose 5 MG; Start 10/13/16 at 19:00 Lorazepam (Ativan) 0.5 mg Q4H PRN IV agitation Last administered on 10/14/16 12 :24; Admin Dose 0.5 MG; Start 10/14/16 at 02:20 Acetaminophen (Tylenol Liquid) 650 mg Q4H PRN GTB PAIN AND OR ELEVATED TEMP Last administered on 10/14/16 04:56; Admin Dose 650 MG; Start 10/14/16 at 03:00 Hydromorphone HCl 1 mg 1 mg Q4H PRN IV PAIN Last administered on 10/14/16 09:49 ; Admin Dose 1 MG; Start 10/14/16 at 09:00 Dextrose 1,000 ml @ 100 mls/hr Q10H IV Last administered on 10/14/16 09:30; Admin Dose 100 MLS/HR; Start 10/14/16 at 09:00 Vancomycin HCl 250 ml @ 125 mls/hr Q24H IVPB Last administered on 10/14/16 14: 59; Admin Dose 125 MLS/HR; Start 10/14/16 at 14:00 Magnesium Sulfate/ Dextrose (Magnesium Sulfate 1 Gm/D5W) 100 ml @ 100 mls/hr ONCE ONCE IVPB ; Start 10/14/16 at 18:00; Stop 10/14/16 at 18:59 MICHAEL BRANDON NP Oct 14, 2016 17:54
[2016-10-14] MEDS ORDERED: MAGNESIUM SULFATE 1 GM/D5W 100 ML IVPB ONE (18:00)
--- NOTE | 2016-10-14 18:36 | CONS ---
Date/Time of Note Date/Time of Note DATE: 10/14/16 TIME: 18:33 Consult Date/Type/Reason Admit Date/Time Oct 09, 2016 at 08:26 Initial Consult Date 10/10/16 Type of Consultation: neuro Ordering Provider: MILTON FARIAS Subjective worsening of MS, lethargy, same CT findings Objective Vital Signs Date Time Temp Pulse Resp B/P Pulse Ox O2 Delivery O2 Flow Rate FiO2 10/14/16 18:09 5.0 10/14/16 18:00 87 15 133/82 100 Nasal Cannula 10/14/16 16:00 98.2 10/13/16 20:57 30 Intake and Output 10/13/16 10/13/16 10/14/16 15:00 23:00 07:00 Intake Total 1470 ml 1456.66 ml 895 ml Output Total 805 ml 1105 ml 270 ml Balance 665 ml 351.66 ml 625 ml Results/Medications Result Diagram: 10/14/16 0600 10/14/16 1725 Results 24 hrs Laboratory Tests Test 10/14/16 06:00 10/14/16 07:00 10/14/16 07:45 10/14/16 08:07 White Blood Count 6.1 Red Blood Count 2.36 L Hemoglobin 7.5 L Hematocrit 23.2 L Mean Corpuscular Volume 98.3 Mean Corpuscular Hemoglobin 31.8 Mean Corpuscular Hemoglobin Concent 32.3 Red Cell Distribution Width 16.0 H Platelet Count 63 L Mean Platelet Volume 10.3 Neutrophils % 76.0 Lymphocytes % 11.0 L Monocytes % 7.5 Eosinophils % 2.8 Basophils % 0.2 Nucleated Red Blood Cells % 0.0 Neutrophils # 4.6 Lymphocytes # 0.7 L Monocytes # 0.5 Eosinophils # 0.2 Basophils # 0.0 Nucleated Red Blood Cells # 0.0 Prothrombin Time 17.7 #H Prothrombin Time Ratio 1.4 INR International Normalized Ratio 1.45 Activated Partial Thromboplast Time 36.5 H Fibrinogen 219.0 # D-Dimer > 73132.00 H Sodium Level 147 H Potassium Level 2.8 *L Chloride Level 103 Carbon Dioxide Level 27 Anion Gap 20 H Blood Urea Nitrogen 29 H Creatinine 0.96 Glucose Level 101 # Calcium Level 9.4 Phosphorus Level 3.3 Magnesium Level 1.7 Blood Gas Specimen Source Blood arterial Arterial Blood Date Drawn 10/14/2016 6:58:18 AM Arterial Blood pH (Temp corrected) 7.483 H Arterial Blood pCO2 (Temp correct) 30.6 L Arterial Blood pO2 (Temp corrected) 157.5 H Arterial Blood HCO3 22.4 Arterial Blood Base Excess -0.7 Arterial Blood Oxygen Saturation 98.4 Azael Test ACCEPTAB Arterial Blood Gas Puncture Site Right Radial Arterial Blood Carboxyhemoglobin 0.3 Arterial Blood Methemoglobin 0.5 Blood Gas A-a O2 Differential 85.3 H Oxyhemoglobin Percent 97.6 Total Hemoglobin 8.3 L Blood Gas Temperature 37.0 Blood Gas Modality NASAL CANNULA FiO2 39.0 Blood Gas Notified Whom TM Blood Gas Notified Time 10/14/2016 7:21:10 AM Lab Scanned Report REFERENCE LAB REFERENCE LAB Test 10/14/16 11:35 10/14/16 17:25 Lab Scanned Report REFERENCE LAB Sodium Level 140 Potassium Level 4.0 Chloride Level 107 Carbon Dioxide Level 26 Anion Gap 11 # Blood Urea Nitrogen 29 H Creatinine 1.05 H Glucose Level 126 Calcium Level 8.8 Medications Current Medications Labetalol HCl 10 mg 10 mg Q10M PRN IV ELEVATED BLOOD PRESSURE Last administered on 10/13/16 22:49; Admin Dose 10 MG; Start 10/09/16 at 09:00 Cefepime HCl (Maxipime 1gm/50 ml (Pmx)) 50 ml @ 100 mls/hr Q12 IVPB Last administered on 10/14/16 09:30; Admin Dose 100 MLS/HR; Start 10/09/16 at 10:30 Ondansetron HCl 4 mg 4 mg Q6H PRN IV NAUSEA AND/OR VOMITING Last administered on 10/12/16 21:50; Admin Dose 4 MG; Start 10/09/16 at 10:30 Levetiracetam (Keppra 500 Mg/ 100ml (Pmx)) 100 ml @ 400 mls/hr Q12 IVPB Last administered on 10/14/16 09:30; Admin Dose 400 MLS/HR; Start 10/09/16 at 21:00 IV Flush 10 ml 10 ml PRN PRN IV FLUSH LINE; Start 10/09/16 at 15:30 Potassium Chloride/Dextrose (KCl/D5W) 1,005 ml @ 100 mls/hr Q10H3M IV Last administered on 10/14/16 13:35; Admin Dose 100 MLS/HR; Start 10/10/16 at 15:00 Diphenhydramine HCl 25 mg 25 mg Q6H PRN IV ITCHING Last administered on 03:12; Admin Dose 25 MG; Start 10/11/16 at 13:00; Status Future Hold Metronidazole (Flagyl 500 Mg (Pmx)) 100 ml @ 100 mls/hr Q8 IVPB Last administered on 10/14/16 14:59; Admin Dose 100 MLS/HR; Start 10/11/16 at 22:00 Citric Acid/ Sodium Citrate (Bicitra) 30 ml BID PO Last administered on 21:15; Admin Dose 30 ML; Start 10/11/16 at 21:00 Docusate Sodium (Colace Liquid Cup) 100 mg BID NGT Last administered on 09:29; Admin Dose 100 MG; Start 10/11/16 at 21:28 Lactulose (Enulose) 20 gm Q8 PO Last administered on 10/14/16 14:59; Admin Dose 20 GM; Start 10/12/16 at 14:00 Hydralazine HCl (Apresoline) 10 mg Q4H PRN IV ELEVATED BLOOD PRESSURE Last administered on 10/14/16 06:11; Admin Dose 10 MG; Start 10/12/16 at 10:00 Pantoprazole (Protonix Iv) 40 mg BID@06,18 IV Last administered on 10/14/16 17: 20; Admin Dose 40 MG; Start 10/13/16 at 18:00 Furosemide (Lasix) 20 mg DAILY IV Last administered on 10/14/16 09:29; Admin Dose 20 MG; Start 10/13/16 at 19:00 Oxycodone HCl (Roxicodone) 5 mg Q4 PRN PO PAIN Last administered on 10/13/16 18 :46; Admin Dose 5 MG; Start 10/13/16 at 19:00 Lorazepam (Ativan) 0.5 mg Q4H PRN IV agitation Last administered on 10/14/16 12 :24; Admin Dose 0.5 MG; Start 10/14/16 at 02:20 Acetaminophen (Tylenol Liquid) 650 mg Q4H PRN GTB PAIN AND OR ELEVATED TEMP Last administered on 10/14/16 04:56; Admin Dose 650 MG; Start 10/14/16 at 03:00 Hydromorphone HCl 1 mg 1 mg Q4H PRN IV PAIN Last administered on 10/14/16 09:49 ; Admin Dose 1 MG; Start 10/14/16 at 09:00 Dextrose 1,000 ml @ 100 mls/hr Q10H IV Last administered on 10/14/16 09:30; Admin Dose 100 MLS/HR; Start 10/14/16 at 09:00 Vancomycin HCl 250 ml @ 125 mls/hr Q24H IVPB Last administered on 10/14/16 14: 59; Admin Dose 125 MLS/HR; Start 10/14/16 at 14:00 Magnesium Sulfate/ Dextrose (Magnesium Sulfate 1 Gm/D5W) 100 ml @ 100 mls/hr ONCE ONCE IVPB Last administered on 10/14/16 18:22; Admin Dose 100 MLS/HR; Start 10/14/16 at 18:00; Stop 10/14/16 at 18:59 Assessment/Plan Chief Complaint/Hosp Course NEUROLOGIC EXAMINATION: She is lethargic, not arousable, does follow commands. Cranial nerve examination shows no response to threat. Pupils round, reactive to light sluggishly from 3 to 2 mm bilaterally. Extraocular movements intact without nystagmus. Symmetrical face. Preserved facial strength, corneals and gag OK. Tongue is in midline. Palate elevates symmetrically. Motor strength examination trace of movements in 0-1/5 on the left, decreased tone, normal bulk. Withdraws right side to pain. Deep tendon reflexes 2+ UE, knees, no ankle jerks, equivocal rsponse to plantar stimultion on the right, upgoing on the left. IMPRESSION: Acute intracerebral, subdural and intraventricular hemorrhage. Serial CT stable. Worsening of neurostatus. Continue keppra. Keep normotensive. DNR now Problems: FIGUEROA MENDEZ MD Oct 14, 2016 18:36
[2016-10-14] MEDS: CITRIC ACID/NA CITRATE 30 ML CUP PO SCH (21:00)
[2016-10-15] VITALS (22 sets, daily range): BP systolic 110–151; BP diastolic 57–101; PULSE 86–98; RESP 10–26
[2016-10-15] MEDS: POTASSIUM CHLORIDE 10 MEQ in DEXTROSE 5% 1,000 ML IV SCH (01:56)
[2016-10-15] MEDS: HYDROmorphONE 1 MG/ML SYG IV PRN ×4 (04:23→21:56)
[2016-10-15] MEDS: PANTOPRAZOLE 40 MG INJ IV SCH (05:48)
[2016-10-15] MEDS: LACTULOSE 30ML CUP PO SCH (05:48)
[2016-10-15] MEDS: metroNIDAZOLE 500 MG/NS (PMX) 100 ML IVPB SCH (05:48)
[2016-10-15 05:58] LABS: ADD SCAN DIFF NO
[2016-10-15 06:01] LABS: ABNORMAL IP MESSAGE 1; BASOPHILS % 0.4 % (0.0-2.0); EOSINOPHILS # 0.3 10^3/ul (0.0-0.5); EOSINOPHILS % 3.5 % (0.0-7.0); HEMATOCRIT 25.8 % (37.0-47.0); HEMOGLOBIN 8.7 g/dl (12.0-16.0); LYMPHOCYTES # 0.6 10^3/ul (0.8-2.9); LYMPHOCYTES % 6.4 % (15.0-51.0); MEAN CORPUSCULAR HEMOGLOBIN 33.1 pg (29.0-33.0); MEAN CORPUSCULAR HGB CONC 33.7 g/dl (32.0-37.0); MEAN CORPUSCULAR VOLUME 98.1 fl (82.0-101.0); MEAN PLATELET VOLUME 10.7 fl (7.4-10.4); MONOCYTE # 0.7 10^3/ul (0.3-0.9); MONOCYTES % 8.5 % (0.0-11.0); NEUTROPHIL # 6.7 10^3/ul (1.6-7.5); NEUTROPHILS % 78.5 % (39.0-77.0); RED BLOOD COUNT 2.63 10^6/ul (4.20-5.40); RED CELL DISTRIBUTION WIDTH 15.8 % (11.5-14.5); WHITE BLOOD COUNT 8.6 10^3/ul (4.8-10.8)
[2016-10-15 06:25] LABS: CALCIUM 8.6 mg/dl (8.4-10.2); CREATININE 0.97 mg/dl (0.44-1.00); POTASSIUM 3.9 mmol/L (3.5-5.1)
[2016-10-15 06:53] LABS: PLATELET COUNT 67 10^3/UL (140-415)
[2016-10-15 07:52] LABS: AADO2 Arterial 74.1 mmHg (7.0-24.0); Allen Test ACCEPTAB; Arterial Base Excess -2.3 mmol/L (-3.0-3); Arterial COHb 0.3 % (0.0-3.0); Arterial Fraction of Oxyhgb 97.5 % (93.0-99.0); Arterial HCO3 22.6 mmol/L (22.0-26.0); Arterial MetHb 0.3 % (0.0-1.5); Arterial Total Hemglobin 9.6 g/dl (12.0-18.0); MODE NASAL CANNULA
[2016-10-15] MEDS: CITRIC ACID/NA CITRATE 30 ML CUP PO SCH (08:46)
[2016-10-15] MEDS: DOCUSATE SODIUM 10 MG/ML (10ML CUP) NGT SCH (08:47)
[2016-10-15] MEDS: CEFEPIME 1GM/50 ML (PMX) 50 ML IVPB SCH (08:47)
[2016-10-15] MEDS: FUROSEMIDE 20 MG INJ IV SCH (08:47)
--- NOTE | 2016-10-15 09:32 | PN ---
Date/Time of Note Date/Time of Note DATE: 10/15/16 TIME: 09:29 Assessment/Plan VTE Prophylaxis VTE Prophylaxis Intervention: SCD's Lines/Catheters IV C[facility] Type ([facility] PICC Line Central line still needed: Yes Urinary Cath still in place: Yes Reason Cath still needed: urinary retention Assessment/Plan Chief Complaint/Hosp Course A/P: 75-year-old female with past medical history of essential hypertension, systemic lupus erythematosus, hypothyroidism, and liver cirrhosis not because of alcohol abuse who was brought to the emergency room after the patient was found on the floor at home - found with Right posterior frontal lobe parenchymal hematoma and moderate intraventricular hemorrhage. 1. Right posterior frontal lobe parenchymal hematoma and moderate intraventricular hemorrhage. Repeat brain CT scan on 10-10-2016 showed interval appearance of right subdural hemorrhage mainly overlying right frontal lobe measuring up to 7 mm along with scattered bilateral foci of subarachnoid hemorrhages with interval increase and a 2 mm leftward midline shift. 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 S/P multiple plt and FFP transfusions in the last few days as well. - Avoid activities that increase intracranial pressure. - f/u Neuro and Neurosurgery rec's - no surgery at this time - Continue tight blood pressure control. - continue Keppra - now pt is DNR/DNI - blood products as needed, monitor INR 2. Non-ST elevation myocardial infarction. Most probably a type II event from underlying ischemia versus from underlying sepsis and worsening renal function. Troponins normalized. - f/u Cardiology rec's 3. Sepsis - secondary to underlying urinary tract infection. Ucx = + E coli. Blood cx 1/2 bottles also + coag (-) staph. - Continue antibiotics, f/u final cx results - f/u Infectious diseases rec's, continue IV fluids. 4. Essential hypertension. The patient's blood pressure will be tightly controlled. - monitor 5. Normocytic, normochromic anemia. Most probably anemia of chronic disease and also from underlying liver cirrhosis. S/p pRBC transfusion. - Will monitor the H&H closely. Will transfuse blood products as needed. 6. Thrombocytopenia - likely sec to cirrhosis. S/p plt transfusion earlier this admission - Monitor for any further bleeding. - Transfuse platelets as necessary. 7. Transaminitis with hyperbilirubinemia. Resolved. Most probably secondary to underlying liver cirrhosis. - Monitor. Trend LFTs. Avoid hepatotoxic medications. 8. Systemic lupus erythematosus. Will monitor. 9. Hypothyroidism. Will resume Synthroid once the patient is able take oral intake. 10. Acute kidney injury. Etiology could be secondary to hemodynamics versus contrast induced. Obtain nephrology consult. 11. Coagulopathy. S/p FFPs given earlier this admission. - monitor INR, f/u hematology rec's 12. Fluids, electrolytes, and nutrition. N.p.o. until swallow evaluation. Continue IV fluids. 13. DVT prophylaxis. Bilateral sequential compression devices. 14. Gastrointestinal prophylaxis. Proton pump inhibitors. Pt now DNR/DNI. Family meeting with palliative team scheduled for today. Critical care time: 45 minutes. Problems: Subjective 24 Hr Interval Summary Free Text/Dictation Pt still with decreased mental status. Exam/Review of Systems Vital Signs Vitals Vital Signs Date Time Temp Pulse Resp B/P Pulse Ox O2 Delivery O2 Flow Rate FiO2 10/15/16 08:00 91 10/15/16 06:00 11 131/73 93 Nasal Cannula 4.0 10/15/16 04:00 98.2 10/15/16 02:17 33 Intake and Output 10/14/16 10/14/16 10/15/16 15:00 23:00 07:00 Intake Total 1765.0 ml 1350.0 ml 1005 ml Output Total 165 ml 190 ml 260 ml Balance 1600.0 ml 1160.0 ml 745 ml Exam General: lying in bed, family at bedside, minimally responsive HEENT: Normocephalic, atraumatic. Eyes: Anicteric sclerae, conjunctivae clear. ENT: Nasal septum midline, oral mucosa moist. Neck supple, no JVD noticed. Respiratory: Bilaterally slightly decreased breath sounds. No use of accessory muscles of respiration. No adventitious breath sounds. Cardiovascular: S1, S2 heard. No murmurs or gallops. Abdomen: Soft and nondistended. Bowel sounds positive in all 4 quadrants. less diffuse tenderness in the abdomen Extremities: No cyanosis, no clubbing, no edema. Peripheral pulses palpable. Neurologic: The patient is awake, alert, and oriented. Slurred speech. some left-sided facial droop. Left upper extremity no movement against gravity. Right lower extremity no movement against gravity. No sensation in the left lower extremity. Skin: Normal skin turgor. No skin rashes. Results Result Diagram: 10/15/16 0435 10/15/16 0435 Results 24 hrs Laboratory Tests Test 10/14/16 11:35 10/14/16 17:25 10/15/16 00:45 10/15/16 04:35 Lab Scanned Report REFERENCE LAB Sodium Level 140 139 Potassium Level 4.0 3.9 Chloride Level 107 102 Carbon Dioxide Level 26 27 Anion Gap 11 # 14 Blood Urea Nitrogen 29 H 29 H Creatinine 1.05 H 0.97 Glucose Level 126 118 Calcium Level 8.8 8.6 Blood Gas Specimen Source Blood arterial Arterial Blood Date Drawn 10/15/2016 12:55:29 AM Arterial Blood pH (Temp corrected) 7.376 Arterial Blood pCO2 (Temp correct) 39.5 Arterial Blood pO2 (Temp corrected) 136.8 H Arterial Blood HCO3 22.6 Arterial Blood Base Excess -2.3 Arterial Blood Oxygen Saturation 98.1 Azael Test ACCEPTAB Arterial Blood Gas Puncture Site Right Radial Arterial Blood Carboxyhemoglobin 0.3 Arterial Blood Methemoglobin 0.3 Blood Gas A-a O2 Differential 74.1 H Oxyhemoglobin Percent 97.5 Total Hemoglobin 9.6 L Blood Gas Temperature 37.0 Blood Gas Modality NASAL CANNULA FiO2 36.0 Blood Gas Notified Whom MA Blood Gas Notified Time 10/15/2016 1:04:29 AM White Blood Count 8.6 # Red Blood Count 2.63 L Hemoglobin 8.7 L Hematocrit 25.8 L Mean Corpuscular Volume 98.1 Mean Corpuscular Hemoglobin 33.1 H Mean Corpuscular Hemoglobin Concent 33.7 Red Cell Distribution Width 15.8 H Platelet Count 67 L Mean Platelet Volume 10.7 H Neutrophils % 78.5 H Lymphocytes % 6.4 L Monocytes % 8.5 Eosinophils % 3.5 Basophils % 0.4 Nucleated Red Blood Cells % 0.0 Neutrophils # 6.7 Lymphocytes # 0.6 L Monocytes # 0.7 Eosinophils # 0.3 Basophils # 0.0 Nucleated Red Blood Cells # 0.0 Ammonia 49 H Test 10/15/16 04:38 Lab Scanned Report BLOOD TRANSFUSION Medications Medications Current Medications Labetalol HCl 10 mg 10 mg Q10M PRN IV ELEVATED BLOOD PRESSURE Last administered on 10/13/16 22:49; Admin Dose 10 MG; Start 10/09/16 at 09:00 Cefepime HCl (Maxipime 1gm/50 ml (Pmx)) 50 ml @ 100 mls/hr Q12 IVPB Last administered on 10/15/16 08:47; Admin Dose 100 MLS/HR; Start 10/09/16 at 10:30 Ondansetron HCl 4 mg 4 mg Q6H PRN IV NAUSEA AND/OR VOMITING Last administered on 10/12/16 21:50; Admin Dose 4 MG; Start 10/09/16 at 10:30 Levetiracetam (Keppra 500 Mg/ 100ml (Pmx)) 100 ml @ 400 mls/hr Q12 IVPB Last administered on 10/14/16 21:00; Admin Dose 400 MLS/HR; Start 10/09/16 at 21:00 IV Flush 10 ml 10 ml PRN PRN IV FLUSH LINE; Start 10/09/16 at 15:30 Potassium Chloride/Dextrose (KCl/D5W) 1,005 ml @ 100 mls/hr Q10H3M IV Last administered on 10/15/16 01:56; Admin Dose 100 MLS/HR; Start 10/10/16 at 15:00 Diphenhydramine HCl 25 mg 25 mg Q6H PRN IV ITCHING Last administered on 03:12; Admin Dose 25 MG; Start 10/11/16 at 13:00; Status Future Hold Metronidazole (Flagyl 500 Mg (Pmx)) 100 ml @ 100 mls/hr Q8 IVPB Last administered on 10/15/16 05:48; Admin Dose 100 MLS/HR; Start 10/11/16 at 22:00 Citric Acid/ Sodium Citrate (Bicitra) 30 ml BID PO Last administered on 08:46; Admin Dose 30 ML; Start 10/11/16 at 21:00 Docusate Sodium (Colace Liquid Cup) 100 mg BID NGT Last administered on 08:47; Admin Dose 100 MG; Start 10/11/16 at 21:28 Lactulose (Enulose) 20 gm Q8 PO Last administered on 10/15/16 05:48; Admin Dose 20 GM; Start 10/12/16 at 14:00 Hydralazine HCl (Apresoline) 10 mg Q4H PRN IV ELEVATED BLOOD PRESSURE Last administered on 10/14/16 06:11; Admin Dose 10 MG; Start 10/12/16 at 10:00 Pantoprazole (Protonix Iv) 40 mg BID@06,18 IV Last administered on 10/15/16 05: 48; Admin Dose 40 MG; Start 10/13/16 at 18:00 Furosemide (Lasix) 20 mg DAILY IV Last administered on 10/15/16 08:47; Admin Dose 20 MG; Start 10/13/16 at 19:00 Oxycodone HCl (Roxicodone) 5 mg Q4 PRN PO PAIN Last administered on 10/13/16 18 :46; Admin Dose 5 MG; Start 10/13/16 at 19:00 Lorazepam (Ativan) 0.5 mg Q4H PRN IV agitation Last administered on 10/14/16 12 :24; Admin Dose 0.5 MG; Start 10/14/16 at 02:20 Acetaminophen (Tylenol Liquid) 650 mg Q4H PRN GTB PAIN AND OR ELEVATED TEMP Last administered on 10/14/16 04:56; Admin Dose 650 MG; Start 10/14/16 at 03:00 Hydromorphone HCl 1 mg 1 mg Q4H PRN IV PAIN Last administered on 10/15/16 04:23 ; Admin Dose 1 MG; Start 10/14/16 at 09:00 Vancomycin HCl (Vancocin) 250 ml @ 125 mls/hr Q24H IVPB Last administered on 14:59; Admin Dose 125 MLS/HR; Start 10/14/16 at 14:00 YANELI CHAVEZ Oct 15, 2016 09:32
[2016-10-15] MEDS: LEVETIRACETAM 500 MG (PMX) 100 ML IVPB SCH (09:53)
--- NOTE | 2016-10-15 10:25 | CONS ---
Date/Time of Note Date/Time of Note DATE: 10/15/16 TIME: 10:21 Assessment/Plan Assessment/Plan Chief Complaint/Hosp Course 1. Positive troponin - not a candidate for intervention or anti-coagulation, conservative care now - NO INTERVENTION PLANNED. VS stable. Now trended negative 2. Acute right posterior frontal lobe parenchymal hematoma and moderate intraventricular hemorrhage - now expanding, FFP Rx 3. Acute kidney injury due to ATN From sepsis with metabolic acidosis - avoid nephrotoxic meds - BETTER now 4. Bacteremia with Blood cx growing GNR - on anti-bx 5. Essential hypertension 6. ETOH Liver Cirrhosis associated w/thrombocytopenia, transaminitis, hyperbilirubinemia 7. Normocytic, normochromic anemia 8. Hypothyroidism REcc: -Tele -serial ecg's -Continue abx's and f/u cx data -Follow BP closely -Gentle lasix diuresis and follow volume status closely -Now DNR -Family meeting pnding to discuss direction of care Problems: Consultation Date/Type/Reason Admit Date/Time Oct 09, 2016 at 08:26 Initial Consult Date 10/10/16 Type of Consultation: cardiology Reason for Consultation positive troponin Referring Provider: MILTON FARIAS Exam/Review of Systems Vital Signs Vitals Vital Signs Date Time Temp Pulse Resp B/P Pulse Ox O2 Delivery O2 Flow Rate FiO2 10/15/16 08:00 91 10/15/16 06:00 11 131/73 93 Nasal Cannula 4.0 10/15/16 04:00 98.2 10/15/16 02:17 33 Intake and Output 10/14/16 10/14/16 10/15/16 15:00 23:00 07:00 Intake Total 1765.0 ml 1350.0 ml 1005 ml Output Total 165 ml 190 ml 260 ml Balance 1600.0 ml 1160.0 ml 745 ml Exam Review of Systems: CONSTITUTIONAL: No fevers, chills. PULMONARY: intubated CARDIOVASCULAR: No obvious chest pain/palpitations GASTROINTESTINAL: No nausea/vomiting. GENITOURINARY: No hematuria/dysuria. MUSCULOSKELETAL: No obvious myagias/arthalgias. PSYCHIATRIC: No documented depression. NEUROLOGIC: encephalopathic Constitutional: other (encephalopathic) Psych: no complaints Head: normocephalic ENMT: mucosa pink and moist Neck: jvd (8 cm water), supple Respiratory: diminished breath sounds (at bases/B) Cardiovascular: regular rate and rhythm Gastrointestinal: non-tender, soft Musculoskeletal: muscle tone (normal) Extremities: edema (none) Neurological: unresponsive Results Result Diagram: 10/15/16 0435 10/15/16 0435 Results 24 hrs Laboratory Tests Test 10/14/16 11:35 10/14/16 17:25 10/15/16 00:45 10/15/16 04:35 Lab Scanned Report REFERENCE LAB Sodium Level 140 139 Potassium Level 4.0 3.9 Chloride Level 107 102 Carbon Dioxide Level 26 27 Anion Gap 11 # 14 Blood Urea Nitrogen 29 H 29 H Creatinine 1.05 H 0.97 Glucose Level 126 118 Calcium Level 8.8 8.6 Blood Gas Specimen Source Blood arterial Arterial Blood Date Drawn 10/15/2016 12:55:29 AM Arterial Blood pH (Temp corrected) 7.376 Arterial Blood pCO2 (Temp correct) 39.5 Arterial Blood pO2 (Temp corrected) 136.8 H Arterial Blood HCO3 22.6 Arterial Blood Base Excess -2.3 Arterial Blood Oxygen Saturation 98.1 Azael Test ACCEPTAB Arterial Blood Gas Puncture Site Right Radial Arterial Blood Carboxyhemoglobin 0.3 Arterial Blood Methemoglobin 0.3 Blood Gas A-a O2 Differential 74.1 H Oxyhemoglobin Percent 97.5 Total Hemoglobin 9.6 L Blood Gas Temperature 37.0 Blood Gas Modality NASAL CANNULA FiO2 36.0 Blood Gas Notified Whom MA Blood Gas Notified Time 10/15/2016 1:04:29 AM White Blood Count 8.6 # Red Blood Count 2.63 L Hemoglobin 8.7 L Hematocrit 25.8 L Mean Corpuscular Volume 98.1 Mean Corpuscular Hemoglobin 33.1 H Mean Corpuscular Hemoglobin Concent 33.7 Red Cell Distribution Width 15.8 H Platelet Count 67 L Mean Platelet Volume 10.7 H Neutrophils % 78.5 H Lymphocytes % 6.4 L Monocytes % 8.5 Eosinophils % 3.5 Basophils % 0.4 Nucleated Red Blood Cells % 0.0 Neutrophils # 6.7 Lymphocytes # 0.6 L Monocytes # 0.7 Eosinophils # 0.3 Basophils # 0.0 Nucleated Red Blood Cells # 0.0 Ammonia 49 H Test 10/15/16 04:38 Lab Scanned Report BLOOD TRANSFUSION Medications Medications Current Medications Labetalol HCl 10 mg 10 mg Q10M PRN IV ELEVATED BLOOD PRESSURE Last administered on 10/13/16 22:49; Admin Dose 10 MG; Start 10/09/16 at 09:00 Cefepime HCl (Maxipime 1gm/50 ml (Pmx)) 50 ml @ 100 mls/hr Q12 IVPB Last administered on 10/15/16 08:47; Admin Dose 100 MLS/HR; Start 10/09/16 at 10:30 Ondansetron HCl 4 mg 4 mg Q6H PRN IV NAUSEA AND/OR VOMITING Last administered on 10/12/16 21:50; Admin Dose 4 MG; Start 10/09/16 at 10:30 Levetiracetam (Keppra 500 Mg/ 100ml (Pmx)) 100 ml @ 400 mls/hr Q12 IVPB Last administered on 10/15/16 09:53; Admin Dose 400 MLS/HR; Start 10/09/16 at 21:00 IV Flush 10 ml 10 ml PRN PRN IV FLUSH LINE; Start 10/09/16 at 15:30 Potassium Chloride/Dextrose (KCl/D5W) 1,005 ml @ 100 mls/hr Q10H3M IV Last administered on 10/15/16 01:56; Admin Dose 100 MLS/HR; Start 10/10/16 at 15:00 Diphenhydramine HCl 25 mg 25 mg Q6H PRN IV ITCHING Last administered on 03:12; Admin Dose 25 MG; Start 10/11/16 at 13:00; Status Future Hold Metronidazole (Flagyl 500 Mg (Pmx)) 100 ml @ 100 mls/hr Q8 IVPB Last administered on 10/15/16 05:48; Admin Dose 100 MLS/HR; Start 10/11/16 at 22:00 Citric Acid/ Sodium Citrate (Bicitra) 30 ml BID PO Last administered on 08:46; Admin Dose 30 ML; Start 10/11/16 at 21:00 Docusate Sodium (Colace Liquid Cup) 100 mg BID NGT Last administered on 08:47; Admin Dose 100 MG; Start 10/11/16 at 21:28 Lactulose (Enulose) 20 gm Q8 PO Last administered on 10/15/16 05:48; Admin Dose 20 GM; Start 10/12/16 at 14:00 Hydralazine HCl (Apresoline) 10 mg Q4H PRN IV ELEVATED BLOOD PRESSURE Last administered on 10/14/16 06:11; Admin Dose 10 MG; Start 10/12/16 at 10:00 Pantoprazole (Protonix Iv) 40 mg BID@06,18 IV Last administered on 10/15/16 05: 48; Admin Dose 40 MG; Start 10/13/16 at 18:00 Furosemide (Lasix) 20 mg DAILY IV Last administered on 10/15/16 08:47; Admin Dose 20 MG; Start 10/13/16 at 19:00 Oxycodone HCl (Roxicodone) 5 mg Q4 PRN PO PAIN Last administered on 10/13/16 18 :46; Admin Dose 5 MG; Start 10/13/16 at 19:00 Acetaminophen (Tylenol Liquid) 650 mg Q4H PRN GTB PAIN AND OR ELEVATED TEMP Last administered on 10/14/16 04:56; Admin Dose 650 MG; Start 10/14/16 at 03:00 Hydromorphone HCl 1 mg 1 mg Q4H PRN IV PAIN Last administered on 10/15/16 09:55 ; Admin Dose 1 MG; Start 10/14/16 at 09:00 Vancomycin HCl (Vancocin) 250 ml @ 125 mls/hr Q24H IVPB Last administered on 14:59; Admin Dose 125 MLS/HR; Start 10/14/16 at 14:00 Lorazepam (Ativan) 0.5 mg Q6H PRN IV agitation; Start 10/15/16 at 12:20 EMBER BIRD Oct 15, 2016 10:25
--- NOTE | 2016-10-15 11:19 | PN ---
Date/Time of Note Date/Time of Note DATE: 10/15/16 TIME: 11:15 Assessment/Plan VTE Prophylaxis VTE Prophylaxis Intervention: contraindicated Lines/Catheters [facility] P[facility] Line Central line still needed: Yes Urinary Cath still in place: Yes Reason Cath still needed: urinary retention Assessment/Plan Assessment/Plan 1. Right posterior frontal lobe parenchymal hematoma and moderate intraventricular hemorrhage. Repeat brain CT scan on 10-10-2016 showed interval appearance of right subdural hemorrhage mainly overlying right frontal lobe measuring up to 7 mm along with scattered bilateral foci of subarachnoid hemorrhages with interval increase and a 2 mm leftward midline shift. 2. Non-ST elevation myocardial infarction. 3. Sepsis secondary to underlying urinary tract infection. 5. Normocytic, normochromic anemia. Most probably anemia of chronic disease and also from underlying liver cirrhosis. Contributed by intraventricular hemorrhage 6. Thrombocytopenia. Most probably secondary to underlying liver cirrhosis. 7. Transaminitis with hyperbilirubinemia. Resolved. Most probably secondary to underlying liver cirrhosis. 8. Systemic lupus erythematosus. 9. Acute kidney injury. Etiology could be secondary to hemodynamics Versus contrast induced. Obtain nephrology consult. 10. Coagulopathy. Transfuse FFPs. Obtain hematology consult. Plan * continue present management * Monitor hemoglobin and hematocrit q 6 * repeat stool for occult blood * case was discussed with Dr Gold and Dr Kohli * further orders will depen on clinical course Subjective 24 Hr Interval Summary Free Text/Dictation * Course reviewed with RN * No active bleeding * latest hemoglobin 8.7 from 7.5 Exam/Review of Systems Vital Signs Vitals Vital Signs Date Time Temp Pulse Resp B/P Pulse Ox O2 Delivery O2 Flow Rate FiO2 10/15/16 10:00 92 18 130/79 99 Nasal Cannula 4.0 10/15/16 08:00 98.6 10/15/16 02:17 33 Intake and Output 10/14/16 10/14/16 10/15/16 15:00 23:00 07:00 Intake Total 1765.0 ml 1350.0 ml 1005 ml Output Total 165 ml 190 ml 280 ml Balance 1600.0 ml 1160.0 ml 725 ml Exam Constitutional: frail ENMT: mucosa pink and moist Neck: non-tender, supple Respiratory: normal air movement Cardiovascular: nl pulses, regular rate and rhythm Gastrointestinal: non-tender, soft Musculoskeletal: nl extremities to inspection, No nl gait and stance Extremities: normal pulses Neurological: unresponsive Lymph: nl lymph nodes Results Result Diagram: 10/15/16 0435 10/15/16 0435 Results 24 hrs Laboratory Tests Test 10/14/16 11:35 10/14/16 17:25 10/15/16 00:45 10/15/16 04:35 Lab Scanned Report REFERENCE LAB Sodium Level 140 139 Potassium Level 4.0 3.9 Chloride Level 107 102 Carbon Dioxide Level 26 27 Anion Gap 11 # 14 Blood Urea Nitrogen 29 H 29 H Creatinine 1.05 H 0.97 Glucose Level 126 118 Calcium Level 8.8 8.6 Blood Gas Specimen Source Blood arterial Arterial Blood Date Drawn 10/15/2016 12:55:29 AM Arterial Blood pH (Temp corrected) 7.376 Arterial Blood pCO2 (Temp correct) 39.5 Arterial Blood pO2 (Temp corrected) 136.8 H Arterial Blood HCO3 22.6 Arterial Blood Base Excess -2.3 Arterial Blood Oxygen Saturation 98.1 Azael Test ACCEPTAB Arterial Blood Gas Puncture Site Right Radial Arterial Blood Carboxyhemoglobin 0.3 Arterial Blood Methemoglobin 0.3 Blood Gas A-a O2 Differential 74.1 H Oxyhemoglobin Percent 97.5 Total Hemoglobin 9.6 L Blood Gas Temperature 37.0 Blood Gas Modality NASAL CANNULA FiO2 36.0 Blood Gas Notified Whom MA Blood Gas Notified Time 10/15/2016 1:04:29 AM White Blood Count 8.6 # Red Blood Count 2.63 L Hemoglobin 8.7 L Hematocrit 25.8 L Mean Corpuscular Volume 98.1 Mean Corpuscular Hemoglobin 33.1 H Mean Corpuscular Hemoglobin Concent 33.7 Red Cell Distribution Width 15.8 H Platelet Count 67 L Mean Platelet Volume 10.7 H Neutrophils % 78.5 H Lymphocytes % 6.4 L Monocytes % 8.5 Eosinophils % 3.5 Basophils % 0.4 Nucleated Red Blood Cells % 0.0 Neutrophils # 6.7 Lymphocytes # 0.6 L Monocytes # 0.7 Eosinophils # 0.3 Basophils # 0.0 Nucleated Red Blood Cells # 0.0 Ammonia 49 H Test 10/15/16 04:38 Lab Scanned Report BLOOD TRANSFUSION Medications Medications Current Medications Labetalol HCl 10 mg 10 mg Q10M PRN IV ELEVATED BLOOD PRESSURE Last administered on 10/13/16t 22:49; Admin Dose 10 MG; Start 10/09/16 at 09:00 Cefepime HCl (Maxipime 1gm/50 ml (Pmx)) 50 ml @ 100 mls/hr Q12 IVPB Last administered on 10/15/16 08:47; Admin Dose 100 MLS/HR; Start 10/09/16 at 10:30 Ondansetron HCl 4 mg 4 mg Q6H PRN IV NAUSEA AND/OR VOMITING Last administered on 10/12/16 21:50; Admin Dose 4 MG; Start 10/09/16 at 10:30 Levetiracetam (Keppra 500 Mg/ 100ml (Pmx)) 100 ml @ 400 mls/hr Q12 IVPB Last administered on 10/15/16 09:53; Admin Dose 400 MLS/HR; Start 10/09/16 at 21:00 IV Flush 10 ml 10 ml PRN PRN IV FLUSH LINE; Start 10/09/16 at 15:30 Potassium Chloride/Dextrose (KCl/D5W) 1,005 ml @ 100 mls/hr Q10H3M IV Last administered on 10/15/16 01:56; Admin Dose 100 MLS/HR; Start 10/10/16 at 15:00 Diphenhydramine HCl 25 mg 25 mg Q6H PRN IV ITCHING Last administered on 03:12; Admin Dose 25 MG; Start 10/11/16 at 13:00; Status Future Hold Metronidazole (Flagyl 500 Mg (Pmx)) 100 ml @ 100 mls/hr Q8 IVPB Last administered on 10/15/16 05:48; Admin Dose 100 MLS/HR; Start 10/11/16 at 22:00 Citric Acid/ Sodium Citrate (Bicitra) 30 ml BID PO Last administered on 08:46; Admin Dose 30 ML; Start 10/11/16 at 21:00 Docusate Sodium (Colace Liquid Cup) 100 mg BID NGT Last administered on 08:47; Admin Dose 100 MG; Start 10/11/16 at 21:28 Lactulose (Enulose) 20 gm Q8 PO Last administered on 10/15/16 05:48; Admin Dose 20 GM; Start 10/12/16 at 14:00 Hydralazine HCl (Apresoline) 10 mg Q4H PRN IV ELEVATED BLOOD PRESSURE Last administered on 10/14/16 06:11; Admin Dose 10 MG; Start 10/12/16 at 10:00 Pantoprazole (Protonix Iv) 40 mg BID@06,18 IV Last administered on 10/15/16 05: 48; Admin Dose 40 MG; Start 10/13/16 at 18:00 Furosemide (Lasix) 20 mg DAILY IV Last administered on 10/15/16 08:47; Admin Dose 20 MG; Start 10/13/16 at 19:00 Oxycodone HCl (Roxicodone) 5 mg Q4 PRN PO PAIN Last administered on 10/13/16 18 :46; Admin Dose 5 MG; Start 10/13/16 at 19:00 Acetaminophen (Tylenol Liquid) 650 mg Q4H PRN GTB PAIN AND OR ELEVATED TEMP Last administered on 10/14/16 04:56; Admin Dose 650 MG; Start 10/14/16 at 03:00 Hydromorphone HCl 1 mg 1 mg Q4H PRN IV PAIN Last administered on 10/15/16 09:55 ; Admin Dose 1 MG; Start 10/14/16 at 09:00 Vancomycin HCl (Vancocin) 250 ml @ 125 mls/hr Q24H IVPB Last administered on 14:59; Admin Dose 125 MLS/HR; Start 10/14/16 at 14:00 Lorazepam (Ativan) 0.5 mg Q6H PRN IV agitation; Start 10/15/16 at 12:20 MICHAEL BRANDON NP Oct 15, 2016 11:19
--- NOTE | 2016-10-15 11:25 | PN ---
Date/Time of Note Date/Time of Note DATE: 10/15/16 TIME: 11:16 Assessment/Plan VTE Prophylaxis VTE Prophylaxis Intervention: contraindicated VTE Contraindication Reason: hemorrhagic cerebral infarction, thrombocytopenia Lines/Catheters IV Catheter Type (from [facility]): PICC Line Central line still needed: Yes Urinary Cath still in place: Yes Reason Cath still needed: urinary retention Assessment/Plan Chief Complaint/Hosp Course [employer] bleed. 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 Problems: (1) Thrombocytopenia Status: Acute (2) Intraparenchymal hemorrhage of brain Status: Acute (3) Cirrhosis of liver Status: Chronic Qualifiers: Hepatic cirrhosis type: unspecified hepatic cirrhosis (4) UTI (urinary tract infection) Status: Acute (5) Gram-positive bacteremia Status: Acute (6) Acute left-sided weakness Status: Acute (7) SLE (systemic lupus erythematosus) Status: Acute Qualifiers: Systemic lupus erythematosus type: unspecified Systemic lupus erythematosus organ involvement: unspecified Qualified Code: M32.9 - Systemic lupus erythematosus, unspecified SLE type, unspecified organ involvement status (8) Hepatic encephalopathy Status: Acute Assessment/Plan Pt is hematologically stable. Platelet count moderately decreased but stable for several days. 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 D-Dimer remains markedly elevated, but fibrinogen and PT/PTT remain adequate. Will continue to monitor. Subjective 24 Hr Interval Summary Free Text/Dictation Unable to get any information from pt. Subjective hx not possible: pt non-verbal Exam/Review of Systems Vital Signs Vitals Vital Signs Date Time Temp Pulse Resp B/P Pulse Ox O2 Delivery O2 Flow Rate FiO2 10/15/16 10:00 92 18 130/79 99 Nasal Cannula 4.0 10/15/16 08:00 98.6 10/15/16 02:17 33 Intake and Output 10/14/16 10/14/16 10/15/16 15:00 23:00 07:00 Intake Total 1765.0 ml 1350.0 ml 1105 ml Output Total 165 ml 190 ml 280 ml Balance 1600.0 ml 1160.0 ml 825 ml Exam Constitutional: non-verbal, obese Head: atraumatic, normocephalic Eyes: PERRL, nl sclera ENMT: nl external ears & nose, nl lips & teeth Neck: non-tender, supple Respiratory: clear to auscultation, normal air movement Cardiovascular: nl pulses, regular rate and rhythm Gastrointestinal: nl liver, spleen, soft Musculoskeletal: nl extremities to inspection, nl gait and stance Extremities: normal pulses, other (PICC in LUE) Neurological: lethargic, other (Lt facial droop) Skin: nl turgor, rash or lesions Results Result Diagram: 10/15/16 0435 10/15/16 0435 Results 24 hrs Laboratory Tests Test 10/14/16 11:35 10/14/16 17:25 10/15/16 00:45 10/15/16 04:35 Lab Scanned Report REFERENCE LAB Sodium Level 140 139 Potassium Level 4.0 3.9 Chloride Level 107 102 Carbon Dioxide Level 26 27 Anion Gap 11 # 14 Blood Urea Nitrogen 29 H 29 H Creatinine 1.05 H 0.97 Glucose Level 126 118 Calcium Level 8.8 8.6 Blood Gas Specimen Source Blood arterial Arterial Blood Date Drawn 10/15/2016 12:55:29 AM Arterial Blood pH (Temp corrected) 7.376 Arterial Blood pCO2 (Temp correct) 39.5 Arterial Blood pO2 (Temp corrected) 136.8 H Arterial Blood HCO3 22.6 Arterial Blood Base Excess -2.3 Arterial Blood Oxygen Saturation 98.1 Azael Test ACCEPTAB Arterial Blood Gas Puncture Site Right Radial Arterial Blood Carboxyhemoglobin 0.3 Arterial Blood Methemoglobin 0.3 Blood Gas A-a O2 Differential 74.1 H Oxyhemoglobin Percent 97.5 Total Hemoglobin 9.6 L Blood Gas Temperature 37.0 Blood Gas Modality NASAL CANNULA FiO2 36.0 Blood Gas Notified Whom MA Blood Gas Notified Time 10/15/2016 1:04:29 AM White Blood Count 8.6 # Red Blood Count 2.63 L Hemoglobin 8.7 L Hematocrit 25.8 L Mean Corpuscular Volume 98.1 Mean Corpuscular Hemoglobin 33.1 H Mean Corpuscular Hemoglobin Concent 33.7 Red Cell Distribution Width 15.8 H Platelet Count 67 L Mean Platelet Volume 10.7 H Neutrophils % 78.5 H Lymphocytes % 6.4 L Monocytes % 8.5 Eosinophils % 3.5 Basophils % 0.4 Nucleated Red Blood Cells % 0.0 Neutrophils # 6.7 Lymphocytes # 0.6 L Monocytes # 0.7 Eosinophils # 0.3 Basophils # 0.0 Nucleated Red Blood Cells # 0.0 Ammonia 49 H Test 10/15/16 04:38 Lab Scanned Report BLOOD TRANSFUSION Medications Medications Current Medications Labetalol HCl 10 mg 10 mg Q10M PRN IV ELEVATED BLOOD PRESSURE Last administered on 10/13/16 22:49; Admin Dose 10 MG; Start 10/09/16 at 09:00 Cefepime HCl (Maxipime 1gm/50 ml (Pmx)) 50 ml @ 100 mls/hr Q12 IVPB Last administered on 10/15/16 08:47; Admin Dose 100 MLS/HR; Start 10/09/16 at 10:30 Ondansetron HCl 4 mg 4 mg Q6H PRN IV NAUSEA AND/OR VOMITING Last administered on 10/12/16 21:50; Admin Dose 4 MG; Start 10/09/16 at 10:30 Levetiracetam (Keppra 500 Mg/ 100ml (Pmx)) 100 ml @ 400 mls/hr Q12 IVPB Last administered on 10/15/16 09:53; Admin Dose 400 MLS/HR; Start 10/09/16 at 21:00 IV Flush 10 ml 10 ml PRN PRN IV FLUSH LINE; Start 10/09/16 at 15:30 Potassium Chloride/Dextrose (KCl/D5W) 1,005 ml @ 100 mls/hr Q10H3M IV Last administered on 10/15/16 01:56; Admin Dose 100 MLS/HR; Start 10/10/16 at 15:00 Diphenhydramine HCl 25 mg 25 mg Q6H PRN IV ITCHING Last administered on 03:12; Admin Dose 25 MG; Start 10/11/16 at 13:00; Status Future Hold Metronidazole (Flagyl 500 Mg (Pmx)) 100 ml @ 100 mls/hr Q8 IVPB Last administered on 10/15/16 05:48; Admin Dose 100 MLS/HR; Start 10/11/16 at 22:00 Citric Acid/ Sodium Citrate (Bicitra) 30 ml BID PO Last administered on 08:46; Admin Dose 30 ML; Start 10/11/16 at 21:00 Docusate Sodium (Colace Liquid Cup) 100 mg BID NGT Last administered on 08:47; Admin Dose 100 MG; Start 10/11/16 at 21:28 Lactulose (Enulose) 20 gm Q8 PO Last administered on 10/15/16 05:48; Admin Dose 20 GM; Start 10/12/16 at 14:00 Hydralazine HCl (Apresoline) 10 mg Q4H PRN IV ELEVATED BLOOD PRESSURE Last administered on 10/14/16 06:11; Admin Dose 10 MG; Start 10/12/16 at 10:00 Pantoprazole (Protonix Iv) 40 mg BID@06,18 IV Last administered on 10/15/16 05: 48; Admin Dose 40 MG; Start 10/13/16 at 18:00 Furosemide (Lasix) 20 mg DAILY IV Last administered on 10/15/16 08:47; Admin Dose 20 MG; Start 10/13/16 at 19:00 Oxycodone HCl (Roxicodone) 5 mg Q4 PRN PO PAIN Last administered on 10/13/16 18 :46; Admin Dose 5 MG; Start 10/13/16 at 19:00 Acetaminophen (Tylenol Liquid) 650 mg Q4H PRN GTB PAIN AND OR ELEVATED TEMP Last administered on 10/14/16 04:56; Admin Dose 650 MG; Start 10/14/16 at 03:00 Hydromorphone HCl 1 mg 1 mg Q4H PRN IV PAIN Last administered on 10/15/16 09:55 ; Admin Dose 1 MG; Start 10/14/16 at 09:00 Vancomycin HCl (Vancocin) 250 ml @ 125 mls/hr Q24H IVPB Last administered on 14:59; Admin Dose 125 MLS/HR; Start 10/14/16 at 14:00 Lorazepam (Ativan) 0.5 mg Q6H PRN IV agitation; Start 10/15/16 at 12:20 OVIDIO RODRIGUEZ MD Oct 15, 2016 11:25
--- NOTE | 2016-10-15 11:55 | CONS ---
Date/Time of Note Date/Time of Note DATE: 10/15/16 TIME: 11:52 Consult Date/Type/Reason Admit Date/Time Oct 09, 2016 at 08:26 Initial Consult Date 10/13/16 Type of Consultation: Pulmonary ICU Ordering Provider: MILTON FARIAS Subjective Patient is comfortable nasal cannula this morning no respiratory distress Objective Vital Signs Date Time Temp Pulse Resp B/P Pulse Ox O2 Delivery O2 Flow Rate FiO2 10/15/16 10:00 92 18 130/79 99 Nasal Cannula 4.0 10/15/16 08:00 98.6 10/15/16 02:17 33 Intake and Output 10/14/16 10/14/16 10/15/16 15:00 23:00 07:00 Intake Total 1765.0 ml 1350.0 ml 1105 ml Output Total 165 ml 190 ml 280 ml Balance 1600.0 ml 1160.0 ml 825 ml Exam PHYSICAL EXAMINATION GENERAL: Elderly lady somnolent on nasal cannula oxygen VITAL SIGNS: see below. HEENT: Pupils equal, round, and reactive to light. CARDIAC: S1, S2, 1/6 systolic ejection murmur CHEST: Diminished air entry bilaterally. ABDOMEN: Mildly distended. Bowel sounds present no guarding or rebound EXTREMITIES: No cyanosis, clubbing edema +1 NEUROLOGIC: Generalized weakness Results/Medications Result Diagram: 10/15/16 0435 10/15/16 0435 Results 24 hrs Laboratory Tests Test 10/14/16 17:25 10/15/16 00:45 10/15/16 04:35 10/15/16 04:38 Sodium Level 140 139 Potassium Level 4.0 3.9 Chloride Level 107 102 Carbon Dioxide Level 26 27 Anion Gap 11 # 14 Blood Urea Nitrogen 29 H 29 H Creatinine 1.05 H 0.97 Glucose Level 126 118 Calcium Level 8.8 8.6 Blood Gas Specimen Source Blood arterial Arterial Blood Date Drawn 10/15/2016 12:55:29 AM Arterial Blood pH (Temp corrected) 7.376 Arterial Blood pCO2 (Temp correct) 39.5 Arterial Blood pO2 (Temp corrected) 136.8 H Arterial Blood HCO3 22.6 Arterial Blood Base Excess -2.3 Arterial Blood Oxygen Saturation 98.1 Azael Test ACCEPTAB Arterial Blood Gas Puncture Site Right Radial Arterial Blood Carboxyhemoglobin 0.3 Arterial Blood Methemoglobin 0.3 Blood Gas A-a O2 Differential 74.1 H Oxyhemoglobin Percent 97.5 Total Hemoglobin 9.6 L Blood Gas Temperature 37.0 Blood Gas Modality NASAL CANNULA FiO2 36.0 Blood Gas Notified Whom ABNER Blood Gas Notified Time 10/15/2016 1:04:29 AM White Blood Count 8.6 # Red Blood Count 2.63 L Hemoglobin 8.7 L Hematocrit 25.8 L Mean Corpuscular Volume 98.1 Mean Corpuscular Hemoglobin 33.1 H Mean Corpuscular Hemoglobin Concent 33.7 Red Cell Distribution Width 15.8 H Platelet Count 67 L Mean Platelet Volume 10.7 H Neutrophils % 78.5 H Lymphocytes % 6.4 L Monocytes % 8.5 Eosinophils % 3.5 Basophils % 0.4 Nucleated Red Blood Cells % 0.0 Neutrophils # 6.7 Lymphocytes # 0.6 L Monocytes # 0.7 Eosinophils # 0.3 Basophils # 0.0 Nucleated Red Blood Cells # 0.0 Ammonia 49 H Lab Scanned Report BLOOD TRANSFUSION Medications Current Medications Labetalol HCl 10 mg 10 mg Q10M PRN IV ELEVATED BLOOD PRESSURE Last administered on 10/13/16 22:49; Admin Dose 10 MG; Start 10/09/16 at 09:00 Cefepime HCl (Maxipime 1gm/50 ml (Pmx)) 50 ml @ 100 mls/hr Q12 IVPB Last administered on 10/15/16 08:47; Admin Dose 100 MLS/HR; Start 10/09/16 at 10:30 Ondansetron HCl 4 mg 4 mg Q6H PRN IV NAUSEA AND/OR VOMITING Last administered on 10/12/16 21:50; Admin Dose 4 MG; Start 10/09/16 at 10:30 Levetiracetam (Keppra 500 Mg/ 100ml (Pmx)) 100 ml @ 400 mls/hr Q12 IVPB Last administered on 10/15/16 09:53; Admin Dose 400 MLS/HR; Start 10/09/16 at 21:00 IV Flush 10 ml 10 ml PRN PRN IV FLUSH LINE; Start 10/09/16 at 15:30 Potassium Chloride/Dextrose (KCl/D5W) 1,005 ml @ 100 mls/hr Q10H3M IV Last administered on 10/15/16 01:56; Admin Dose 100 MLS/HR; Start 10/10/16 at 15:00 Diphenhydramine HCl 25 mg 25 mg Q6H PRN IV ITCHING Last administered on 03:12; Admin Dose 25 MG; Start 10/11/16 at 13:00; Status Future Hold Metronidazole (Flagyl 500 Mg (Pmx)) 100 ml @ 100 mls/hr Q8 IVPB Last administered on 10/15/16 05:48; Admin Dose 100 MLS/HR; Start 10/11/16 at 22:00 Citric Acid/ Sodium Citrate (Bicitra) 30 ml BID PO Last administered on 08:46; Admin Dose 30 ML; Start 10/11/16 at 21:00 Docusate Sodium (Colace Liquid Cup) 100 mg BID NGT Last administered on 08:47; Admin Dose 100 MG; Start 10/11/16 at 21:28 Lactulose (Enulose) 20 gm Q8 PO Last administered on 10/15/16 05:48; Admin Dose 20 GM; Start 10/12/16 at 14:00 Hydralazine HCl (Apresoline) 10 mg Q4H PRN IV ELEVATED BLOOD PRESSURE Last administered on 10/14/16 06:11; Admin Dose 10 MG; Start 10/12/16 at 10:00 Pantoprazole (Protonix Iv) 40 mg BID@06,18 IV Last administered on 10/15/16 05: 48; Admin Dose 40 MG; Start 10/13/16 at 18:00 Furosemide (Lasix) 20 mg DAILY IV Last administered on 10/15/16 08:47; Admin Dose 20 MG; Start 10/13/16 at 19:00 Oxycodone HCl (Roxicodone) 5 mg Q4 PRN PO PAIN Last administered on 10/13/16 18 :46; Admin Dose 5 MG; Start 10/13/16 at 19:00 Acetaminophen (Tylenol Liquid) 650 mg Q4H PRN GTB PAIN AND OR ELEVATED TEMP Last administered on 10/14/16 04:56; Admin Dose 650 MG; Start 10/14/16 at 03:00 Hydromorphone HCl 1 mg 1 mg Q4H PRN IV PAIN Last administered on 10/15/16 09:55 ; Admin Dose 1 MG; Start 10/14/16 at 09:00 Vancomycin HCl (Vancocin) 250 ml @ 125 mls/hr Q24H IVPB Last administered on t 14:59; Admin Dose 125 MLS/HR; Start 10/14/16 at 14:00 Lorazepam (Ativan) 0.5 mg Q6H PRN IV agitation; Start 10/15/16 at 12:20 Assessment/Plan Additional Assessment/Plan Additional Assessment/Plan 1. Hypoxemic respiratory failure likely secondary to pneumonia and pulmonary edema., Clinically improved. 2. Acute intraventricular and subarachnoid bleed. Not surgical candidate. 3. Coagulopathy with thrombocytopenia 4. Probable acute GI bleed 5. Non-ST elevation CT 6. Recent renal insufficiency 7. History of systemic lupus erythematous 8. Gram-negative UTI 9. History of cirrhosis etiology unknown 10. Hypokalemia Plan 1. Continue aspiration precautions nasal cannula 2. Continue broad-spectrum antibiotic coverage 3. Supplemental O2 4. Gentle hydration Transfer to [facility] family wish no aggressive measures. SANTIAGO MORENO MD, [facility] Oct 15, 2016 11:55
--- NOTE | 2016-10-15 12:30 | CONS ---
Date/Time of Note Date/Time of Note DATE: 10/15/16 TIME: 12:28 Assessment/Plan Assessment/Plan Chief Complaint/Hosp Course No acute events overnight. Patient is lethargic, looks comfortable. Family at bedside Vital signs: Temperature 98.6 pulse 91 respirations 12 blood pressure 129/75 saturation 98 on 4 L nasal cannula. Laboratory data: WBC 8.6 H&H 8.7 and 25.8 platelets 67 neutrophils 78.5 BUN 29 creatinine 0.97 Indwelling: Left upper extremity PICC line, Lucio catheter, NG tube Antimicrobials: Flagyl Vanco cefepime Diagnostics: CT of the abdomen and pelvis on admission revealed mild thickening of the colon representing nonspecific infectious/inflammatory colitis. Cirrhotic liver. Mild by basilar atelectasis. Physical examination: Obese, well-developed elderly woman who is lethargic, arousable, in no distress. Head atraumatic, normocephalic, sclera nonicteric. Neck is obese. Trachea midline. Chest rise symmetrical, breath sounds clear, diminished bases. Abdomen soft. Bowel tones present. Extremities without cyanosis. Assessment: #1. Acute intracerebral, subdural and intraventricular hemorrhage==> neurology follows #2. Urinary tract infection #3. Coag negative staph bacteremia, consistent with contaminant #4. Encephalopathy #5. Liver cirrhosis #6. Systemic lupus erythematosus #7. Non-ST elevation SC #8. Colitis per CT of the abdomen #9. Pneumonia Plan: Remains unchanged, repeat blood cultures and stool for C. difficile came back negative, continue present care, antibiotics, family to decide regarding realistic goals of care Discussed with staff Problems: Consultation Date/Type/Reason Admit Date/Time Oct 09, 2016 at 08:26 Initial Consult Date 10/10/16 Type of Consultation: ID Referring Provider: MILTON FARIAS Exam/Review of Systems Vital Signs Vitals Vital Signs Date Time Temp Pulse Resp B/P Pulse Ox O2 Delivery O2 Flow Rate FiO2 10/15/16 10:00 92 18 130/79 99 Nasal Cannula 4.0 10/15/16 08:00 98.6 10/15/16 02:17 33 Intake and Output 10/14/16 10/14/16 10/15/16 15:00 23:00 07:00 Intake Total 1765.0 ml 1350.0 ml 1105 ml Output Total 165 ml 190 ml 280 ml Balance 1600.0 ml 1160.0 ml 825 ml Results Result Diagram: 10/15/16 0435 10/15/16 0435 Results 24 hrs Laboratory Tests Test 10/14/16 17:25 10/15/16 00:45 10/15/16 04:35 10/15/16 04:38 Sodium Level 140 139 Potassium Level 4.0 3.9 Chloride Level 107 102 Carbon Dioxide Level 26 27 Anion Gap 11 # 14 Blood Urea Nitrogen 29 H 29 H Creatinine 1.05 H 0.97 Glucose Level 126 118 Calcium Level 8.8 8.6 Blood Gas Specimen Source Blood arterial Arterial Blood Date Drawn 10/15/2016 12:55:29 AM Arterial Blood pH (Temp corrected) 7.376 Arterial Blood pCO2 (Temp correct) 39.5 Arterial Blood pO2 (Temp corrected) 136.8 H Arterial Blood HCO3 22.6 Arterial Blood Base Excess -2.3 Arterial Blood Oxygen Saturation 98.1 Azael Test ACCEPTAB Arterial Blood Gas Puncture Site Right Radial Arterial Blood Carboxyhemoglobin 0.3 Arterial Blood Methemoglobin 0.3 Blood Gas A-a O2 Differential 74.1 H Oxyhemoglobin Percent 97.5 Total Hemoglobin 9.6 L Blood Gas Temperature 37.0 Blood Gas Modality NASAL CANNULA FiO2 36.0 Blood Gas Notified Whom MA Blood Gas Notified Time 10/15/2016 1:04:29 AM White Blood Count 8.6 # Red Blood Count 2.63 L Hemoglobin 8.7 L Hematocrit 25.8 L Mean Corpuscular Volume 98.1 Mean Corpuscular Hemoglobin 33.1 H Mean Corpuscular Hemoglobin Concent 33.7 Red Cell Distribution Width 15.8 H Platelet Count 67 L Mean Platelet Volume 10.7 H Neutrophils % 78.5 H Lymphocytes % 6.4 L Monocytes % 8.5 Eosinophils % 3.5 Basophils % 0.4 Nucleated Red Blood Cells % 0.0 Neutrophils # 6.7 Lymphocytes # 0.6 L Monocytes # 0.7 Eosinophils # 0.3 Basophils # 0.0 Nucleated Red Blood Cells # 0.0 Ammonia 49 H Lab Scanned Report BLOOD TRANSFUSION Medications Medications Current Medications Labetalol HCl 10 mg 10 mg Q10M PRN IV ELEVATED BLOOD PRESSURE Last administered on 10/13/16t 22:49; Admin Dose 10 MG; Start 10/09/16 at 09:00 Cefepime HCl (Maxipime 1gm/50 ml (Pmx)) 50 ml @ 100 mls/hr Q12 IVPB Last administered on 10/15/16 08:47; Admin Dose 100 MLS/HR; Start 10/09/16 at 10:30 Ondansetron HCl 4 mg 4 mg Q6H PRN IV NAUSEA AND/OR VOMITING Last administered on 10/12/16 21:50; Admin Dose 4 MG; Start 10/09/16 at 10:30 Levetiracetam (Keppra 500 Mg/ 100ml (Pmx)) 100 ml @ 400 mls/hr Q12 IVPB Last administered on 10/15/16 09:53; Admin Dose 400 MLS/HR; Start 10/09/16 at 21:00 IV Flush 10 ml 10 ml PRN PRN IV FLUSH LINE; Start 10/09/16 at 15:30 Potassium Chloride/Dextrose (KCl/D5W) 1,005 ml @ 100 mls/hr Q10H3M IV Last administered on 10/15/16 01:56; Admin Dose 100 MLS/HR; Start 10/10/16 at 15:00 Diphenhydramine HCl 25 mg 25 mg Q6H PRN IV ITCHING Last administered on 03:12; Admin Dose 25 MG; Start 10/11/16 at 13:00; Status Future Hold Metronidazole (Flagyl 500 Mg (Pmx)) 100 ml @ 100 mls/hr Q8 IVPB Last administered on 10/15/16 05:48; Admin Dose 100 MLS/HR; Start 10/11/16 at 22:00 Citric Acid/ Sodium Citrate (Bicitra) 30 ml BID PO Last administered on 08:46; Admin Dose 30 ML; Start 10/11/16 at 21:00 Docusate Sodium (Colace Liquid Cup) 100 mg BID NGT Last administered on 08:47; Admin Dose 100 MG; Start 10/11/16 at 21:28 Lactulose (Enulose) 20 gm Q8 PO Last administered on 10/15/16 05:48; Admin Dose 20 GM; Start 10/12/16 at 14:00 Hydralazine HCl (Apresoline) 10 mg Q4H PRN IV ELEVATED BLOOD PRESSURE Last administered on 10/14/16 06:11; Admin Dose 10 MG; Start 10/12/16 at 10:00 Pantoprazole (Protonix Iv) 40 mg BID@06,18 IV Last administered on 10/15/16 05: 48; Admin Dose 40 MG; Start 10/13/16 at 18:00 Furosemide (Lasix) 20 mg DAILY IV Last administered on 10/15/16 08:47; Admin Dose 20 MG; Start 10/13/16 at 19:00 Oxycodone HCl (Roxicodone) 5 mg Q4 PRN PO PAIN Last administered on 10/13/16 18 :46; Admin Dose 5 MG; Start 10/13/16 at 19:00 Acetaminophen (Tylenol Liquid) 650 mg Q4H PRN GTB PAIN AND OR ELEVATED TEMP Last administered on 10/14/16 04:56; Admin Dose 650 MG; Start 10/14/16 at 03:00 Hydromorphone HCl 1 mg 1 mg Q4H PRN IV PAIN Last administered on 10/15/16 09:55 ; Admin Dose 1 MG; Start 10/14/16 at 09:00 Vancomycin HCl (Vancocin) 250 ml @ 125 mls/hr Q24H IVPB Last administered on 14:59; Admin Dose 125 MLS/HR; Start 10/14/16 at 14:00 Lorazepam (Ativan) 0.5 mg Q6H PRN IV agitation; Start 10/15/16 at 12:20 MORRIS BRADLEY NP Oct 15, 2016 12:30
--- NOTE | 2016-10-15 12:39 | CONS ---
Date/Time of Note Date/Time of Note DATE: 10/15/16 TIME: 12:35 Assessment/Plan Assessment/Plan Chief Complaint/Hosp Course Intracerebral hemorrhage, subdural and intraventricular hemorrhage Problems: Additional Assessment/Plan 75-year-old female with past medical history of essential hypertension , systemic lupus erythematosus, hypothyroidism, and liver cirrhosis admitted after found on the floor at home. Her evaluation shows Right posterior frontal lobe parenchymal hematoma and moderate intraventricular hemorrhage. IMPRESSION: 1. Acute intracerebral, subdural and intraventricular hemorrhage. [address] stable. 3 Worsening of neurostatus. 4 Continue keppra. 5 Keep normotensive. 6 DNR now Consultation Date/Type/Reason Admit Date/Time Oct 09, 2016 at 08:26 Initial Consult Date 10/13/16 Type of Consultation: ID Referring Provider: MILTON FARIAS 24 HR Interval Summary Free Text/Dictation Clinically unchanged. Unresponsive Exam/Review of Systems Vital Signs Vitals Vital Signs Date Time Temp Pulse Resp B/P Pulse Ox O2 Delivery O2 Flow Rate FiO2 10/15/16 10:00 92 18 130/79 99 Nasal Cannula 4.0 10/15/16 08:00 98.6 10/15/16 02:17 33 Intake and Output 10/14/16 10/14/16 10/15/16 15:00 23:00 07:00 Intake Total 1765.0 ml 1350.0 ml 1105 ml Output Total 165 ml 190 ml 280 ml Balance 1600.0 ml 1160.0 ml 825 ml Exam Constitutional: non-verbal, other (, Does) Respiratory: other (Intubated and mechanically ventilated) Neurological: other (She is lethargic, not arousable, does follow commands. Cranial nerve examination shows no response to threat. Pupils round, reactive to light sluggishly from 3 to 2 mm bilaterally. Extraocular movements intact without nystagmus. Symmetrical face. Preserved facial strength, corneals and gag OK. Tongue is in midline. Palate elevates symmetrically. Motor strength examination trace of movements in 0-1/5 on the left, decreased tone, normal bulk. Withdraws right side to pain. Deep tendon reflexes 2+ UE, knees, no ankle jerks, equivocal rsponse to plantar stimultion on the right, upgoing on the left. ), unresponsive Results Result Diagram: 10/15/1643410/15/16 043 Results 24 hrs Laboratory Tests Test 10/14/16 17:25 10/15/16 00:45 10/15/16 04:35 10/15/16 04:38 Sodium Level 140 139 Potassium Level 4.0 3.9 Chloride Level 107 102 Carbon Dioxide Level 26 27 Anion Gap 11 # 14 Blood Urea Nitrogen 29 H 29 H Creatinine 1.05 H 0.97 Glucose Level 126 118 Calcium Level 8.8 8.6 Blood Gas Specimen Source Blood arterial Arterial Blood Date Drawn 10/15/2016 12:55:29 AM Arterial Blood pH (Temp corrected) 7.376 Arterial Blood pCO2 (Temp correct) 39.5 Arterial Blood pO2 (Temp corrected) 136.8 H Arterial Blood HCO3 22.6 Arterial Blood Base Excess -2.3 Arterial Blood Oxygen Saturation 98.1 Azael Test ACCEPTAB Arterial Blood Gas Puncture Site Right Radial Arterial Blood Carboxyhemoglobin 0.3 Arterial Blood Methemoglobin 0.3 Blood Gas A-a O2 Differential 74.1 H Oxyhemoglobin Percent 97.5 Total Hemoglobin 9.6 L Blood Gas Temperature 37.0 Blood Gas Modality NASAL CANNULA FiO2 36.0 Blood Gas Notified Whom MA Blood Gas Notified Time 10/15/2016 1:04:29 AM White Blood Count 8.6 # Red Blood Count 2.63 L Hemoglobin 8.7 L Hematocrit 25.8 L Mean Corpuscular Volume 98.1 Mean Corpuscular Hemoglobin 33.1 H Mean Corpuscular Hemoglobin Concent 33.7 Red Cell Distribution Width 15.8 H Platelet Count 67 L Mean Platelet Volume 10.7 H Neutrophils % 78.5 H Lymphocytes % 6.4 L Monocytes % 8.5 Eosinophils % 3.5 Basophils % 0.4 Nucleated Red Blood Cells % 0.0 Neutrophils # 6.7 Lymphocytes # 0.6 L Monocytes # 0.7 Eosinophils # 0.3 Basophils # 0.0 Nucleated Red Blood Cells # 0.0 Ammonia 49 H Lab Scanned Report BLOOD TRANSFUSION Medications Medications Current Medications Labetalol HCl 10 mg 10 mg Q10M PRN IV ELEVATED BLOOD PRESSURE Last administered on 10/13/16 22:49; Admin Dose 10 MG; Start 10/09/16 at 09:00 Cefepime HCl (Maxipime 1gm/50 ml (Pmx)) 50 ml @ 100 mls/hr Q12 IVPB Last administered on 10/15/16 08:47; Admin Dose 100 MLS/HR; Start 10/09/16 at 10:30 Ondansetron HCl 4 mg 4 mg Q6H PRN IV NAUSEA AND/OR VOMITING Last administered on 10/12/16 21:50; Admin Dose 4 MG; Start 10/09/16 at 10:30 Levetiracetam (Keppra 500 Mg/ 100ml (Pmx)) 100 ml @ 400 mls/hr Q12 IVPB Last administered on 10/15/16 09:53; Admin Dose 400 MLS/HR; Start 10/09/16 at 21:00 IV Flush 10 ml 10 ml PRN PRN IV FLUSH LINE; Start 10/09/16 at 15:30 Potassium Chloride/Dextrose (KCl/D5W) 1,005 ml @ 100 mls/hr Q10H3M IV Last administered on 10/15/16 01:56; Admin Dose 100 MLS/HR; Start 10/10/16 at 15:00 Diphenhydramine HCl 25 mg 25 mg Q6H PRN IV ITCHING Last administered on 03:12; Admin Dose 25 MG; Start 10/11/16 at 13:00; Status Future Hold Metronidazole (Flagyl 500 Mg (Pmx)) 100 ml @ 100 mls/hr Q8 IVPB Last administered on 10/15/16 05:48; Admin Dose 100 MLS/HR; Start 10/11/16 at 22:00 Citric Acid/ Sodium Citrate (Bicitra) 30 ml BID PO Last administered on 08:46; Admin Dose 30 ML; Start 10/11/16 at 21:00 Docusate Sodium (Colace Liquid Cup) 100 mg BID NGT Last administered on 08:47; Admin Dose 100 MG; Start 10/11/16 at 21:28 Lactulose (Enulose) 20 gm Q8 PO Last administered on 10/15/16 05:48; Admin Dose 20 GM; Start 10/12/16 at 14:00 Hydralazine HCl (Apresoline) 10 mg Q4H PRN IV ELEVATED BLOOD PRESSURE Last administered on 10/14/16 06:11; Admin Dose 10 MG; Start 10/12/16 at 10:00 Pantoprazole (Protonix Iv) 40 mg BID@06,18 IV Last administered on 10/15/16 05: 48; Admin Dose 40 MG; Start 10/13/16 at 18:00 Furosemide (Lasix) 20 mg DAILY IV Last administered on 10/15/16 08:47; Admin Dose 20 MG; Start 10/13/16 at 19:00 Oxycodone HCl (Roxicodone) 5 mg Q4 PRN PO PAIN Last administered on 10/13/16 18 :46; Admin Dose 5 MG; Start 10/13/16 at 19:00 Acetaminophen (Tylenol Liquid) 650 mg Q4H PRN GTB PAIN AND OR ELEVATED TEMP Last administered on 10/14/16 04:56; Admin Dose 650 MG; Start 10/14/16 at 03:00 Hydromorphone HCl 1 mg 1 mg Q4H PRN IV PAIN Last administered on 10/15/16 09:55 ; Admin Dose 1 MG; Start 10/14/16 at 09:00 Vancomycin HCl (Vancocin) 250 ml @ 125 mls/hr Q24H IVPB Last administered on 14:59; Admin Dose 125 MLS/HR; Start 10/14/16 at 14:00 Lorazepam (Ativan) 0.5 mg Q6H PRN IV agitation; Start 10/15/16 at 12:20 JOVANI CRAFT MD Oct 15, 2016 12:39
--- NOTE | 2016-10-15 16:52 | CONS ---
Date/Time of Note Date/Time of Note DATE: 10/15/16 TIME: 16:51 Assessment/Plan Assessment/Plan Additional Assessment/Plan 1. Acute right posterior frontal lobe parenchymal hematoma and moderate intraventricular hemorrhage. 2. Non Oliguric acute kidney injury due to ATN From sepsis with metabolic acidosis 2. Non-ST elevation myocardial infarction 4. Sepsis due to Acute GNR UTI and bacteremia, , Urine cx grow E.Coli 5. Bacteremia with Blood cx growing coag neg staph 6. Essential hypertension 6. ETOH Liver Cirrhosis associated w/thrombocytopenia, transaminitis, hyperbilirubinemia 7. Normocytic, normochromic anemia 8. Hypothyroidism 9. Hypernatremia due to large free water deficit Plan: continue current care , Continue IV abx As per PMD and ID service Due to patient age, Comorbidities, Current Admissin for ICH and gradual decline in her mental status, pt is not a candidate for Renal replacement therapy if renal function worsens, so we will not recommend to have dialysis in future if pt condition continues to deteriorate and renal function worsens. Discussed with family at bedside. will continue to follow up Consultation Date/Type/Reason Admit Date/Time Oct 09, 2016 at 08:26 Initial Consult Date 10/10/16 Type of Consultation: NEPHROLOGY Referring Provider: MILTON FARIAS 24 HR Interval Summary Free Text/Dictation creatinine improved, electrolytes stable Exam/Review of Systems Vital Signs Vitals Vital Signs Date Time Temp Pulse Resp B/P Pulse Ox O2 Delivery O2 Flow Rate FiO2 10/15/16 14:00 90 16 135/80 98 Nasal Cannula 4.0 10/15/16 08:00 98.6 10/15/16 02:17 33 Intake and Output 10/14/16 10/14/16 10/15/16 15:00 23:00 07:00 Intake Total 1765.0 ml 1350.0 ml 1105 ml Output Total 165 ml 190 ml 280 ml Balance 1600.0 ml 1160.0 ml 825 ml Exam Constitutional: lethargic, intermittently agitated Head: atraumatic, normocephalic Respiratory: decreased BS at based ,no wheezing Cardiovascular: nl pulses, regular rate and rhythm Gastrointestinal: nl liver, spleen, non-tender, soft Musculoskeletal: nl extremities to inspection Extremities: normal pulses, no edema +NG tube, + villar catheter Results Result Diagram: 10/15/16 0435 10/15/16 0435 Results 24 hrs Laboratory Tests Test 10/14/16 17:25 10/15/16 00:45 10/15/16 04:35 10/15/16 04:38 Sodium Level 140 139 Potassium Level 4.0 3.9 Chloride Level 107 102 Carbon Dioxide Level 26 27 Anion Gap 11 # 14 Blood Urea Nitrogen 29 H 29 H Creatinine 1.05 H 0.97 Glucose Level 126 118 Calcium Level 8.8 8.6 Blood Gas Specimen Source Blood arterial Arterial Blood Date Drawn 10/15/2016 12:55:29 AM Arterial Blood pH (Temp corrected) 7.376 Arterial Blood pCO2 (Temp correct) 39.5 Arterial Blood pO2 (Temp corrected) 136.8 H Arterial Blood HCO3 22.6 Arterial Blood Base Excess -2.3 Arterial Blood Oxygen Saturation 98.1 Azael Test ACCEPTAB Arterial Blood Gas Puncture Site Right Radial Arterial Blood Carboxyhemoglobin 0.3 Arterial Blood Methemoglobin 0.3 Blood Gas A-a O2 Differential 74.1 H Oxyhemoglobin Percent 97.5 Total Hemoglobin 9.6 L Blood Gas Temperature 37.0 Blood Gas Modality NASAL CANNULA FiO2 36.0 Blood Gas Notified Whom PA Blood Gas Notified Time 10/15/2016 1:04:29 AM White Blood Count 8.6 # Red Blood Count 2.63 L Hemoglobin 8.7 L Hematocrit 25.8 L Mean Corpuscular Volume 98.1 Mean Corpuscular Hemoglobin 33.1 H Mean Corpuscular Hemoglobin Concent 33.7 Red Cell Distribution Width 15.8 H Platelet Count 67 L Mean Platelet Volume 10.7 H Neutrophils % 78.5 H Lymphocytes % 6.4 L Monocytes % 8.5 Eosinophils % 3.5 Basophils % 0.4 Nucleated Red Blood Cells % 0.0 Neutrophils # 6.7 Lymphocytes # 0.6 L Monocytes # 0.7 Eosinophils # 0.3 Basophils # 0.0 Nucleated Red Blood Cells # 0.0 Ammonia 49 H Lab Scanned Report BLOOD TRANSFUSION Medications Medications Current Medications Ondansetron HCl (Zofran Inj) 4 mg Q6H PRN IV NAUSEA AND/OR VOMITING Last administered on 10/12/16t 21:50; Admin Dose 4 MG; Start 10/09/16 at 10:30 IV Flush (NS 10 ml) 10 ml PRN PRN IV FLUSH LINE; Start 7/1/17 at 15:30 Diphenhydramine HCl (Benadryl) 25 mg Q6H PRN IV ITCHING Last administered on 03:12; Admin Dose 25 MG; Start 10/11/16 at 13:00; Status Future Hold Oxycodone HCl (Roxicodone) 5 mg Q4 PRN PO PAIN Last administered on 10/13/16 18 :46; Admin Dose 5 MG; Start 10/13/16 at 19:00 Acetaminophen (Tylenol Liquid) 650 mg Q4H PRN GTB PAIN AND OR ELEVATED TEMP Last administered on 10/14/16 04:56; Admin Dose 650 MG; Start 10/14/16 at 03:00 Hydromorphone HCl (Dilaudid) 1 mg Q4H PRN IV PAIN Last administered on 09:55; Admin Dose 1 MG; Start 10/14/16 at 09:00 Lorazepam (Ativan) 0.5 mg Q6H PRN IV agitation; Start 10/15/16 at 12:20 TRUDY SEQUEIRA MD Oct 15, 2016 16:52
[2016-10-16] MEDS: HYDROmorphONE 1 MG/ML SYG IV PRN ×6 (02:37→23:04)
[2016-10-16 03:12] VITALS: BP 119/57; RESP 18
[2016-10-16] MEDS: SOD CHLORIDE 0.9% 1,000 ML IV SCH (05:15)
--- NOTE | 2016-10-16 08:13 | CONS ---
Date/Time of Note Date/Time of Note DATE: 10/16/16 TIME: 08:08 Assessment/Plan Assessment/Plan Chief Complaint/Hosp Course 1. Positive troponin - not a candidate for intervention or anti-coagulation, conservative care now - NO INTERVENTION PLANNED. VS stable. Now trended negative 2. Acute right posterior frontal lobe parenchymal hematoma and moderate intraventricular hemorrhage - now expanding, FFP Rx 3. Acute kidney injury due to ATN From sepsis with metabolic acidosis - avoid nephrotoxic meds - BETTER now 4. Bacteremia with Blood cx growing GNR - on anti-bx 5. Essential hypertension 6. ETOH Liver Cirrhosis associated w/thrombocytopenia, transaminitis, hyperbilirubinemia 7. Normocytic, normochromic anemia 8. Hypothyroidism REcc: -Now on med-surg -Follow BP closely -Now DNR -? [employer] Problems: Consultation Date/Type/Reason Admit Date/Time Oct 09, 2016 at 08:26 Initial Consult Date 10/10/16 Type of Consultation: cardiology Reason for Consultation chest pain Referring Provider: MILTON FARIAS Exam/Review of Systems Vital Signs Vitals Vital Signs Date Time Temp Pulse Resp B/P Pulse Ox O2 Delivery O2 Flow Rate FiO2 10/16/16 05:13 4.0 10/16/16 03:12 98.5 92 18 119/57 98 10/15/16 23:00 Nasal Cannula 10/15/16 02:17 33 Intake and Output 10/15/16 10/15/16 10/16/16 15:00 23:00 07:00 Intake Total 710 ml 0 ml 0 ml Output Total 285 ml 240 ml 500 ml Balance 425 ml -240 ml -500 ml Exam Review of Systems: CONSTITUTIONAL: No fevers, chills. PULMONARY: No sob CARDIOVASCULAR: No obvious chest pain GASTROINTESTINAL: No nausea/vomiting. GENITOURINARY: No hematuria/dysuria. MUSCULOSKELETAL: No obvious myagias/arthalgias. PSYCHIATRIC: The patient denies depression. NEUROLOGIC: encephalopathic Constitutional: other (encephalopathic) Head: normocephalic ENMT: mucosa pink and moist Neck: jvd (90 cm water), supple Respiratory: diminished breath sounds (at bases/B) Cardiovascular: regular rate and rhythm Gastrointestinal: non-tender, soft Musculoskeletal: muscle tone (normal) Extremities: edema (none) Neurological: other (No focal deficits) Results Result Diagram: 10/15/16 0435 10/15/16 0435 Medications Medications Current Medications Ondansetron HCl (Zofran Inj) 4 mg Q6H PRN IV NAUSEA AND/OR VOMITING Last administered on 10/12/16 21:50; Admin Dose 4 MG; Start 10/09/16 at 10:30 IV Flush (NS 10 ml) 10 ml PRN PRN IV FLUSH LINE; Start 10/09/16 at 15:30 Diphenhydramine HCl (Benadryl) 25 mg Q6H PRN IV ITCHING Last administered on 03:12; Admin Dose 25 MG; Start 10/11/16 at 13:00; Status Future Hold Oxycodone HCl (Roxicodone) 5 mg Q4 PRN PO PAIN Last administered on 10/13/16 18 :46; Admin Dose 5 MG; Start 10/13/16 at 19:00 Acetaminophen (Tylenol Liquid) 650 mg Q4H PRN GTB PAIN AND OR ELEVATED TEMP Last administered on 10/14/16 04:56; Admin Dose 650 MG; Start 10/14/16 at 03:00 Hydromorphone HCl (Dilaudid) 1 mg Q4H PRN IV PAIN Last administered on 06:37; Admin Dose 1 MG; Start 10/14/16 at 09:00 Lorazepam 0.5 mg 0.5 mg Q6H PRN IV agitation; Start 10/15/16 at 12:20 Sodium Chloride (NS) 1,000 ml @ 20 mls/hr Q24H IV Last administered on 05:15; Admin Dose 20 MLS/HR; Start 10/16/16 at 05:00 EMBER BIRD Oct 16, 2016 08:12
[2016-10-16 08:17] VITALS: BP 119/58; RESP 14
--- NOTE | 2016-10-16 11:28 | PN ---
Date/Time of Note Date/Time of Note DATE: 10/16/16 TIME: 11:22 Assessment/Plan VTE Prophylaxis VTE Prophylaxis Intervention: other (thrombocytopenia) Lines/Catheters IV Catheter Type (from Nrsg): PICC Line Central line still needed: Yes Urinary Cath still in place: Yes Reason Cath still needed: other (indicate) (weakness) Assessment/Plan Assessment/Plan Thrombocytopenia is stable in a safe range. Pt appears comfortable but does not communicate with me or with family. Agree with focusing on comfort measures. Subjective 24 Hr Interval Summary Free Text/Dictation Pt is obtunded. Discussed with family. Exam/Review of Systems Vital Signs Vitals Vital Signs Date Time Temp Pulse Resp B/P Pulse Ox O2 Delivery O2 Flow Rate FiO2 10/16/16 10:42 Nasal Cannula 4.0 10/16/16 08:17 99.9 98 14 119/58 98 10/15/16 02:17 33 Intake and Output 10/15/16 10/15/16 10/16/16 15:00 23:00 07:00 Intake Total 710 ml 0 ml 0 ml Output Total 285 ml 240 ml 500 ml Balance 425 ml -240 ml -500 ml Exam Constitutional: other (obtunded) Head: normocephalic Respiratory: clear to auscultation Cardiovascular: regular rate and rhythm Gastrointestinal: non-tender, soft Results Result Diagram: 10/15/16 0435 10/15/16 0435 Medications Medications Current Medications Ondansetron HCl (Zofran Inj) 4 mg Q6H PRN IV NAUSEA AND/OR VOMITING Last administered on 10/12/16 21:50; Admin Dose 4 MG; Start 10/09/16 at 10:30 IV Flush (NS 10 ml) 10 ml PRN PRN IV FLUSH LINE; Start 10/09/16 at 15:30 Diphenhydramine HCl (Benadryl) 25 mg Q6H PRN IV ITCHING Last administered on 03:12; Admin Dose 25 MG; Start 10/11/16 at 13:00; Status Future Hold Oxycodone HCl (Roxicodone) 5 mg Q4 PRN PO PAIN Last administered on 10/13/16 18 :46; Admin Dose 5 MG; Start 10/13/16 at 19:00 Acetaminophen (Tylenol Liquid) 650 mg Q4H PRN GTB PAIN AND OR ELEVATED TEMP Last administered on 10/14/16 04:56; Admin Dose 650 MG; Start 10/14/16 at 03:00 Hydromorphone HCl (Dilaudid) 1 mg Q4H PRN IV PAIN Last administered on 10:33; Admin Dose 1 MG; Start 10/14/16 at 09:00 Lorazepam 0.5 mg 0.5 mg Q6H PRN IV agitation; Start 10/15/16 at 12:20 Sodium Chloride (NS) 1,000 ml @ 20 mls/hr Q24H IV Last administered on 05:15; Admin Dose 20 MLS/HR; Start 10/16/16 at 05:00 GEOFFREY SMITH MD Oct 16, 2016 11:27
--- NOTE | 2016-10-16 11:38 | PN ---
Date/Time of Note Date/Time of Note DATE: 10/16/16 TIME: 11:35 Assessment/Plan VTE Prophylaxis VTE Prophylaxis Intervention: contraindicated Lines/Catheters [facility] PICC Line Central line still needed: Yes Urinary Cath still in place: Yes Reason Cath still needed: urinary retention Assessment/Plan Problems: (1) Hypertension Status: Acute Comment: At the present time the patient's blood pressure is controlled adequately to the total situation. The patient is on comfort measures only. Qualifiers: Hypertension type: essential hypertension Qualified Code: I10 - Essential hypertension (2) Diabetes mellitus type 2 in obese Status: Acute Comment: Adequate control under the circumstances. Comfort measures only (3) Intraparenchymal hemorrhage of brain Status: Acute Comment: She has had a catastrophic injury. The patient is being supported. (4) Thrombocytopenia Status: Acute Comment: Due to the cirrhosis, no treatment (5) Cirrhosis of liver Status: Chronic Comment: Stable at this time Qualifiers: Hepatic cirrhosis type: unspecified hepatic cirrhosis Ascites presence: without ascites Qualified Code: K74.60 - Cirrhosis of liver without ascites, unspecified hepatic cirrhosis type Subjective 24 Hr Interval Summary Subjective hx not possible: pt non-verbal Exam/Review of Systems Vital Signs Vitals Vital Signs Date Time Temp Pulse Resp B/P Pulse Ox O2 Delivery O2 Flow Rate FiO2 10/16/16 10:42 Nasal Cannula 4.0 10/16/16 08:17 99.9 98 14 119/58 98 10/15/16 02:17 33 Intake and Output 10/15/16 10/15/16 10/16/16 15:00 23:00 07:00 Intake Total 710 ml 0 ml 0 ml Output Total 285 ml 240 ml 500 ml Balance 425 ml -240 ml -500 ml Exam Constitutional: non-verbal Neck: non-tender, supple Cardiovascular: nl pulses, regular rate and rhythm Results Result Diagram: 10/15/165 10/15/16434 Medications Medications Current Medications Ondansetron HCl (Zofran Inj) 4 mg Q6H PRN IV NAUSEA AND/OR VOMITING Last administered on 10/12/16t 21:50; Admin Dose 4 MG; Start 10/09/16 at 10:30 IV Flush (NS 10 ml) 10 ml PRN PRN IV FLUSH LINE; Start 10/09/16 at 15:30 Diphenhydramine HCl (Benadryl) 25 mg Q6H PRN IV ITCHING Last administered on 03:12; Admin Dose 25 MG; Start 10/11/16 at 13:00; Status Future Hold Oxycodone HCl (Roxicodone) 5 mg Q4 PRN PO PAIN Last administered on 10/13/16 18 :46; Admin Dose 5 MG; Start 10/13/16 at 19:00 Acetaminophen (Tylenol Liquid) 650 mg Q4H PRN GTB PAIN AND OR ELEVATED TEMP Last administered on 10/14/16 04:56; Admin Dose 650 MG; Start 10/14/16 at 03:00 Hydromorphone HCl (Dilaudid) 1 mg Q4H PRN IV PAIN Last administered on 10:33; Admin Dose 1 MG; Start 10/14/16 at 09:00 Lorazepam 0.5 mg 0.5 mg Q6H PRN IV agitation; Start 10/15/16 at 12:20 Sodium Chloride (NS) 1,000 ml @ 20 mls/hr Q24H IV Last administered on 05:15; Admin Dose 20 MLS/HR; Start 10/16/16 at 05:00 SERGEY COTO MD Oct 16, 2016 11:38
[2016-10-16 14:41] VITALS: BP 149/69; PULSE 98
--- NOTE | 2016-10-16 14:55 | CONS ---
Date/Time of Note Date/Time of Note DATE: 10/16/16 TIME: 14:54 Assessment/Plan Assessment/Plan Additional Assessment/Plan 1. Acute right posterior frontal lobe parenchymal hematoma and moderate intraventricular hemorrhage. 2. Non Oliguric acute kidney injury due to ATN From sepsis with metabolic acidosis 2. Non-ST elevation myocardial infarction 4. Sepsis due to Acute GNR UTI and bacteremia, , Urine cx grow E.Coli 5. Bacteremia with Blood cx growing coag neg staph 6. Essential hypertension 6. ETOH Liver Cirrhosis associated w/thrombocytopenia, transaminitis, hyperbilirubinemia 7. Normocytic, normochromic anemia 8. Hypothyroidism 9. Hypernatremia due to large free water deficit Plan: continue current care , Continue IV abx As per PMD and ID service Due to patient age, Comorbidities, Current Admissin for ICH and gradual decline in her mental status, pt is not a candidate for Renal replacement therapy if renal function worsens, so we will not recommend to have dialysis in future if pt condition continues to deteriorate and renal function worsens. Discussed with family at bedside. will continue to follow up Consultation Date/Type/Reason Admit Date/Time Oct 09, 2016 at 08:26 Initial Consult Date 10/13/16 Type of Consultation: nephrology Referring Provider: MILTON FARIAS 24 HR Interval Summary Free Text/Dictation resting in bed, seems comfortable, on comfort measures, family at bed side- answered all Qs Subjective hx not possible: pt non-verbal Constitutional: requiring IVF, requiring O2 Exam/Review of Systems Vital Signs Vitals Vital Signs Date Time Temp Pulse Resp B/P Pulse Ox O2 Delivery O2 Flow Rate FiO2 10/16/16 14:41 98.3 98 149/69 97 Nasal Cannula 4.0 10/16/16 08:17 14 10/15/16 02:17 33 Intake and Output 10/15/16 10/15/16 10/16/16 15:00 23:00 07:00 Intake Total 710 ml 0 ml 0 ml Output Total 285 ml 240 ml 500 ml Balance 425 ml -240 ml -500 ml Exam Constitutional: non-verbal, well developed Respiratory: clear to auscultation, normal air movement Cardiovascular: nl pulses, regular rate and rhythm Gastrointestinal: non-tender, soft Musculoskeletal: nl extremities to inspection Extremities: edema Neurological: unresponsive Results Result Diagram: 10/15/16 0435 10/15/16 0435 Medications Medications Current Medications Ondansetron HCl (Zofran Inj) 4 mg Q6H PRN IV NAUSEA AND/OR VOMITING Last administered on 10/12/16 21:50; Admin Dose 4 MG; Start 10/09/16 at 10:30 IV Flush (NS 10 ml) 10 ml PRN PRN IV FLUSH LINE; Start 10/09/16 at 15:30 Diphenhydramine HCl (Benadryl) 25 mg Q6H PRN IV ITCHING Last administered on 03:12; Admin Dose 25 MG; Start 10/11/16 at 13:00; Status Future Hold Oxycodone HCl (Roxicodone) 5 mg Q4 PRN PO PAIN Last administered on 10/13/16 18 :46; Admin Dose 5 MG; Start 10/13/16 at 19:00 Acetaminophen (Tylenol Liquid) 650 mg Q4H PRN GTB PAIN AND OR ELEVATED TEMP Last administered on 10/14/16 04:56; Admin Dose 650 MG; Start 10/14/16 at 03:00 Hydromorphone HCl (Dilaudid) 1 mg Q4H PRN IV PAIN Last administered on 14:36; Admin Dose 1 MG; Start 10/14/16 at 09:00 Lorazepam 0.5 mg 0.5 mg Q6H PRN IV agitation; Start 10/15/16 at 12:20 Sodium Chloride (NS) 1,000 ml @ 20 mls/hr Q24H IV Last administered on 05:15; Admin Dose 20 MLS/HR; Start 10/16/16 at 05:00 SUNSHINE PITTS Oct 16, 2016 14:55
--- NOTE | 2016-10-16 15:20 | PN ---
Date/Time of Note Date/Time of Note DATE: 10/16/16 TIME: 15:16 Assessment/Plan VTE Prophylaxis VTE Prophylaxis Intervention: contraindicated VTE Contraindication Reason: bleeding Lines/Catheters IV Catheter Type (from Nrsg): PICC Line Central line still needed: Yes Urinary Cath still in place: Yes Reason Cath still needed: urinary retention Assessment/Plan Assessment/Plan . Right posterior frontal lobe parenchymal hematoma and moderate intraventricular hemorrhage. Repeat brain CT scan on 10-10-2016 showed interval appearance of right subdural hemorrhage mainly overlying right frontal lobe measuring up to 7 mm along with scattered bilateral foci of subarachnoid hemorrhages with interval increase and a 2 mm leftward midline shift. 2. Non-ST elevation myocardial infarction. 3. Sepsis secondary to underlying urinary tract infection. 5. Normocytic, normochromic anemia. Most probably anemia of chronic disease and also from underlying liver cirrhosis. Contributed by intraventricular hemorrhage 6. Thrombocytopenia. Most probably secondary to underlying liver cirrhosis. 7. Transaminitis with hyperbilirubinemia. Resolved. Most probably secondary to underlying liver cirrhosis. 8. Systemic lupus erythematosus. 9. Acute kidney injury. Etiology could be secondary to hemodynamics Versus contrast induced. Obtain nephrology consult. 10. Coagulopathy. Transfuse FFPs. Obtain hematology consult. Plan * Patient on comfort measures * Continue present management Subjective 24 Hr Interval Summary Free Text/Dictation * Course reviewed with RN * Patient seen and examined * Patient on comfort measures Exam/Review of Systems Vital Signs Vitals Vital Signs Date Time Temp Pulse Resp B/P Pulse Ox O2 Delivery O2 Flow Rate FiO2 10/16/16 14:41 98.3 98 149/69 97 Nasal Cannula 4.0 10/16/16 08:17 14 10/15/16 02:17 33 Intake and Output 10/15/16 10/15/16 10/16/16 15:00 23:00 07:00 Intake Total 710 ml 0 ml 0 ml Output Total 285 ml 240 ml 500 ml Balance 425 ml -240 ml -500 ml Exam Constitutional: frail Head: normocephalic Neck: supple Respiratory: clear to auscultation, diminished breath sounds Cardiovascular: nl pulses, regular rate and rhythm Gastrointestinal: non-tender, soft Musculoskeletal: muscle weakness Neurological: unresponsive Skin: rash or lesions Results Result Diagram: 10/15/16 0435 10/15/16 043 Medications Medications Current Medications Ondansetron HCl (Zofran Inj) 4 mg Q6H PRN IV NAUSEA AND/OR VOMITING Last administered on 10/12/16 21:50; Admin Dose 4 MG; Start 10/09/16 at 10:30 IV Flush (NS 10 ml) 10 ml PRN PRN IV FLUSH LINE; Start 10/09/16 at 15:30 Diphenhydramine HCl (Benadryl) 25 mg Q6H PRN IV ITCHING Last administered on 03:12; Admin Dose 25 MG; Start 10/11/16 at 13:00; Status Future Hold Oxycodone HCl (Roxicodone) 5 mg Q4 PRN PO PAIN Last administered on 10/13/16 18 :46; Admin Dose 5 MG; Start 10/13/16 at 19:00 Acetaminophen (Tylenol Liquid) 650 mg Q4H PRN GTB PAIN AND OR ELEVATED TEMP Last administered on 10/14/16 04:56; Admin Dose 650 MG; Start 10/14/16 at 03:00 Hydromorphone HCl (Dilaudid) 1 mg Q4H PRN IV PAIN Last administered on 14:36; Admin Dose 1 MG; Start 10/14/16 at 09:00 Lorazepam 0.5 mg 0.5 mg Q6H PRN IV agitation; Start 10/15/16 at 12:20 Sodium Chloride (NS) 1,000 ml @ 20 mls/hr Q24H IV Last administered on 05:15; Admin Dose 20 MLS/HR; Start 10/16/16 at 05:00 MICHAEL BRANDON NP Oct 16, 2016 15:19
--- NOTE | 2016-10-16 16:31 | CONS ---
Date/Time of Note Date/Time of Note DATE: 10/16/16 TIME: 16:30 Consult Date/Type/Reason Admit Date/Time Oct 09, 2016 at 08:26 Initial Consult Date 10/13/16 Type of Consultation: Pulm Ordering Provider: MILTON FARIAS Subjective Events noted. Patient now on comfort measures. Objective Vital Signs Date Time Temp Pulse Resp B/P Pulse Ox O2 Delivery O2 Flow Rate FiO2 10/16/16 14:41 98.3 98 149/69 97 Nasal Cannula 4.0 10/16/16 08:17 14 10/15/16 02:17 33 Intake and Output 10/15/16 10/15/16 10/16/16 15:00 23:00 07:00 Intake Total 710 ml 0 ml 0 ml Output Total 285 ml 240 ml 500 ml Balance 425 ml -240 ml -500 ml Exam HEENT: Neck supple; no JVD; no LAD CVS: RRR, S1 and S2 CHEST: Shallow BS ABD: Soft, NT, + BS EXT: No c/c/e Results/Medications Result Diagram: 10/15/16 0435 10/15/16 0435 Medications Current Medications Ondansetron HCl (Zofran Inj) 4 mg Q6H PRN IV NAUSEA AND/OR VOMITING Last administered on 10/12/16 21:50; Admin Dose 4 MG; Start 10/09/16 at 10:30 IV Flush (NS 10 ml) 10 ml PRN PRN IV FLUSH LINE; Start 10/09/16 at 15:30 Diphenhydramine HCl (Benadryl) 25 mg Q6H PRN IV ITCHING Last administered on 03:12; Admin Dose 25 MG; Start 10/11/16 at 13:00; Status Future Hold Oxycodone HCl (Roxicodone) 5 mg Q4 PRN PO PAIN Last administered on 10/13/16 18 :46; Admin Dose 5 MG; Start 10/13/16 at 19:00 Acetaminophen (Tylenol Liquid) 650 mg Q4H PRN GTB PAIN AND OR ELEVATED TEMP Last administered on 10/14/16 04:56; Admin Dose 650 MG; Start 10/14/16 at 03:00 Hydromorphone HCl (Dilaudid) 1 mg Q4H PRN IV PAIN Last administered on 14:36; Admin Dose 1 MG; Start 10/14/16 at 09:00 Lorazepam 0.5 mg 0.5 mg Q6H PRN IV agitation; Start 10/15/16 at 12:20 Sodium Chloride (NS) 1,000 ml @ 20 mls/hr Q24H IV Last administered on 05:15; Admin Dose 20 MLS/HR; Start 10/16/16 at 05:00 Assessment/Plan Additional Assessment/Plan IMP: 1. Hypoxemic respiratory failure likely secondary to pneumonia and pulmonary edema., Clinically improved. 2. Acute intraventricular and subarachnoid bleed. Not surgical candidate. 3. Coagulopathy with thrombocytopenia 4. Probable acute GI bleed 5. Non-ST elevation [place] 6. Recent renal insufficiency 7. History of systemic lupus erythematous 8. Gram-negative UTI 9. History of cirrhosis etiology unknown 10. Hypokalemia Plan 1. Agree with comfort care measures. TUCKER AVALOS MD Oct 16, 2016 16:31
[2016-10-16 19:38] VITALS: BP 136/63; RESP 16
[2016-10-16] MEDS: SCOPOLAMINE 1.5 MG PATCH TRANSDERM SCH (21:19)
[2016-10-17 02:14] VITALS: BP 132/60; RESP 16
[2016-10-17] MEDS: HYDROmorphONE 1 MG/ML SYG IV PRN ×4 (03:52→20:46)
[2016-10-17] MEDS: SOD CHLORIDE 0.9% 1,000 ML IV SCH (05:00)
[2016-10-17 08:11] VITALS: BP 144/66; RESP 20
--- NOTE | 2016-10-17 10:56 | PN ---
Date/Time of Note Date/Time of Note DATE: 10/17/16 TIME: 10:55 Assessment/Plan VTE Prophylaxis VTE Prophylaxis Intervention: other (preterminal) Lines/Catheters IV Catheter Type (from Nrsg): PICC Line Central line still needed: Yes Urinary Cath still in place: Yes Reason Cath still needed: urinary retention Assessment/Plan Assessment/Plan Pt is getting comfort measures. No new suggestions. Subjective 24 Hr Interval Summary Free Text/Dictation Pt resting quietly with family at bedside. Exam/Review of Systems Vital Signs Vitals Vital Signs Date Time Temp Pulse Resp B/P Pulse Ox O2 Delivery O2 Flow Rate FiO2 10/17/16 08:11 99.0 91 20 144/66 97 10/17/16 02:00 4.0 10/16/16 20:00 Nasal Cannula 10/15/16 02:17 33 Intake and Output 10/16/16 10/16/16 10/17/16 15:00 23:00 07:00 Intake Total 220 ml 220 ml Output Total 350 ml Balance 220 ml -130 ml Exam Pt appears comfortable. Not fully examined Results Result Diagram: 10/15/16 0435 10/15/16 0435 Medications Medications Current Medications Ondansetron HCl (Zofran Inj) 4 mg Q6H PRN IV NAUSEA AND/OR VOMITING Last administered on 10/12/16 21:50; Admin Dose 4 MG; Start 10/09/16 at 10:30 IV Flush (NS 10 ml) 10 ml PRN PRN IV FLUSH LINE; Start 10/09/16 at 15:30 Diphenhydramine HCl (Benadryl) 25 mg Q6H PRN IV ITCHING Last administered on 03:12; Admin Dose 25 MG; Start 10/11/16 at 13:00; Status Future Hold Oxycodone HCl (Roxicodone) 5 mg Q4 PRN PO PAIN Last administered on 10/13/16 18 :46; Admin Dose 5 MG; Start 10/13/16 at 19:00 Acetaminophen (Tylenol Liquid) 650 mg Q4H PRN GTB PAIN AND OR ELEVATED TEMP Last administered on 10/14/16 04:56; Admin Dose 650 MG; Start 10/14/16 at 03:00 Hydromorphone HCl (Dilaudid) 1 mg Q4H PRN IV PAIN Last administered on 09:08; Admin Dose 1 MG; Start 10/14/16 at 09:00 Lorazepam 0.5 mg 0.5 mg Q6H PRN IV agitation; Start 10/15/16 at 12:20 Sodium Chloride (NS) 1,000 ml @ 20 mls/hr Q24H IV Last administered on 05:15; Admin Dose 20 MLS/HR; Start 10/16/16 at 05:00 Scopolamine (Transderm-Scop) 1 patch Q72H TRANSDERM Last administered on 21:19; Admin Dose 1 PATCH; Start 10/16/16 at 21:00 GEOFFREY SMITH MD Oct 17, 2016 10:56
--- NOTE | 2016-10-17 11:17 | PN ---
Date/Time of Note Date/Time of Note DATE: 10/17/16 TIME: 11:14 Assessment/Plan VTE Prophylaxis VTE Prophylaxis Intervention: contraindicated (Intracranial hemorrhage) Lines/Catheters IV [facility] Type (from [facility]): PICC Line Central line still needed: Yes Urinary Cath still in place: Yes Reason Cath still needed: skin wounds contaminated by urine Assessment/Plan Problems: (1) Intraparenchymal hemorrhage of brain Status: Acute Comment: Regrettably this is not recoverable event. The patient is on comfort measures only. She was having some issue of secretions and the deep suctioning was not working so she was transitioned to a scopolamine patch which has been successful. At this time the family reports that she is comfortable. (2) Hypertension Status: Acute Comment: Noted. No further interventions Qualifiers: Hypertension type: essential hypertension Qualified Code: I10 - Essential hypertension (3) Diabetes mellitus type 2 in obese Status: Acute Comment: Stable (4) Cirrhosis of liver Status: Chronic Comment: Noted. Qualifiers: Hepatic cirrhosis type: unspecified hepatic cirrhosis Ascites presence: without ascites Qualified Code: K74.60 - Cirrhosis of liver without ascites, unspecified hepatic cirrhosis type Subjective 24 Hr Interval Summary Free Text/Dictation Patient lying in bed and according to the family resting comfortably Subjective hx not possible: pt non-verbal Exam/Review of Systems Vital Signs Vitals Vital Signs Date Time Temp Pulse Resp B/P Pulse Ox O2 Delivery O2 Flow Rate FiO2 10/17/16 08:11 99.0 91 20 144/66 97 10/17/16 02:00 4.0 10/16/16 20:00 Nasal Cannula 10/15/16 02:17 33 Intake and Output 10/16/16 10/16/16 10/17/16 15:00 23:00 07:00 Intake Total 220 ml 220 ml Output Total 350 ml Balance 220 ml -130 ml Exam Constitutional: non-verbal Neck: other (No retropharyngeal gurgling) Respiratory: clear to auscultation, normal air movement Cardiovascular: nl pulses, regular rate and rhythm Results Result Diagram: 10/15/16 0435 10/15/16 0435 Medications Medications Current Medications Ondansetron HCl (Zofran Inj) 4 mg Q6H PRN IV NAUSEA AND/OR VOMITING Last administered on 10/12/16t 21:50; Admin Dose 4 MG; Start 10/09/16 at 10:30 IV Flush (NS 10 ml) 10 ml PRN PRN IV FLUSH LINE; Start 10/09/16 at 15:30 Diphenhydramine HCl (Benadryl) 25 mg Q6H PRN IV ITCHING Last administered on 03:12; Admin Dose 25 MG; Start 10/11/16 at 13:00; Status Future Hold Oxycodone HCl (Roxicodone) 5 mg Q4 PRN PO PAIN Last administered on 10/13/16 18 :46; Admin Dose 5 MG; Start 10/13/16 at 19:00 Acetaminophen (Tylenol Liquid) 650 mg Q4H PRN GTB PAIN AND OR ELEVATED TEMP Last administered on 10/14/16 04:56; Admin Dose 650 MG; Start 10/14/16 at 03:00 Hydromorphone HCl (Dilaudid) 1 mg Q4H PRN IV PAIN Last administered on 09:08; Admin Dose 1 MG; Start 10/14/16 at 09:00 Lorazepam 0.5 mg 0.5 mg Q6H PRN IV agitation; Start 10/15/16 at 12:20 Sodium Chloride (NS) 1,000 ml @ 20 mls/hr Q24H IV Last administered on 05:15; Admin Dose 20 MLS/HR; Start 10/16/16 at 05:00 Scopolamine (Transderm-Scop) 1 patch Q72H TRANSDERM Last administered on 21:19; Admin Dose 1 PATCH; Start 10/16/16 at 21:00 ESRGEY COTO MD Oct 17, 2016 11:17
--- NOTE | 2016-10-17 11:21 | CONS ---
Date/Time of Note Date/Time of Note DATE: 10/17/16 TIME: 11:17 Assessment/Plan Assessment/Plan Chief Complaint/Hosp Course 1. Positive troponin - not a candidate for intervention or anti-coagulation, conservative care now - NO INTERVENTION PLANNED. VS stable. Now trended negative 2. Acute right posterior frontal lobe parenchymal hematoma and moderate intraventricular hemorrhage - now expanding, FFP Rx 3. Acute kidney injury due to ATN From sepsis with metabolic acidosis - avoid nephrotoxic meds - BETTER now 4. Bacteremia with Blood cx growing GNR - on anti-bx 5. Essential hypertension 6. ETOH Liver Cirrhosis associated w/thrombocytopenia, transaminitis, hyperbilirubinemia 7. Normocytic, normochromic anemia 8. Hypothyroidism REcc: -Now on med-surg -Now [facility] and thus will sign off at [facility] time -care as indicated Problems: Consultation Date/Type/Reason Admit Date/Time Oct 09, 2016 at 08:26 Initial Consult Date 10/10/16 Type of Consultation: cardiology Reason for Consultation HTN Referring Provider: MILTON FARIAS Exam/Review of Systems Vital Signs Vitals Vital Signs Date Time Temp Pulse Resp B/P Pulse Ox O2 Delivery O2 Flow Rate FiO2 10/17/16 08:11 99.0 91 20 144/66 97 10/17/16 02:00 4.0 10/16/16 20:00 Nasal Cannula 10/15/16 02:17 33 Intake and Output 10/16/16 10/16/16 10/17/16 15:00 23:00 07:00 Intake Total 220 ml 220 ml Output Total 350 ml Balance 220 ml -130 ml Exam Review of Systems: CONSTITUTIONAL: No fevers, chills. PULMONARY: No sob CARDIOVASCULAR: No chest pain/palpitations GASTROINTESTINAL: No nausea/vomiting. GENITOURINARY: No hematuria/dysuria. MUSCULOSKELETAL: No myagias/arthalgias. PSYCHIATRIC: The patient denies depression. NEUROLOGIC: encephalopathic Constitutional: other (encephalopthic) Head: normocephalic ENMT: mucosa pink and moist Neck: jvd (9 cm water), supple Respiratory: diminished breath sounds Cardiovascular: regular rate and rhythm Gastrointestinal: non-tender, soft Musculoskeletal: muscle weakness (generalized) Extremities: edema (trace) Neurological: unresponsive Results Result Diagram: 10/15/16 0435 10/15/16 0435 Medications Medications Current Medications Ondansetron HCl (Zofran Inj) 4 mg Q6H PRN IV NAUSEA AND/OR VOMITING Last administered on 10/12/16 21:50; Admin Dose 4 MG; Start 10/09/16 at 10:30 IV Flush (NS 10 ml) 10 ml PRN PRN IV FLUSH LINE; Start 10/09/16 at 15:30 Diphenhydramine HCl (Benadryl) 25 mg Q6H PRN IV ITCHING Last administered on 03:12; Admin Dose 25 MG; Start 10/11/16 at 13:00; Status Future Hold Oxycodone HCl (Roxicodone) 5 mg Q4 PRN PO PAIN Last administered on 10/13/16 18 :46; Admin Dose 5 MG; Start 10/13/16 at 19:00 Acetaminophen (Tylenol Liquid) 650 mg Q4H PRN GTB PAIN AND OR ELEVATED TEMP Last administered on 10/14/16 04:56; Admin Dose 650 MG; Start 10/14/16 at 03:00 Hydromorphone HCl (Dilaudid) 1 mg Q4H PRN IV PAIN Last administered on 09:08; Admin Dose 1 MG; Start 10/14/16 at 09:00 Lorazepam 0.5 mg 0.5 mg Q6H PRN IV agitation; Start 10/15/16 at 12:20 Sodium Chloride (NS) 1,000 ml @ 20 mls/hr Q24H IV Last administered on 05:15; Admin Dose 20 MLS/HR; Start 10/16/16 at 05:00 Scopolamine (Transderm-Scop) 1 patch Q72H TRANSDERM Last administered on 21:19; Admin Dose 1 PATCH; Start 10/16/16 at 21:00 EMBER BIRD Oct 17, 2016 11:20
--- NOTE | 2016-10-17 13:32 | CONS ---
Date/Time of Note Date/Time of Note DATE: 10/17/16 TIME: 13:31 Assessment/Plan Assessment/Plan Additional Assessment/Plan 1. Acute right posterior frontal lobe parenchymal hematoma and moderate intraventricular hemorrhage. 2. Non Oliguric acute kidney injury due to ATN From sepsis with metabolic acidosis 2. Non-ST elevation myocardial infarction 4. Sepsis due to Acute GNR UTI and bacteremia, , Urine cx grow E.Coli 5. Bacteremia with Blood cx growing coag neg staph 6. Essential hypertension 6. ETOH Liver Cirrhosis associated w/thrombocytopenia, transaminitis, hyperbilirubinemia 7. Normocytic, normochromic anemia 8. Hypothyroidism 9. Hypernatremia due to large free water deficit Plan: continue current care , Continue IV abx As per PMD and ID service Due to patient age, Comorbidities, Current Admissin for ICH and gradual decline in her mental status, pt is not a candidate for Renal replacement therapy if renal function worsens, so we will not recommend to have dialysis in future if pt condition continues to deteriorate and renal function worsens. Discussed with family at bedside. will continue to follow up Consultation Date/Type/Reason Admit Date/Time Oct 09, 2016 at 08:26 Initial Consult Date 10/13/16 Type of Consultation: cardiology Referring Provider: MILTON FARIAS 24 HR Interval Summary Free Text/Dictation Comfortable, family at bed side, dw staff Exam/Review of Systems Vital Signs Vitals Vital Signs Date Time Temp Pulse Resp B/P Pulse Ox O2 Delivery O2 Flow Rate FiO2 10/17/16 08:11 99.0 91 20 144/66 97 10/17/16 02:00 4.0 10/16/16 20:00 Nasal Cannula 10/15/16 02:17 33 Intake and Output 10/16/16 10/16/16 10/17/16 15:00 23:00 07:00 Intake Total 220 ml 220 ml Output Total 350 ml Balance 220 ml -130 ml Exam Respiratory: labored breathing Cardiovascular: nl pulses, other Gastrointestinal: non-tender, soft Musculoskeletal: nl extremities to inspection Extremities: normal pulses Neurological: unresponsive Results Result Diagram: 10/15/16 0435 10/15/16 0435 Medications Medications Current Medications Ondansetron HCl (Zofran Inj) 4 mg Q6H PRN IV NAUSEA AND/OR VOMITING Last administered on 10/12/16t 21:50; Admin Dose 4 MG; Start 10/09/16 at 10:30 IV Flush (NS 10 ml) 10 ml PRN PRN IV FLUSH LINE; Start 10/09/16 at 15:30 Diphenhydramine HCl (Benadryl) 25 mg Q6H PRN IV ITCHING Last administered on 03:12; Admin Dose 25 MG; Start 10/11/16 at 13:00; Status Future Hold Oxycodone HCl (Roxicodone) 5 mg Q4 PRN PO PAIN Last administered on 10/13/16 18 :46; Admin Dose 5 MG; Start 10/13/16 at 19:00 Acetaminophen (Tylenol Liquid) 650 mg Q4H PRN GTB PAIN AND OR ELEVATED TEMP Last administered on 10/14/16 04:56; Admin Dose 650 MG; Start 10/14/16 at 03:00 Hydromorphone HCl (Dilaudid) 1 mg Q4H PRN IV PAIN Last administered on 09:08; Admin Dose 1 MG; Start 10/14/16 at 09:00 Lorazepam 0.5 mg 0.5 mg Q6H PRN IV agitation; Start 10/15/16 at 12:20 Sodium Chloride (NS) 1,000 ml @ 20 mls/hr Q24H IV Last administered on 05:15; Admin Dose 20 MLS/HR; Start 10/16/16 at 05:00 Scopolamine (Transderm-Scop) 1 patch Q72H TRANSDERM Last administered on 21:19; Admin Dose 1 PATCH; Start 10/16/16 at 21:00 SUNSHINE PITTS Oct 17, 2016 13:32
[2016-10-17 15:01] VITALS: BP 146/65; RESP 20
--- NOTE | 2016-10-17 15:05 | CONS ---
Date/Time of Note Date/Time of Note DATE: 10/17/16 TIME: 15:03 Consult Date/Type/Reason Admit Date/Time Oct 09, 2016 at 08:26 Initial Consult Date 10/13/16 Type of Consultation: Pulm Ordering Provider: MILTON FARIAS Subjective Appears comfortable Objective Vital Signs Date Time Temp Pulse Resp B/P Pulse Ox O2 Delivery O2 Flow Rate FiO2 10/17/16 15:01 98.9 92 20 146/65 98 10/17/16 08:00 Nasal Cannula 4.0 10/15/16 02:17 33 Intake and Output 10/16/16 10/16/16 10/17/16 15:00 23:00 07:00 Intake Total 220 ml 220 ml Output Total 350 ml Balance 220 ml -130 ml Exam HEENT: Neck supple; no JVD; no LAD CVS: RRR, S1 and S2 CHEST: Clear/shallow ABD: Soft, NT, + BS EXT: No c/c/e Results/Medications Result Diagram: 10/15/16 0435 10/15/16 0435 Medications Current Medications Ondansetron HCl (Zofran Inj) 4 mg Q6H PRN IV NAUSEA AND/OR VOMITING Last administered on 10/12/16 21:50; Admin Dose 4 MG; Start 10/09/16 at 10:30 IV Flush (NS 10 ml) 10 ml PRN PRN IV FLUSH LINE; Start 10/09/16 at 15:30 Diphenhydramine HCl (Benadryl) 25 mg Q6H PRN IV ITCHING Last administered on 03:12; Admin Dose 25 MG; Start 10/11/16 at 13:00; Status Future Hold Oxycodone HCl (Roxicodone) 5 mg Q4 PRN PO PAIN Last administered on 10/13/16 18 :46; Admin Dose 5 MG; Start 10/13/16 at 19:00 Acetaminophen (Tylenol Liquid) 650 mg Q4H PRN GTB PAIN AND OR ELEVATED TEMP Last administered on 10/14/16 04:56; Admin Dose 650 MG; Start 10/14/16 at 03:00 Hydromorphone HCl (Dilaudid) 1 mg Q4H PRN IV PAIN Last administered on 09:08; Admin Dose 1 MG; Start 10/14/16 at 09:00 Lorazepam 0.5 mg 0.5 mg Q6H PRN IV agitation; Start 10/15/16 at 12:20 Sodium Chloride (NS) 1,000 ml @ 20 mls/hr Q24H IV Last administered on 05:15; Admin Dose 20 MLS/HR; Start 10/16/16 at 05:00 Scopolamine (Transderm-Scop) 1 patch Q72H TRANSDERM Last administered on 21:19; Admin Dose 1 PATCH; Start 10/16/16 at 21:00 Assessment/Plan Additional Assessment/Plan IMP: 1. Hypoxemic respiratory failure likely secondary to pneumonia and pulmonary edema., Clinically improved. 2. Acute intraventricular and subarachnoid bleed. Not surgical candidate. 3. Coagulopathy with thrombocytopenia 4. Probable acute GI bleed 5. Non-ST elevation [place] 6. Recent renal insufficiency 7. History of systemic lupus erythematous 8. Gram-negative UTI 9. History of cirrhosis etiology unknown 10. Hypokalemia Plan 1. Comfort measures/will sign off. TUCKER AVALOS MD Oct 17, 2016 15:05
[2016-10-17 19:49] VITALS: BP 136/64; RESP 20
[2016-10-18] MEDS: HYDROmorphONE 1 MG/ML SYG IV PRN ×5 (01:13→21:36)
[2016-10-18] MEDS: SOD CHLORIDE 0.9% 1,000 ML IV SCH ×2 (05:00→08:24)
[2016-10-18 08:33] VITALS: BP 153/71; RESP 21
--- NOTE | 2016-10-18 11:39 | PN ---
Date/Time of Note Date/Time of Note DATE: 10/18/16 TIME: 11:36 Assessment/Plan VTE Prophylaxis VTE Prophylaxis Intervention: other Lines/Catheters IV Catheter Type (from Nrsg): PICC Line Central line still needed: Yes Urinary Cath still in place: Yes Reason Cath still needed: urinary retention Assessment/Plan Assessment/Plan 1. Acute right posterior frontal lobe parenchymal hematoma and moderate intraventricular hemorrhage. 2. Non Oliguric acute kidney injury due to ATN From sepsis with metabolic acidosis 2. Non-ST elevation myocardial infarction 4. Sepsis due to Acute GNR UTI and bacteremia, , Urine cx grow E.Coli 5. Bacteremia with Blood cx growing coag neg staph 6. Essential hypertension 6. ETOH Liver Cirrhosis associated w/thrombocytopenia, transaminitis, hyperbilirubinemia 7. Normocytic, normochromic anemia 8. Hypothyroidism 9. Hypernatremia due to large free water deficit Plan: continue current care , Continue IV abx As per PMD and ID service Due to patient age, Comorbidities, Current Admissin for ICH and gradual decline in her mental status, pt is not a candidate for Renal replacement therapy if renal function worsens, so we will not recommend to have dialysis in future if pt condition continues to deteriorate and renal function worsens. Discussed with family at bedside. will continue to follow up Plan of care dw Dr Amairani Villatoro/staff/daughter Subjective 24 Hr Interval Summary Free Text/Dictation resting, comfortable. moves her head when in pain, pain med, Ativan, Scopolamine , Dilaudid are effective. Daughter at bed side- all Qs answered. dw staff Subjective hx not possible: pt non-verbal Constitutional: requiring IVF, requiring O2 Exam/Review of Systems Vital Signs Vitals Vital Signs Date Time Temp Pulse Resp B/P Pulse Ox O2 Delivery O2 Flow Rate FiO2 10/18/16 10:37 4.0 10/18/16 08:33 97.3 92 21 153/71 98 10/17/16 20:00 Nasal Cannula 10/15/16 02:17 33 Intake and Output 10/17/16 10/17/16 10/18/16 15:00 23:00 07:00 Intake Total 240 ml 220 ml Output Total 450 ml 350 ml Balance -210 ml -130 ml Exam Respiratory: clear to auscultation, normal air movement Cardiovascular: nl pulses, regular rate and rhythm Gastrointestinal: non-tender, soft Musculoskeletal: nl extremities to inspection Neurological: lethargic, other (moves when in pain) Results Result Diagram: 10/15/16 0435 10/15/16 0435 Results 24 hrs Laboratory Tests Test 10/18/16 09:04 Bedside Glucose 82 Medications Medications Current Medications Ondansetron HCl (Zofran Inj) 4 mg Q6H PRN IV NAUSEA AND/OR VOMITING Last administered on 10/12/16 21:50; Admin Dose 4 MG; Start 10/09/16 at 10:30 IV Flush (NS 10 ml) 10 ml PRN PRN IV FLUSH LINE; Start 10/09/16 at 15:30 Diphenhydramine HCl (Benadryl) 25 mg Q6H PRN IV ITCHING Last administered on 03:12; Admin Dose 25 MG; Start 10/11/16 at 13:00; Status Future Hold Oxycodone HCl (Roxicodone) 5 mg Q4 PRN PO PAIN Last administered on 10/13/16 18 :46; Admin Dose 5 MG; Start 10/13/16 at 19:00 Acetaminophen (Tylenol Liquid) 650 mg Q4H PRN GTB PAIN AND OR ELEVATED TEMP Last administered on 10/14/16 04:56; Admin Dose 650 MG; Start 10/14/16 at 03:00 Hydromorphone HCl (Dilaudid) 1 mg Q4H PRN IV PAIN Last administered on 09:46; Admin Dose 1 MG; Start 10/14/16 at 09:00 Lorazepam 0.5 mg 0.5 mg Q6H PRN IV agitation; Start 10/15/16 at 12:20 Sodium Chloride (NS) 1,000 ml @ 20 mls/hr Q24H IV Last administered on 08:24; Admin Dose 20 MLS/HR; Start 10/16/16 at 05:00 Scopolamine (Transderm-Scop) 1 patch Q72H TRANSDERM Last administered on 21:19; Admin Dose 1 PATCH; Start 10/16/16 at 21:00 SUNSHINE PITTS Oct 18, 2016 11:39
--- NOTE | 2016-10-18 14:26 | PN ---
Date/Time of Note Date/Time of Note DATE: 10/18/16 TIME: 14:21 Assessment/Plan VTE Prophylaxis VTE Prophylaxis Intervention: other Lines/Catheters IV Catheter Type (from Nrs): PICC Line Central line still needed: Yes Urinary Cath still in place: Yes Reason Cath still needed: other (indicate) Assessment/Plan Assessment/Plan (1) Intraparenchymal hemorrhage of brain (2) Hypertension (3) Diabetes mellitus type 2 in obese (4) Cirrhosis of liver Plan: Case and plan discussed with family, the daughter and the , Patient is under comfort care now. She will have hospice evaluation. mri manager is aware of this. family talked about feeding tube that I do not recommend and family agrees. Subjective 24 Hr Interval Summary Free Text/Dictation nonverbal Exam/Review of Systems Vital Signs Vitals Vital Signs Date Time Temp Pulse Resp B/P Pulse Ox O2 Delivery O2 Flow Rate FiO2 10/18/16 10:37 4.0 10/18/16 08:33 97.3 92 21 153/71 98 10/17/16 20:00 Nasal Cannula 10/15/16 02:17 33 Intake and Output 10/17/16 10/17/16 10/18/16 15:00 23:00 07:00 Intake Total 240 ml 220 ml Output Total 450 ml 350 ml Balance -210 ml -130 ml Exam Constitutional: non-verbal Head: normocephalic Eyes: nl conjunctiva, nl lids, nl sclera ENMT: nl external ears & nose, nl lips & teeth, nl nasal mucosa & septum Neck: supple Respiratory: clear to auscultation Cardiovascular: regular rate and rhythm Gastrointestinal: nl liver, spleen, soft Musculoskeletal: nl extremities to inspection Extremities: No clubbing, No cyanosis, No palpable cord Neurological: confused Results Result Diagram: 10/15/16 0435 10/15/16 0435 Results 24 hrs Laboratory Tests Test 10/18/16 09:04 10/18/16 12:23 Bedside Glucose 82 90 Medications Medications Current Medications Ondansetron HCl (Zofran Inj) 4 mg Q6H PRN IV NAUSEA AND/OR VOMITING Last administered on 10/12/16t 21:50; Admin Dose 4 MG; Start 10/09/16 at 10:30 IV Flush (NS 10 ml) 10 ml PRN PRN IV FLUSH LINE; Start 10/09/16 at 15:30 Diphenhydramine HCl (Benadryl) 25 mg Q6H PRN IV ITCHING Last administered on 03:12; Admin Dose 25 MG; Start 10/11/16 at 13:00; Status Future Hold Oxycodone HCl (Roxicodone) 5 mg Q4 PRN PO PAIN Last administered on 10/13/16 18 :46; Admin Dose 5 MG; Start 10/13/16 at 19:00 Acetaminophen (Tylenol Liquid) 650 mg Q4H PRN GTB PAIN AND OR ELEVATED TEMP Last administered on 10/14/16 04:56; Admin Dose 650 MG; Start 10/14/16 at 03:00 Hydromorphone HCl (Dilaudid) 1 mg Q4H PRN IV PAIN Last administered on 13:47; Admin Dose 1 MG; Start 10/14/16 at 09:00 Lorazepam 0.5 mg 0.5 mg Q6H PRN IV agitation; Start 10/15/16 at 12:20 Sodium Chloride (NS) 1,000 ml @ 20 mls/hr Q24H IV Last administered on 08:24; Admin Dose 20 MLS/HR; Start 10/16/16 at 05:00 Scopolamine (Transderm-Scop) 1 patch Q72H TRANSDERM Last administered on 21:19; Admin Dose 1 PATCH; Start 10/16/16 at 21:00 MITA ZAMBRANO MD Oct 18, 2016 14:26
[2016-10-18 15:14] VITALS: BP 141/67; RESP 21
[2016-10-18] MEDS: LORAZEPAM 2 MG INJ IV PRN (17:14)
--- NOTE | 2016-10-18 21:07 | CONS ---
Date/Time of Note Date/Time of Note DATE: 10/18/16 TIME: 21:04 Assessment/Plan Assessment/Plan Additional Assessment/Plan 1. Acute right posterior frontal lobe parenchymal hematoma and moderate intraventricular hemorrhage. 2. Non Oliguric acute kidney injury due to ATN From sepsis with metabolic acidosis 2. Non-ST elevation myocardial infarction 4. Sepsis due to Acute GNR UTI and bacteremia, , Urine cx grow E.Coli 5. Bacteremia with Blood cx growing coag neg staph 6. Essential hypertension 6. ETOH Liver Cirrhosis associated w/thrombocytopenia, transaminitis, hyperbilirubinemia 7. Normocytic, normochromic anemia 8. Hypothyroidism 9. Hypernatremia due to large free water deficit Plan: continue current care , Continue IV abx As per PMD and ID service Due to patient age, Comorbidities, Current Admissin for ICH and gradual decline in her mental status, pt is not a candidate for Renal replacement therapy if renal function worsens, so we will not recommend to have dialysis in future if pt condition continues to deteriorate and renal function worsens. Discussed with family at bedside. will continue to follow up Plan of care tammie Villatoro/staff/daughter Consultation Date/Type/Reason Admit Date/Time Oct 09, 2016 at 08:26 Initial Consult Date 10/13/16 Type of Consultation: Pulm Referring Provider: MILTON FARIAS 24 HR Interval Summary Free Text/Dictation late entry 1136 am resting, comfortable. moves her head when in pain, pain med, Ativan, Scopolamine , Dilaudid are effective. Daughter at bed side- all Qs answered. dw staff Constitutional: requiring IVF, requiring O2 Exam/Review of Systems Vital Signs Vitals Vital Signs Date Time Temp Pulse Resp B/P Pulse Ox O2 Delivery O2 Flow Rate FiO2 10/18/16 15:14 98.9 89 21 141/67 96 10/18/16 10:37 4.0 10/18/16 08:00 Nasal Cannula 10/15/16 02:17 33 Intake and Output 10/17/16 10/17/16 10/18/16 15:00 23:00 07:00 Intake Total 240 ml 220 ml Output Total 450 ml 350 ml Balance -210 ml -130 ml Exam Constitutional: well developed Respiratory: diminished breath sounds Cardiovascular: nl pulses Gastrointestinal: non-tender, soft Musculoskeletal: nl extremities to inspection Extremities: normal pulses Neurological: lethargic, other (moves when in pain) Results Result Diagram: 10/15/16 0435 10/15/16 0435 Results 24 hrs Laboratory Tests Test 10/18/16 09:04 10/18/16 12:23 10/18/16 17:30 Bedside Glucose 82 90 90 Medications Medications Current Medications Ondansetron HCl (Zofran Inj) 4 mg Q6H PRN IV NAUSEA AND/OR VOMITING Last administered on 10/12/16 21:50; Admin Dose 4 MG; Start 10/09/16 at 10:30 IV Flush (NS 10 ml) 10 ml PRN PRN IV FLUSH LINE; Start 10/09/16 at 15:30 Diphenhydramine HCl (Benadryl) 25 mg Q6H PRN IV ITCHING Last administered on 03:12; Admin Dose 25 MG; Start 10/11/16 at 13:00; Status Future Hold Oxycodone HCl (Roxicodone) 5 mg Q4 PRN PO PAIN Last administered on 10/13/16 18 :46; Admin Dose 5 MG; Start 10/13/16 at 19:00 Acetaminophen (Tylenol Liquid) 650 mg Q4H PRN GTB PAIN AND OR ELEVATED TEMP Last administered on 10/14/16 04:56; Admin Dose 650 MG; Start 10/14/16 at 03:00 Hydromorphone HCl (Dilaudid) 1 mg Q4H PRN IV PAIN Last administered on 13:47; Admin Dose 1 MG; Start 10/14/16 at 09:00 Lorazepam 0.5 mg 0.5 mg Q6H PRN IV agitation Last administered on 10/18/16 17: 14; Admin Dose 0.5 MG; Start 10/15/16 at 12:20 Sodium Chloride (NS) 1,000 ml @ 20 mls/hr Q24H IV Last administered on 08:24; Admin Dose 20 MLS/HR; Start 10/16/16 at 05:00 Scopolamine (Transderm-Scop) 1 patch Q72H TRANSDERM Last administered on 21:19; Admin Dose 1 PATCH; Start 10/16/16 at 21:00 SUNSHINE PITTS Oct 18, 2016 21:07
[2016-10-18 23:00] VITALS: BP 125/62; RESP 20
[2016-10-19] MEDS: HYDROmorphONE 1 MG/ML SYG IV PRN ×4 (01:46→17:56)
[2016-10-19 02:54] VITALS: BP 133/64; RESP 18
[2016-10-19] MEDS: SOD CHLORIDE 0.9% 1,000 ML IV SCH ×2 (04:04→20:34)
[2016-10-19] MEDS: LORAZEPAM 2 MG INJ IV PRN ×2 (04:30→21:20)
[2016-10-19 08:58] VITALS: BP 131/58; RESP 21
--- NOTE | 2016-10-19 10:00 | CONS ---
Date/Time of Note Date/Time of Note DATE: 10/19/16 TIME: 09:58 Assessment/Plan Assessment/Plan Additional Assessment/Plan 1. Acute right posterior frontal lobe parenchymal hematoma and moderate intraventricular hemorrhage. 2. Non Oliguric acute kidney injury due to ATN From sepsis with metabolic acidosis 2. Non-ST elevation myocardial infarction 4. Sepsis due to Acute GNR UTI and bacteremia, , Urine cx grow E.Coli 5. Bacteremia with Blood cx growing coag neg staph 6. Essential hypertension 6. ETOH Liver Cirrhosis associated w/thrombocytopenia, transaminitis, hyperbilirubinemia 7. Normocytic, normochromic anemia 8. Hypothyroidism 9. Hypernatremia due to large free water deficit Plan: continue current care , Continue IV abx As per PMD and ID service Due to patient age, Comorbidities, Current Admissin for ICH and gradual decline in her mental status, pt is not a candidate for Renal replacement therapy if renal function worsens, so we will not recommend to have dialysis in future if pt condition continues to deteriorate and renal function worsens. Discussed with family at bedside. will continue to follow up Plan of care dw Dr Amairani Villatoro/staff Consultation Date/Type/Reason Admit Date/Time Oct 09, 2016 at 08:26 Initial Consult Date 10/13/16 Type of Consultation: Pulm Referring Provider: MILTON FARIAS 24 HR Interval Summary Free Text/Dictation resting, comfortable, Ativan, Scopolamine, Dilaudid are effective. dw staff Subjective hx not possible: pt non-verbal Constitutional: requiring IVF, requiring O2 Exam/Review of Systems Vital Signs Vitals Vital Signs Date Time Temp Pulse Resp B/P Pulse Ox O2 Delivery O2 Flow Rate FiO2 10/19/16 08:58 99.0 91 21 131/58 98 10/18/16 20:00 Nasal Cannula 4.0 Intake and Output 10/18/16 10/18/16 10/19/16 15:00 23:00 07:00 Intake Total 100 ml 0 ml 200 ml Output Total 500 ml 400 ml Balance 100 ml -500 ml -200 ml Exam Constitutional: non-verbal Respiratory: clear to auscultation, diminished breath sounds Cardiovascular: nl pulses, regular rate and rhythm Gastrointestinal: non-tender, soft Musculoskeletal: nl extremities to inspection Extremities: normal pulses Neurological: lethargic Results Result Diagram: 10/15/16 0435 10/15/16 0435 Results 24 hrs Laboratory Tests Test 10/18/16 12:23 10/18/16 17:30 Bedside Glucose 90 90 Medications Medications Current Medications Ondansetron HCl (Zofran Inj) 4 mg Q6H PRN IV NAUSEA AND/OR VOMITING Last administered on 10/12/16 21:50; Admin Dose 4 MG; Start 10/09/16 at 10:30 IV Flush (NS 10 ml) 10 ml PRN PRN IV FLUSH LINE; Start 10/09/16 at 15:30 Diphenhydramine HCl (Benadryl) 25 mg Q6H PRN IV ITCHING Last administered on 03:12; Admin Dose 25 MG; Start 10/11/16 at 13:00; Status Future Hold Oxycodone HCl (Roxicodone) 5 mg Q4 PRN PO PAIN Last administered on 10/13/16 18 :46; Admin Dose 5 MG; Start 10/13/16 at 19:00 Acetaminophen (Tylenol Liquid) 650 mg Q4H PRN GTB PAIN AND OR ELEVATED TEMP Last administered on 10/14/16 04:56; Admin Dose 650 MG; Start 10/14/16 at 03:00 Hydromorphone HCl (Dilaudid) 1 mg Q4H PRN IV PAIN Last administered on 09:12; Admin Dose 1 MG; Start 10/14/16 at 09:00 Lorazepam 0.5 mg 0.5 mg Q6H PRN IV agitation Last administered on 10/19/16 04: 30; Admin Dose 0.5 MG; Start 10/15/16 at 12:20 Sodium Chloride (NS) 1,000 ml @ 20 mls/hr Q24H IV Last administered on 08:24; Admin Dose 20 MLS/HR; Start 10/16/16 at 05:00 Scopolamine (Transderm-Scop) 1 patch Q72H TRANSDERM Last administered on 21:19; Admin Dose 1 PATCH; Start 10/16/16 at 21:00 SUNSHINE PITTS Oct 19, 2016 10:00
[2016-10-19 15:23] VITALS: BP 149/65; RESP 20
--- NOTE | 2016-10-19 15:58 | PN ---
Date/Time of Note Date/Time of Note DATE: 10/19/16 TIME: 15:54 Assessment/Plan VTE Prophylaxis VTE Prophylaxis Intervention: other Lines/Catheters IV Catheter Type (from Nrsg): PICC Line Central line still needed: Yes Urinary Cath still in place: Yes Reason Cath still needed: other (indicate) Assessment/Plan Assessment/Plan (1) Intraparenchymal hemorrhage of brain (2) Hypertension (3) Diabetes mellitus type 2 in obese (4) Cirrhosis of liver Plan: Case and plan discussed with family, and hospice care team, family will decide either go home with hospice care or go to SNF with hospice Subjective 24 Hr Interval Summary Free Text/Dictation comfortable. no distress. nonverbal Exam/Review of Systems Vital Signs Vitals Vital Signs Date Time Temp Pulse Resp B/P Pulse Ox O2 Delivery O2 Flow Rate FiO2 10/19/16 15:23 97.4 88 20 149/65 98 10/19/16 10:53 Nasal Cannula 4.0 Intake and Output 10/18/16 10/18/16 10/19/16 15:00 23:00 07:00 Intake Total 100 ml 0 ml 200 ml Output Total 500 ml 400 ml Balance 100 ml -500 ml -200 ml Exam Constitutional: non-verbal Eyes: EOMI, PERRL, nl conjunctiva, nl lids ENMT: nl external ears & nose, nl lips & teeth, nl nasal mucosa & septum Neck: supple Respiratory: clear to auscultation, normal air movement, No congested cough, No crackles/rales, No diminished breath sounds, No intercostal retraction, No labored breathing, No other, No respirations, No tactile fremitus, No wheezing Cardiovascular: nl pulses, regular rate and rhythm, No S3, No S4, No bruits, No diastolic murmur, No edema, No gallop, No irregular rhythm, No jugular venous distention (JVD), No murmurs/extra sounds, No other, No rub, No systolic murmur Gastrointestinal: nl liver, spleen, non-tender, soft Musculoskeletal: nl extremities to inspection Extremities: normal pulses Neurological: confused, lethargic Results Result Diagram: 10/15/16 0435 10/15/16 0435 Results 24 hrs Laboratory Tests Test 10/18/16 17:30 Bedside Glucose 90 Medications Medications Current Medications Ondansetron HCl (Zofran Inj) 4 mg Q6H PRN IV NAUSEA AND/OR VOMITING Last administered on 10/12/16 21:50; Admin Dose 4 MG; Start 10/09/16 at 10:30 IV Flush (NS 10 ml) 10 ml PRN PRN IV FLUSH LINE; Start 10/09/16 at 15:30 Diphenhydramine HCl (Benadryl) 25 mg Q6H PRN IV ITCHING Last administered on 03:12; Admin Dose 25 MG; Start 10/11/16 at 13:00; Status Future Hold Oxycodone HCl (Roxicodone) 5 mg Q4 PRN PO PAIN Last administered on 10/13/16 18 :46; Admin Dose 5 MG; Start 10/13/16 at 19:00 Acetaminophen (Tylenol Liquid) 650 mg Q4H PRN GTB PAIN AND OR ELEVATED TEMP Last administered on 10/14/16 04:56; Admin Dose 650 MG; Start 10/14/16 at 03:00 Hydromorphone HCl (Dilaudid) 1 mg Q4H PRN IV PAIN Last administered on 13:48; Admin Dose 1 MG; Start 10/14/16 at 09:00 Lorazepam 0.5 mg 0.5 mg Q6H PRN IV agitation Last administered on 10/19/16 04: 30; Admin Dose 0.5 MG; Start 10/15/16 at 12:20 Sodium Chloride (NS) 1,000 ml @ 20 mls/hr Q24H IV Last administered on 08:24; Admin Dose 20 MLS/HR; Start 10/16/16 at 05:00 Scopolamine (Transderm-Scop) 1 patch Q72H TRANSDERM Last administered on 21:19; Admin Dose 1 PATCH; Start 10/16/16 at 21:00 MITA ZAMBRANO MD Oct 19, 2016 15:57
[2016-10-19] MEDS: SCOPOLAMINE 1.5 MG PATCH TRANSDERM SCH (20:26)
[2016-10-19 20:45] VITALS: BP 158/79; RESP 18
[2016-10-20] MEDS: HYDROmorphONE 1 MG/ML SYG IV PRN ×6 (00:32→22:03)
[2016-10-20 02:13] VITALS: BP 142/79; RESP 18
[2016-10-20 07:45] VITALS: BP 157/79; RESP 12
[2016-10-20 14:10] VITALS: BP 175/89; RESP 14
--- NOTE | 2016-10-20 15:36 | DS ---
Date/Time of Note Date/Time of Note DATE: 10/20/16 TIME: 15:26 Discharge Summary Admission/Discharge Info Admit Date/Time Oct 09, 2016 at 08:26 Discharge Date/Time Discharge Diagnosis (1) Intraparenchymal hemorrhage of brain, on hospice care (2) Hypertension (3) Diabetes mellitus type 2 in obese (4) Cirrhosis of liver, alcoholic liver disease (5) Non ST elevation [place] (6) h/o SLE (7) Aspiration pneumonia (8) [place]rinay tract infection Patient Condition: Critical Consults 1. Bryon Leong MD, Neurosurgery 2. Kleber Cleveland MD, Cardiology. Hx of Present Illness This is a 75-year-old female with past medical history of essential hypertension, systemic lupus erythematosus, hypothyroidism, and liver cirrhosis not because of alcohol abuse who was brought to the emergency room by paramedics after the patient was found on the floor at home. As per the patient 's daughter who was at the bedside, the patient has been feeling sick with diarrhea for the past 1 week. The patient also started having abdominal pain since last night. The patient's family was unable to reach the patient since the patient was sick. The patient managed to call one of her restorationist friends at 4 AM in the morning. The patient's friend arrived at the patient's house at 5: 30 AM and she could not have the patient open the door. Hence the patient's friend called the paramedics. Paramedics broke into the patient's house and the patient was found on the ground with left-sided weakness. The patient also had slurred speech. The patient was complaining of moderate crampy generalized abdominal pain. The patient reported one episode of nonbilious nonbloody vomiting. The patient verbalized that she has been having watery diarrhea for the past 1 week. The patient denied any chest pain, palpitations, or dyspnea. In the emergency room, the patient was noticed to have significant leukocytosis with a WBC of 26.2. Patient had a platelet count of 76. Patient was also noticed to have anemia with a hemoglobin and hematocrit of 9.9 and 29.5 respectively. The patient had underlying lactic acidosis with a lactic acid level of 7.7. The patient also had some underlying acute kidney injury with a BUN of 20 and creatinine of 1.15. The patient had an initial troponin of 0.122. The patient had minimal hyperbilirubinemia with some transaminitis. The patient underwent a brain CT scan that showed right posterior frontal lobe parenchymal hematoma with mild adjacent edema with no midline shift. The CT also revealed moderate intra-ventricular hemorrhage. The patient underwent a CT scan of the abdomen and pelvis that showed mild thickening of the colon which may represent nonspecific infectious/inflammatory colitis with sigmoid diverticulosis without evidence of diverticulitis along with a cirrhotic liver. The patient was treated with a single dose of IV vancomycin and levofloxacin along with single dose of IV Keppra. The patient is allergic to penicillin. Neurosurgery consult was called by the ER physician. Hospital Course Patient was found of having intracranial hemarrhage, aspiration pneumonia, urinary tract infection and nonST elevation [place]. Patient's condition is not improving with aggressive treatment. Family decides comfort care then hospice care. Patient is comfortable and she will be transferred to senior living to continue on hospice care. Home Meds Discontinued Reported Medications Hydroxychloroquine Sulfate* (Hydroxychloroquine Sulfate*) 200 Mg Tablet, 200 MG PO BID, TAB 10/09/16 Pantoprazole* (Protonix*) 40 Mg Tablet.dr, 40 MG PO DAILY, TAB 10/09/16 Losartan Potassium* (Losartan Potassium*) 100 Mg Tablet, 100 MG PO DAILY, TAB 10/09/16 Levothyroxine Sodium* (Levoxyl*) 125 Mcg Tablet, 125 MCG PO BEFORE BREAKFAST, # 30 TAB 10/09/16 Follow-up Plan hospice care team Primary Care Provider Not On Staff Doctor MITA ZAMBRANO MD Oct 20, 2016 15:36
[2016-10-20 20:00] VITALS: BP 142/72; RESP 18
[2016-10-20] MEDS: LORAZEPAM 2 MG INJ IV PRN (20:17)
[2016-10-20] MEDS: ONDANSETRON 4 MG INJ IV PRN (22:02)
[2016-10-21 02:56] VITALS: BP 121/60; RESP 21
[2016-10-21] MEDS: SOD CHLORIDE 0.9% 1,000 ML IV SCH (05:00)
[2016-10-21] MEDS: HYDROmorphONE 1 MG/ML SYG IV PRN ×3 (05:37→12:18)
[2016-10-21 08:18] VITALS: BP 140/76; RESP 18
--- NOTE | 2016-10-21 15:28 | DS ---
Date/Time of Note Date/Time of Note DATE: 10/21/16 TIME: 15:26 Discharge Summary Admission/Discharge Info Admit Date/Time Oct 09, 2016 at 08:26 Discharge Date/Time Oct 21, 2016 at 12:30 Discharge Diagnosis (1) Intraparenchymal hemorrhage of brain, on hospice care (2) Hypertension (3) Diabetes mellitus type 2 in obese (4) Cirrhosis of liver, alcoholic liver disease (5) Non ST elevation [place] (6) h/o SLE (7) Aspiration pneumonia (8) Urinay tract infection Patient Condition: Stable Hx of Present Illness This is a 75-year-old female with past medical history of essential hypertension, systemic lupus erythematosus, hypothyroidism, and liver cirrhosis not because of alcohol abuse who was brought to the emergency room by paramedics after the patient was found on the floor at home. As per the patient 's daughter who was at the bedside, the patient has been feeling sick with diarrhea for the past 1 week. The patient also started having abdominal pain since last night. The patient's family was unable to reach the patient since the patient was sick. The patient managed to call one of her confucianism friends at 4 AM in the morning. The patient's friend arrived at the patient's house at 5: 30 AM and she could not have the patient open the door. Hence the patient's friend called the paramedics. Paramedics broke into the patient's house and the patient was found on the ground with left-sided weakness. The patient also had slurred speech. The patient was complaining of moderate crampy generalized abdominal pain. The patient reported one episode of nonbilious nonbloody vomiting. The patient verbalized that she has been having watery diarrhea for the past 1 week. The patient denied any chest pain, palpitations, or dyspnea. In the emergency room, the patient was noticed to have significant leukocytosis with a WBC of 26.2. Patient had a platelet count of 76. Patient was also noticed to have anemia with a hemoglobin and hematocrit of 9.9 and 29.5 respectively. The patient had underlying lactic acidosis with a lactic acid level of 7.7. The patient also had some underlying acute kidney injury with a BUN of 20 and creatinine of 1.15. The patient had an initial troponin of 0.122. The patient had minimal hyperbilirubinemia with some transaminitis. The patient underwent a brain CT scan that showed right posterior frontal lobe parenchymal hematoma with mild adjacent edema with no midline shift. The CT also revealed moderate intra-ventricular hemorrhage. The patient underwent a CT scan of the abdomen and pelvis that showed mild thickening of the colon which may represent nonspecific infectious/inflammatory colitis with sigmoid diverticulosis without evidence of diverticulitis along with a cirrhotic liver. The patient was treated with a single dose of IV vancomycin and levofloxacin along with single dose of IV Keppra. The patient is allergic to penicillin. Neurosurgery consult was called by the ER physician. Hospital Course Patient was found of having intracranial hemarrhage, aspiration pneumonia, urinary tract infection and nonST elevation [place]. Patient's condition is not improving with aggressive treatment. Family decides comfort care then hospice care. Patient is comfortable and she will be transferred to [facility] to continue on hospice care. Sue mckee was discharged on 10/20/2016 nut no SNF available. Patient is transferred to [facility] today with Hospice care. Home Meds Discontinued Reported Medications Hydroxychloroquine Sulfate* (Hydroxychloroquine Sulfate*) 200 Mg Tablet, 200 MG PO BID, TAB 10/09/16 Pantoprazole* (Protonix*) 40 Mg Tablet.dr, 40 MG PO DAILY, TAB 10/09/16 Losartan Potassium* (Losartan Potassium*) 100 Mg Tablet, 100 MG PO DAILY, TAB 10/09/16 Levothyroxine Sodium* (Levoxyl*) 125 Mcg Tablet, 125 MCG PO BEFORE BREAKFAST, # 30 TAB 10/09/16 Primary Care Provider Not On Staff Doctor MITA ZAMBRANO MD Oct 21, 2016 15:28
== END 2016-10-21 12:30 | DRG 82 ==
LOC: E/R 05:57 → ICU 08:26 → PP2 10-15 23:01
PROVIDERS: ADMIT Family Medicine; ATTEND Family Medicine
PROC: 02H633Z Insertion of Infusion Device into Right Atrium, Percutaneous Approach (ICD-10-PCS; principal; 2016-10-09)
PROC: 30233K1 Transfusion of Nonautologous Frozen Plasma into Peripheral Vein, Percutaneous Approach (ICD-10-PCS; 2016-10-09)
PROC: 30233R1 Transfusion of Nonautologous Platelets into Peripheral Vein, Percutaneous Approach (ICD-10-PCS; 2016-10-09)
PROC: 30233N1 Transfusion of Nonautologous Red Blood Cells into Peripheral Vein, Percutaneous Approach (ICD-10-PCS; 2016-10-11)
DX: S06.369A Traumatic hemorrhage of cerebrum, unspecified, with loss of consciousness of unspecified duration, initial encounter (principal); I21.4 Non-ST elevation (NSTEMI) myocardial infarction; A41.50 Gram-negative sepsis, unspecified; G93.6 Cerebral edema; J96.91 Respiratory failure, unspecified with hypoxia; D69.59 Other secondary thrombocytopenia; E87.2 Acidosis; N17.0 Acute kidney failure with tubular necrosis; J69.0 Pneumonitis due to inhalation of food and vomit; K72.00 Acute and subacute hepatic failure without coma; D68.4 Acquired coagulation factor deficiency; G81.94 Hemiplegia, unspecified affecting left nondominant side; N39.0 Urinary tract infection, site not specified; E87.0 Hyperosmolality and hypernatremia; Z66 Do not resuscitate; M32.9 Systemic lupus erythematosus, unspecified; K74.69 Other cirrhosis of liver; D64.9 Anemia, unspecified; K52.9 Noninfective gastroenteritis and colitis, unspecified; E11.9 Type 2 diabetes mellitus without complications; E03.9 Hypothyroidism, unspecified; I10 Essential (primary) hypertension; B96.20 Unspecified Escherichia coli [E. coli] as the cause of diseases classified elsewhere; W18.30XA Fall on same level, unspecified, initial encounter; Y92.009 Unspecified place in unspecified non-institutional (private) residence as the place of occurrence of the external cause; Z87.891 Personal history of nicotine dependence
CPT/HCPCS: 36415; 36430; 36569; 36600; 70450; 70496; 70553; 71010; 72125; 72170; 74176; 76705; 76937; 80048; 80053; 80061; 80202; 80306; 80307; 81001; 82140; 82270; 82306; 82550; 82553; 82652; 82728; 82803; 82962; 83010; 83036; 83540; 83605; 83690; 83735; 83880; 84100; 84439; 84443; 84484; 85025; 85240; 85335; 85378; 85384; 85576; 85610; 85651; 85730; 86022; 86850; 86900; 86901; 86920; 86945; 87040; 87045; 87075; 87081; 87086; 92610; 93005; 93306; 94640; 94660; 96374; 96375; J1940; C1769; C9113; J0360; J0692; J1170; J1200; J1953; J1956; J2060; J2270; J2405; J2920; J3370; J3475; J3480; J7030; J7040; J7060; J7070; P9016; P9035; P9047; P9059; Q9967